=== PATIENT | female | born 1940 | race Caucasian/White ===

== ENCOUNTER 2023-08-02 11:16 | Outpatient (REF) | payer MEDICARE, SELFPAY ==
[2023-08-02 12:04] LABS: Bilirubin Urine NEGATIVE (NEGATIVE); Blood Urine SMALL (NEGATIVE); Clarity Urine CLEAR (CLEAR); Color Urine LT. YELLOW (YELLOW); Glucose Urine UA NEGATIVE (NEGATIVE); Ketones Urine NEGATIVE (NEGATIVE); Leukocyte Esterase Urine LARGE (NEGATIVE); Nitrite Urine NEGATIVE (NEGATIVE); Protein Urine NEGATIVE (NEG/TRACE); Specific Gravity Urine 1.015 (1.005-1.025); Urobilinogen Urine 0.2 EU/dL (0.2-1.0); pH Urine 8.5 (5.0-9.0)
[2023-08-02 12:26] LABS: RBC Urine 0-2 #/HPF (0-2)
[2023-08-02 12:27] LABS: Bacteria Urine MODERATE #/HPF (NONE SEEN); Crystals Seen? Seen #/HPF (None Seen); Mucus Urine NONE SEEN (NONE SEEN); Squamous Epithelial Cell Urine FEW #/LPF (NONE/RARE)
[2023-08-02 12:29] LABS: Amorphous Sediment Urine FEW
== END 2023-08-02 11:17 | disposition home or self-care (01) ==
LOC: LAB 11:16
PROVIDERS: PCP Nurse Practitioner Family; Visit Provider Family Medicine
DX: N39.0 Urinary tract infection, site not specified (principal)
CPT/HCPCS: 81001; 87086

== ENCOUNTER 2024-04-15 10:28 | Inpatient (IN) | payer MEDICARE, SELFPAY ==
[2024-04-15 10:33] VITALS: BP 104/78; PULSE 80; TEMP 36.8; O2SAT 95; BMI 29.3
--- NOTE | 2024-04-15 10:47 | XR_ITS ---
The [address] [address] Patient Name: MEGAN HERRON MRN: [id number] date: 1940 Sex: F Assigned Patient Location: ER Current Patient Location: ER Accession/Order Number: [id number] Exam Date: 04/15/2024 11:00 Report Date: 04/15/2024 11:55 At the request of: ANAHI WATERS Procedure: XR chest 2V EXAMINATION: XR chest 2V HISTORY: weak COMPARISON: 08/27/2021 TECHNIQUE: PA and lateral FINDINGS: LUNGS: Near complete opacification of the left hemithorax obscuring the hemidiaphragm and heart border. The right lung is clear VASCULATURE: No increased pulmonary vasculature. PLEURA: No pneumothorax CARDIAC: No cardiomegaly or cardiac silhouette abnormality. MEDIASTINUM: No visible mass or adenopathy. BONES: No fracture or visible bone lesion. OTHER: Aortic endograft XR/XR chest 2V IMPRESSION: Near-complete opacification of the left lung, mass versus consolidation versus effusion Electronically authenticated by: NIKI CAREY Date: 04/15/2024 11:55
--- NOTE | 2024-04-15 10:49 | ED_ITS ---
HPI HPI - General Adult General Chief complaint: Weakness Stated complaint: GENERAL WEAKNESS Time Seen by Provider: 04/15/24 10:46 Source: patient and family Mode of arrival: Wheelchair History of Present Illness HPI narrative: Patient is a 83-year-old female Who is presenting to the ER today with chief complaint Generalized weakness for the past 10 days. Patient's had no nausea, vomiting, diarrhea. No fever or chills. No headache.No chest pain, Patient has had mild shortness of breath With exertion. With patient's shortness of breath, She does not wear any Oxygen at home. Patient does live at home with her daughter. Patient uses a walker.. Patient's had no recent falls. No other acute complaints.Patient was hypoxic on room air at 88%. All systems are negative except as noted/marked. All systems reviewed and otherwise negative. Nurses note and vital signs reviewed and patient is Hypoxic at 88% room air General: The patient appears well and in no apparent distress. Patient is resting comfortably on cart. Patient is not toxic, lethargic, or listless Skin: Warm, dry, no pallor noted. There is no rash noted. No petechiae, purpura. Head: Normocephalic, atraumatic Eye: Normal conjunctiva, no drainage, EOMI. PERRL Ears, Nose, Mouth, and Throat: oral mucosa is dry. Nares patent. Mouth without vesicles. Cardiovascular: Regular Rate and Rhythm, no murmur, gallop, rub Respiratory: Patient is in no distress, no accessory muscle use, lungs are clear to auscultation, no wheezing, rales or rhonchi Back: non-tender, no CVA tenderness bilaterally to percussion. No CT LS midline pain GI: no tenderness to palpation, no masses appreciated. No rebound, guarding, or rigidity noted. No distention Musculoskeletal: Patient has full range of motion of all of the extremities, no motor, sensory, or focal neurological deficits Neurological: A&O x4, normal speech Psychiatric: Cooperative Related Data Home Medications ?Medication ?Instructions ?Recorded ?Confirmed amiodarone 200 mg tablet 200 mg PO DAILY 04/15/24 04/15/24 docusate sodium 100 mg capsule 100 mg PO DAILY 04/15/24 04/15/24 (Colace) furosemide 40 mg tablet 40 mg PO DAILY 04/15/24 04/15/24 metoprolol tartrate 25 mg tablet 25 mg PO BID 04/15/24 04/15/24 potassium chloride 20 mEq 20 meq PO BID 04/15/24 04/15/24 tablet,extended release(part/cryst) trazodone 50 mg tablet 100 mg PO QPM 04/15/24 04/15/24 Allergies Allergy/AdvReac Type Severity Reaction Status Date / Time No Known Drug Allergies Allergy Verified 04/15/24 10:37 Opioid HPI Opioid Management Most Recent Opioid Data: Last Pain Assessment 04/15/24 19:00 Last ORT Total Score 4 04/15/24 15:09 Last ORT Risk Category Moderate Risk 04/15/24 15:09 [facility] Medical History (Updated 04/15/24 @ 15:18 by Debra Puentes RN) Prolapsed bladder Weakness ?R53.1 - Weakness (ICD-10) Lung mass ?R91.8 - Other nonspecific abnormal finding of lung field (ICD-10) Thoracic aortic aneurysm without rupture ?I71.20 - Thoracic aortic aneurysm, without rupture, unspecified (ICD-10) CHF (congestive heart failure) ?I50.9 - Heart failure, unspecified (ICD-10) Afib ?I48.91 - Unspecified atrial fibrillation (ICD-10) Family History (Updated 04/15/24 @ 15:19 by Debra Puentes RN) Sister Family history of cancer Mother Family history of CHF (congestive heart failure) Aunt Family history of CHF (congestive heart failure) Social History (Updated 04/15/24 @ 15:20 by Debra Puentes RN) Within the past year, how often did you have a drink containing alcohol: monthly or less Smoking status: Former smoker Non-prescribed substance use: denies use Highest level of school completed/degree received: high school graduate Exam Constitutional Vital Signs, click to edit/add: Last Vital Signs Temp 98.1 F 04/15/24 15:09 Pulse 71 04/15/24 15:09 Resp 18 04/15/24 15:09 BP 153/86 H 04/15/24 15:09 Pulse Ox 89 L 04/15/24 15:09 O2 Del Method Nasal Cannula 04/15/24 15:09 O2 Flow Rate 2 04/15/24 15:09 Course Vital Signs Vital signs: Vital Signs Temperature 98.2 F 04/15/24 10:33 Pulse Rate 80 04/15/24 10:33 Respiratory Rate 20 04/15/24 10:33 Blood Pressure 104/78 04/15/24 10:33 Pulse Oximetry 95 04/15/24 10:33 Oxygen Delivery Method Room Air 04/15/24 10:33 Temperature 98.1 F 04/15/24 15:09 Pulse Rate 71 04/15/24 15:09 Respiratory Rate 18 04/15/24 15:09 Blood Pressure 153/86 H 04/15/24 15:09 Pulse Oximetry 89 L 04/15/24 15:09 Oxygen Delivery Method Nasal Cannula 04/15/24 15:09 Oxygen Delivery Flow Rate 2 04/15/24 15:09 Medical Decision Making MDM Narrative Medical decision making narrative: Patient left lung has complete opacification and there is question of mass versus consolidation versus effusion. Patient has no signs of acute infection, cough or infiltrate. Patient does not have fluid in her left lung before.Patient has been told that she has nodules in her left lung before, but nothing specific. I did speak to her son on the phone as well, Dr. Presley Who is an ER physician as well. Patient will be admitted secondary to hypoxia and opacification of left lung. Patient will be admitted to Dr. De León CTA Of the chest, abdomen, pelvis has been ordered For reevaluation of mass versus effusion to the left lung, also secondary to Evaluation of thoracic aneurysm repair to the thoracic aorta.Patient was concerned about her repair, patient is not showing any significant symptoms or problems with her left thoracic Aneurysm but this will be ordered to reevaluate. Patient's son Dr. Presley was thankful as well. Dr. De León will follow-up with the results Lab Data Lab results reviewed: Yes I reviewed the patient's lab results Labs: Lab Results 04/15/24 Range/Units 10:38 WBC 9.5 (4.0-11.0) 10^3/uL RBC 4.09 L (4.20-5.40) 10^6/uL Hgb 12.2 (12.0-16.0) g/dL Hct 38.4 (36.0-48.0) % MCV 93.9 (81.0-99.0) fL MCH 29.8 (26.7-34.0) pg MCHC 31.8 (29.9-35.2) g/dL RDW 13.6 (11.0-15.0) % Plt Count 402 (150-450) 10^3/uL MPV 9.9 (9.5-13.5) fL Neut % (Auto) 73.8 (43.0-75.0) % Lymph % (Auto) 15.9 L (20.5-60.0) % [place] % (Auto) 8.8 (1.7-12.0) % Eos % (Auto) 0.8 L (0.9-7.0) % Baso % (Auto) 0.4 (0.2-2.0) % Neut # (Auto) 7.0 H (1.4-6.5) 10^3/uL Lymph # (Auto) 1.5 (1.2-3.8) 10^3/uL [place] # (Auto) 0.8 (0.3-0.8) 10^3/uL Eos # (Auto) 0.1 (0.0-0.7) 10^3/uL Baso # (Auto) 0.0 (0.0-0.1) 10^3/uL Abs Immat Gran (auto) 0.03 (0.00-0.03) 10^3/uL Imm/Tot Granulo (auto) 0.3 (0.0-0.5) % ESR 87 H (<=30) mm/hr PT 10.9 (9.0-11.6) sec INR 1.03 APTT 31.0 (22.3-36.2) sec Sodium 137 (136-145) mmol/L Potassium 3.6 (3.5-5.1) mmol/L Chloride 98 (98-107) mmol/L Carbon Dioxide 32.7 H (21.0-32.0) mmol/L Anion Gap 9.9 BUN 18.0 (7.0-18.0) mg/dL Creatinine 1.04 H (0.55-1.02) mg/dL Est GFR ( Amer) >60 (>=60) Est GFR (Non-Af Amer) 50 L (>=60) BUN/Creatinine Ratio 17.3 Glucose 111 H (74-106) mg/dL Lactate 1.7 (0.4-2.0) mmol/L Calcium 9.0 (8.5-10.1) mg/dL Magnesium 2.4 (1.8-2.4) mg/dL Total Bilirubin 0.7 (0.2-1.0) mg/dL AST 23 (15-37) U/L ALT 16 (14-59) U/L Alkaline Phosphatase 86 (46-116) U/L Troponin I High Sens 6.9 (4.0-51.3) pg/mL C-Reactive Protein 8.58 H (<=0.50) mg/dL NT-Pro-B Natriuret Pep 1336.0 (<=1800.0) pg/mL Total Protein 7.4 (6.4-8.2) g/dL Albumin 2.8 L (3.4-5.0) g/dL Globulin 4.6 g/dL Albumin/Globulin Ratio 0.6 Lipase 18.0 (16.0-77.0) U/L TSH 1.910 (0.358-3.740) uIU/mL Thyroxine (T4) 12.30 (4.80-13.90) ug/dL Free T3 1.99 L (2.18-3.98) pg/mL Imaging Data CT scan - pelvis: Radiologist's impression: ITS Impressions Chest X-Ray 04/15/24 10:47 IMPRESSION: Near-complete opacification of the left lung, mass versus consolidation versus effusion Electronically authenticated by: NIKI CAREY Date: 04/15/2024 11:55 ECG Data Attestation: I personally reviewed and interpreted this ECG as follows: (EKG interpretation. Normal sinus rhythm 81 beats a minute. Left axis deviation. No acute ST elevation, no acute ectopy. QTc of 441) Discharge Plan Discharge Chief Complaint: Weakness Clinical Impression: Hypoxia, Pleural effusion Patient Disposition: Admitted As Inpatient Time of Disposition Decision: 14:10 Condition: Fair Discharge Date/Time: 04/15/24 14:49
--- NOTE | 2024-04-15 10:49 | ECG_ITS ---
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
[2024-04-15 10:59] LABS: Basophils Percent Auto 0.4 % (0.2-2.0); Eosinophils Absolute Auto 0.1 10^3/uL (0.0-0.7); Eosinophils Percent Auto 0.8 % (0.9-7.0); Hematocrit 38.4 % (36.0-48.0); Hemoglobin 12.2 g/dL (12.0-16.0); Immature Granulocytes Abs Auto 0.03 10^3/uL (0.00-0.03); Immature Granulocytes Pct Auto 0.3 % (0.0-0.5); Lymphocytes Absolute Auto 1.5 10^3/uL (1.2-3.8); Lymphocytes Percent Auto 15.9 % (20.5-60.0); Mean Corpuscular HGB Conc 31.8 g/dL (29.9-35.2); Mean Corpuscular Hemoglobin 29.8 pg (26.7-34.0); Mean Corpuscular Volume 93.9 fL (81.0-99.0); Mean Platelet Volume 9.9 fL (9.5-13.5); Monocytes Absolute Auto 0.8 10^3/uL (0.3-0.8); Monocytes Percent Auto 8.8 % (1.7-12.0); Neutrophils Percent Auto 73.8 % (43.0-75.0); Platelet Count 402 10^3/uL (150-450); Red Blood Count 4.09 10^6/uL (4.20-5.40); Red Cell Distribution Width 13.6 % (11.0-15.0); White Blood Count 9.5 10^3/uL (4.0-11.0)
[2024-04-15 11:13] LABS: Alanine Aminotransferase 16 U/L (14-59); Albumin Globulin Ratio 0.6; Albumin Level 2.8 g/dL (3.4-5.0); Alkaline Phosphatase 86 U/L (46-116); Anion Gap 9.9; Aspartate Amino Transferase 23 U/L (15-37); BUN Creatinine Ratio 17.3; Bilirubin Total 0.7 mg/dL (0.2-1.0); Carbon Dioxide 32.7 mmol/L (21.0-32.0); Chloride 98 mmol/L (98-107); Estimated GFR (African America >60 (>=60); Estimated GFR (Non-African Ame 50 (>=60); Globulin 4.6 g/dL; Glucose 111 mg/dL (74-106); Magnesium 2.4 mg/dL (1.8-2.4); Potassium 3.6 mmol/L (3.5-5.1); Sodium 137 mmol/L (136-145); Total Protein 7.4 g/dL (6.4-8.2); Troponin I High Sensitivity 6.9 pg/mL (4.0-51.3)
[2024-04-15] MEDS: 0.9 % SODIUM CHLORIDE 1,000 ML 999 ML IV (11:26)
--- NOTE | 2024-04-15 14:51 | CT_ITS ---
[address] [address] Patient Name: MEGAN HERRON MRN: [id number] date: 1940 Sex: F Assigned Patient Location: MS Current Patient Location: MS Accession/Order Number: [id number] Exam Date: 04/15/2024 16:45 Report Date: 04/15/2024 18:28 At the request of: ANAHI WATERS Procedure: CT angio chest CTA CHEST, ABDOMEN AND PELVIS. INDICATION: left effusion COMPARISON: CTA chest dated 05/25/2020 TECHNIQUE: CTA of chest, abdomen, and pelvis with early intravenous contrast material and no oral contrast. Multiplanar reformats created by the technologist .Approximately ML ml Omnipaque 350 was administered intravenously. 3-D vascular images were constructed on a separate workstation. FINDINGS: AORTA: There is a 2.9 cm infrarenal abdominal aortic aneurysm. No aortic dissection. Patent descending thoracic aorta endoluminal stent graft. PULMONARY ARTERIES: No intraluminal filling defect. CELIAC/SMA/LAKE: Patent. RENAL ARTERIES: Patent. ILIAC ARTERIES: Patent. LUNGS: There is a left perihilar cystic mass which measures approximately 6.5 x 6.3 cm. There is collapse of the left lung. There is a large low density left pleural effusion. There is nodular pleural thickening in the left posterior lower lung. No pneumothorax. HEART: No cardiomegaly. No pericardial effusion. MEDIASTINUM: No discrete mass. LYMPH NODES: No enlarged mediastinal lymph nodes by CT criteria. LIVER/BILIARY TREE:There is a low-density heterogeneous lesion in the left hepatic lobe measuring 2.4 cm. There is peripheral enhancement. No intrahepatic ductal dilatation. GALLBLADDER:No significant gallbladder wall thickening. Cholelithiasis. CBD:Normal CBD. SPLEEN: Normal in size. PANCREAS: Normal. ADRENALS: Normal. KIDNEYS: There is moderate bilateral hydronephrosis and hydroureter without calcified obstructing ureteral stone. No radiopaque calculus. STOMACH AND BOWEL: Stomach is unremarkable. No dilated bowel loops. No bowel wall thickening. APPENDIX: Not well-visualized. PERITONEAL CAVITY: No fluid. No inflammation. ABDOMINAL WALL: No subcutaneous stranding. No subcutaneous fluid collection. PELVIS: No acute abnormality. MUSCULOSKELETAL: No acute osseous abnormality. CT/CT angio chest IMPRESSION: . 1. Left perihilar cystic mass with collapse of the left lung suspicious for neoplasm. 2. Large left pleural effusion. Nodular pleural thickening in the left lower lung suspicious for neoplasm. 3. Infrarenal abdominal aorta 2.9 cm aneurysm. No aortic dissection. 4. Moderate bilateral hydronephrosis and hydroureter without calcified obstructing ureteral stone. Electronically authenticated by: GREYSON MACIAS Date: 04/15/2024 18:28
--- NOTE | 2024-04-15 14:51 | CT_ITS ---
[address] [address] Patient Name: MEGAN HERRON MRN: [id number] date: 1940 Sex: F Assigned Patient Location: MS Current Patient Location: MS Accession/Order Number: [id number] Exam Date: 04/15/2024 16:45 Report Date: 04/15/2024 18:28 At the request of: ANAHI WATERS Procedure: CT angio abdomen pelvis CTA CHEST, ABDOMEN AND PELVIS. INDICATION: left effusion COMPARISON: CTA chest dated 05/25/2020 TECHNIQUE: CTA of chest, abdomen, and pelvis with early intravenous contrast material and no oral contrast. Multiplanar reformats created by the technologist .Approximately ML ml Omnipaque 350 was administered intravenously. 3-D vascular images were constructed on a separate workstation. FINDINGS: AORTA: There is a 2.9 cm infrarenal abdominal aortic aneurysm. No aortic dissection. Patent descending thoracic aorta endoluminal stent graft. PULMONARY ARTERIES: No intraluminal filling defect. CELIAC/SMA/LAKE: Patent. RENAL ARTERIES: Patent. ILIAC ARTERIES: Patent. LUNGS: There is a left perihilar cystic mass which measures approximately 6.5 x 6.3 cm. There is collapse of the left lung. There is a large low density left pleural effusion. There is nodular pleural thickening in the left posterior lower lung. No pneumothorax. HEART: No cardiomegaly. No pericardial effusion. MEDIASTINUM: No discrete mass. LYMPH NODES: No enlarged mediastinal lymph nodes by CT criteria. LIVER/BILIARY TREE:There is a low-density heterogeneous lesion in the left hepatic lobe measuring 2.4 cm. There is peripheral enhancement. No intrahepatic ductal dilatation. GALLBLADDER:No significant gallbladder wall thickening. Cholelithiasis. CBD:Normal CBD. SPLEEN: Normal in size. PANCREAS: Normal. ADRENALS: Normal. KIDNEYS: There is moderate bilateral hydronephrosis and hydroureter without calcified obstructing ureteral stone. No radiopaque calculus. STOMACH AND BOWEL: Stomach is unremarkable. No dilated bowel loops. No bowel wall thickening. APPENDIX: Not well-visualized. PERITONEAL CAVITY: No fluid. No inflammation. ABDOMINAL WALL: No subcutaneous stranding. No subcutaneous fluid collection. PELVIS: No acute abnormality. MUSCULOSKELETAL: No acute osseous abnormality. CT/CT angio abdomen pelvis IMPRESSION: . 1. Left perihilar cystic mass with collapse of the left lung suspicious for neoplasm. 2. Large left pleural effusion. Nodular pleural thickening in the left lower lung suspicious for neoplasm. 3. Infrarenal abdominal aorta 2.9 cm aneurysm. No aortic dissection. 4. Moderate bilateral hydronephrosis and hydroureter without calcified obstructing ureteral stone. Electronically authenticated by: GREYSON MACIAS Date: 04/15/2024 18:28
--- NOTE | 2024-04-15 14:54 | CA_ITS ---
Patient Name: MEGAN HERRON MR#: [id number] : 1940 Exam Date: 04/16/2024 Ordering Doctor: DR BREE KELLOGG . ECHOCARDIOGRAM REPORT PROCEDURE: CA ECHO DOPPLER COMPLETE INDICATIONS: Dyspnea COMPARISON: None. DESCRIPTION: COMPLETE ECHOCARDIOGRAM Real-time transthoracic echocardiography with 2D, M-mode, spectral and color flow Doppler performed. QUALITY: Technical quality was limited. LEFT VENTRICLE: Normal chamber size. Mild concentric left ventricular hypertrophy. LV EF: Global left ventricular systolic function is difficult to assess but appears hyperdynamic; visually estimated ejection fraction 65 to 70%. Unable to assess regional wall motion abnormalities. DIASTOLIC: Diastolic function is indeterminate. ATRIAL SEPTUM: Inadequately seen. LEFT ATRIUM: Appears enlarged. RIGHT ATRIUM: Not well visualized. RIGHT VENTRICLE: Not well visualized. Appears normal in size and systolic function. TRICUSPID VALVE: Grossly normal. No evidence of pulmonary hypertension. RVSP 15mmHg MITRAL VALVE: Normal mobility and thickness. No evidence of mitral valve stenosis. There is no mitral annular calcification. No mitral regurgitation. AORTIC VALVE: Grossly normal. No evidence of aortic valve stenosis. No aortic regurgitation. AORTIC ROOT: Normal diameter and appearance. PULMONIC VALVE: Grossly normal. No stenosis. No regurgitation. PERICARDIUM: Anterior free space; trivial effusion versus fat pad. IVC: Normal in size with partial collapse. PLEURA: Large left pleural effusion with organized material is seen. CONCLUSION: 1. Global left ventricular systolic function is difficult to assess but appears hyperdynamic; visually estimated ejection fraction is 65 to 70% 2. The right ventricle is poorly seen; it appears normal in size and systolic function 3. Mildly increased left ventricular wall thickness 4. Diastolic function is indeterminate 5. The left atrium appears enlarged 6. Valves are poorly seen; no obvious valve abnormalities 7. Anterior free space; trivial effusion versus fat pad 8. A large left pleural effusion with organized material is seen Adult Echocardiography Procedure Report Left Ventricle LVEDD (3.7 - 5.6 cm): 3.19 cm LVESD (2.2 - 4.0 cm): 2.22 cm LVIVS thickness (0.6 - 1.2 cm): 1.23 cm LVPW thickness (0.5 - 1.0 cm): 1.21 cm e': 0.08 m/s E - e': 7.01 LVOT Max Gradient: 1.17 mm[Hg] LVOT Area (cm2): 0.54 m/s Peak Velocity (LVOT): 0.54 m/s LVOT Diameter 2.29 cm Left Ventricular Ejection Fraction: 63.45 % Left Atrium LA Volume Index (2D A2C): 29.03 ml/m2 Left Atrium Systolic Dimension: 4.56 cm Mitral Valve MV E to A Ratio: 0.73, 0.78 Mitral Valve A-Wave Peak Velocity: 0.72 m/s Mitral Valve E-Wave Peak Velocity: 0.55 m/s Right Ventricle Aorta AO Root Diam: 3.31 cm Ascending Ao Diam: 2.90 cm Aortic Valve AoV Area (Peak Kevin): 2.57 cm2, 2.57 cm2 Peak Velocity(Antegrade Flow): 0.87 m/s Peak Gradient(Antegrade Flow): 3.00 mm[Hg] Tricuspid Valve Peak Velocity (Regurgitant Flow): 1.76 m/s Pulmonic Valve Peak Velocity: 0.80 m/s Peak Gradient: 2.54 mm[Hg] Right Atrium Dictated by: Queta Larson M.D. on 04/16/2024 at 13:14 Approved by: Queta Larson M.D. on 04/16/2024 at 13:19
[2024-04-15 15:09] VITALS: BP 153/86; PULSE 71; TEMP 36.7; O2SAT 89; BMI 28.8
[2024-04-15 15:36] LABS: Erythrocyte Sedimentation Rate 87 mm/hr (<=30); Lactate/Lactic Acid 1.7 mmol/L (0.4-2.0)
[2024-04-15 15:37] LABS: INR 1.03; Prothrombin Time 10.9 sec (9.0-11.6)
[2024-04-15 16:03] LABS: C Reactive Protein 8.58 mg/dL (<=0.50); Free T3 1.99 pg/mL (2.18-3.98)
[2024-04-15 16:35] LABS: Glucometer 90 mg/dL (74-106)
[2024-04-15] MEDS: CEFTRIAXONE 1,000 MG in 0.9 % SODIUM CHLORIDE 50 ML 100 MG IV (17:17)
[2024-04-15] MEDS: FUROSEMIDE 40 MG/4 ML VIAL IVP (17:17)
[2024-04-15 18:21] LABS: Bilirubin Urine NEGATIVE (NEGATIVE); Blood Urine NEGATIVE (NEGATIVE); Clarity Urine CLEAR (CLEAR); Color Urine YELLOW (YELLOW); Glucose Urine UA NEGATIVE (NEGATIVE); Ketones Urine TRACE mg/dL (NEGATIVE); Leukocyte Esterase Urine TRACE (NEGATIVE); Nitrite Urine NEGATIVE (NEGATIVE); Protein Urine NEGATIVE (NEG/TRACE); Specific Gravity Urine 1.015 (1.005-1.025); Urobilinogen Urine 0.2 EU/dL (0.2-1.0)
--- NOTE | 2024-04-15 18:23 | P.HP_ITS ---
HPI H&P: HPI History of Present Illness Chief complaint: GENERAL WEAKNESS, HYPOXIA Narrative: Patient called the office saying she is having increasing shortness of breath. Recommended her to go to the emergency room. In emergency room found to have acute hypoxia with O2 saturation less than 88%. Initial workup on chest x-ray showed almost complete whiteout of the left lung. CT scan of the chest showed large left pleural effusion and left-sided lung mass. With the degree of hypo dar patient was admitted for workup and treatment of same When I saw patient up on the medical surgical floor the day of admission, patient resting comfortably in bed. Did have some mild labored breathing with conversational dyspnea. No complaints of pain. Denies significant cough, no fever, no chills, no chest pain. Opioid HPI Opioid Management Most Recent Opioid Data: Last Pain Assessment 04/16/24 06:02 Last ORT Total Score 4 04/15/24 15:09 Last ORT Risk Category Moderate Risk 04/15/24 15:09 Review of Systems ROS Status of ROS 10 or more systems reviewed and unremark able except as noted in history and below [facility] Medical History Prolapsed bladder Weakness ?R53.1 - Weakness (ICD-10) Lung mass ?R91.8 - Other nonspecific abnormal finding of lung field (ICD-10) Thoracic aortic aneurysm without rupture ?I71.20 - Thoracic aortic aneurysm, without rupture, unspecified (ICD-10) CHF (congestive heart failure) ?I50.9 - Heart failure, unspecified (ICD-10) Afib ?I48.91 - Unspecified atrial fibrillation (ICD-10) Family History Sister Family history of cancer Mother Family history of CHF (congestive heart failure) Aunt Family history of CHF (congestive heart failure) Social History Within the past year, how often did you have a drink containing alcohol: monthly or less Smoking status: Former smoker Non-prescribed substance use: denies use Highest level of school completed/degree received: high school graduate Meds Home Medications and Allergies Home Medications ?Medication ?Instructions ?Recorded ?Confirmed ?Type amiodarone 200 mg tablet 200 mg PO DAILY 04/15/24 04/15/24 History docusate sodium 100 mg capsule 100 mg PO DAILY 04/15/24 04/15/24 History (Colace) furosemide 40 mg tablet 40 mg PO DAILY 04/15/24 04/15/24 History metoprolol tartrate 25 mg tablet 25 mg PO BID 04/15/24 04/15/24 History potassium chloride 20 mEq 20 meq PO BID 04/15/24 04/15/24 History tablet,extended release(part/cryst) trazodone 50 mg tablet 100 mg PO QPM 04/15/24 04/15/24 History Allergies Allergy/AdvReac Type Severity Reaction Status Date / Time No Known Drug Allergies Allergy Verified 04/15/24 10:37 Exam Constitutional Vital Signs, click to edit/add: Last Vital Signs Temp 98.1 F 04/15/24 15:09 Pulse 71 04/15/24 15:09 Resp 18 04/15/24 15:09 BP 153/86 H 04/15/24 15:09 Pulse Ox 89 L 04/15/24 15:09 O2 Del Method Nasal Cannula 04/15/24 15:09 O2 Flow Rate 2 04/15/24 15:09 Documenting provider has reviewed patient's vital signs: yes Common normals: apparent distress (Mild conversational dyspnea) Exam limitations: no altered mental status Chest Common normals: inspection of chest normal Respiratory Common normals: abnormal respiratory effort (Mild conversational dyspnea) Effort & inspection: tachypneic Auscultation: breath sounds absent on th left and egophony left upper and left lower Cardio Common normals: regular rate and regular rhythm GI Common normals: Normal to inspection, nondistended, normoactive bowel sounds present Extremity Common normals: normal to inspection and full ROM Results Labs Labs: Short CBC 04/15/24 Range/Units 10:38 WBC 9.5 (4.0-11.0) 10^3/uL Hgb 12.2 (12.0-16.0) g/dL Hct 38.4 (36.0-48.0) % Plt Count 402 (150-450) 10^3/uL BMP 04/15/24 10:38 Sodium 137 Potassium 3.6 Chloride 98 Carbon Dioxide 32.7 H BUN 18.0 Creatinine 1.04 H Glucose 111 H Calcium 9.0 Liver Function 04/15/24 Range/Units 10:38 Total Bilirubin 0.7 (0.2-1.0) mg/dL AST 23 (15-37) U/L ALT 16 (14-59) U/L Alkaline Phosphatase 86 (46-116) U/L Albumin 2.8 L (3.4-5.0) g/dL Assessment and Plan Assessment and Plan (1) Pleural effusion: (2) Hypoxia: (3) Lung mass: (4) Afib: Plan Acute hypoxia with new onset of left-sided pleural effusion with CT scan showing left-sided lung mass-consult pulmonology, check echocardiogram, change diuretics to IV. History of UTI and she has UTI symptoms-will start antibiotics, UA positive with positive nitrates. Awaiting culture History of acute combined congestive heart failure-BNP normal. Diuretics as outlined above for left pleural effusion Bilateral hydronephrosis-will check ultrasound 04/16/2024 Low T3 - T4 and TSH are normal, T4 in the high side so would not supplement T3 at this point History of atrial fibrillation but normal sinus rhythm currently, maintain amiodarone Insomnia-continue with current medications Constipation-continue with current medications Admission status: Patient with new onset large left pleural effusion with acute hypoxia, medically necessary treatment will span [address] patient inpatient status
[2024-04-15 18:29] LABS: Bacteria Urine TRACE #/HPF (NONE SEEN); Mucus Urine TRACE (NONE SEEN); RBC Urine 0-2 #/HPF (0-2); WBC Urine 0-2 #/HPF (NONE SEEN)
[2024-04-15 18:30] LABS: Cast Seen? NONE SEEN #/LPF (NONE SEEN); Crystals Seen? None Seen #/HPF (None Seen); Squamous Epithelial Cell Urine FEW #/LPF (NONE/RARE); Urine Culture Indicated ALREADY ORDERED
[2024-04-15 20:00] VITALS: BP 120/78; PULSE 77; TEMP 36.6; O2SAT 97
[2024-04-15 20:15] VITALS: O2SAT 95
[2024-04-15] MEDS: POTASSIUM CHLORIDE 10 MEQ ER TABLET 20 MEQ PO (20:22)
[2024-04-15] MEDS: TRAZODONE HCL 50 MG TABLET 100 MG PO (20:22)
[2024-04-15] MEDS: METOPROLOL TARTRATE 25 MG TABLET PO (20:22)
[2024-04-15 22:00] VITALS: PULSE 69
[2024-04-15 23:56] VITALS: PULSE 64
[2024-04-16] VITALS (21 sets, daily range): BP systolic 109–164; BP diastolic 70–86; PULSE 65–87; TEMP 36.4–37; O2SAT 82–98
[2024-04-16] MEDS: FUROSEMIDE 40 MG/4 ML VIAL IVP ×2 (05:57→17:33)
[2024-04-16 06:27] LABS: Basophils Percent Auto 0.5 % (0.2-2.0); Eosinophils Absolute Auto 0.1 10^3/uL (0.0-0.7); Eosinophils Percent Auto 1.7 % (0.9-7.0); Hematocrit 35.4 % (36.0-48.0); Hemoglobin 11.4 g/dL (12.0-16.0); Immature Granulocytes Abs Auto 0.02 10^3/uL (0.00-0.03); Immature Granulocytes Pct Auto 0.3 % (0.0-0.5); Lymphocytes Absolute Auto 1.4 10^3/uL (1.2-3.8); Lymphocytes Percent Auto 17.9 % (20.5-60.0); Mean Corpuscular HGB Conc 32.2 g/dL (29.9-35.2); Mean Corpuscular Hemoglobin 30.4 pg (26.7-34.0); Mean Corpuscular Volume 94.4 fL (81.0-99.0); Mean Platelet Volume 9.5 fL (9.5-13.5); Monocytes Absolute Auto 0.8 10^3/uL (0.3-0.8); Monocytes Percent Auto 10.7 % (1.7-12.0); Neutrophils Absolute Auto 5.2 10^3/uL (1.4-6.5); Neutrophils Percent Auto 68.9 % (43.0-75.0); Platelet Count 322 10^3/uL (150-450); Red Blood Count 3.75 10^6/uL (4.20-5.40); Red Cell Distribution Width 13.7 % (11.0-15.0); White Blood Count 7.6 10^3/uL (4.0-11.0)
[2024-04-16 06:37] LABS: Anion Gap 10.2; Calcium 8.4 mg/dL (8.5-10.1); Carbon Dioxide 31.7 mmol/L (21.0-32.0); Chloride 99 mmol/L (98-107); Estimated GFR (African America >60 (>=60); Estimated GFR (Non-African Ame >60 (>=60); Glucose 95 mg/dL (74-106); Potassium 3.9 mmol/L (3.5-5.1); Sodium 137 mmol/L (136-145)
--- NOTE | 2024-04-16 06:50 | P.PN_ITS ---
Progress Note: Subjective Subjective Interval history: Up in chair. No complaints. Breathing better as long as she is on the supplemental oxygen Exam Constitutional Vital Signs, click to edit/add: Last Vital Signs Temp 97.7 F 04/16/24 04:00 Pulse 81 04/16/24 06:00 Resp 18 04/16/24 04:00 BP 164/76 H 04/16/24 04:00 Pulse Ox 82 L 04/16/24 06:42 O2 Del Method Room Air 04/16/24 06:42 O2 Flow Rate 1 04/16/24 04:19 Documenting provider has reviewed patient's vital signs: yes Common normals: apparent distress (Mild conversational dyspnea) Exam limitations: no altered mental status Chest Common normals: inspection of chest normal Respiratory Common normals: abnormal respiratory effort (Mild conversational dyspnea) Effort & inspection: tachypneic Auscultation: breath sounds absent on th left and egophony left upper and left lower Cardio Common normals: regular rate and regular rhythm GI Common normals: Normal to inspection, nondistended, normoactive bowel sounds present Extremity Common normals: normal to inspection and full ROM Progress Note: Objective Labs Labs: Short CBC 04/15/24 04/16/24 Range/Units 10:38 06:20 WBC 9.5 7.6 (4.0-11.0) 10^3/uL Hgb 12.2 11.4 L (12.0-16.0) g/dL Hct 38.4 35.4 L (36.0-48.0) % Plt Count 402 322 (150-450) 10^3/uL BMP 04/15/24 04/16/24 10:38 06:20 Sodium 137 137 Potassium 3.6 3.9 Chloride 98 99 Carbon Dioxide 32.7 H 31.7 BUN 18.0 16.0 Creatinine 1.04 H 0.84 Glucose 111 H 95 Calcium 9.0 8.4 L Liver Function 04/15/24 Range/Units 10:38 Total Bilirubin 0.7 (0.2-1.0) mg/dL AST 23 (15-37) U/L ALT 16 (14-59) U/L Alkaline Phosphatase 86 (46-116) U/L Albumin 2.8 L (3.4-5.0) g/dL Urine 04/15/24 Range/Units 18:05 Urine Color Yellow (YELLOW) Urine Clarity Clear (CLEAR) Urine pH 7.0 (5.0-9.0) Ur Specific [place] 1.015 (1.005-1.025) Urine Protein Negative (NEG/TRACE) mg/dL Urine Glucose (UA) Negative (NEGATIVE) mg/dL Progress Note: A&P Assessment and Plan (1) Pleural effusion: (2) Hypoxia: (3) Lung mass: (4) Afib: Plan Acute hypoxia with new onset of left-sided pleural effusion with CT scan showing left-sided lung mass-disc with family and pulmonology on plan for possible thoracentesis later today. This to be therapeutic and diagnostic. Since Oncology Is here today for possible consult patient oncology as well History of UTI and she has UTI symptoms-will start antibiotics, UA positive with positive nitrates. Awaiting culture History of acute combined congestive heart failure-BNP normal. Diuretics as outlined above for left pleural effusion Bilateral hydronephrosis-will check ultrasound today Low T3 - T4 and TSH are normal, T4 in the high side so would not supplement T3 at this point History of atrial fibrillation but normal sinus rhythm currently, maintain amio darone Insomnia-continue with current medications Constipation-continue with current medications Admission status: Patient with new onset large left pleural effusion with acute hypoxia, medically necessary treatment will span [address] patient inpatient status
--- NOTE | 2024-04-16 06:51 | US_ITS ---
[address] [address] Patient Name: MEGAN HERRON MRN: [id number] date: 1940 Sex: F Assigned Patient Location: [place] Current Patient Location: [place] Accession/Order Number: [id number] Exam Date: 04/16/2024 13:40 Report Date: 04/16/2024 14:21 At the request of: BREE KELLOGG Procedure: US renal bladder EXAMINATION: US renal bladder HISTORY: bilateral hydro - please do PVR also COMPARISON: No relevant comparison available. TECHNIQUE: Ultrasound examination was performed of the bladder. FINDINGS: Right Kidney: Normal in size and contour. The cortex measures 0.7 cm. No solid cortical mass or obstructing nephrolithiasis. Moderate hydronephrosis. Height: 5.4 cm Length: 9.6 cm Width: 5.2 cm Left Kidney: Normal in size and contour. The cortex measures 0.7 cm. No solid cortical mass or obstructing nephrolithiasis. Moderate hydronephrosis Height: 5.3 cm Length: 9.7 cm Width: 5.1 cm Urinary bladder: Prevoid volume 155 mL. Post void volume 13 mL Ureteral jets: Not visualized No free fluid US/US renal bladder IMPRESSION: Bilateral renal cortical atrophy Moderate bilateral hydronephrosis Electronically authenticated by: NIKI CAREY Date: 04/16/2024 14:21
--- NOTE | 2024-04-16 09:38 | PM.PLCN ---
History of Present Illness History of Present Illness Consult date: 04/16/24 Reason for consult: pleural effusion Chief complaint: GENERAL WEAKNESS, HYPOXIA Narrative: 83yo female presented to [facility] ER yesterday (04/15/2024) with weakness and dyspnea. She was hypoxic on RA with SpO2 88% - she is not on O2 at home and does not have a prior pulmonary history. A CXR was one which noted near complete opacification of the left hemithorax. This was followed up with a chest CT which noted a 6.5cm left perihilar cystic mass, a large left pleural effusion, and nodular pleural thickening in the left posterior lower lung. Reviewed past imaging reports. CXR 10/19/2020 notes a 3 x 2.3cm FALGUNI nodule/mass, which increased in size to 03/28/2024 to 5 x 3cm and further increased in size to 08/27/2021. A prior chest CT 05/25/2020 was pulled out of archive and reviewed (most recent chest CT available for comparison) which noted a consolidation @ 4.3 x 3cm. 1 month prior, chest CT 04/30/2020 noted a 4.2 x 2.5cm mass. The earliest imaging retrieved from archives is a CXR 04/10/2018 which noted a FALGUNI linear opacity. I originally saw the patient ~07:15AM. I asked the patient what she was told about the chest CT & CXR done in ER yesterday, which she stated there was fluid around the lung. When I asked her about the lung mass, she did not recall any knowledge about it. I described the findings to her. I discussed options of what to do, including diagnostic/therapeutic thoracentesis. Also discussed bronchoscopy as an option to biopsy the lung mass, but I recommended against that as an initial approach because if it is fluid-filled, it could flood the airways. The patient them developed a somewhat nasty demeanor and stated that she did not want anything done. I mentioned that Dr. De León was contemplating consulting an oncologist. She stated that she did not want to see an oncologist. I reviewed with the patient that this could be cancer and by refusing any intervention, then she must acknowledge the risk is delay of a diagnosis. She answered that she did not have cancer . I also mentioned that she may remain short of breath without removal of the fluid. She replied I'm fine because they fixed my oxygen! I answered because they had to put you on oxygen! After that, I left the room. I received notification from Dr. De León that the daughter is now present and the patient is more amenable to have a thoracentesis done. I returned to the room ~12:45PM and the daughter was there. The patient stated she was agreeable to the thoracentesis. I reviewed the procedure once again with the patient and now with her daughter present. The patient asked some fairly specific questions (e.g. what is the annual incidence of pleural effusions) but then I had to repeat myself several times on the risks and specifics of the procedure. Review of Systems ROS Status of ROS 10 or more systems reviewed and unremarkable except as noted in history and below (Short of breath, fatigue) [facility] Medical History Prolapsed bladder Weakness ?R53.1 - Weakness (ICD-10) Lung mass ?R91.8 - Other nonspecific abnormal finding of lung field (ICD-10) Thoracic aortic aneurysm without rupture ?I71.20 - Thoracic aortic aneurysm, without rupture, unspecified (ICD-10) CHF (congestive heart failure) ?I50.9 - Heart failure, unspecified (ICD-10) Afib ?I48.91 - Unspecified atrial fibrillation (ICD-10) Family History Sister Family history of cancer Mother Family history of CHF (congestive heart failure) Aunt Family history of CHF (congestive heart failure) Social History Within the past year, how often did you have a drink containing alcohol: monthly or less Smoking status: Former smoker Non-prescribed substance use: denies use Highest level of school completed/degree received: high school graduate Meds Home Medications and Allergies Home Medications ?Medication ?Instructions ?Recorded ?Confirmed ?Type amiodarone 200 mg tablet 200 mg PO DAILY 04/15/24 04/15/24 History docusate sodium 100 mg capsule 100 mg PO DAILY 04/15/24 04/15/24 History (Colace) furosemide 40 mg tablet 40 mg PO DAILY 04/15/24 04/15/24 History metoprolol tartrate 25 mg tablet 25 mg PO BID 04/15/24 04/15/24 History potassium chloride 20 mEq 20 meq PO BID 04/15/24 04/15/24 History tablet,extended release(part/cryst) trazodone 50 mg tablet 100 mg PO QPM 04/15/24 04/15/24 History Allergies Allergy/AdvReac Type Severity Reaction Status Date / Time No Known Drug Allergies Allergy Verified 04/15/24 10:37 Exam Constitutional Vital Signs, click to edit/add: Last Vital Signs Temp 97.7 F 04/16/24 08:05 Pulse 86 04/16/24 08:05 Resp 18 04/16/24 08:05 BP 125/86 04/16/24 08:05 Pulse Ox 93 L 04/16/24 08:05 O2 Del Method Nasal Cannula 04/16/24 08:05 O2 Flow Rate 2 04/16/24 08:05 Documenting provider has reviewed patient's vital signs: yes Common normals: no apparent distress HENMT Other: Wearing nasal cannula Chest Other: Mild thoracic kyphosis Respiratory Other: Diminished breath sounds with dullness to percussion and egophony lower 2/3 left chest. Cardio Other: RRR Extremity Common normals: normal to inspection Neuro Motor exam: no tremor noted and no fasciculations Psych Other: Patient became nasty detention through the conversation. I had to repeat myself several times in front of her daughter. Question degree of cognitive decline. Results Laboratory Findings ABG, PT/INR, D-dimer: PT/INR, D-dimer PT 10.9 sec (9.0-11.6) 04/15/24 10:38 INR 1.03 04/15/24 10:38 Abnormal lab findings: Abnormal Labs 04/15/24 04/15/24 04/16/24 10:38 18:05 06:20 RBC 4.09 L 3.75 L Hgb 11.4 L Hct 35.4 L Lymph % (Auto) 15.9 L 17.9 L Eos % (Auto) 0.8 L Neut # (Auto) 7.0 H ESR 87 H Carbon Dioxide 32.7 H Creatinine 1.04 H Est GFR (Non-Af Amer) 50 L Glucose 111 H Calcium 8.4 L C-Reactive Protein 8.58 H Albumin 2.8 L Free T3 1.99 L Urine Ketones Trace A Ur Leukocyte Esterase Trace A Urine WBC 0-2 A Ur Squamous Epith Cells Few A Urine Bacteria Trace A Urine Mucus Trace A Assessment and Plan Assessment and Plan (1) Pleural effusion: Assessment and Plan: Large left pleural effusion. History of pleural effusions in the past. Daughter stated patient had a thoracentesis in the past, which the patient could not remember...was associated with aortic aneurysm repair? Regardless, there is a significant left-sided effusion - very little lung available for air exchange in my opinion - breathing nearly entirely from right lung. With left-sided lung mass and unilateral nature, cannot R/O malignant effusion. Recommended diagnostic and therapeutic thoracentesis. Risks discussed include pain, bleeding, infection, and pneumothorax which could result in a thoracostomy tube. Patient originally refused thoracentesis, but now voiced agreement. Reviewed risks again with daughter. Plan on thoracentesis tomorrow. Concerned how long fluid has been accumulating. If long-term, adhesions may be present (especially if malignant) which increase risk of pneumothorax. I discussed with and daughter that if she begins to develop any pain, dyspnea, or coughing that I will stop the thoracentesis at that time regardless of how much fluid is removed. (2) Acute hypoxemic respiratory failure: Assessment and Plan: Secondary to pleural effusion. Depending on how much fluid may be removed, this may resolve. (3) Mass of upper lobe of left lung: Assessment and Plan: Abnormal opacity present at least from 04/10/2018 CXR as a linear opacity which developed into a slowly increasing mass on repeat chest CT. Last chest CT 05/25/2020 was 4.3cm and now it is 6.5 and cystic - slow growing adenocarcinoma? Necrotic fluid? Other process non-malignant? Will need PET outpatient regardless of cytology results. (4) Afib: Assessment and Plan: Patient is not on any DOAC/warfarin or ASA, so can proceed with thoracentesis.
[2024-04-16] MEDS: POTASSIUM CHLORIDE 10 MEQ ER TABLET 20 MEQ PO ×2 (10:16→21:25)
[2024-04-16] MEDS: DOCUSATE SODIUM 100 MG CAPSULE PO (10:16)
[2024-04-16] MEDS: METOPROLOL TARTRATE 25 MG TABLET PO ×2 (10:16→21:25)
[2024-04-16] MEDS: AMIODARONE HCL 200 MG TABLET PO (10:16)
--- NOTE | 2024-04-16 11:50 | SWNOTE1 ---
ROXANNA met with pt and daughter in room. Pt lives at home with her other daughter. She does not wear home oxygen and she uses a walker at all times. Pt does not have any stairs to go up and down at home. ROXANNA spoke to pt and daughter about home health being recommended. Pt voiced she has had them in past, one therapy person showed up and the other never showed. ROXANNA provided pt and daughter (daughter she does not live with) with a HH list from medicare.gov. She voiced they will review and let SW know. Important Message from Medicare reviewed and discussed with patient. Pt. verbalized understanding and signed the form. Original given to patient and copy placed in patient?s chart.
--- NOTE | 2024-04-16 11:59 | SWNOTE1 ---
SW stopped back in and pt has now decided she does not want HH, she is refusing at this time. SW to stop back in tomorrow to check again. SW did ask pt about health care POA. Pt voiced she does have it. Daughter is calling the other daughter to have her bring it in.
[2024-04-16] MEDS: 0.9 % SODIUM CHLORIDE 250 ML 10 ML IV (17:33)
[2024-04-16] MEDS: CEFTRIAXONE 1,000 MG in 0.9 % SODIUM CHLORIDE 50 ML 100 MG IV (17:33)
[2024-04-16] MEDS: POLYETHYLENE GLYCOL 3350 17 GM POWDER PACKET PO (17:34)
[2024-04-16] MEDS: ACETAMINOPHEN 500 MG TABLET 1000 MG PO (21:25)
[2024-04-16] MEDS: TRAZODONE HCL 50 MG TABLET 100 MG PO (21:26)
--- NOTE | 2024-04-16 21:31 | PC.NURSE ---
Attempted IV restarat X2 unsuccessful. Pt states that she does not want any more pokes
[2024-04-17] VITALS (22 sets, daily range): BP systolic 105–118; BP diastolic 67–77; PULSE 60–75; TEMP 36.4–36.8; O2SAT 92–95; BMI 28.2
--- NOTE | 2024-04-17 04:43 | PC.NURSE ---
pt refused to let lab draw her blood for morning labs stating, it does not matter what it is because I'm going [place] today anyway. Abby from lab asked if she could just look to see if she could see a vein and RN tried to educate patient on the importance for the doctor to see what her labs are this morning. Pt was not receptive and continued to refuse. Night hospitalist made aware.
--- NOTE | 2024-04-17 07:39 | XR_ITS ---
The [address] [address] Patient Name: MEGAN HERRON MRN: [id number] date: 1940 Sex: F Assigned Patient Location: MS Current Patient Location: MS Accession/Order Number: [id number] Exam Date: 04/17/2024 07:51 Report Date: 04/17/2024 08:14 At the request of: REINA BOTELLO Procedure: XR chest 1V EXAM: XR chest 1V HISTORY: Left pleural effusion s/p Thoracentesis-1275mL out COMPARISON: 04/15/2024 plain x-ray and CT TECHNIQUE: AP portable erect FINDINGS: LUNGS: Low lung volumes. Interval left thoracentesis with improved aeration of the upper lung zone. Focal masslike density measuring 6.6 cm in the left upper lobe. Approximately 40% opacification of the left hemithorax obscuring the diaphragm and heart border VASCULATURE: No increased pulmonary vasculature. PLEURA: No pneumothorax. Left pleural effusion CARDIAC: No cardiomegaly or cardiac silhouette abnormality. MEDIASTINUM: No visible mass or adenopathy. Aortic endograft BONES: No fracture or visible bone lesion. OTHER: Negative. XR/XR chest 1V IMPRESSION: Interval left thoracentesis with improved aeration of the upper lung zone 6.6 cm left upper lobe mass Persistent opacification of the left lung base likely consolidation and residual pleural effusion Electronically authenticated by: NIKI CAREY Date: 04/17/2024 08:14
--- NOTE | 2024-04-17 08:01 | P.ON_ITS ---
Date of procedure: 04/17/24 Procedure: Procedure: Diagnostic & therapeutic ultrasound-guided right-sided thoracentesis Pre/Post-Diagnosis: Left pleural effusion Surgeon: Marquise Miramontes DO Anesthesia: Lidocaine 1% 10mL Estimated Blood Loss: <1mL Specimens: Pleural fluid sent of analysis Complications: Mild nausea after the procedure Consent: Informed consent was obtained after risks, benefits, and alternatives were discussed with the patient. Time out was initiated to confirm the correct celina ent, site, and procedure with all present voicing in the affirmative. Procedure: The patient was placed in the seated position in the hospital bed. Ultrasound was utilized to identify the hemidiaphragm and pleural fluid on the . Tongue sign was present on ultrasound, indicating a large left pleural effusion. An appropriate drainage site was marked via pen, based on anatomical landmarks and the ultrasound findings. Chloraprep was used to cleanse the lower left hemithorax. Sterile drapes were applied. Lidocaine 1% 10mL was injected, first as superficial skin wheal, and then using aspiration technique, advanced over the superior aspect of the lower rib subcutaneously at the periosteum and then parietal pleura. Easy return of robert pleural fluid was aspirated. Next, a small incision was made to the anesthetized area with the blade provided in the prepackaged thoracentesis kit. Hemostasis was achieved. A [id number] apparatus was advanced as a unit over the superior aspect of the lower rib into the pleural space with great care to prevent further progression of the needle into the pleural cavity. The needle was then retracted completely and discarded. A vacuum collection system was attached to the catheter and pleural fluid was collected for analysis. A total of 1275mL of pleural fluid was removed. The procedure was terminated due to coughing. The catheter was then removed during an expiratory breath-hold maneuver. The patient complained of mild nausea after the procedure, but she never had vomiting. Post-procedural chest x-ray was ordered and is pending at the time of this note.
--- NOTE | 2024-04-17 08:16 | P.DS_ITS ---
DS: Providers Provider Date of admission: 04/15/24 14:49 Primary care physician: TRE PETERS Consults: 04/15/24 Consult to Dietitian Routine Reason for consultation: Weight Loss Consult to Electronic Assembly Routine Reason for consult:: Advanced Directives 04/15/24 14:51 Consult to Pulmonology Routine Consulting Provider: Marquise Miramontes Reason for consultation: effusion Has provider been notified: No 04/15/24 14:52 Consult to Pharmacy Routine Consulting Provider: Reason for consultation: Please [place] me when Med Rec is Updated Has provider been notified: No Occupational Therapy Eval and Treat Routine Reason for consultation: Only if needed for Rehab Has provider been notified: No Physical Therapy Eval and Treat Routine Reason for consultation: Eval and Treat Has provider been notified: No DS: Diagnosis Discharge Diagnosis (1) Pleural effusion: (2) Acute hypoxemic respiratory failure: (3) Mass of upper lobe of left lung: (4) Afib: Plan Acute hypoxia with new onset of left-sided pleural effusion with CT scan showing left-sided lung mass-disc with family and pulmonology on plan for possible thoracentesis later today. This to be therapeutic and diagnostic. Since Oncology Is here today for possible consult patient oncology as well History of UTI and she has UTI symptoms-will start antibiotics, UA positive with positive nitrates. Awaiting culture History of acute combined congestive heart failure-BNP normal. Diuretics as outlined above for left pleural effusion Bilateral hydronephrosis-will check ultrasound today Low T3 - T4 and TSH are normal, T4 in the high side so would not supplement T3 at this point History of atrial fibrillation but normal sinus rhythm currently, maintain amiodarone Insomnia-continue with current medications Constipation-continue with current medications Admission status: Patient with new onset large left pleural effusion with acute hypoxia, medically necessary treatment will span [address] patient inpatient status ? DS: Summary Time Spent with Patient Time attestation: Total time spent providing and/or coordinating discharge services: Time spent: greater than 30 minutes Exam Constitutional Vital Signs, click to edit/add: Last Vital Signs Temp 97.6 F 04/17/24 04:00 Pulse 71 04/17/24 07:52 Resp 18 04/17/24 04:00 BP 110/67 04/17/24 04:00 Pulse Ox 93 L 04/17/24 04:00 O2 Del Method Nasal Cannula 04/17/24 04:00 O2 Flow Rate 2 04/17/24 04:00 DS: Data Data Completed and Pending Labs on day of discharge: Preliminary micro results at discharge 04/15/24 18:05 Urine Culture - Preliminary Urine,Clean Catch Discharge Plan Discharge Condition: Fair Discharge Medications: No Action furosemide 40 mg tablet 40 mg PO DAILY trazodone 50 mg tablet 100 mg PO QPM amiodarone 200 mg tablet 200 mg PO DAILY docusate sodium [Colace] 100 mg capsule 100 mg PO DAILY metoprolol tartrate 25 mg tablet 25 mg PO BID potassium chloride 20 mEq tablet,ER particles/crystals 20 meq PO BID Print Language: Armenian
--- NOTE | 2024-04-17 08:29 | P.PN_ITS ---
Progress Note: Subjective Subjective Interval history: Up in chair. No complaints. Breathing better after thoracentesis Exam Constitutional Vital Signs, click to edit/add: Last Vital Signs Temp 97.6 F 04/17/24 04:00 Pulse 71 04/17/24 07:52 Resp 18 04/17/24 04:00 BP 110/67 04/17/24 04:00 Pulse Ox 93 L 04/17/24 04:00 O2 Del Method Nasal Cannula 04/17/24 04:00 O2 Flow Rate 2 04/17/24 04:00 Documenting provider has reviewed patient's vital signs: yes Common normals: apparent distress (Mild conversational dyspnea) Exam limitations: no altered mental status Chest Common normals: inspection of chest normal Respiratory Common normals: abnormal respiratory effort (Mild conversational dyspnea) Effort & inspection: tachypneic Auscultation: breath sounds absent and diminished lung sounds (Improved aeration left side after thoracentesis); no egophony (Resolved after thoracentesis) Cardio Common normals: regular rate and regular rhythm GI Common normals: Normal to inspection, nondistended, normoactive bowel sounds present Extremity Common normals: normal to inspection and full ROM Progress Note: A&P Assessment and Plan (1) Pleural effusion: (2) Acute hypoxemic respiratory failure: (3) Mass of upper lobe of left lung: (4) Afib: Plan Acute hypoxia with new onset of left-sided pleural effusion with CT scan showing left-sided lung mass-disc with family and pulmonology on plan for possible thoracentesis completed today. repeat ct scan - concerned for pneumothorax - watch overnight History of UTI and she has UTI symptoms-will start antibiotics, UA positive with positive nitrates. Awaiting culture History of acute combined congestive heart failure-BNP normal. change tback to orals - pt did not want iv restarted Bilateral hydronephrosis-us confirmed - no obstruction - can be followed with urioology as out-pt Low T3 - T4 and TSH are normal, T4 in the high side so would not supplement T3 at this point History of atrial fibrillation but normal sinus rhythm currently, maintain amiodarone Insomnia-continue with current medications Constipation-continue with current medications Admission status: Patient with new onset large left pleural effusion with acute hypoxia, medically necessary treatment will span [address] patient inpatient status, patrick d/c in am ?
--- NOTE | 2024-04-17 08:29 | CT_ITS ---
[address] [address] Patient Name: MEGAN HERRON MRN: [id number] date: 1940 Sex: F Assigned Patient Location: [place] Current Patient Location: [place] Accession/Order Number: [id number] Exam Date: 04/17/2024 08:52 Report Date: 04/17/2024 09:41 At the request of: BREE KELLOGG Procedure: CT chest wo con EXAMINATION: CT chest wo con HISTORY: follow up ct after thoracentesis COMPARISON: No relevant comparison available. TECHNIQUE: Multi-planar CT images were created with IV contrast. Axial, Coronal, and Sagittal images. Dose reduction techniques were achieved by using automated exposure control and/or adjustment of mA and/or kV according to patient size and/or use of iterative reconstruction technique. FINDINGS: LUNGS: Mild right basilar bronchiectasis. 6.2 x 4.6 cm lobular left upper lobe pulmonary mass extending to the hilum with architectural distortion. Groundglass attenuation identified in the superior segment of the left lower lobe. Near-complete consolidation basilar segments of the left lower lobe. PLEURA: No pneumothorax. 4.3 cm left pleural effusion VASCULATURE: No abnormality. DANA: No mass or adenopathy. MEDIASTINUM: Heterogeneous thyroid gland with multiple nodules CARDIAC: Prominent heart size. No pericardial effusion Coronary arteries: Mild atherosclerosis AORTA: Ascending aorta measuring up to 3.8 cm in diameter. 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 BONES: No bone lesion or fracture. LIMITED ABDOMEN: 1.8 cm hypodensity left hepatic lobe. Moderate bilateral hydronephrosis OTHER: Negative. CT/CT chest wo con IMPRESSION: 6.2 cm left upper lobe pulmonary mass. Malignancy is favored 1.8 cm hypodensity left hepatic lobe possibly metastatic disease Partial left lower lobe consolidation with pleural effusion Moderate bilateral hydronephrosis Electronically authenticated by: NIKI CAREY Date: 04/17/2024 09:41
[2024-04-17] MEDS: METOPROLOL TARTRATE 25 MG TABLET PO (08:34)
[2024-04-17] MEDS: DOCUSATE SODIUM 100 MG CAPSULE PO (08:34)
[2024-04-17] MEDS: POTASSIUM CHLORIDE 10 MEQ ER TABLET 20 MEQ PO ×2 (08:34→21:10)
[2024-04-17] MEDS: AMIODARONE HCL 200 MG TABLET PO (08:35)
[2024-04-17] MEDS: FUROSEMIDE 40 MG TABLET PO ×2 (08:35→21:10)
--- NOTE | 2024-04-17 10:28 | REH.PTDLY ---
Physical Therapy Daily Note PT Daily Note/Assess Start: 04/17/24 10:26 Freq: Status: Active Protocol: Document 04/17/24 09:30 VANESSA (Rec: 04/17/24 10:28 [id number] Visit Not Completed Visit Not Completed Due to: Pt refusing Other Reason Visit Not Completed Pt reports she had a surgery this morning and cannot do therapy today. Pt had thoracentesis this morning. Declines exs or ambulation at this time. Physical Therapy Daily Note/Assessment Time In 09:30 Time Out 09:32
[2024-04-17] MEDS: ACETAMINOPHEN 500 MG TABLET 1000 MG PO (12:09)
--- NOTE | 2024-04-17 12:47 | PM.PLPN ---
Progress Note: A&P Assessment and Plan (1) Pleural effusion: Assessment and Plan: Unclear etiology, but highly concerned it is associated with left lung mass. 1275mL removed, sent for chemistries and cytology. Not all fluid removed d/t patient coughing during the procedure. No post-op pneumothorax. (2) Acute hypoxemic respiratory failure: Assessment and Plan: Remains on supplemental O2. (3) Mass of upper lobe of left lung: Assessment and Plan: Needs outpatient PET. Subjective Subjective Interval history: Patient originally seen at 06:50AM. Patient remains dyspneic at rest. Refused having new IV re-inserted, but voiced agreement to proceed with thoracentesis. Thoracentesis was performed with 1275mL dark robert fluid removed. Stopped further drainage secondary to coughing. No post-op pneumothorax. When asked if the patient were breathing better, she answered I don't know. Exam Constitutional Vital Signs, click to edit/add: Last Vital Signs Temp 97.6 F 04/17/24 04:00 Pulse 68 04/17/24 11:50 Resp 18 04/17/24 08:33 BP 114/75 04/17/24 08:35 Pulse Ox 93 L 04/17/24 12:01 O2 Del Method Nasal Cannula 04/17/24 12:01 O2 Flow Rate 3 04/17/24 12:01 Documenting provider has reviewed patient's vital signs: yes Common normals: no apparent distress HENMT Other: Wearing nasal cannula Chest Other: Mild thoracic kyphosis Respiratory Other: Diminished breath sounds with dullness to percussion and egophony lower 2/3 left chest. Unchanged from yesterday. Cardio Other: RRR Extremity Common normals: normal to inspection Neuro Motor exam: no tremor noted and no fasciculations Psych Other: Patient had flat affect but was not rude to me this AM.
--- NOTE | 2024-04-17 14:10 | SWNOTE1 ---
SW stopped back in to see if pt would like to have home health at discharge. Pt voiced she does not think she wants it still. SW to check back tomorrow. At this time pt still refusing home health.
--- NOTE | 2024-04-17 16:58 | DIETREC ---
Addendum entered by Ginny Purcell RDN 04/17/24 17:59: Pt states she does not drink milk. She is hesitant to try a liquid supplement, but may accept Ensure Clear. Original Note: Recommend 237 mL Ensure Original BID for added nutrient intakes.
[2024-04-17] MEDS: TRAZODONE HCL 50 MG TABLET 100 MG PO (21:10)
[2024-04-18] VITALS (9 sets, daily range): BP systolic 109–115; BP diastolic 71–80; PULSE 71–84; TEMP 36.6–36.7; O2SAT 87–96
--- NOTE | 2024-04-18 05:07 | PC.NURSE ---
Patient refused morning lab draw. Stated she was going home today so it doesnt matter. Educated patient but she declined
--- NOTE | 2024-04-18 07:58 | P.PLPN_ITS ---
Progress Note: A&P Assessment and Plan (1) Pleural effusion: Assessment and Plan: 1275mL fluid removed from left thoracentesis 04/17/2024. Chemistries, cultures, and cytology are all pending. Discussed with patient that I do not know the cause, but I expressed my concern that it is associated with the left upper lung mass which could be cancer. (2) Acute hypoxemic respiratory failure: Assessment and Plan: Remains on supplemental O2. Needs assessed for ambulatory O2 prior to discharge, but she is voicing to me that she would refuse to go home with any O2. I attempted to educate patient that if she does leave without O2 (if it were indicated), she could go home, become dyspneic, and come right back to the ER and be readmitted. She told me that she does not need O2, she just needs to have her severe allergies treated. (3) Mass of upper lobe of left lung: Assessment and Plan: ~6.3cm FALGUNI mass. Slowly increasing in size since ~2018 - possible lung adenocarcinoma? I voiced my concerns that this could be lung cancer and I recommended an outpatient PET as part of a w/up if she would want anything done. She is twisting my words, stating that I am definitively calling the lung mass cancer. She states she does not want anything done to diagnose or treat it, and once again states her main issue is her severe allergies . Plan If the pleural fluid cytology returns positive for malignancy, then I would strongly favor this a malignant effusion secondary to the FALGUNI mass. If the pleural fluid reaccumulates with the patient becoming more symptomatic, I would recommend referral to IR for a Pleurx catheter for palliative measures opposed to repeated thoracenteses. As the patient is either in denial or does not want to take my recommendations seriously, she may F/U with her PCP outpatient to formulate a treatment plan per her liking. Subjective Subjective Interval history: Left-sided thoracentesis yesterday removed 1275mL of dark robert fluid. No post- op pneumothorax. Dr. De León ordered post-thoracentesis chest CT which notes the ~6.3cm FALGUNI mass and reduction of pleural fluid. Labs are pending. Asked patient how she is breathing, she stated I don't know. She is now blaming all her breathing issues on her severe allergies ... Exam Constitutional Vital Signs, click to edit/add: Last Vital Signs Temp 97.9 F 04/18/24 04:00 Pulse 76 04/18/24 06:00 Resp 18 04/18/24 04:00 BP 115/80 04/18/24 04:00 Pulse Ox 93 L 04/18/24 04:00 O2 Del Method Nasal Cannula 04/18/24 04:00 O2 Flow Rate 2 04/17/24 23:34 Documenting provider has reviewed patient's vital signs: yes Common normals: no apparent distress Other: Sitting up in chair HENMT Other: Wearing nasal cannula Chest Other: Mild thoracic kyphosis. No weeping from thoracentesis site. Respiratory Other: Decrease in apparent pleural fluid on left with dullness and egophony now in the lower 1/3 of left chest. Cardio Other: RRR Extremity Common normals: normal to inspection Neuro Motor exam: no tremor noted and no fasciculations Psych Other: ? thought process - in denial?
--- NOTE | 2024-04-18 08:06 | P.DS_ITS ---
DS: Providers Provider Date of admission: 04/15/24 14:49 Primary care physician: TRE PETERS Consults: 04/15/24 Consult to Dietitian Routine Reason for consultation: Weight Loss Consult to Floral Design Teacher Routine Reason for consult:: Advanced Directives 04/15/24 14:51 Consult to Pulmonology Routine Consulting Provider: Marquise Miramontes Reason for consultation: effusion Has provider been notified: No 04/15/24 14:52 Consult to Pharmacy Routine Consulting Provider: Reason for consultation: Please [place] me when Med Rec is Updated Has provider been notified: No Occupational Therapy Eval and Treat Routine Reason for consultation: Only if needed for Rehab Has provider been notified: No Physical Therapy Eval and Treat Routine Reason for consultation: Eval and Treat Has provider been notified: No DS: Diagnosis Discharge Diagnosis (1) Pleural effusion: (2) Acute hypoxemic respiratory failure: (3) Mass of upper lobe of left lung: (4) Afib: Plan Acute hypoxia with new onset of left-sided pleural effusion with CT scan showing left-sided lung mass-improved at the time of discharge History of UTI and she has UTI symptoms-Proteus mirabilis and Enterococcus showing on culture, final culture pending. History of acute combined congestive heart failure-BNP normal. Stable at discharge Bilateral hydronephrosis-us confirmed - no obstruction - can be followed with urioology as out-pt Low T3 - T4 and TSH are normal, T4 in the high side so would not supplement T3 at this point History of atrial fibrillation but normal sinus rhythm currently, maintain amiodarone Insomnia-continue with current medications Constipation-continue with current medications Admission status: Patient with new onset large left pleural effusion with acute hypoxia, medically necessary treatment will span [address] patient inpatient status, possibel d/c in am DS: Summary Hospital Course Hospital Course: Patient admitted from the emergency room with acute hypoxia. Found to have large left pleural effusion. Likely lung mass. Yesterday patient had thoracentesis with removal of fluid. Lung exam is definitely improved from previous. Currently she is still on supplemental oxygen overnight. Will see how she does with her ambulation test. Possible discharge to home later today with or without oxygen. Patient would prefer to be discharged without supplemental oxygen. Follow-up on cytology as an outpatient. Did recommend she follow-up with oncology, patient is considering. Time Spent with Patient Time attestation: Total time spent providing and/or coordinating discharge services: Exam Constitutional Vital Signs, click to edit/add: Last Vital Signs Temp 97.9 F 04/18/24 04:00 Pulse 82 04/18/24 08:00 Resp 18 04/18/24 04:00 BP 115/80 04/18/24 04:00 Pulse Ox 93 L 04/18/24 04:00 O2 Del Method Nasal Cannula 04/18/24 04:00 O2 Flow Rate 2 04/17/24 23:34 Documenting provider has reviewed patient's vital signs: yes Common normals: no apparent distress Exam limitations: no altered mental status Other: Sitting up in chair HENMT Other: Wearing nasal cannula Chest Common normals: inspection of chest normal Other: Mild thoracic kyphosis. No weeping from thoracentesis site. Respiratory Common normals: normal respiratory effort and no retractions Effort & inspection: tachypneic Auscultation: breath sounds absent and diminished lung sounds (Improved aeration left side after thoracentesis); no egophony (Resolved after thoracentesis) Other: Decrease in apparent pleural fluid on left with dullness and egophony now in the lower 1/3 of left chest. Cardio Common normals: regular rate and regular rhythm Other: RRR GI Common normals: Normal to inspection, nondistended, normoactive bowel sounds present Extremity Common normals: normal to inspection Neuro Motor exam: no tremor noted and no fasciculations Psych Other: ? thought process - in denial? DS: Data Data Completed and Pending Labs on day of discharge: Preliminary micro results at discharge 04/15/24 18:05 Urine Culture - Preliminary Urine,Clean Catch Discharge Plan Discharge Disposition: Home, Self-Care Condition: Fair Discharge Medications: New cefdinir 300 mg capsule 600 mg PO DAILY Qty: 20 0RF Continued furosemide 40 mg tablet 40 mg PO DAILY trazodone 50 mg tablet 100 mg PO QPM amiodarone 200 mg tablet 200 mg PO DAILY docusate sodium [Colace] 100 mg capsule 100 mg PO DAILY metoprolol tartrate 25 mg tablet 25 mg PO BID potassium chloride 20 mEq tablet,ER particles/crystals 20 meq PO BID Print Language: Spanish Forms: Portal Instructions
[2024-04-18] MEDS: FUROSEMIDE 40 MG TABLET PO (08:09)
[2024-04-18] MEDS: CETIRIZINE HCL 10 MG TABLET PO (08:09)
[2024-04-18] MEDS: POTASSIUM CHLORIDE 10 MEQ ER TABLET 20 MEQ PO (08:09)
[2024-04-18] MEDS: DOCUSATE SODIUM 100 MG CAPSULE PO (08:09)
[2024-04-18] MEDS: METOPROLOL TARTRATE 25 MG TABLET PO (08:09)
[2024-04-18] MEDS: AMIODARONE HCL 200 MG TABLET PO (08:09)
--- NOTE | 2024-04-18 10:33 | REH.PTDLY ---
Physical Therapy Daily Note PT Daily Note/Assess Start: 04/17/24 10:26 Freq: Status: Active Protocol: Document 04/18/24 10:27 VANESSA (Rec: 04/18/24 10:33 VANESSA [id number]) Physical Therapy Daily Note/Assessment Time In 09:36 Time Out 09:48 Subjective Pt up in room with nursing upon arrival, getting ready to do a walk test. PROSTHODONTIST took over ambulation for nursing. Therapeutic Exercise Minutes (minutes) 4 Therapeutic Exercise Units 0 Therapeutic Exercise Treatment Instructed in seated B LE exs for improved strength 10-15x ea with HR, LAQ, marching, hip add squeeze and hip abd. Therapeutic Activity Minutes (minutes) 8 Therapeutic Activity Units 1 Therapeutic Activity Comments Gait training with RW SBA with pt ambulating 150 feet with mild SOB noted no O2. Cues given for pt to stay closer to her RW as she tends to push this further out in front of her. Cues when returning to sit for pt to reach back behind her in chair. Nursing taking notes of O2 sats during rx. Instructed in sit to stand transfers 4x in a row with cues for pt to push off of chair and not pull up on RW . Total Therapy Minutes 12 Total Physical Therapy Units 1 Daily Note Summary Pt doing better today, progressed gait distance and exs. Pt states she gets to go home later today, discussed HH with pt and pt is now agreeable. Nursing was calling social service technician to have her set that up prior to DC
--- NOTE | 2024-04-18 10:50 | SWNOTE1 ---
SW spoke to pt and daughter in room. They would like her to go home with home health. SW verified with nurse as well and she will need home oxygen. Pt was very reluctant on this and voiced she does not want it. SW voiced to pt that she will need this due to her stats dropping when completing walk test. Pt is agreeable for home oxygen and would like [facility], [place]. Pt and daughter reviewed list from medicare.gov for companies and they would like [address] Referral sent to [address] Referral included face sheet, ED note, H&P, provider notes,and PT/OT notes. Referral sent to [facility], [place]. Referral included face sheet, dc summary, walk test and script.
--- NOTE | 2024-04-18 11:00 | OT.DAILY ---
Occupational Therapy Daily Note OT Inpatient Daily Visit Note Start: 04/16/24 10:03 Freq: Status: Active Protocol: Document 04/18/24 10:55 [id number] (Rec: 04/18/24 10:59 [id number]) Visit Not Completed Visit Not Completed Visit Not Completed Due to: Pt refusing Other Reason Visit Not Completed Pt refused to participate in tasks or simulations. Pt is preparing for discharge to go home. Pt and family member deny any questions before returning home. Report all safety precautions are in place with grab bars and rug removal. Pt lives with her daughter. OT Visit Details Time In/Time Out Time In 10:50 Time Out 10:55 GG. Functional Abilities and Goals-Complete for Swing Bed Patients Only [id number]. Self-Care [id number]. Mobility
[2024-04-18 15:10] LABS: Clarity, Serous Hazy (Clear); Color, Serous Yellow (.); Eosinophils, Serous 0 % (Not Estab.); Lymphocytes, Serous 62 % (Not Estab.); Macrophages, Serous 21 % (Not Estab.); Neut, Serous 17 % (0-24); Nucleated Cells, Serous 323 /mm3 (0-499); RBC, Serous 2000 /uL (Not Estab.)
--- NOTE | 2024-04-18 15:13 | SWNOTE1 ---
Home oxygen is thru [facility] at 2 liters nad Med 1 HH is all set and will see pt tomorrow. SW notified nursing and pt.
[2024-04-19 08:13] LABS: Amylase, Body Fluid 40 U/L (.); Glucose, Body Fluid 91 mg/dL (.); LD, Body Fluid 362 IU/L (.); Protein, Body Fluid 4.6 g/dL (.); Triglycerides, Fluid 31 mg/dL (Not Estab.)
--- NOTE | 2024-04-22 15:39 | CM.DCFOLLOWU ---
Phone number has been disconnected 04/22/24
== END 2024-04-18 15:10 | disposition home health service (06) | DRG 186 ==
LOC: ER 10:45 → MS 14:53
PROVIDERS: Internal Medicine; Admitting Provider Family Medicine; Emergency Provider Emergency Medicine; PCP Nurse Practitioner Family; Visit Provider Family Medicine
DX: J90 Pleural effusion, not elsewhere classified (principal); J96.01 Acute respiratory failure with hypoxia; N13.30 Unspecified hydronephrosis; I50.42 Chronic combined systolic (congestive) and diastolic (congestive) heart failure; N39.0 Urinary tract infection, site not specified; J98.4 Other disorders of lung; I48.91 Unspecified atrial fibrillation; G47.00 Insomnia, unspecified; K59.00 Constipation, unspecified; R94.6 Abnormal results of thyroid function studies; Z87.440 Personal history of urinary (tract) infections; R91.8 Other nonspecific abnormal finding of lung field; Z87.891 Personal history of nicotine dependence; Z99.81 Dependence on supplemental oxygen; B95.2 Enterococcus as the cause of diseases classified elsewhere; B96.4 Proteus (mirabilis) (morganii) as the cause of diseases classified elsewhere
CPT/HCPCS: 32555; 36415; 71045; 71046; 71250; 71275; 74174; 76770; 80048; 80053; 81001; 82150; 82945; 82948; 83605; 83615; 83690; 83735; 83880; 83986; 84157; 84436; 84443; 84478; 84481; 84484; 85025; 85610; 85652; 85730; 86140; 87070; 87086; 87116; 87150; 87186; 87205; 87206; 88112; 89050; 89051; 93005; 93306; 94667; 94668; 94761; 96365; 96366; 96375; 96376; 97161; 97165; 97530; 97535; 99285; J0696; J1940; Q9967

== ENCOUNTER 2024-04-30 09:06 | Outpatient (OUT) | payer MEDICARE, SELFPAY ==
--- OUTSIDE RECORDS SUMMARY | 2024-04-30 09:13 | XMS_ITS | CCD ---
Author Organization [facility] Care Team Providers Care Barrel Cutter Name Role Phone PROVIDER, UNKNOWN Admitting Unavailable PROVIDER, UNKNOWN Attending Unavailable KANCHAN KAPLAN Referring Unavailable UNKNOWN, PHYSICIAN Primary Care Unavailable ALYCE SCHMITT Admitting Unavailable NC Procedure Practitioner Unavailab ALYCE [place] Surgeon Unavailable TRANG MICHAEL Attending Unavailable Kenya Hart Unavailable TRE PETERS Admitting Unavailable TRE PETERS Attending Unavailable TRE PETERS Primary Care Unavailable TRE PETERS Consulting Unavailable MD Gregory Krishna Primary Care Provider DO Marquise Miramontes Attending Provider Marquise Miramontes Attending Unavailable Marquise Miramontes Admitting Unavailable Gregory Krishna Primary Care Unavailable Allergies Allergy Classification Reported Allergen(s) Allergy Type Date of Onset Reaction(s) Facility (2 sources) Gluten Drug allergy (disorder) 05-02-2020 [facility] Repository (1 source) Lactose Drug Allergy 05-02-2020 [facility] Repository (2 sources) Gluten Drug allergy Unknown [facility] Other (1 source) Milk Prods Drug allergy (disorder) [facility] Repository (1 source) Gluten Drug allergy (disorder) 10-13-2021 [facility] Repository Medications Current Medications Medication Drug Class(es) Dates Sig (Normalized) Sig (Original) acetaminophen 325 mg / HYDROcodone bitartrate 5 mg oral tablet (3 sources) Opioid Agonist Start: 09-21-2021 take 1 tablet by mouth every six hours HYDROcodone-Aceta minophen 5-325 MG 1 tablet as needed Orally every 6 hrs Sep, Active Start: 09-21-2021 take 1 tablet by velia th every six hours Start: 08-31-2021 take 1 tablet by velia th every four to six hours Hydrocodone-Acetaminophen Active 1 - 2 TAB PO EVERY 4-6 HOURS 50 7 August 31, 2021 amiodarone hydrochloride 200 mg oral tablet (3 sources) Antiarrhythmic Start: 08-28-2021 take 200 mg by mouth once daily Amiodarone Active 200 MG PO Daily August 28, 2021 12:00am amitriptyline hydrochloride 25 mg oral tablet (3 sources) Tricyclic Antidepressant Start: 08-28-2021 take 25 mg by mouth at bedtime Amitriptyline Active 25 MG PO Bedtime August 28, 2021 12:00am apixaban 5 mg oral tablet (4 sources) Factor Xa Inhibitor Start: 08-29-2021 take 2.5 mg by mouth once daily Apixaban (Eliquis) 5 mg tablet Active 2.5 MG PO Daily August 29, 2021 12:00am Start: 08-28-2021 End: 08-28-2021 Apixaban (Eliquis) 5 mg tabl et Discontinued MG TABLET August 28, 2021 12:00am August 28, 2021 5:02am ascorbic acid 500 mg oral tablet (3 sources) Vitamin C Start: 08-31-2021 take 1 tablet by mouth every twenty-four hours Ascorbic Acid 500 MG 1 tablet Orally Once a day for 30 day(s) Sep, Active atorvastatin 20 mg oral tablet (3 sources) HMG-CoA Reductase Inhibitor Start: 08-28-2021 take 1 tablet by mouth every twenty-four hours Atorvastatin Calcium 20 MG 1 tablet Orally Once a day for 30 day(s) Sep, Active calcium ascorbate 500 mg oral tablet (1 source) Start: 08-28-2021 Ascorbate Calcium (Vitamin C) Active TABLET August 28, 2021 12:00am calcium carbonate 1250 mg oral tablet (2 sources) take 1 tablet by mouth every twenty-four hours Oyster Shell Calcium 500 MG 1 tablet Orally Once a day Active Calcium Carbonate-Vitamin D3 (Oyster Shell Calcium-Vit D3) 500 mg(1,250mg) -200 unit Tablet (1 source) Start: 08-31-2021 take 1 tablet by mouth once at mealtime Calcium Carbonate-Vitamin D3 (Oyster Shell Calcium-Vit D3) 500 mg(1,250mg) -200 unit Tablet Active 1 TAB PO 3x/Day with meals 0 August 31, 2021 12:00am docusate sodium 100 mg oral capsule (3 sources) Start: 09-21-2021 take 1 capsule by mouth every twenty-four hours Docusate Sodium 100 MG 1 capsule as needed Orally Once a day for 30 day(s) Sep, Active Start: 08-28-2021 Docusate Sodiu m Active MG PO August 28, 2021 12:00am estrogens, conjugated (fci) 0.625 mg/ml vaginal cream (3 sources) Estrogen Start: 08-28-2021 Conjugated Est rogens (Premarin) 0.625 mg/gram cream Active August 28, 2021 12:00am Premarin 0.625 M G/GM Vaginal for 90 Active ferrous sulfate 325 mg oral tablet (3 sources) Start: 09-21-2021 take 1 tablet by velia th every twenty-four hours Ferrous Sulfate 325 (65 Fe) MG 1 tablet Orally Once a day for 30 day(s) Sep, Active Start: 09-03-2021 take 324 mg by mouth twice xi ly Ferrous Sulfate Active 324 MG PO Twice daily 20 September 03, 2021 12:00am furosemide 40 mg oral tablet (3 sources) Loop Diuretic Start: 08-28-2021 take 1 tablet by mouth every twenty-four hours Furosemide 40 MG 1 tablet Orally Once a day for 30 day(s) Sep, Active levoFLOXacin 500 mg oral tablet (1 source) Quinolone Antimicrobial Start: 09-03-2021 take 500 mg by mouth once daily Levofloxacin Active 500 MG PO Daily 5 September 03, 2021 12:00am loperamide hydrochloride 2 mg oral tablet (2 sources) Opioid Agonist Start: 09-21-2021 take 1 tablet by mouth every six hours Imodium A-D 2 MG 1 tablet as needed Orally Four times a day Sep, Active melatonin 3 mg oral tablet (3 sources) Start: 09-21-2021 take 1 tablet by mouth once daily at bedtime as needed Melatonin 3 MG 1 tablet at bedtime as needed Orally Once a day for 30 day(s) Sep, Active Start: 09-21-2021 Start: 08-28-2021 take 3 mg by mouth at bedtime Melatonin Active 3 MG PO Bedtime August 28, 2021 12:00am metoprolol tartrate 25 mg oral tablet (3 sources) beta-Adrenergic Palak Start: 08-28-2021 take 25 mg by mouth twice daily Metoprolol Tartrate Active 25 MG PO Twice daily August 28, 2021 12:00am Multivit,Tx W/Iron (Hematinic) (1 source) Start: 08-28-2021 Multivit,Tx W/Iron (Hematinic) Active TAB TABLET August 28, 2021 12:00am Multivitamin preparation (2 sources) take 1 tablet by mouth once daily Multivitamin - 1 tablet Orally Once a day Active niacin 400 mg extended release oral tablet (3 sources) Nicotinic Acid Start: 08-28-2021 take 400 mg by mouth once daily Niacin Active 400 MG PO Daily August 28, 2021 12:00am take 1 tablet by velia th every twenty-four hours Niacin 500 MG 1 tablet with food Orally Once a day Active Polyethylene Glycols (2 sources) Polyethylene Gly col 3350 - as directed Active microencapsulated potassium chloride 20 meq extended release oral tablet (5 sources) Start: 08-28-2021 End: 09-03-2021 take 20 mEq by mouth twice daily Potassium Chloride Active 20 MEQ PO Twice daily August 28, 2021 12:00am Problems Active Problems Problem Classification Problem Date Documented Da te Episodic/Chronic Cardiac dysrhythmias (1 source) Atrial fibrillation; Translations: [Unspecified atrial fibrillation] 08-28-2021 Chronic Essential hypertension (1 source) Hypertensive disorder; Translations: [Essential (primary) hypertension] 08-28-2021 Chronic Fracture of neck of femur (hip) (3 sources) Displaced intertrochanteric fracture of left femur, subsequent encounter for closed fracture with routine healing; Translations: [Intertrochanteric fracture] Onset: 1 Resolved: 1 Episodic Other gastrointestinal disorders (1 source) Constipation; Translations: [Constipation, unspecified] 10-18-2023 Episodic Other nervous system disorders (1 source) Pain in limb; Translations: [Other acute postprocedural pain] 10-18-2023 Episodic Urinary tract infections (5 sources) Urinary tract infection, site not specified; Translations: [Urinary tract infectious disease] Onset: 3 Episodic Past or Other Problems Problem Classification Problem Date Documented Date Episodic/Chronic Residual codes; unclassified (2 sources) Other specified postprocedural states Onset: 09-21-2021 Resolved: 10-13-2021 Episodic Results Test Name Value Interpretation Reference Range Facility [facility] 04-17-2024 L Specimen: [id number] Received: 04/22/24 Status: DELORES Mccoy Num: [id number] Spec Type: Cytology Subm Dr: Marquise Miramontes DO Tissues: A PLEURAL FLUID (PLEUR) Procedures: HE/2, Gross/Micro L4, Cyto Prepstain, PAPSTN Age/ Patient Sex Location Account Attending Physician KerriMegan Bertha 83/F [facility] [id number] Marquise Miramontes DO SPEC NUM: [id number] RECD: 04/22/24 STATUS: DELORES MCCOY NUM: [id number] RACHEL: 04/17/[address]: Marquise Miramontes DO ENTERED: 04/22/[address]: Blanche Powell SPEC TYPE: Cytology DEPT: [facility] ENTERED BY: [id number] RECV BY: [id number] ORDERED: HE/2, Gross/Micro L4, Cyto Prepstain, PAPSTN ORDERED: HE/2, Gross/Micro L4, Cyto Prepstain, PAPSTN Pathological Diagnosis Pleural fluid cytology: Rare highly atypical cells are noted. Clinical correlation is required. Clinical Information Pleural effusion; thoracentesis Gross Description Received is 1300 ml of dark yellow/red, cloudy, mucinous unfixed fluid for cytology said to have been obtained as Pleural fluid. ThinPrep and cell block preparations are prepared for microscopic examination. (/tello) CPT Codes 92829 Specimen: [id number] Received: 04/22/24 Status: DELORES Mccoy Num: [id number] Spec Type: Cytology Subm Dr: Marquise Miramontes DO Tissues: A PLEURAL FLUID (PLEUR) Procedures: HE/2, Gross/Micro L4, Cyto Prepstain, PAPSTN Patient: Megan Herron [id number] (Continued) Signed (signature on file) Luann Mercer MD 04/24/24 1542 Normal [facility] CULTURE URINEon 01-21-2023 CULTURE URINE Culture Observations : LIGHT GROWTH OF MIXED GENITAL IRMA. NO POTENTIAL PATHOGENS SEEN. Normal [facility] Comment on above: Performed By: #### U RCX #### [facility] [address] [place] [address] Dr. Shaila Spann UA RANDOM W/MICROSCOPICon BACTERIA TRACE Abnormal NONE SEEN [facility] Comment on above: Performed By: #### U AMIC #### [facility] [address] [place] [address] Dr. Shaila Spann Bilirubin Ql (U) Negative Normal NEGATIVE [facility] Comment on above: Performed By: #### U AMIC #### [facility] [address] [address] [address] Shaila Spann CAST NONE SEEN Normal NONE SEEN [facility] Comment on above: Performed By: #### U AMIC #### [facility] [address] [address] [address] Shaila Spann Clarity (U) CLEAR Normal CLEAR [facility] Comment on above: Performed By: #### U AMIC #### [facility] [address] [address] [address] Shaila Spann Color (U) LT. YELLOW Normal YELLOW [facility] Comment on above: Performed By: #### U AMIC #### [facility] [address] [address] [address] Shaila Spann Crystals LM Nom (Urine sed) NONE SEEN Normal NONE SEEN [facility] Comment on above: Performed By: #### U AMIC #### [facility] [address] [address] [address] Shaila Spann Epithelial cells LM Ql (Urine sed) FEW Abnormal NONE SEEN /RARE [facility] Comment on above: Performed By: #### U AMIC #### [facility] [address] [address] [address] Shaila Spann Glucose Ql (U) Negative Normal NEGATIVE [facility] Comment on above: Performed By: #### U AMIC #### [facility] [address] [address] [address] Shaila Spann Hemoglobin Ql (U) LARGE Abnormal NEGATIVE [facility] Comment on above: Performed By: #### U AMIC #### [facility] [address] [address] [address] Shaila Spann Ketones Ql (U) Negative Normal NEGATIVE [facility] Comment on above: Performed By: #### U AMIC #### [facility] [address] [address] [address] Shaila Spann LEUKOCYTES MODERATE Abnormal NEGATIVE [facility] Comment on above: Performed By: #### U AMIC #### [facility] [address] [address] [address] Shaila Spann MUCOUS NONE SEEN Normal NONE SEEN [facility] Comment on above: Performed By: #### U AMIC #### [facility] [address] [address] [address] Shaila Spann Nitrite Ql (U) Negative Normal NEGATIVE [facility] Comment on above: Performed By: #### U AMIC #### [facility] [address] [address] [address] Shaila Spann pH (U) 8.0 [pH] Normal 5-9 [facility] Comment on above: Performed By: #### U AMIC #### [facility] [address] [place] [address] Dr. Shaila Spann RBC 5-10 Abnormal 0-2 [facility] Comment on above: Performed By: #### U AMIC #### [facility] [address] [place] [address] Dr. Shaila Spann SPEC GRAVITY 1.015 Normal 1.005-<=1.02 5 [facility] Comment on above: Performed By: #### U AMIC #### [facility] [address] [address] [address] Shaila Spann UA PROTEIN 30 mg/dl Abnormal NEGATIVE/ TRACE [facility] Comment on above: Performed By: #### U AMIC #### [facility] [address] [place] [address] Dr. Shaila Spann Urobilinogen Qn (U) 0.2 {Orion'U}/dL Normal 0.2 - 1. 0 [facility] Comment on above: Performed By: #### U AMIC #### [facility] [address] [address] [address] Shaila Spann WBC 2-5 Abnormal NONE SEEN [facility] Comment on above: Performed By: #### U AMIC #### [facility] [address] [place] [address] Dr. Shaila Spann Ambulatory Clinical Summaryo n 09-14-2021 Ambulatory Clinical Summary {[id number] Normal [facility] Long-Term Recordson 09-14 Long-Term Records [id number]:12 7 Normal [facility] Patient Educationon 09-14-20 Patient Education Urology Hematuria, Adult Hematuria is blood in the urine. Blood may be visible in the urine, or it may be identified with a test. This condition can be caused by infections of the bladder, urethra, kidney, or prostate. Other possible causes include: ? Kidney stones. ? Cancer of the urinary tract. ? Too much calcium in the urine. ? Conditions that are passed from parent to child (inherited conditions). ? Exercise that requires a lot of energy. Infections can usually be treated with medicine, and a kidney stone usually will pass through your urine. If neither of these is the cause of your hematuria, more tests may be needed to identify the cause of your symptoms. It is very important to tell your health care provider about any blood in your urine, even if it is painless or the blood stops without treatment. Blood in the urine, when it happens and then stops and then happens again, can be a symptom of a very serious condition, including cancer. There is no pain in the initial stages of many urinary cancers. Follow these instructions at home: Medicines ? Take uhta-chc-tjcftxz and prescription medicines only as told by your health care provider. ? If you were prescribed an antibiotic medicine, take it as told by your health care provider. Do not stop taking the antibiotic even if you start to feel better. Eating and drinking ? Drink enough fluid to keep your urine clear or pale yellow. It is recommended that you drink 3?4 quarts (2.8?3.8 L) a day. If you have been diagnosed with an infection, it is recommended that you drink cranberry juice in addition to large amounts of water. ? Avoid caffeine, tea, and carbonated beverages. These tend to irritate the bladder. ? Avoid alcohol because it may irritate the prostate (men). General instructions ? If you have been diagnosed with a kidney stone, follow your health care provider's instructions about straining your urine to catch the stone. ? Empty your bladder often. Avoid holding urine for long periods of time. ? If you are female: ? After a bowel movement, wipe from front to back and use each piece of toilet paper only once. ? Empty your bladder before and after sex. ? Pay attention to any changes in your symptoms. Tell your health care provider about any changes or any new symptoms. ? It is your responsibility to get your test results. Ask your health care provider, or the department performing the test, when your results will be ready. ? Keep all follow-up visits as told by your health care provider. This is important. Contact a health care provider if: ? You develop back pain. ? You have a fever. ? You have nausea or vomiting. ? Your symptoms do not improve after 3 days. ? Your symptoms get worse. Get help right away if: ? You develop severe vomiting and are unable take medicine without vomiting. ? You develop severe pain in your back or abdomen even though you are taking medicine. ? You pass a large amount of blood in your urine. ? You pass blood clots in your urine. ? You feel very weak or like you might faint. ? You faint. Summary ? Hematuria is blood in the urine. It has many possible causes. ? It is very important that you tell your health care provider about any blood in your urine, even if it is painless or the blood stops without treatment. ? Take rnzo-yzh-tiksehk and prescription medicines only as told by your health care provider. ? Drink enough fluid to keep your urine clear or pale yellow. This information is not intended to replace advice given to you by your health care provider. Make sure you discuss any questions you have with your health care provider. Document Released: 10/23/2006 Document Revised: 03/18/2020 Document Reviewed: 11/25/2017 [employer] Patient Education ? 2019 [employer] Normal [facility] Urology Office/Clinic Noteon 09-14-2021 Urology Office/Clinic Note Chief Complaint Patient in office for 6 month PVR f/u HPI Staff Patient in office for 6 month PVR. Patient states she fell and broke her L hip a few weeks ago. States she has noticed some blood in her urine since falling but this is slowly subsiding. Patient was put on Keflex 500 TID x7 days on 09/07/21 after having a urine culture done random bladder scan shows 270 in office today (pt unable to stand to void). Patient was unable to provide a weight and/or urine sample while in office today, due to being in a wheelchair and unsteady gait. Dysuria: denies Incomplete bladder emptying: Hematuria: admits, mild blood Frequency: denies Urgency: denies Nocturia: 1-2 x a night Stream: steady Leaking: admits Post void dripping: admits Wearing pads/ Depends: admits Urge incontinence: denies Stress incontinence: denies Incontinence without Sensory Awareness: denies Abdominal pain: denies Flank pain: denies Sexual complaints: _ History of Present Illness staff HPI reviewed and agree. Review of Systems PHQ Score Initial Depression Screen Score: 0 no fever, chills, malaise, myalgia. no rash/lesions. no chest pain, palpitations, or SOB. no abdominal pain, nausea, vomiting. no unilateral calf swelling, redness, pain Physical Exam Vitals & Measurements HR: 67(Peripheral) BP: 122/80 General: nontoxic, NAD Mouth: moist mucosa Lungs: normal respiratory effort Cardio: regular rate, good distal perfusion Abdomen: nondistended, no suprapubic distention or tenderness, no CVA tenderness Neurologic: Grossly normal Skin: No rashes or suspicious lesions Assessment/Plan pt referred by rehab facility due to gross hematuria and bladder prolapse. 1. Gross hematuria (R31.0: Gross hematuria) pt is on Eliquis and has current UTI which is likely source of gross hematuria. pt is being treated with appropriate abx. we discussed that cannot guarantee hematuria isn't from cancer. she did have a negative cysto about 2 years ago. pt prefers to focus on healing from her hip fracture at this time. does not wish to go through any hematuria work-up at this time. I feel this is reasonable, especially in light of the UTI/blood thinner to explain the bleeding. Ordered: Office Visit Level 4 Est 69947 2. 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 no worse than usual. not painful. does not cause difficulty voiding. denies frequent UTIs. pt adamantly opposed to any intervention for this at this time. Ordered: Office Visit Level 4 Est 77306 3. Urge incontinence (N39.41: Urge incontinence) mild-moderate. worse now that it's hard for her to get to the bathroom. not interested in medications due to possible side effects. Ordered: Office Visit Level 4 Est 65153 offered f/u. pt prefers PRN. Total time spent reviewing previous notes/results/external documents, preparing the chart, conducting the encounter with the patient and family, ordering tests/medications, and documenting the encounter was 30 minutes. Follow-up With When Contact Information call office for follow up PRN Additional Instructions: Patient Education Hematuria, Adult Problem List/Past Medical History Ongoing Diverticulitis Enuresis Frequent urination Gross hematuria Microhematuria Microscopic hematuria Mixed incontinence Nocturia Post-void dribbling Unspecified urethral stricture, female Urge incontinence Urinary retention Historical Dysuria Urinary urgency Procedure/Surgical History Cystourethroscopy with dilation of urethral stricture (08/13/2010), Bunionectomy, Colonoscopy. Medications amiodarone Tab amitriptyline 25 mg Tab, Oral, Once a day (at bedtime) ascorbic acid 500 mg oral capsule, Oral, Daily atorvastatin 20 mg Tab, Not taking biotin calcium-vitamin D clindamycin Top 1% Gel cranberry docusate sodium 100 mg Cap, 100 mg= 1 cap(s), Oral, BID, PRN Eliquis 2.5 mg oral tablet, 2.5 mg= 1 tab(s), Oral, BID Eliquis 5 mg oral tablet, Not taking ferrous sulfate 325 mg oral enteric coated tablet, Oral, Daily Florastor 250 mg oral capsule, 250 mg= 1 cap(s), Oral, BID, PRN furosemide 40 mg Tab hydrocodone, Oral Imodium A-D EZ Chews 2 mg oral tablet, chewable, Chewed, BID Levsin 0.125 mg SL Tab, 0.125 mg= 1 tab(s), Oral, q6hr, 1 refills Lopressor 25 mg oral tablet, 25 mg= 1 tab(s), Oral, Daily melatonin 3 mg oral tablet, extended release, 3 mg= 1 tab(s), Oral, Once a day (at bedtime), PRN Multi Vitamins oral tablet, 1 tab(s), Oral, Daily niacin 500 mg oral tablet polyethylene glycol 3350, Oral, Daily potassium chloride 20 mEq ER Tab Premarin 0.625 mg Tab, Oral, Daily Premarin Vaginal Cream, 1 gm, Vaginal, MonThu Allergies Milk Products (Diarrhea) Wheat (Diarrhea) No Known Medication Allergies Social History Alcohol Current, 1-2 times per year, 05/28/2019 Tobacco - Denies Tobacco Use, 09/10/2019 Former smoker, quit (more content not included)... Normal [facility] Comment on above: Result Comment: Elec tronically Signed By: CAILIN GONZALES PA-[email or web address]\Date and Time Signed: 09/14/21 14:27 EST Coding Summary.on 07-06-2021 Coding Summary. [id number] Gh0bW w+PGhlYWQ+CK5BYMWaS68sdDZ xrP3XV2nPWG5QQCZWABQVFU8D XG5moCZ1UFdaK7VezxBi GrowrWXsQV97OEs7KXW3xKxbC DpbcW8oqJHoM5d6TmBsDC39eV 23AClvJAFqNxO1UlQmytgxiLX y I5hcHhGyrDZqVjn+PHRhYmxlI HdpZHRoPScxMDAlJyBzdHlsZT 8eVp4iZTJaNXYinQaszJCqPcP j v0yhHDVdLIddQZ2wxQyeW0Ecb ZS5GJClu9w9Wg94mXE+PHRkIH Z3eNigAEaig487KwLtk4lxAYG 3 wWMyOFyqXWZ4K08zv5J6MXVyD GVtXAK4sBK5bD2tgUmkgwdpL1 JggYEfIdP8SZJ1yFDrcM9xeMs n qvyvxX3rRef+B52IYF3RJMFNE J7UYur7N7TxXbllbIR+PC90YW WpYV89vGCqzLSbb9rsgAn4HwY w UEImZHY4rCtjRRlvw3HdHUPzE 07kvJHqu9S8ZGGbbVldhCUqIm NhqUG6iX6fUMjqaihub1yauut n Cfgmm5wbry00rV27K95tRGbnR HReWQJ5AWNyOZSvgZicyb8yaH 9wIi8+SFhic7log3xzoWb2WgK w ZEAvlxLvtZxoFBG8c2OjQh29G 6MaoNywn7IyXqa8ll98sQMzi9 Y6nNS7JLumIYCfhF1rVZlfUoK 6 WGLbDgActC15sXIuVLalFx4zn JebjQvgLL6fDSFrpdeuQAUqsF 3tXSRtzFYolMzzFO7rCGXthun m z025IoZbNTK3XABwiORaH9Ipj W8yLoAsKVFzROOlA4VnsKMmIX wkB456QGpuGgF0MPIrpvFkR6T s WOKhkOyyBlB5l0Z5Vw9Dh0Rzb fxmZGW3CLapRNP8UmXeYoNdDx X3Q2XiFjo9ITGrkVckQE5xJ4X h NARzabwlvfulfLL6XBOvQLHmx I34wBEbNPmlZd4fd4C2o802EV VvDAOylV75Uz7rhOadBLUfvUV U xZ0kcazwo5ipwxtyEmGhHITpN Ub8DNl7AHJnaQunZhWuSNZ2Fw N7RIM9yDKxrW0soLrkpqwwzK7 w Oyc+Z57bfT1fEAW4JNT1jfxbP FJjuhYvJG43RH20M3XaHcqzjH FibGU+ITEuvsIffCimPB3yGpD j x1inj7CcBLsmN7SpFHFsDZmrJ zs4RVLaRSA5hPY0fO3xRPVuLH jcd0G8gDW4M1InbrOiao7xg6d s ODGeZTrlG85yeFNnb0M2YNRgj TE7CUEojWclEbEkmB54Kxw+PG WbxLqfk2AfRgquc4qen6nesXp 9 EtZuINXmbmAvcWexIUF9j2WhZ p22K28sHLmnSMNpOTBnHSGkAD GbgBlmjn8frT9vOd1+PGNvbCB 3 nKZ4yO9dTQFxGaF4ALaoB967S tEhgEQfMenvq3imx3zdqIa9Kf DgSYWggaKnvNxoATE6y7OpCz4 8 Q22tUCtjJSQyLRZxXDIeCMRgm Zbqmf3fkB6uYp8+HS8lh9soah 30hJ63cOU+UJDsSDC4aJcaVUr w HHCylC1pRVkkMiU9SKTaVoGvi M37iLItOBdzLw4psXisgAfzQE 2dSDMvzmnaj829VeGin3qqMHS w cPOoOZmtJUX4F19zb9M7AWBrV RQtGNA2iFY3rO3qpRvlwhqpaP InuYhvgyJxbEloWVnoVPcoE44 6 IHRvcDsnPlBhdGllbnQgTmFtZ Kw6Y6KcVoa0PDCyiYfeVX0evS EvOPfsSt9wqYamcCsxJY1mKYA p ctfpc751EvJez6hpOISygFIqZ RxiHLW6W79kg6Z8RHKeFIBpYE A4qBC9nC0rgFckczptyEMgmVb g pfXpdTwkPVgnOKtdK455OLQcp AihEpGcclWfWAOpxZJ1TH70WK 43hNObe1H9oQE0L2YeVIKdzby t zeaqhVQ6OECbUQSrjD43Lh7dt KcoLv8zKYSaNKA1TKIhoNTzV4 TtdR6dIeBaFXEcKYShB2VwzLK t XZudV212KSrxSrJ2TNFnnbHoG 2GcDAWmfEfbEqA5c0T5Zm9KA9 K0GX68TH87kSKkw6N9nHT1B6R h FFZllongtlqnrVF2ETKlWBNfm L09Yo8seMssAv2xBHSiIYT2LL TmrHUdH4DqdU2mYhRvVFKsGNV w X3FllJRyKOdrC422ODhvLcT9W FKqnzDwQ4ImUMFugUxrBiO4c9 S6Nd3WEYr5QQ54TF53gITre2F 5 oZH8P6FhNPMeahcaawnggJQ5K YDhBXTakM16Eg5gaQbuZa4bHO KaRUN9PTXtjJToR5AvaD8zCeM j IICdYAUxF4ZvyREyMNvxT422G FqxFmY3CEHhixFfP1BfRUVywJ vyPwD3v3E7Dd3XSNVaTZ28EOU 5 dPD1AX80ZQ45U7MhDxrlwDAvw +PHRhYmxlIHdpZHRoPScxMD ZaLsCmbLbcIT8fZn4tKKVxKRK v mMghcBDwBvOkg1rkQLBoCKhoL U3kxCjjP7OsuXG2YHMxg9j2Mx 81D50uH0OrbAN+RROcoNM4kNY 0 iP5aEjVyCmZ2MLpiC442DmFgo SVzYeqfl2wrz6cqlBv5LjS6OF BrtzAfbCuqOGH0d8YeIp86Y04 s IHdpZHRoPSIxNSUiIHZhbGlnb e8dxW3tCt9+ZQAwiHA8bPA4kV 6tGfUtPmL8NRkxU749VtJwwVZ v Iahqa4gtl6afrBe2HpUdQNIto jBbcRjtULP8a8RdCb06I0NvpO zrj8GwAsa9ga15rXKer2Q5rLB 9 I1RcKCBubttqeFHivNlnPQ2cU HPxuxtjMMPhlM6yUWCbZ0e8Dp ZjWnU6ZRvbL5EjrzW7RPFonJN g MTxmKRD6Y29qn1S2MGBwTWVhZ RB9tYV8fV2qpNzydnlcmEIguC vcstJkjElcLLadYTcxF017ZSL v lJejBEWvlY1oHSOxwTXssPgfQ Y3dZISwlhrlYdJHKOCFIWFBAK TNHvVCEJ54FJ20nQVqa8T4rAV 9 A5LuAGQgzxadiaarpDI1OYItY TOtvP14jAImFNniPi9ke6I1c6 68WIGvIWSikL70Tz8ozHmsVFI w xPHLkL3sagndx8vfhkplJnTaT UAvKYs8IJa3ZPJmeZhvXbErSS Q8MsX2UCW6sAHfnM5wiRxrkem g pR6vUro+TVBvNuFeAUh1ZUupj GQ+QLVoPKW1iLjyQFcdQDXtyL 7hKWZoE0k3QrScJaS6YMgsK0X h NGFugwnyBs01zN3bOpNsKbM7K UizI2WphrG4EFZkiKDoFTncPD F4H94cq0P5AHJxPVAgEKE0cKK 4 jO7imIlhrlvouYUowSfcpzDyo NkqGJfuDNqtX230DQEegJcxDr kxJFdiITYnWE46CG83zKOqv8P 5 rMR2Z8FmBVNborhtqgmchIK8M KSlHEMxsU16tVRlVYmoXq6la8 E1i685QFQyJADwpV83Rf9mgVa g CWJlfACLjQ7uofixc7xlexfeP nHqDLDjXBu9XNf3IJBocRodRx BtVYG8CfA1KQJ5oDRzaT1njYb n mgrqoB0fOzx+XeDdOTwbBX70I A93bSKxc5D0pJV7S9WdBPIsio uftrhhmCL8OKXoZLDlfZ35tFH k XKglRj0ys6R3d027CEXpLOXts X83Dm9rsNtwHDZvsHAUpS8smo oyq1coulonBrQdDZOpMRv4VXr 0 QQBegTbuGgVxHGC2AcY2SEF0e MDobX7jvFqgjcmdiJ6pTtt+T3 A1gWB2cOArhVxwpRA+UA49cj1 8 W8QpWibcUgw6UKLeGYO4kFZ9t D4oWPEkNRayu0F9cZB4O4Bzjo Iqbv3hp8ahVKPcROxaG43lcGM w w9X9GUZotQF1XGNbqRxyUfMaw G93Oyc+IZIlqDoyg6EzDduxw0 mih4mcgRz6HdZiDPAhxmPtaWx u DFR1h7PaIf55W14uPQobWKWtR KVmFJEcUQMktPrgss7fiL0vAj 8+SOMblVC4iVA9oX5pPtAjTzL 2 NKbxK759PsSkcZXjPiydb4yrs 2lzpOd4HaWjJQZndhSfvEopIS O9e5MiZt14U5MrkElfw3KsCvl 0 pq04vDRql9R0tWF8Y2NkBTFui yfysLGlcEgdLV3fUFNkkuorMT StwH0mRBIaL1i8WyQsXkJ8DIp u V3AsleU7IFJseCPaGPRnbFNBi I8fimpdy9bwihwwZzGjFSMoLF h2KRd9RDWyhKrmIxEeOYZ1MkD 2 CPP6iVMqhI9rqWdryasnkE0qE yc+HWp2g3wbcXLlEH2nzNU0SO 08DL02aCAhy8U4yVN7M5TdYXW p jwkwbapzvIR7IDKbVMMggT25J b6lrDpuLf9gWNFgWCV9SYEmiA IsV0YerF3fJxPjPUHfTHZfE7J l lUIfFZvdG783WJauRfO8DDDdb zItF0UiGOIdrFyhVvS2y9D4Gb 6FIA52IZ50RU18eXTmm7T9zSG 9 M7AhDPKelqeyfkptmEQ0DQGuN IAjyR10Zw3wdEzfAz5bHBDuOT W6ZOOfsSRnJ3PltS9eVuVcPKL w RMAwU2YyjHWtCUmzF264DDajR xO9XHWypbNbH6OtVUYzlGqpSi A5m6P2Zc2VYe80LC17RR88uKA g y1P0tAG8W8SsZEXakuyicsdrt RS3KCTxKFSzsM56Yd7thFdbIc 9xZKBpBQN5OSHjwLNvU5IluH1 y NuHdRPNzFEIjV5JddIKwMFplQ 990BXdfZwL4FREfktUtV4KxIL WhkBawVhQ7k2F0Hm0UILoceeg 8 Q6CeWbvtnKV+MZ96OGEhFD08w YOcnWIov6pesUu5JzAtBHXvMH X3qNdpUStql3XhQVJsN07fkLG w c2U6 (more content not included)... Normal [facility] Progress Note-Nurseon 2020 Progress Note-Nurse [id number]#[id number]:1 27 Normal [facility] Heart and Vascular Office/Cl inic Noteon 06-24-2021 Heart and Vascular Office/Clinic Note Chief Complaint Phone VIsit - Follow up CTA History of Present Illness Hello this is a phone visit. 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 She has localized dissection in the abdomen in the pararenal segment. This continues to be less than 4 cm. It is about 3.1 cm. She is asymptomatic. I discussed with her the finding on the CAT scan and a phone visit. She also has lung lesion I spoke to her about it. She said she does not want to deal with it at this point in time because her has brain tumor and she would like to take care of him first. But I recommended that she see a entry level software developer for it. From vascular standpoint we will repeat the CAT scan in 6-month and follow-up for surveillance. Review of Systems ROS - Clinical Support Cardiopulmonary Symptoms: None General Symptoms: None Pain Symptoms: No PHQ Score Initial Depression Screen Score: 0 Constitutional: no fever, no chills, no sweats, no weakness Skin: no Jaundice, no rash, no lesions, nopetechiae ENMT: no ear pain, no sore throat, no congestion, no hoarseness Respiratory: no shortness of breath, no cough, no orthopnea, no wheezing Cardiovascular: no chest pain, no palpitations, no edema Gastrointestinal: no nausea, no vomiting, no diarrhea, no GI bleeding Genitourinary: no dysuria, no hematuria, no discharge, no pain Musculoskeletal: no back pain, no trauma Neurologic: no headache, no dizziness, no numbness, no weakness Psychiatric: no sleeping problems, no irritability, no mood swings/depression. Heme/Lymph: no bleeding tendency, no bruising tendency, no petechiae, no swollen nodes Allergy/Immunologic: no seasonal allergies, no food allergies, no recurrent infections, no impaired immunity Additional ROS info: Except as noted in the above Review of Systems and in the History of Present Illness all other systems have been reviewed and are negative or noncontributory. Physical Exam Vitals & Measurements HT: 149 cm HT: 149.0 cm WT: 57.1 kg WT: 57.1 kg BMI: 25.72 Assessment/Plan This is a telephone visit. aortic dissection is stable. recommend CTA in a year. Follow-up No qualifying data available Problem List/Past Medical History Ongoing Diverticulitis Enuresis Frequent urination Gross hematuria Microhematuria Microscopic hematuria Mixed incontinence Nocturia Post-void dribbling Unspecified urethral stricture, female Urge incontinence Urinary retention Historical Dysuria Urinary urgency Procedure/Surgical History Cystourethroscopy with dilation of urethral stricture (08/13/2010), Bunionectomy, Colonoscopy. Medications amiodarone Tab atorvastatin 20 mg Tab clindamycin Top 1% Gel Eliquis 5 mg oral tablet furosemide 40 mg Tab Levsin 0.125 mg SL Tab, 0.125 mg= 1 tab(s), Oral, q6hr, 1 refills Lopressor 25 mg oral tablet, 25 mg= 1 tab(s), Oral, Daily Multi Vitamins oral tablet, 1 tab(s), Oral, Daily potassium chloride 20 mEq ER Tab Premarin Vaginal Cream, 1 gm, Vaginal, MonThu Allergies Milk Products (Diarrhea) Wheat (Diarrhea) No Known Medication Allergies Social History Alcohol Current, 1-2 times per year, 05/28/2019 Tobacco - Denies Tobacco Use, 09/10/2019 Former smoker, quit more than 30 days ago Tobacco Use:., 06/24/2021 Former smoker, quit more than 30 days ago Tobacco Use:., 05/28/2019 Immunizations Vaccine Date Status influenza virus vaccine, inactivated 07/20/2020 Recorded Normal [facility] Comment on above: Result Comment: Elec [email or web address] Signed By: Gavin COLEY, Luann Maldonado\.br\Date and Time Signed: 06/24/21 10:14 EDT Reminderson 06-24-2021 Reminders - From: Monserrat Greer To: Monserrat Greer; Sent: 06/24/2021 14:02:41 EDT Show up: 05/24/2022 14:02:00 EDT Subject: Ambulatory Reminder Due Date/Time: 06/24/2022 14:02:00 EDT Reminder/Recall Patient is due for a one year follow up and - June 2022 Normal [facility] Coding Summary.on 06-17-2021 Coding Summary. [id number] Gh0bW w+PGhlYWQ+EJ6HTPPaE63oaBE lcS5HL5cQLJ0ARVIGKQYFDS7L TE7vuOG7RNooU0OtlbHq EanutYFqBJ12XSk6UWY2xBavW GqtvY9mkCQtA8w6XdQwGK33lX 79LRzuYUAmQsO1WnDnutgrcRR y D4lfLrQneUTpLmr+PHRhYmxlI HdpZHRoPScxMDAlJyBzdHlsZT 9dUr2iJUNoMWPlyPaopYDmYtU j a5mrBNWqKMyaJC4riGunL2Kuu JS1OLFva6v4Nu45xZR+PHRkIH B2tHviFWrcp391WwKbe7eyPWT 3 mJXwPUweFOF3D48vs3A1BQRaA DYdUWF3vMD5rK4muJdivwiwV0 TrsHAzLqA9POT7jEVlqG7hrUf n xmoteD1xIog+T07WFZ5EGDNEZ U6RQta8A1TnVvdmtKF+PC90YW HtXL54uUFhsICvv0vswVc5PhE w NYKbDYI2aIbvLDpcd5BdQPGfK 79izVBzt3B9XVHqkJcysALbHn FcuAR8fJ1nGCrokhngk4schha n Tzhkg6obky42sU08M21uEAxyN WViLRR9FVDxVGGoeArner8kxB 9wIi8+YXfur4zwy9umfPb5IaE w NYCnvtUunMexVUC6i6DaLv21B 1SksNsno6NeWwh3wq61zPLop0 S3mUH8AUsiVTGodL3pLDhyNaX 6 LASrVxMbcQ05gTKiNCweBs3at EdtjMokDN1xBTLtkokgUGHzuJ 7rXGKblBNnhBcyKZ4yKMBjzzk m h797OnOlWDB1MVBjfHIbN0Olg H5uXlXgLHKnAATlB4HoeEMiHH ixR464ILzrFeU2BDCtybDnW2K s HLMubDngAkQ4d2J7Ce9Tq6Pca wqbEMO6IRruSTS9OyKeMnGlGd J8K8UtQaw9OLQziGsmTP8nG7D h ZOTkthhlsdolbXQ0LMTzKZQgu K36tGHvTYjoKn9ib8G8y584JB LhBYIloI84Fm6jbXfiIBVtdPV U hT6szxjvl8swtobkNuAiWRZhH Fq7DEy6PKTwcExhVjUlLWF9Bn I0YCG8vAWruH3clTdigotayS1 w Oyc+Y06xyQ6zKUO4XHL8eevoH SXppiBxFV42FA47B8RiVegbxK FibGU+EZRfmhTmmIjgPG1uOlH j c2xfp6NpJNjrQ2QyRSVgYGhqU rq9AIAjJDK5wCU2iV8eRTQzRM let5B3yFH7D2MmpyRteo1kr5p s OJTpUBxyO83dwGYvz0U0ZFFsr LI0WXTjeDzhHdHsrA05Jcw+PG ZrnAylo4HdAepqf2erh0ozvQw 9 JxJvRMEbraUqsHehOGL5d2WwR r90A93lGBcqGYZdHRLvZDWtSQ TzcEbxhi0olU8vMb8+PGNvbCB 3 sUY2uG4eLUJnEpR8QJtnU417F iAgbJIkFkyut3ert5hxzPt9Qa CkUUEuigWltCdiNEX4x0SmHs8 8 A92hSYoaWTCoJJHrQDKlNGKmk Tpczx0mlL1wPa6+DK1tm6qlba 25dO27qDG+WEIcFOY1zAbzFAh w LMJnbN6lSTbgPeB4IPYeDoGhc W64jXIiGAieYx0cqZblfTcnPC 4aLVRhtalqu802YxWuy4wxWFX w qXMjJEakTVJ8Z28mz0O3KDKjJ ARuQOE7uNL2lP1pqHoekxmumA WthPhokkGmmXffREufQZicR56 6 IHRvcDsnPlBhdGllbnQgTmFtZ Yl0U9MsAqp1RAOxtBzeNR5fhU FrZJvzLs7fdXynnAzuZK0qNIV p xkqjd598NcWbz2viFKAtqEFzP MptQQB7X50qu0W3ZOSmURSgMB Y3bPB9eZ4oyArzopfjeOWmfCg g rwWlaIxyYVgkAXtvR313YEUdm RvnHeWjieFeKIHvwIF5AS79JG 62dDKsc6S1kEV8F7GpAGNdgph t absjrEL5EXZfZTWuzE45Ok1ff CrlDg8iHJYwBXH2MJXqzSDyJ0 DjfI4hZjEqLOIePABwM1UcyTZ t AGbfK164TUsyObK0WHSezbFiN 4MuIKKleIkcYpH1j6C7Kd9VY0 Z7ET03FE06xRVao1T0bNK1G3N h KDQiyyivcxzpvVZ7LFPcTQKft H91Fy1wcDscXm9sGABhGIV3AS GfsSCwI7BdqN6bSyZzVDEsJON w M7RnpQQmUTvjL968HRykReB6A JFzalIrN2VgSWWwaGolIoC1u5 Y9Nu8HPVd7YS22QY58mEKgh0O 5 uTL1B5VjDVQejteftihblPU8K YKkHLJitE64Sw5cfNxfCg3lDG DtGIB3ZWRynEKdF9DgyY3jWfF j SHHgWKAfN5WmtYTdAWnnF812M PanWcY6EBXgbtYsE8DfUSAzyA gkPpY7e8C4To4LGNWzOW86PYW 5 dDR2IC12DZ42P4UyBuqjbLPyw +PHRhYmxlIHdpZHRoPScxMD OzTuNaeCitPG2oEc7vQEDrUWZ v sIjpjRVsHqCsp4bbEYFsPLqfS P0hpWolP0VfgOC0WXQml7u3Qx 59R97zQ1XagOV+KNWcyGN5wHC 0 gL3aDcKzQjN2RSkyD149LmJua CVjYzpia8bwt8wifGz9WdV0KA WhehKbpWwvSXI3c6NwBi39V05 s IHdpZHRoPSIxNSUiIHZhbGlnb n2xxR5wUe7+YRGssEH8gUS0uK 3zEuMmExP4RZdzX174ThHusNC v Hopbo8duj7bjzHy8LeLfDICzg uGryLrpNLA6o8NfRi63N9SobL ajp4RaLqq6qo52eLTpe0Y5kSF 9 P6VoXIReooirwXUilJicVM9iX OIqymrcTNStoY9iFCEkT4l5Sa RhDhH7BMmrF3GizrR0BBWraHA g IYmaKXU9F11xa2O8JNDxMHIlH NA2eFA6kY6ywIczmkjwlMCtfH zhciYfdNabGFjsLZrxL836XXG v pWnzZVKpiT6jWFDvkGJrwFnfN F5iORAvjutcOkAAPUPSUSJZMD ZDUgYUTU09LB86fIWqa4O4vMM 9 F6ReNABwxsgtkjejvHZ0BCJhD AWdxL71qDQqIWevUd8yu3L0n9 62TOFyOKMldB11Qa7mnEhcNMW w dCVMyH8thdoii5zknnpbCpRmC CVrRLx8SIe1ZEZtiEgvBrJgEN E4PmI2ALH8yOQxoX3bxTmuoat g yB6zSdj+ITHfNpLfKRs9XWlqy GQ+LIVlHVH0rEhrIFbvZETabA 1fPEZsQ1y7GuHtFeB2JGexE5G h UOBbjxsjMj32aN7kCuRqMfU6C DteN2SnsxW7SVEnbXWdZPddXS Z5U25qe4V2ZJFoDWMaLAU0pLS 4 jD0kqHulvbnyuOVkrCwcabBpf GaiHUbcXPnjW953ADItaPikKr rmOMnjQFFiGP97BJ52gASmf2K 5 tJR0S8IwHDVbjmitssmkfKU2O AUnQAMrcQ17yGFrJTfaNi4wn7 J0w645GJFlSCRixQ36Tp5xrAc g KSNgbBMHvD6fiiqkm4qvwnxsA pMyUIOtIGe7UMp3JHWwyVkaLy GuPSI6OiL8ERU9iFEqkI9jrHk n zcyhxC5eHaa+WwPwXNqsJL62U X66xYByi0Q8hEV1K1LdQORvti agxqqwlXN6ZNRvHAPplH64vKE k FWbxAt6uh2A0p078XGHnKMIht C19Ld7gjSxrPGMlvLVNlY4sml mnp0ldlaqfPnUxAOHpXEr1JFy 0 AWHjtAtzOsDiMXI0OzL5IJD7a BHayN0pxBzryoujnG1jQif+T3 G3vAZ9iPEsfZuuwFI+XA10jb3 8 Q7OjWqesIyj6OYTpKLW3gHU3l R9oCAHySYbip6E6nTJ7O8Jltx Gyxz3dm6tjLGOaQBzgT61xtER w t1C0XLGbaUJ1HNYrkXvsOjGoc G93Oyc+IQKtiRsun6XaWqokq0 yjd7buzGo7MuMnVOYnvnQapPu u OJP6a6QeIq90D84kQUtnDEMwH FVgPTJkCGAtjEjvop6qzZ9ePj 8+WJWxvVD5rCH6yN1sRlMkUqD 2 MBigE632EnDtyQTbEyvet6rxk 8ibsEi6DlWaKKTkmuSurLakSD Z0p2QxUc90W8HquWzsm3LwAra 0 lq34tOArm1Y6uTU0S4EaDDVct xrwbFVaeEneAA3xOHSbqicqZR DoxK0nNAHqK8z2MbCcJqK0EJj u U6RjyjW0VBLuuTLaYHYqwNYOq Q0ucvxia6rfiaqtMmNjYOBaGH s8FMd1WSHcxFmfXdGfYVJ5YjY 2 TLE6eMVnyN2unUpqsetoeQ0sO yc+QEe1v9vpkFPdGE6qaAP0FL 80YL92uTFxb3Y0oNJ3J7PdFGF p yidurkfhiZA9FMCkRKStrT23L s1qzDseRg9cUNPhQFR3HYObgH BlA2YupO2nFtVzOHNvWHIxN1Q l wDJkXHarQ778HPzyAyG1QYHhm hZuV0NrVGPaqNnrJqG6l9R3Ir 9YWH99HN61HO49bURbe0B3rFR 9 U7UoPFJyckpybktjaES5LPBeN QYtpV04Kk7pvHfuSg3pYZTwKT T9PLCvdVMoS7YnbP0wOmDeZWK w GZAlM0RakJHtVZswP535REciP qG7IXZtfiWmM8LpPMFbkJaiRp R1w0I1Br8DAl82YE01AI60wAA g e0V8cFU3M9PiLFSqsvnmzfntm RD5NIQcHGNfdQ18Il0ffUvtWb 4xEKUsALZ6PHDgkEXwX4YmaZ7 y RhQbFAQdKIWfB8JmhCPyZGpuU 426NWhjEnT1MOOecfVaA7ZaYT BfpUjbIyT7c6N4Wq3JFGwixhp 8 L8CoCiyynMA+QT02QJVeZE16k CFsgBHgk0apcGv6DeOyPDPrSR D1cBowAZaso9YmCWGdL07ygFB w c2U6 (more content not included)... Normal [facility] CTA Abdomen and Pelvison CTA Abdomen and Pelvis Exam Date/Time: 06/11/2021 12:33 EDT Reason for Exam: DISSECTION OF UNSPEC AORTA;Aortic dissection Report PLEASE SEE CHEST CTA REPORT DATED: 06/11/2021. All CT scans at this facility use dose modulation, iterative reconstruction, and/or weight based dosing when appropriate to reduce radiation dose to as low as reasonably achievable. FINAL REPORT Dictated: 06/16/2021 1:16 pm Rei Gonzalez MD Signed (Electronic Signature): 06/16/2021 1:16 pm Signed by: Rei Gonzalez MD Transcribed by: MARIBETH Technologist: CASTRO Technical Comments GFR (mL/min/1/73m2) >60 Contrast: Isovue 370 Contrast amount in ml's: 100 Normal [facility] CTA Cheston 06-16-2021 CTA Chest Exam Date/Time: 06/11/2021 12:32 EDT Reason for Exam: DISSECTION OF UNSPEC AORTA;Aortic dissection Report IMPRESSION: STABLE THORACIC AND ABDOMINAL AORTIC ANEURYSMS, WITH A THORACIC AORTA STENT. STABLE APPROXIMATELY 1.5 CM PENETRATING ULCER OR CHRONIC FOCAL DISSECTION ALONG THE RIGHT LATERAL SUPERIOR INFRARENAL ABDOMINAL AORTA, NOTED. OTHER CHRONIC FINDINGS, NOT SIGNIFICANTLY CHANGED. EXAM: CTA Chest DATE: 06/11/2021 CLINICAL HISTORY: Aortic dissection, DISSECTION OF UNSPEC AORTA. COMPARISON: 12/03/2020 and 06/10/2020. TECHNIQUE: Spiral enhanced images were obtained of the chest, abdomen and pelvis after the infusion of approximately 100 mL of Isovue 370 contrast with aorta CTA protocol. Routine and volume rendered images were performed on a three-dimensional workstation. All CT scans at this facility use dose modulation, iterative reconstruction, and/or weight based dosing when appropriate to reduce radiation dose to as low as reasonably achievable. CHEST CTA FINDINGS: Moderate dilatation, unfolding and tortuosity of the thoracic aorta containing a stent graft from the arch to the inferior descending thoracic aorta appears unchanged. The ascending thoracic aorta measures approximately 3.4 cm in maximum caliber, with the average approximately 3.2 cm, and the descending 3.3 cm. The heart remains mildly enlarged. There is no pleural or pericardial effusion, lymphadenopathy, or other significant changes identified. An approximately 5 cm in sagittal length mass with irregular spiculated margins and air bronchograms within the central left upper lobe has not significantly changed. ABDOMEN AND PELVIS CTA FINDINGS: Report An approximately 1.5 x 1 cm focal outpouching along the right lateral aspect of the infrarenal abdominal aorta approximately 2 cm inferior to the origin of the right renal artery is probably a penetrating ulcer or focal dissection, and appears unchanged from the prior studies. Mild fusiform dilatation of the infrarenal abdominal aorta to approximately 3.3 x 2.9 cm appears unchanged. 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 FINAL REPORT Dictated: 06/16/2021 1:15 pm Rei Gonzalez MD Signed (Electronic Signature): 06/16/2021 1:15 pm Signed by: Rei Gonzalez MD Transcribed by: MARIBETH Technologist: CASTRO Technical Comments GFR (mL/min/1/73m2) >60 Contrast: Isovue 370 Contrast amount in ml's: 100 Normal [facility] Consent for Treatmenton 080 Consent for Treatment [id number]:12 7 Normal [facility] Creatinineon 06-11-2021 Creatinine [Mass/Vol] 0.8 mg/dL Normal 0.5-1.3 [facility] Comment on above: Performed By: #### 2 [id number], [id number] ####[facility] [address] [place] [address] Physician Orderon 06-11-2021 Physician Order [id number]:12 7 Normal [facility] eGFRon 06-11-2021 GFR/1.73 sq M.predicted among blacks MDRD (S/P/Bld) [Vol rate/Area] mL/min/{1.73_m2} Normal >=59 [facility] Comment on above: Order Comment: Order added by Discern Expert. Result Comment: eGFR is race adjusted. AA=. Performed By: #### 2 [id number], [id number] ####[facility] [address] [place] [address] GFR/1.73 sq M.predicted among non-blacks MDRD (S/P/Bld) [Vol rate/Area] mL/min/{1.73_m2} Normal >=59 [facility] Comment on above: Order Comment: Order added by Discern Expert. Result Comment: Quality Worker jenny kidney disease could be indicated at eGFR's of less than 60 mL/min/1.73m2. Kidney failure is indicated at less than 15 mL/min/1.73m2. Performed By: #### 2 [id number], [id number] ####[facility] [address] [place] [address] Pre-Certification Formon Pre-Certification Form [id number]:1 27 Normal [facility] Heart and Vascular Office/Cl inic Noteon 12-17-2020 Heart and Vascular Office/Clinic Note Chief Complaint 6 month f/u w/ CTA Phone visit History of Present Illness Chelle this is a phone visit. 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 She has localized dissection in the abdomen in the pararenal segment. This continues to be less than 4 cm. It is about 3.1 cm. She is asymptomatic. I discussed with her the finding on the CAT scan and a phone visit. She also has lung lesion I spoke to her about it. She said she does not want to deal with it at this point in time because her has brain tumor and she would like to take care of him first. But I recommended that she see a entry level software developer for it. From vascular standpoint we will repeat the CAT scan in 6-month and follow-up for surveillance. Review of Systems PHQ Score Initial Depression Screen Score: 0 Physical Exam Vitals & Measurements HT: 152.0 cm HT: 152 cm WT: 53.0 kg WT: 53 kg BMI: 22.94 Follow-up No qualifying data available Problem List/Past Medical History Ongoing Diverticulitis Enuresis Frequent urination Gross hematuria Microhematuria Microscopic hematuria Mixed incontinence Nocturia Post-void dribbling Unspecified urethral stricture, female Urge incontinence Urinary retention Historical Dysuria Urinary urgency Procedure/Surgical History Cystourethroscopy with dilation of urethral stricture (08/13/2010), Bunionectomy, Colonoscopy. Medications amiodarone Tab atorvastatin 20 mg Tab clindamycin Top 1% Gel Eliquis 5 mg oral tablet furosemide 40 mg Tab Levsin 0.125 mg SL Tab, 0.125 mg= 1 tab(s), Oral, q6hr, 1 refills Lopressor 25 mg oral tablet, 25 mg= 1 tab(s), Oral, Daily Multi Vitamins oral tablet, 1 tab(s), Oral, Daily, Not taking potassium chloride 20 mEq ER Tab Premarin Vaginal Cream, 1 gm, Vaginal, MonThu Allergies Milk Products (Diarrhea) Wheat (Diarrhea) No Known Medication Allergies Social History Alcohol Current, 1-2 times per year, 05/28/2019 Tobacco - Denies Tobacco Use, 09/10/2019 Former smoker, quit more than 30 days ago Tobacco Use:., 06/11/2020 Former smoker, quit more than 30 days ago Tobacco Use:., 05/28/2019 Immunizations Vaccine Date Status influenza virus vaccine, inactivated 07/20/2020 Recorded Normal [facility] Comment on above: Result Comment: Elec tronically Signed By: Gavin COLEY, Luann Maldonado\.br\Date and Time Signed: 12/17/20 12:03 EST Heart and Vascular Office/Clinic Note Chief Complaint 6 month f/u w/ CTA Phone visit Review of Systems PHQ Score Initial Depression Screen Score: 0 Physical Exam Vitals & Measurements HT: 152.0 cm HT: 152 cm WT: 53.0 kg WT: 53 kg BMI: 22.94 Assessment/Plan 1. Aortic dissection (I71.00: Dissection of unspecified site of aorta) Follow-up No qualifying data available Problem List/Past Medical History Ongoing Diverticulitis Enuresis Frequent urination Gross hematuria Microhematuria Microscopic hematuria Mixed incontinence Nocturia Post-void dribbling Unspecified urethral stricture, female Urge incontinence Urinary retention Historical Dysuria Urinary urgency Procedure/Surgical History Cystourethroscopy with dilation of urethral stricture (08/13/2010), Bunionectomy, Colonoscopy. Medications amiodarone Tab atorvastatin 20 mg Tab clindamycin Top 1% Gel Eliquis 5 mg oral tablet furosemide 40 mg Tab Levsin 0.125 mg SL Tab, 0.125 mg= 1 tab(s), Oral, q6hr, 1 refills Lopressor 25 mg oral tablet, 25 mg= 1 tab(s), Oral, Daily Multi Vitamins oral tablet, 1 tab(s), Oral, Daily, Not taking potassium chloride 20 mEq ER Tab Premarin Vaginal Cream, 1 gm, Vaginal, MonThu Allergies Milk Products (Diarrhea) Wheat (Diarrhea) No Known Medication Allergies Social History Alcohol Current, 1-2 times per year, 05/28/2019 Tobacco - Denies Tobacco Use, 09/10/2019 Former smoker, quit more than 30 days ago Tobacco Use:., 06/11/2020 Former smoker, quit more than 30 days ago Tobacco Use:., 05/28/2019 Immunizations Vaccine Date Status influenza virus vaccine, inactivated 07/20/2020 Recorded Normal [facility] Comment on above: Result Comment: Elec tronically Signed By: Gavin COLEY, Luann Maldonado\.br\Date and Time Signed: 12/17/20 12:03 EST Coding Summary.on 12-04-2020 Coding Summary. CODING DATE: 021 FINAL [facility] STATUS: Home (Routine DC) PAYOR: Medicare APC DESCRIPTION 5571 Level 1 Imaging with Contrast 5572 Level 2 Imaging with Contrast ADMIT DX: REASON FOR VISIT DX: I71.00 Dissection of unspecified site of aorta FINAL DX: PRINCIPAL: I71.00 Dissection of unspecified site of aorta SECONDARY: R91.8 Other nonspecific abnormal finding of lung field N81.89 Other female genital prolapse N13.39 Other hydronephrosis K80.20 Calculus of gallbladder without cholecystitis without obstruction PYMT PROC APC STAT DESCRIPTION DOCTOR NAME DATE NOTE: The code number assigned matches the documented diagnosis and / or procedure in the patient's chart. However, the narrative phrase printed from the coding software may appear abbreviated, or result in slightly different terminology. Coded By: Aida Kahn CphT Date Saved: 12/04/2020 01:21 pm Normal [facility] CTA Abdomen and Pelvison CTA Abdomen and Pelvis Exam Date/Time: 12/03/2020 13:21 EST Reason for Exam: Dissection of unspecified site of aorta;Other (please specify) Report IMPRESSION: PLEASE REFER TO CHEST CT CLINICAL HISTORY: Dissection of unspecified site of aorta COMPARISON: NONE. FINDINGS: All CT scans at this facility use dose modulation, iterative reconstruction, and/or weight based dosing when appropriate to reduce radiation dose to as low as reasonably achievable. FINAL REPORT Dictated: 12/03/2020 3:54 pm Adrian Trujillo MD, V. Signed (Electronic Signature): 12/03/2020 3:54 pm Signed by: Adrian Trujillo MD, V. Transcribed by: MARIBETH Technologist: LUIS Technical Comments GFR (mL/min/1/73m2) 60 Contrast: Isovue 370 Contrast amount in ml's: 100 Normal [facility] CTA Cheston 12-03-2020 CTA Chest Exam Date/Time: 12/03/2020 13:21 EST Reason for Exam: Dissection of unspecified site of aorta;Other (please specify) Report IMPRESSION: STATUS POST ENDOVASCULAR REPAIR OF THE DESCENDING THORACIC AORTA SIMILAR TO THE PREVIOUS STUDY. THERE IS NO EXTRAVASATION OR ENDOLEAK. THERE IS A PERSISTENT 3.4 CM SPICULATED MASS IN LEFT UPPER LOBE WORRISOME FOR PRIMARY OR METASTATIC MALIGNANCY. RECOMMEND PET/CT CORRELATION AND/OR TISSUE DIAGNOSIS. THE THYROID GLAND IS INHOMOGENEOUS, MAY CONSIDER PELVIC ULTRASOUND CORRELATION. THERE IS A WELL-DEFINED LIPID RICH LESION MEASURING 4.5 CM IN GREATEST DIAMETER INDISTINGUISHABLE FROM THE RIGHT PERICARDIUM AND RIGHT HEART BORDER WHICH MAY REPRESENT A LIPOMA VERSUS OTHER ETIOLOGIES. MAY CONSIDER CORRELATION WITH ECHOCARDIOGRAPHY. THERE IS A FOCAL DISSECTION OF THE INFRARENAL ABDOMINAL AORTA UNCHANGED SINCE THE PREVIOUS STUDY. THERE IS NO ANEURYSM OF THE ABDOMINAL AORTA. THERE IS MODERATE BILATERAL HYDRONEPHROSIS AND HYDROURETER WHICH MAY BE SECONDARY TO IMPINGEMENT OF THE DISTAL URETERS DUE TO PELVIC PROLAPSE WHICH INCLUDES THE RECTUM, THE URINARY BLADDER AND THE DISTAL URETERS. THERE IS CAUDAL PROTRUSION OF THE PELVIC STRUCTURES PAST THE PERINEUM CONSISTENT WITH PELVIC FLOOR PROLAPSE. THERE ARE LAMINATED GALLSTONES WITHOUT EVIDENCE OF CHOLECYSTITIS. EXAM: CTA Chest Abdomen and Pelvis History: Technique: Multiple contiguous axial images were obtained of the thorax from the thoracic inlet through the upper abdomen after IV contrast. Sagittal and coronal reformats were obtained. Comparison: Chest CT from 06/10/2020. Findings: The thyroid gland is inhomogeneous with multiple hypoattenuating areas measuring up to 8 mm in greatest diameter. Recommend thyroid ultrasound evaluation. No axillary, mediastinal, or hilar lymphadenopathy. The ascending aorta has a diameter of 3.6 cm. The descending aorta has a diameter 3.6 cm. 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 There is no evidence of extravasation or endoleak. Esophagus is within normal limits. Heart size is within normal limits. No significant pericardial effusion. Report There is a well-defined 4.5 x 3.8 cm lipid rich lesion along the right heart border at the level of the diaphragm indistinguishable from the pericardium or the myocardium of uncertain etiology. This may represent a lipoma. May consider correlation with cardiac echocardiogram. There is redemonstration of a spiculated mass in the left apex with a diameter 2.6 x 3.4 x 3.3 cm which is highly worrisome for primary or metastatic malignancy. PET/CT evaluation versus tissue diagnosis is recommended. There are no infiltrates or effusions. The airways are unremarkable. The liver is normal in size, attenuation and enhancement without solid or cystic lesions. There is no intra or extrahepatic bile duct dilatation. There are 2 laminated stones within the gallbladder measuring up to 1.8 cm in greatest diameter. There is no gallbladder wall thickening or pericholecystic fluid to suggest active inflammation. The spleen is normal in size and attenuation without focal lesions. The pancreas is intact. The adrenal glands are within normal limits. The kidneys are normal in size and position without solid or focal lesions. There are prompt bilateral nephrograms after IV contrast administration with delayed excretion of contrast into dilated bilateral collecting systems. There is mild to moderate bilateral hydronephrosis or hydroureter which may be secondary to impingement of the distal ureters secondary to Pelvic floor prolapse. The aorta is tortuous. 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 There is no aneurysmal dilatation. Maximum diameter of the aorta, prior to the bifurcation is 2.3 cm. There are vascular calcifications of the aorta and iliac arteries without persistent narrowing. There is no retroperitoneal lymphadenopathy. There are no distended loops of bowel. The appendix is unremarkable. There is retained fecal material throughout the colon consistent constipation. There is severe diverticulosis of the descending sigmoid colon without surrounding inflammatory changes to suggest diverticulitis. The uterus is not identified and may be surgically absent. There is caudal protrusion of the soft tissue of the pelvis past the perineum including the urinary bladder and the rectum and the distal ureters consistent with pelvic floor prolapse. There are severe degenerative changes of the thoracolumbar spine with scoliosis and severe joint space narrowing at every level. There are no acute osseous changes. All CT scans at this facility use dose modulation, iterative reconstruction, and/or weight based dosing when appropriate to reduce radiation dose to as low as reasonably achievable. FINAL REPORT Dictated: (more content not included)... Normal [facility] Consent for Treatmenton 11-07 Consent for Treatment [id number]:12 7 Normal [facility] Creatinineon 12-03-2020 Creatinine [Mass/Vol] 0.9 mg/dL Normal 0.5-1.3 [facility] Comment on above: Performed By: #### 2 [id number], [id number] ####[facility] [address] [place] [address] Physician Orderon 12-03-2020 Physician Order [id number]:1 27 Normal [facility] eGFRon 12-03-2020 GFR/1.73 sq M.predicted among blacks MDRD (S/P/Bld) [Vol rate/Area] mL/min/{1.73_m2} Normal >=59 [facility] Comment on above: Order Comment: Order added by Discern Expert. Result Comment: eGFR is race adjusted. AA=. Performed By: #### 2 [id number], [id number] ####[facility] [address] [place] [address] GFR/1.73 sq M.predicted among non-blacks MDRD (S/P/Bld) [Vol rate/Area] 60 mL/min/1.73 m2 Normal >=59 [facility] Comment on above: Order Comment: Order added by Discern Expert. Result Comment: Quality Worker jenny kidney disease could be indicated at eGFR's of less than 60 mL/min/1.73m2. Kidney failure is indicated at less than 15 mL/min/1.73m2. Performed By: #### 2 [id number], [id number] ####[facility] [address] [place] [address] Pre-Certification Formon Pre-Certification Form [id number]:1 27 Normal [facility] Ambulatory Clinical Summaryo n 11-03-2020 Ambulatory Clinical Summary {[id number] Normal [facility] Patient Educationon 11-03-20 Patient Education Family Medicine Overactive Bladder, Adult The bladder has two functions that are totally opposite of the other. One is to relax and stretch out so it can store urine (fills like a balloon), and the other is to contract and squeeze down so that it can empty the urine that it has stored. Proper functioning of the bladder is a complex mixing of these two functions. The filling and emptying of the bladder can be influenced by: ? The bladder. ? The spinal cord. ? The brain. ? The nerves going to the bladder. ? Other organs that are closely related to the bladder such as prostate in males and the vagina in females. As your bladder fills with urine, nerve signals are sent from the bladder to the brain to tell you that you may need to urinate. Normal urination requires that the bladder squeeze down with sufficient strength to empty the bladder, but this also requires that the bladder squeeze down sufficiently long to finish the job. In addition the sphincter muscles, which normally keep you from leaking urine, must also relax so that the urine can pass. Coordination between the bladder muscle squeezing down and the sphincter muscles relaxing is required to make everything happen normally. With an overactive bladder sometimes the muscles of the bladder contract unexpectedly and involuntarily and this causes an urgent need to urinate. The normal response is to try to hold urine in by milagros the sphincter muscles. Sometimes the bladder contracts so strongly that the sphincter muscles cannot stop the urine from passing out and incontinence occurs. This kind of incontinence is called urge incontinence. Having an overactive bladder can be embarrassing and awkward. It can keep you from living life the way you want to. Many people think it is just something you have to put up with as you grow older or have certain health conditions. In fact, there are treatments that can help make your life easier and more pleasant. CAUSES Many things can cause an overactive bladder. Possibilities include: ? Urinary tract infection or infection of nearby tissues such as the prostate. ? Prostate enlargement. ? In women, multiple pregnancies or surgery on the uterus or urethra. ? Bladder stones, inflammation or tumors. ? Caffeine. ? Alcohol. ? Medications. For example, diuretics (drugs that help the body get rid of extra fluid) increase urine production. Some other medicines must be taken with lots of fluids. ? Muscle or nerve weakness. This might be the result of a spinal cord injury, a stroke, multiple sclerosis or Parkinson's disease. ? Diabetes can cause a high urine volume which fills the bladder so quickly that the normal urge to urinate is triggered very strongly. SYMPTOMS ? Loss of bladder control. You feel the need to urinate and cannot make your body wait. ? Sudden, strong urges to urinate. ? Urinating 8 or more times a day. ? Waking up to urinate two or more times a night. DIAGNOSIS To decide if you have overactive bladder, your healthcare provider will probably: ? Ask about symptoms you have noticed. ? Ask about your overall health. This will include questions about any medications you are taking. ? Do a physical examination. This will help determine if there are obvious blockages or other problems. ? Order some tests. These might include: ? A blood test to check for diabetes or other health issues that could be contributing to the problem. ? Urine testing. This could measure the flow of urine and the pressure on the bladder. ? A test of your neurological system (the brain, spinal cord and nerves). This is the system that senses the need to urinate. Some of these tests are called flow tests, bladder pressure tests and electrical measurements of the sphincter muscle. ? A bladder test to check whether it is emptying completely when you urinate. ? Cytoscopy. This test uses a thin tube with a tiny camera on it. It offers a look inside your urethra and bladder to see if there are problems. ? Imaging tests. You might be given a contrast dye and then asked to urinate. X-rays are taken to see how your bladder is working. TREATMENT An overactive bladder can be treated in many ways. The treatment will depend on the cause. Whether you have a mild or severe case also makes a difference. Often, treatment can be given in your healthcare provider's office or clinic. Be sure to discuss the different options with your caregiver. They include: ? Behavioral treatments. These do not involve medication or surgery: ? Bladder training. For this, you would follow a schedule to urinate at regular intervals. This helps you learn to control the urge to urinate. At first, you might be asked to wait a few minutes after feeling the urge. In time, you should be able to schedule bathroom visits an hour or more apart. ? Kegel exercises. These exercises strengthen the pelvic floor muscles, which support the bladder. By toning these musc (more content not included)... Normal [facility] Urology Office/Clinic Noteon 11-03-2020 Urology Office/Clinic Note Chief Complaint 4 month f/u This patient is an 79-year-old female with a history of frequency nocturia and urgency incontinence. She is been dealing with bladder problems for many years. Her last visit was on 06/09/2020. HPI Staff Pt is here for a 4 month f/u. Previous dx of frequent urination, mixed incontinence, microhematuria and nocturia. Pt is unable to give a urine sample today. She states that she was unsure if she has a UTI and she dropped off a UA specimen at [facility] this past Monday. She is not stating any urinary issues. Pt states that she has a prolapsed bladder for about 8 months now. Dysuria: no Incomplete bladder emptying: no Hematuria: no Frequency: yes but pt states that she voids a lot due to the water pill that she takes. Urgency: no Nocturia: 2-3 Stream: strong Leaking: yes Post void dripping: yes Wearing pads/ Depends: yes changes 5x daily Urge incontinence: no Stress incontinence: no Incontinence without Sensory Awareness: no Abdominal pain: no Flank pain: no Sexual complaints: no History of Present Illness reviewed last encounter. There have been no associated fever, chills, flank pain or blood in the urine. Pt is not having any burning. Review of Systems PHQ Score Initial Depression Screen Score: 0 ROS - Provider Constitutional: denies weight loss, denies hot flashes. Eyes: denies eye problems. Gastrointestinal: denies nausea, denies vomiting. Cardiovascular: denies chest pain or angina. Integumentary: no dryness Musculoskeletal: denies musculoskeletal symptoms. ENMT: denies otolaryngeal symptoms. Respiratory: no shortness of breath. Heme/Lymph: denies easy bleeding tendency, denies easy bruising tendency. Psychiatric: no confusion, no anxiety. Genitourinary: denies dysuria, denies hematuria, denies discharge, denies urinary frequency, denies urinary hesitancy, denies nocturia, denies incontinence, denies genital sores, denies decreased libido, and denies erectile dysfunction. Physical Exam Vitals & Measurements HR: 60(Peripheral) RR: 16 BP: 106/72 HT: 155 cm HT: 155.0 cm WT: 69 kg WT: 69.0 kg BMI: 28.72 General Appearance: alert , no acute distress, well nourished, well developed female. Genitourinary: bladder nonpalpable, no flank pain. Assessment/Plan Because of the complaints of urinary frequency and urgency with some urgency incontinence I decided to try her on Levsin SL 0.125 mg to be used on an as-needed basis. We discussed in detail anticholinergic medication that would likely make her mouth dry and cause her constipation. We like to avoid these medications if possible. Levsin SL as a as needed medication may help her on those days when her bladder is most active. We did discuss potential complications of using this medication. We also discussed the results of her previous cystoscopic examination. Patient is prescribed to contact our office if she has any problems using this medication or she needs a refill. We will see her back in the office with a PVR in 6 months. 1. Unspecified urethral stricture, female (N35.92: Unspecified urethral stricture, female) S/P cysto/UD 08/13/2010. Premarin vaginal cream 1 gram 2x a week from PCP. 2. Urge incontinence (N39.41: Urge incontinence) Pt states it depends on how half the bathroom is. Pt is wearing pads and is changing 5x a day. 3. Nocturia (R35.1: Nocturia) 3x a night 4. Post-void dribbling (N39.43: Post-void dribbling) daily 5. Frequent urination (R35.0: Frequency of micturition) pt is taking lasiks and is taking 1 pill qd instead of BID. Will start pt on Levsin SL 0.125mg [facility] and pt is to take this pill as needed. Pt is to call the office if she needs more refills or if there is changes in urinary issues. Pt will return in 6 months with PVR. Orders: hyoscyamine, 0.125 mg = 1 tab(s), Oral, q6hr, As needed, # 30 tab(s), Refills(s) 1, Pharmacy: [id number], 155, cm, 11/03/20 13:58:00 EST, Height/Length Dosing, 69, kg, 11/03/20 13:58:00 EST, Weight Dosing I have reviewed the previous health record information and history for this patient from Dr. Farr Follow-up With When Contact Information Yordan Cordon MD, Aime Bolden In 6 months [facility] [address], [place] [address]- Additional Instructions: PVR Patient Education Overactive Bladder, Adult I, Ciara Barreto, personally scribed for Dr. Farr on 11/03/2020 14:27:42. . Documentation recorded by the scribe, Ciara Barreto, accurately reflects the services(s) I performed and decisions made by me. Authenticated by Dr. Farr on 11/03/2020 14:33:37. Problem List/Past Medical History Ongoing Diverticulitis Enuresis Frequent urination Gross hematuria Microhematuria Microscopic hematuria Mixed incontinence Nocturia Post-void dribbling Unspecified urethral stricture, female Urge incontinence Urinary retention H (more content not included)... Normal [facility] Comment on above: Result Comment: Elec tronically Signed By: Yordan Cordon MD, Aime Bolden\.br\Date and Time Signed: 11/03/20 14:33 EST\.br\Electronically Co-Signed By: Ciara Barreto MA\.br\Date and Time Co-Signed: 11/03/20 14:27 EST BMP FASTINGon 09-30-2020 Anion gap [Moles/Vol] 7 mmol/L Low 8-16 [facility] Comment on above: Performed By: #### B MPF #### Testing performed at [address] [address] Calcium [Mass/Vol] 9.0 mg/dL Normal 8.4-10.2 [facility] Comment on above: Performed By: #### B MPF #### Testing performed at [address] [address] Chloride [Moles/Vol] 99 mmol/L Normal 98-107 [facility] Comment on above: Result Comment: Plea se note: Triglyceride levels of 600mg/dL or higher may positively bias chloride results by approximately 2.1 mmol Performed By: #### B MPF #### Testing performed at [place] [id number] CO2 [Moles/Vol] 33 mmol/L High 22-30 [facility] Comment on above: Performed By: #### B MPF #### [place] [address] Creatinine [Mass/Vol] 0.80 mg/dL Normal 0.7-1.2 [facility] Comment on above: Performed By: #### B MPF #### [place] [address] EST. GFR, >60 Normal [facility] Comment on above: Performed By: #### B MPF #### [place] [address] EST. GFR,Non >60 Normal [facility] Comment on above: Performed By: #### B MPF #### [place] [address] GFR/1.73 sq M predicted among non-blacks MDRD (S/P/Bld) [Vol rate/Area] Average GFR for 70+ years old = 75. Normal [facility] Comment on above: Result Comment: Quality Worker jenny Kidney disease, GFR = <60. Kidney failure, GFR = <15. The GFR estimate is not adjusted for extreme body surface area or acute process, nor has it been validated for women or ethnic groups other than and . Testing performed at [place] [address] Performed By: #### B MPF #### [place] [address] Glucose [Mass/Vol] 94 mg/dL Normal 70-100 [facility] Comment on above: Result Comment: NORMAL <100 mg/dL PREDIABETES 101-126 mg/dL DIABETES 126 mg/dL or higher Performed By: #### B MPF #### [place] [address] Potassium [Moles/Vol] 4.0 mmol/L Normal 3.5-5.1 [facility] Comment on above: Performed By: #### B MPF #### Testing performed at [facility] [address] [place] [address] Sodium [Moles/Vol] 139 mmol/L Normal 137-145 [facility] Comment on above: Performed By: #### B MPF #### Testing performed at [facility] [address] [place] [address] Urea nitrogen [Mass/Vol] 19 mg/dL Normal 7-20 [facility] Comment on above: Performed By: #### B MPF #### Testing performed at [facility] [address] [place] [address] APTTon 05-20-2020 aPTT Coag (Bld) [Time] 42.3 s High 25.0-35.0 [facility] Comment on above: Order Comment: No: D o not add to previous draw Result Comment: ALL RESULTS MUST BE INTERPRETED WITH RESPECT TO BLOOD DRAWING ARTIFACT OR DILUTION ERROR OF ANTICOAGULANT AT THE TIME OF SAMPLING. THE APTT SHOULD NOT BE USED TO MONITOR UNFRACTIONATED HEPARIN THERAPY, THIS LABORATORY NO LONGER HAS AN ESTABLISHED THERAPEUTIC RANGE BASED ON THE APTT. IT IS RECOMMENDED THAT THE [facility] - HEPARIN ASSAY (ANTI-XA ACTIVITY) BE USED FOR THIS PURPOSE. Performed By: #### 3 0738 #### [facility] [address] aPTT Coag (Bld) [Time] 39.8 s High 25.0-35.0 [facility] Comment on above: Order Comment: No: D o not add to previous draw Result Comment: ALL RESULTS MUST BE INTERPRETED WITH RESPECT TO BLOOD DRAWING ARTIFACT OR DILUTION ERROR OF ANTICOAGULANT AT THE TIME OF SAMPLING. THE APTT SHOULD NOT BE USED TO MONITOR UNFRACTIONATED HEPARIN THERAPY, THIS LABORATORY NO LONGER HAS AN ESTABLISHED THERAPEUTIC RANGE BASED ON THE APTT. IT IS RECOMMENDED THAT THE [facility] - HEPARIN ASSAY (ANTI-XA ACTIVITY) BE USED FOR THIS PURPOSE. Performed By: #### 3 0738 #### [facility] [address] BASIC METABOLIC PANELon - Calcium [Mass/Vol] 8.3 mg/dL Low 8.6-10.3 [facility] Comment on above: Order Comment: No: D o not add to previous draw Performed By: #### 3 0738 #### [facility] [address] [place] [address], [place] Chloride [Moles/Vol] 92 mmol/L Low 98-107 [facility] Comment on above: Order Comment: No: D o not add to previous draw Performed By: #### 3 0738 #### [facility] [address] [place] [address], [place] CO2 [Moles/Vol] 34 mmol/L High 21-31 [facility] Comment on above: Order Comment: No: D o not add to previous draw Performed By: #### 3 0738 #### [facility] [address] [place] [address], [place] Creatinine [Mass/Vol] 0.60 mg/dL Normal 0.60-1.20 [facility] Comment on above: Order Comment: No: D o not add to previous draw Performed By: #### 3 0738 #### [facility] [address] [place] [address], [place] GFR/1.73 sq M predicted among blacks MDRD (S/P/Bld) [Vol rate/Area] mL/min/{1.73_m2} Normal >60 [facility] Comment on above: Order Comment: No: D o not add to previous draw Result Comment: Calc ulation may not be valid for patients over 70 years Performed By: #### 3 0738 #### [facility] [address] [place] [address], [place] GFR/1.73 sq M predicted among non-blacks MDRD (S/P/Bld) [Vol rate/Area] mL/min/{1.73_m2} Normal >60 [facility] Comment on above: Order Comment: No: D o not add to previous draw Result Comment: Calc ulation may not be valid for patients over 70 years Performed By: #### 3 0738 #### [facility] [address] [place] [address], [place] Glucose [Mass/Vol] 88 mg/dL Normal 70-100 [facility] Comment on above: Order Comment: No: D o not add to previous draw Performed By: #### 3 0738 #### [facility] [address] [place] [address], [place] Potassium [Moles/Vol] 3.4 mmol/L Low 3.5-5.1 [facility] Comment on above: Order Comment: No: D o not add to previous draw Performed By: #### 3 0738 #### [facility] [address] [place] [address], [place] Sodium [Moles/Vol] 133 mmol/L Low 136-145 [facility] Comment on above: Order Comment: No: D o not add to previous draw Performed By: #### 3 0738 #### [facility] [address] [place] [address], [place] Urea nitrogen [Mass/Vol] 18 mg/dL Normal 7-25 [facility] Comment on above: Order Comment: No: D o not add to previous draw Performed By: #### 3 0738 #### [facility] [address] [place] [address], [facility] CBC COMPLETE BLOOD COUNTon 0 7- Erythrocyte distribution width (RBC) [Ratio] 14.8 % Normal 11.5-15.0 [facility] Comment on above: Order Comment: No: D o not add to previous draw Performed By: #### 3 0738 #### [facility] [address] [place] [address], [place] Hematocrit (Bld) [Volume fraction] 28.1 % Low 36.0-45.0 [facility] Comment on above: Order Comment: No: D o not add to previous draw Performed By: #### 3 0738 #### [facility] [address] Hemoglobin (Bld) [Mass/Vol] 9.0 g/dL Low 12.0-15.0 [facility] Comment on above: Order Comment: No: D o not add to previous draw Performed By: #### 3 0738 #### [facility] [address] [place] [id number], [facility] MCH (RBC) [Entitic mass] 28.6 pg Normal 27.0-33.0 [facility] Comment on above: Order Comment: No: D o not add to previous draw Performed By: #### 3 0738 #### [facility] [address] [place] [address], [facility] MCHC (RBC) [Mass/Vol] 32.0 g/dL Normal 32.0-35.0 [facility] Comment on above: Order Comment: No: D o not add to previous draw Performed By: #### 3 0738 #### [facility] [address] [place] [address], [facility] MCV (RBC) [Entitic vol] 89.2 fL Normal 82.0-98.0 [facility] Comment on above: Order Comment: No: D o not add to previous draw Performed By: #### 3 0738 #### [facility] [address] [place] [address], [facility] Nucleated RBC/100 WBC (Bld) [Ratio] 0 % Normal 0-0 [facility] Comment on above: Order Comment: No: D o not add to previous draw Performed By: #### 3 0738 #### [facility] [address] [facility] [address], [facility] PLAT CNT 535 10*3/uL High 150-400 [facility] Comment on above: Order Comment: No: D o not add to previous draw Performed By: #### 3 0738 #### [facility] [address] [place] [address], [facility] RBC (Bld) [#/Vol] 3.15 10*6/uL Low 3.80-5.00 [facility] Comment on above: Order Comment: No: D o not add to previous draw Performed By: #### 3 0738 #### [facility] [address] [place] [address], [facility] WBC (Bld) [#/Vol] 8.60 10*3/uL Normal 4.00-10.60 [facility] Comment on above: Order Comment: No: D o not add to previous draw Performed By: #### 3 0738 #### [facility] [address] [place] [address], [facility] LDH BLOODon 05-20-2020 LDH 272 Units/L High 140-271 [facility] Comment on above: Performed By: #### 5 0103 #### [facility] [address] [place] [address], [facility] LIVER BATTERYon 05-20-2020 Albumin [Mass/Vol] 2.8 g/dL Low 3.5-5.7 [facility] Comment on above: Performed By: #### 5 0103 #### [facility] [address] [place] [address], [facility] ALKALINE PHOSPH 64 IU/L Normal 34-104 [facility] Comment on above: Performed By: #### 5 0103 #### [facility] [address] [place] [address], [facility] ALT [Catalytic activity/Vol] 10 U/L Normal 7-52 [facility] Comment on above: Performed By: #### 5 0103 #### [facility] [address] [place] [address], [facility] AST [Catalytic activity/Vol] 15 U/L Normal 13-39 [facility] Comment on above: Performed By: #### 5 0103 #### [facility] [address] [place] [address] [place] [address] Bilirubin [Mass/Vol] 0.6 mg/dL Normal 0.3-1.0 [facility] Comment on above: Performed By: #### 5 0103 #### [facility] [address] Bilirubin.direct [Mass/Vol] 0.2 mg/dL Normal 0.0-0.2 [facility] Comment on above: Performed By: #### 5 0103 #### [facility] [address] Protein [Mass/Vol] 5.9 g/dL Low 6.0-8.3 [facility] Comment on above: Performed By: #### 5 0103 #### [facility] [address] MAGNESIUM BLOODon 05-20-2020 Magnesium [Mass/Vol] 2.0 mg/dL Normal 1.9-2.7 [facility] Comment on above: Order Comment: No: D o not add to previous draw Performed By: #### 3 0738 #### [facility] [address] *ANAEROBIC CULTUREon 020 *ANAEROBIC CULTURE Clinical Report: (D) Specimen/Source: FLUID/OTHER Collected: 05/19/2020 15:59 Status: Final Last Updated: 05/24/2020 13:26 (1) Thoracentesis Fluid No: Do not add to previous draw CULT RES (Final) No Anaerobes Isolated 5 Days Normal [facility] Comment on above: Order Comment: Thora centesis FluidNo: Do not add to previous draw Performed By: #### 5 0103 #### [facility] [address] *BODY FLUID CULTUREon 2019 *BODY FLUID CULTURE Clinical Report: (D) Specimen/Source: FLUID/THORACENTESIS FLUID Collected: 05/19/2020 15:59 Status: Final Last Updated: 05/24/2020 06:31 (1) No: Do not add to previous draw GRAM (Final) Polys Present No Bacteria Seen CYTOSPUN (Final) This Gram Stain was done on a cytocentrifuged specimen CULT RES (Final) No Growth Day 5 Normal [facility] Comment on above: Order Comment: No: D o not add to previous draw Performed By: #### 3 0738 #### [facility] [address] [facility] [address], [facility] APTTon 05-19-2020 aPTT Coag (Bld) [Time] 39.1 s High 25.0-35.0 [facility] Comment on above: Order Comment: No: D o not add to previous draw Result Comment: ALL RESULTS MUST BE INTERPRETED WITH RESPECT TO BLOOD DRAWING ARTIFACT OR DILUTION ERROR OF ANTICOAGULANT AT THE TIME OF SAMPLING. THE APTT SHOULD NOT BE USED TO MONITOR UNFRACTIONATED HEPARIN THERAPY, THIS LABORATORY NO LONGER HAS AN ESTABLISHED THERAPEUTIC RANGE BASED ON THE APTT. IT IS RECOMMENDED THAT THE UFH - HEPARIN ASSAY (ANTI-XA ACTIVITY) BE USED FOR THIS PURPOSE. Performed By: #### 8 [id number] #### [facility] [address] [facility] [address], [facility] aPTT Coag (Bld) [Time] 55.0 s High 25.0-35.0 [facility] Comment on above: Order Comment: No: D o not add to previous draw Result Comment: ALL RESULTS MUST BE INTERPRETED WITH RESPECT TO BLOOD DRAWING ARTIFACT OR DILUTION ERROR OF ANTICOAGULANT AT THE TIME OF SAMPLING. THE APTT SHOULD NOT BE USED TO MONITOR UNFRACTIONATED HEPARIN THERAPY, THIS LABORATORY NO LONGER HAS AN ESTABLISHED THERAPEUTIC RANGE BASED ON THE APTT. IT IS RECOMMENDED THAT THE UFH - HEPARIN ASSAY (ANTI-XA ACTIVITY) BE USED FOR THIS PURPOSE. CLINICAL SIGNIFICANCE OF THE PTT RESULT IS QUESTIONABLE IN THE PRESENCE OF HEPARIN. Performed By: #### 8 [id number] #### [facility] [address] BASIC METABOLIC PANELon 05-06 Calcium [Mass/Vol] 8.5 mg/dL Low 8.6-10.3 [facility] Comment on above: Order Comment: No: D o not add to previous drawPER RAMILA RANDOLPH... DRAW ALL OF PTS A.M. LABS NOW. HERMINIO RANDOLPH... DRAW ALL OF PTS A.M. LABS NOW. SS Performed By: #### 8 [id number] #### [facility] [address] [place] [address], [facility] Chloride [Moles/Vol] 93 mmol/L Low 98-107 [facility] Comment on above: Order Comment: No: D o not add to previous drawPER RAMILA RANDOLPH... DRAW ALL OF PTS A.M. LABS NOW. HERMINIO RANDOLPH... DRAW ALL OF PTS A.M. LABS NOW. SS Performed By: #### 8 [id number] #### [facility] [address] [place] [address], [facility] CO2 [Moles/Vol] 34 mmol/L High 21-31 [facility] Comment on above: Order Comment: No: D o not add to previous drawPER RAMILA RANDOLPH... DRAW ALL OF PTS A.M. LABS NOW. HERMINIO RANDOLPH... DRAW ALL OF PTS A.M. LABS NOW. SS Performed By: #### 8 [id number] #### [facility] [address] [place] [address], [facility] Creatinine [Mass/Vol] 0.62 mg/dL Normal 0.60-1.20 [facility] Comment on above: Order Comment: No: D o not add to previous drawPER RAMILA RANDOLPH... DRAW ALL OF PTS A.M. LABS NOW. HERMINIO RANDOLPH... DRAW ALL OF PTS A.M. LABS NOW. SS Performed By: #### 8 [id number] #### [facility] [address] [place] [address], [facility] GFR/1.73 sq M predicted among blacks MDRD (S/P/Bld) [Vol rate/Area] mL/min/{1.73_m2} Normal >60 [facility] Comment on above: Order Comment: No: D o not add to previous drawPER RAMILA RANDOLPH... DRAW ALL OF PTS A.M. LABS NOW. HERMINIO RANDOLPH... DRAW ALL OF PTS A.M. LABS NOW. SS Result Comment: Calc ulation may not be valid for patients over 70 years Performed By: #### 8 [id number] #### [facility] [address] [place] [address], [facility] GFR/1.73 sq M predicted among non-blacks MDRD (S/P/Bld) [Vol rate/Area] mL/min/{1.73_m2} Normal >60 [facility] Comment on above: Order Comment: No: D o not add to previous drawPER RAMILA RANDOLPH... DRAW ALL OF PTS A.M. LABS NOW. HERMINIO RANDOLPH... DRAW ALL OF PTS A.M. LABS NOW. SS Result Comment: Calc ulation may not be valid for patients over 70 years Performed By: #### 8 [id number] #### [facility] [address] [place] [address], [facility] Glucose [Mass/Vol] 95 mg/dL Normal 70-100 [facility] Comment on above: Order Comment: No: D o not add to previous drawPER RAMILA RANDOLPH... DRAW ALL OF PTS A.M. LABS NOW. HERMINIO RANDOLPH... DRAW ALL OF PTS A.M. LABS NOW. SS Performed By: #### 8 [id number] #### [facility] [address] [place] [address], [facility] Potassium [Moles/Vol] 3.2 mmol/L Low 3.5-5.1 [facility] Comment on above: Order Comment: No: D o not add to previous drawPER RAMILA RANDOLPH... DRAW ALL OF PTS A.M. LABS NOW. HERMINIO RANDOLPH... DRAW ALL OF PTS A.M. LABS NOW. SS Performed By: #### 8 [id number] #### [facility] [address] [place] [address], [facility] Sodium [Moles/Vol] 133 mmol/L Low 136-145 [facility] Comment on above: Order Comment: No: D o not add to previous drawPER RAMILA RANDOLPH... DRAW ALL OF PTS A.M. LABS NOW. SSPER RAMILA RANDOLPH... DRAW ALL OF PTS A.M. LABS NOW. SS Performed By: #### 8 [id number] #### [facility] [address] Urea nitrogen [Mass/Vol] 20 mg/dL Normal 7-25 [facility] Comment on above: Order Comment: No: D o not add to previous drawPER RN TOMASA... DRAW ALL OF PTS A.M. LABS NOW. SSPER RAMILA RANDOLPH... DRAW ALL OF PTS A.M. LABS NOW. SS Performed By: #### 8 [id number] #### [facility] [address] CBC COMPLETE BLOOD COUNTon 0 7- Erythrocyte distribution width (RBC) [Ratio] 14.7 % Normal 11.5-15.0 [facility] Comment on above: Order Comment: No: D o not add to previous drawPER RAMILA RANDOLPH... DRAW ALL OF PTS A.M. LABS NOW. HERMINIO RANDOLPH... DRAW ALL OF PTS A.M. LABS NOW. SS Performed By: #### 8 [id number] #### [facility] [address] Hematocrit (Bld) [Volume fraction] 27.4 % Low 36.0-45.0 [facility] Comment on above: Order Comment: No: D o not add to previous drawPER RAMILA RANDOLPH... DRAW ALL OF PTS A.M. LABS NOW. ELISAER RAMILA RANDOLPH... DRAW ALL OF PTS A.M. LABS NOW. SS Performed By: #### 8 [id number] #### [facility] [address] Hemoglobin (Bld) [Mass/Vol] 8.8 g/dL Low 12.0-15.0 [facility] Comment on above: Order Comment: No: D o not add to previous drawPER RAMILA RANDOLPH... DRAW ALL OF PTS A.M. LABS NOW. HERMINIO RANDOLPH... DRAW ALL OF PTS A.M. LABS NOW. SS Performed By: #### 8 [id number] #### [facility] [address] MCH (RBC) [Entitic mass] 28.7 pg Normal 27.0-33.0 [facility] Comment on above: Order Comment: No: D o not add to previous drawPER RAMILA RANDOLPH... DRAW ALL OF PTS A.M. LABS NOW. HERMINIO RANDOLPH... DRAW ALL OF PTS A.M. LABS NOW. SS Performed By: #### 8 [id number] #### [facility] [address] MCHC (RBC) [Mass/Vol] 32.1 g/dL Normal 32.0-35.0 [facility] Comment on above: Order Comment: No: D o not add to previous drawPER RAMILA RANDOLPH... DRAW ALL OF PTS A.M. LABS NOW. HERMINIO RANDOLPH... DRAW ALL OF PTS A.M. LABS NOW. SS Performed By: #### 8 [id number] #### [facility] [address] MCV (RBC) [Entitic vol] 89.3 fL Normal 82.0-98.0 [facility] Comment on above: Order Comment: No: D o not add to previous drawPER RAMILA RANDOLPH... DRAW ALL OF PTS A.M. LABS NOW. HERMINIO RANDOLPH... DRAW ALL OF PTS A.M. LABS NOW. SS Performed By: #### 8 [id number] #### [facility] [address] Nucleated RBC/100 WBC (Bld) [Ratio] 0 % Normal 0-0 [facility] Comment on above: Order Comment: No: D o not add to previous drawPER RAMILA RANDOLPH... DRAW ALL OF PTS A.M. LABS NOW. HERMINIO RANDOLPH... DRAW ALL OF PTS A.M. LABS NOW. SS Performed By: #### 8 [id number] #### [facility] [address] [facility] [address], [facility] PLAT CNT 576 10*3/uL High 150-400 [facility] Comment on above: Order Comment: No: D o not add to previous drawPER RAMILA RANDOLPH... DRAW ALL OF PTS A.M. LABS NOW. HERMINIO RANDOLPH... DRAW ALL OF PTS A.M. LABS NOW. SS Performed By: #### 8 [id number] #### [facility] [address] [place] [address], [facility] RBC (Bld) [#/Vol] 3.07 10*6/uL Low 3.80-5.00 [facility] Comment on above: Order Comment: No: D o not add to previous drawPER RAMILA RANDOLPH... DRAW ALL OF PTS A.M. LABS NOW. HERMINIO RANDOLPH... DRAW ALL OF PTS A.M. LABS NOW. SS Performed By: #### 8 [id number] #### [facility] [address] [place] [address], [facility] WBC (Bld) [#/Vol] 10.19 10*3/uL Normal 4.00-10.60 [facility] Comment on above: Order Comment: No: D o not add to previous drawPER RAMILA RANDOLPH... DRAW ALL OF PTS A.M. LABS NOW. HERMINIO RANDOLPH... DRAW ALL OF PTS A.M. LABS NOW. SS Performed By: #### 8 [id number] #### [id number] [place] [address] CHEST AND LATERALon 05-19-20 20 CHEST AND LATERAL [facility] Department of Radiology [address] [place] [id number] Patient Name: MEGAN HERRON : 1940 Sex: F Age: Race: White Pt. Location: [id number] Patient Status: I Ordered Date: 05/19/2020 10:15:00 AM Completed Date: 05/19/2020 04:06 PM Requesting Provider: KHANG GEORGE Attending Provider: KHANG GEORGE Report Copy To: Signs & Symptoms: Post Thoracentesis History: Comments: Evaluate for Pneumothorax Exam: CHEST AND LATERAL CHEST AND LATERAL 05/19/2020 4:06 PM CLINICAL INDICATIONS: Post Thoracentesis TECHNOLOGIST COMMENTS: Evaluate for Pneumothorax - Post Thoracentesis QUESTION FOR THE RADIOLOGIST: Evaluate for Pneumothorax PROTOCOL: AP(PA) and Lateral views were obtained. COMPARISON: Chest 05/18/2020 FINDINGS: Left pleural effusion is improved. No pneumothorax seen. Improvement in right lower lobe infiltrate and patchy opacity in the right upper lobe. Stable aortic stent graft. IMPRESSION: Improvement in left pleural effusion postthoracentesis with no pneumothorax. Improvement in right pulmonary infiltrates. Electronically signed: James Clayton. Transcribed by: [email or web address], User Resident: Electronically Signed by: JAMES CLAYTON @ 05/19/2020 04:11 PM Normal [facility] Comment on above: Order Comment: Evalu ate for Pneumothorax FLUID CELL COUNTon 0 Lymphocytes/100 WBC (Bld) 33 % Normal [facility] Comment on above: Order Comment: Thora centesis FluidNo: Do not add to previous draw Performed By: #### 3 0738 #### [facility] [address] [place] [address], [facility] MESOTHELIAL 13 Normal [facility] Comment on above: Order Comment: Noama yoonesis FluidNo: Do not add to previous draw Performed By: #### 3 0738 #### [facility] [address] [place] [address], [place] OTHER F2 Diff done by cytospin Normal [facility] Comment on above: Order Comment: Thora centesis FluidNo: Do not add to previous draw Performed By: #### 3 0738 #### [facility] [address] [place] [address], [place] OTHER F3 Checked by Anderson kenney M.D. Normal [facility] Comment on above: Order Comment: Thora centesis FluidNo: Do not add to previous draw Result Comment: Resu lt changed by KMCMMARCO ANTONIO on 05/20/2020 10:07. The previous value was Preliminary report; verified report to follow. Performed By: #### 3 0738 #### [facility] [address] [place] [address], [place] RBC (Bld) [#/Vol] 965[address] RBC/uL Normal [facility] Comment on above: Order Comment: Thora centesis FluidNo: Do not add to previous draw Performed By: #### 3 0738 #### [facility] [address] [place] [address], [place] SEGS 54 Normal [facility] Comment on above: Order Comment: Thora centesis FluidNo: Do not add to previous draw Performed By: #### 3 0738 #### [facility] [address] [place] [address], [place] SOURCE THORACENTESIS Normal [facility] Comment on above: Order Comment: Thora centesis FluidNo: Do not add to previous draw Performed By: #### 3 0738 #### [facility] [address] [place] [address], [place] TOTAL VOLUME 250 mL Normal [facility] Comment on above: Order Comment: Thora centesis FluidNo: Do not add to previous draw Performed By: #### 3 0738 #### [facility] [address] [place] [address], [facility] WBC (Bld) [#/Vol] 614 WBC/uL Normal [facility] Comment on above: Order Comment: Ruthy adame FluidNo: Do not add to previous draw Result Comment: Some reference interval(s) and other method performance specifications have not been established for analytes on this body fluid. The test result must be integrated into the clinical context for interpretation. Performed By: #### 3 0738 #### [facility] [address] [place] [address], [facility] LDH FLUIDon 05-19-2020 LDH 306 Units/L Normal The [facility] Comment on above: Order Comment: No: D o not add to previous draw Result Comment: The reference range and other method performance specifications have not been established for this test in fluids. the test result should be integrated into the clinical context for interpretation. Performed By: #### 3 [id number] #### [facility] [address] [place] [address], [facility] MAGNESIUM BLOODon 05-19-2020 Magnesium [Mass/Vol] 1.7 mg/dL Low 1.9-2.7 [facility] Comment on above: Order Comment: No: D o not add to previous drawPER RAMILA RANDOLPH... DRAW ALL OF PTS A.M. LABS NOW. SSPER RAMILA RANDOLPH... DRAW ALL OF PTS A.M. LABS NOW. SS Performed By: #### 8 [id number] #### [facility] [address] PROTHROMBIN TIMEon 0 INR Coag (PPP) [Relative time] 1.24 {INR} High 0.91-1.16 [facility] Comment on above: Result Comment: ACCC P RECOMMENDED INR FOR WARFARIN THERAPY ------ ------- CONDITION INR PROPHYLAXIS OF VENOUS THROMBOSIS 2-3 (HIGH-RISK SURGERY) TREATMENT OF VENOUS THROMBOSIS 2-3 TREATMENT OF PULMONARY EMBOLISM 2-3 PREVENTION OF SYSTEMIC EMBOLISM: 2-3 ACUTE MYOCARDIAL INFARCTION TISSUE HEART VALVES VALVULAR HEART DISEASE ATRIAL FIBRILLATION RECURRENT SYSTEMIC EMBOLISM MECHANICAL HEART VALVE 2.5-3.5 FROM: ORAL ANTICOAGULANTS. MECHANISM OF ACTION, CLINICAL EFFECTIVENESS, AND OPTIMAL THERAPEUTIC RANGE. CHEST 1995;[id number]. Performed By: #### 8 [id number] #### [facility] [address] PT Coag (PPP) [Time] 15.7 s High 12.3-14.8 [facility] Comment on above: Result Comment: ALL RESULTS MUST BE INTERPRETED WITH RESPECT TO BLOOD DRAWING ARTIFACT OR DILUTION ERROR OF ANTICOAGULANT AT THE TIME OF SAMPLING. Performed By: #### 8 [id number] #### [facility] [address] [facility]. [address] T PROT FLUIDon 05-19-2020 Protein [Mass/Vol] 3.2 g/dL Normal [facility] Comment on above: Result Comment: The reference range and other method performance specifications have not been established for this test in fluids. the test result should be integrated into the clinical context for interpretation. Performed By: #### 3 [id number] #### [facility] [address] [facility] UFH HEPARIN ASSAYon 05-19-20 20 UNFRACTIONATED HEPARIN 0.40 IU/mL Normal 0.30-0.70 [facility] Comment on above: Result Comment: Clay roxaban and Apixaban will interfere with the anti Xa assay used to monitor UFH and LMWH. UFH ADDED PER PROTOCOL Performed By: #### [id number] #### [facility] [facility] [address] [place] [address], [place] US THORACENTESISon 0 US THORACENTESIS [facility] Department of Radiology [address] [place] [address] Patient Name: MEGAN HERRON : 1940 Sex: F Age: Race: White Pt. Location: [id number] Patient Status: I Ordered Date: 05/19/2020 10:15:00 AM Completed Date: 05/19/2020 04:17 PM Requesting Provider: KHANG GEORGE Attending Provider: KHANG GEORGE Report Copy To: Signs & Symptoms: Abnormal Chest Xray History: See Comments Comments: Please drain: diagnostic reasons, left side Exam: US THORACENTESIS SIGN AND SYMPTOMS: Abdominal radiographs, diagnostic thoracentesis TECHNOLOGIST COMMENTS: Abnormal radiograph, diagnostic thoracentesis. INFORMED CONSENT: Reason for procedure was discussed with the patient. The procedure expectations risks benefits options and alternatives were discussed. All the questions were answered. The patient understood that results cannot be guaranteed. The procedure is indicated and risks are acceptable. Consent was obtained. Timeout: [place] protocol timeout verification performed. PROCEDURE: Estimated blood loss: 0 mL. Informed consent was obtained. The patient was upright. Ultrasound guidance to find deepest pocket of pleural fluid. Doppler ultrasound was utilized to demonstrate there are no overlying superficial vessels. 1% lidocaine was infiltrated to anesthetize skin and adjacent soft tissue. A 5 Greenlandic one-step catheter was introduced into the pleural space and serosanguineous fluid was aspirated. Postprocedural radiographs of the chest demonstrates no pneumothorax. Patient tolerated procedure well. No immediate competitions were identified. Dr. Dutta present for the entire procedure. IMPRESSION: Successful ultrasound-guided thoracentesis. Approved by:Vincent Enrique05/19/2020 4:24 PM. I, Hang Dutta,have reviewed the images and reports Electronically signed: Hang Dutta. Transcribed by: [email or web address], User Resident: VINCENT ANN Electronically Signed by: HANG DUTTA @ 05/21/2020 09:35 AM I personally read this/these film(s) with this resident Normal The [facility] Comment on above: Order Comment: Pleas e drain: diagnostic reasons, left side APTTon 05-18-2020 aPTT Coag (Bld) [Time] 37.1 s High 25.0-35.0 The [facility] Comment on above: Order Comment: No: D o not add to previous draw Result Comment: ALL RESULTS MUST BE INTERPRETED WITH RESPECT TO BLOOD DRAWING ARTIFACT OR DILUTION ERROR OF ANTICOAGULANT AT THE TIME OF SAMPLING. THE APTT SHOULD NOT BE USED TO MONITOR UNFRACTIONATED HEPARIN THERAPY, THIS LABORATORY NO LONGER HAS AN ESTABLISHED THERAPEUTIC RANGE BASED ON THE APTT. IT IS RECOMMENDED THAT THE UFH - HEPARIN ASSAY (ANTI-XA ACTIVITY) BE USED FOR THIS PURPOSE. Performed By: #### 8 [id number] #### [facility] [address] [facility] [address], [facility] aPTT Coag (Bld) [Time] 42.5 s High 25.0-35.0 The [facility] Comment on above: Order Comment: No: D o not add to previous draw Result Comment: ALL RESULTS MUST BE INTERPRETED WITH RESPECT TO BLOOD DRAWING ARTIFACT OR DILUTION ERROR OF ANTICOAGULANT AT THE TIME OF SAMPLING. THE APTT SHOULD NOT BE USED TO MONITOR UNFRACTIONATED HEPARIN THERAPY, THIS LABORATORY NO LONGER HAS AN ESTABLISHED THERAPEUTIC RANGE BASED ON THE APTT. IT IS RECOMMENDED THAT THE UFH - HEPARIN ASSAY (ANTI-XA ACTIVITY) BE USED FOR THIS PURPOSE. Performed By: #### 8 [id number] #### [facility] [address] [place] [address], [facility] aPTT Coag (Bld) [Time] 37.3 s High 25.0-35.0 The [facility] Comment on above: Order Comment: No: D o not add to previous drawPlease verify all morning labs per ramila Randolph Result Comment: ALL RESULTS MUST BE INTERPRETED WITH RESPECT TO BLOOD DRAWING ARTIFACT OR DILUTION ERROR OF ANTICOAGULANT AT THE TIME OF SAMPLING. THE APTT SHOULD NOT BE USED TO MONITOR UNFRACTIONATED HEPARIN THERAPY, THIS LABORATORY NO LONGER HAS AN ESTABLISHED THERAPEUTIC RANGE BASED ON THE APTT. IT IS RECOMMENDED THAT THE UFH - HEPARIN ASSAY (ANTI-XA ACTIVITY) BE USED FOR THIS PURPOSE. Performed By: #### 6 [id number] #### [facility] [address] [place] [address], [facility] BASIC METABOLIC PANELon 05-06 Calcium [Mass/Vol] 8.3 mg/dL Low 8.6-10.3 The [facility] Comment on above: Order Comment: No: D o not add to previous draw Performed By: #### 6 2586 #### [facility] [address] [place] [address], [place] Chloride [Moles/Vol] 94 mmol/L Low 98-107 The [facility] Comment on above: Order Comment: No: D o not add to previous draw Performed By: #### 6 2586 #### [facility] [address] [place] [address], [place] CO2 [Moles/Vol] 33 mmol/L High 21-31 The [facility] Comment on above: Order Comment: No: D o not add to previous draw Performed By: #### 6 2586 #### [facility] [address] [place] [address], [place] Creatinine [Mass/Vol] 0.90 mg/dL Normal 0.60-1.20 The [facility] Comment on above: Order Comment: No: D o not add to previous draw Performed By: #### 6 2586 #### [facility] [address] [place] [address], [place] GFR/1.73 sq M predicted among blacks MDRD (S/P/Bld) [Vol rate/Area] mL/min/{1.73_m2} Normal >60 The [facility] Comment on above: Order Comment: No: D o not add to previous draw Result Comment: Calc ulation may not be valid for patients over 70 years Performed By: #### 6 2586 #### [facility] [address] [place] [address], [place] GFR/1.73 sq M predicted among non-blacks MDRD (S/P/Bld) [Vol rate/Area] mL/min/{1.73_m2} Normal >60 The [facility] Comment on above: Order Comment: No: D o not add to previous draw Result Comment: Calc ulation may not be valid for patients over 70 years Performed By: #### 6 2586 #### [facility] [address] [place] [address], [place] Glucose [Mass/Vol] 113 mg/dL High 70-100 The [facility] Comment on above: Order Comment: No: D o not add to previous draw Performed By: #### 6 2586 #### [facility] [address] [place] [address], [place] Potassium [Moles/Vol] 3.4 mmol/L Low 3.5-5.1 The [facility] Comment on above: Order Comment: No: D o not add to previous draw Performed By: #### 6 2586 #### [facility] [address] [place] [address], [place] Sodium [Moles/Vol] 133 mmol/L Low 136-145 The [facility] Comment on above: Order Comment: No: D o not add to previous draw Performed By: #### 6 2586 #### [facility] [address] [place] [address], [place] Urea nitrogen [Mass/Vol] 32 mg/dL High 7-25 The [facility] Comment on above: Order Comment: No: D o not add to previous draw Performed By: #### 6 2586 #### [facility] [address] [place] [address], [facility] CBC COMPLETE BLOOD COUNTon 05-18-2020 Erythrocyte distribution width (RBC) [Ratio] 14.9 % Normal 11.5-15.0 The [facility] Comment on above: Order Comment: No: D o not add to previous draw Performed By: #### 6 2586 #### [facility] [address] [place] [address], [facility] Hematocrit (Bld) [Volume fraction] 26.7 % Low 36.0-45.0 The [facility] Comment on above: Order Comment: No: D o not add to previous draw Performed By: #### 6 2586 #### [facility] [address] [place] [address], [facility] Hemoglobin (Bld) [Mass/Vol] 8.6 g/dL Low 12.0-15.0 The [facility] Comment on above: Order Comment: No: D o not add to previous draw Performed By: #### 6 2586 #### [facility] [address] [place] [address], [facility] MCH (RBC) [Entitic mass] 29.0 pg Normal 27.0-33.0 The [facility] Comment on above: Order Comment: No: D o not add to previous draw Performed By: #### 6 2586 #### [facility] [address] [place] [address], [facility] MCHC (RBC) [Mass/Vol] 32.2 g/dL Normal 32.0-35.0 The [facility] Comment on above: Order Comment: No: D o not add to previous draw Performed By: #### 6 2586 #### [facility] [address] [place] [address], [facility] MCV (RBC) [Entitic vol] 89.9 fL Normal 82.0-98.0 The [facility] Comment on above: Order Comment: No: D o not add to previous draw Performed By: #### 6 2586 #### [facility] [address] [place] [address], [facility] Nucleated RBC/100 WBC (Bld) [Ratio] 0 % Normal 0-0 The [facility] Comment on above: Order Comment: No: D o not add to previous draw Performed By: #### 6 2586 #### [facility] [address] [place] [address], [facility] PLAT CNT 625 10*3/uL High 150-400 The [facility] Comment on above: Order Comment: No: D o not add to previous draw Performed By: #### 6 2586 #### [facility] [address] [facility] [address], [facility] RBC (Bld) [#/Vol] 2.97 10*6/uL Low 3.80-5.00 The [facility] Comment on above: Order Comment: No: D o not add to previous draw Performed By: #### 6 2586 #### [facility] [address] [facility] [address], [facility] WBC (Bld) [#/Vol] 12.29 10*3/uL High 4.00-10.60 The [facility] Comment on above: Order Comment: No: D o not add to previous draw Performed By: #### 6 2586 #### [facility] [address] [facility] [address], [facility] CHEST AND LATERALon 05-18-20 20 CHEST AND LATERAL [facility] Department of Radiology [address] [place] [id number] Patient Name: MEGAN HERRON : 1940 Sex: F Age: Race: White Pt. Location: [address] [place] [address] Patient Status: I Ordered Date: 05/18/2020 10:50:00 AM Completed Date: 05/18/2020 12:02 PM Requesting Provider: ASHLEY AMATO Attending Provider: ROSA ELENA VALENZUELA Report Copy To: Signs & Symptoms: Shortness of Breath History: See Comments Comments: Other Exam: CHEST AND LATERAL CHEST AND LATERAL 05/18/2020 12:02 PM CLINICAL INDICATIONS: Shortness of Breath TECHNOLOGIST COMMENTS: Shortness of breath QUESTION FOR THE RADIOLOGIST: Other PROTOCOL: AP(PA) and Lateral views were obtained. 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 Unclear if this relates to focal inflammatory or infectious etiology or other process. 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 Transcribed by: [email or web address], User Resident: Electronically Signed by: EVA VERGARA @ 05/18/2020 12:59 PM [place] [facility] Comment on above: Order Comment: Other APTTon 05-17-2020 aPTT Coag (Bld) [Time] 32.9 s Normal 25.0-35.0 The [facility] Comment on above: Order Comment: No: D o not add to previous draw Result Comment: ALL RESULTS MUST BE INTERPRETED WITH RESPECT TO BLOOD DRAWING ARTIFACT OR DILUTION ERROR OF ANTICOAGULANT AT THE TIME OF SAMPLING. THE APTT SHOULD NOT BE USED TO MONITOR UNFRACTIONATED HEPARIN THERAPY, THIS LABORATORY NO LONGER HAS AN ESTABLISHED THERAPEUTIC RANGE BASED ON THE APTT. IT IS RECOMMENDED THAT THE UFH - HEPARIN ASSAY (ANTI-XA ACTIVITY) BE USED FOR THIS PURPOSE. Performed By: #### 6 2586 #### [facility] [address] [place] [address], [facility] BASIC METABOLIC PANELon 07-11 07-2019 Calcium [Mass/Vol] 8.4 mg/dL Low 8.6-10.3 The [facility] Comment on above: Order Comment: No: D o not add to previous draw Performed By: #### 6 2586 #### [facility] [address] [place] [address], [facility] Chloride [Moles/Vol] 92 mmol/L Low 98-107 The [facility] Comment on above: Order Comment: No: D o not add to previous draw Performed By: #### 6 2586 #### [facility] [address] [place] [address], [place] CO2 [Moles/Vol] 34 mmol/L High 21-31 The [facility] Comment on above: Order Comment: No: D o not add to previous draw Performed By: #### 6 2586 #### [facility] [address] [place] [address], [facility] Creatinine [Mass/Vol] 0.78 mg/dL Normal 0.60-1.20 The [facility] Comment on above: Order Comment: No: D o not add to previous draw Performed By: #### 6 2586 #### [facility] [address] [place] [address], [place] GFR/1.73 sq M predicted among blacks MDRD (S/P/Bld) [Vol rate/Area] mL/min/{1.73_m2} Normal >60 The [facility] Comment on above: Order Comment: No: D o not add to previous draw Result Comment: Calc ulation may not be valid for patients over 70 years Performed By: #### 6 2586 #### [facility] [address] [place] [address], [place] GFR/1.73 sq M predicted among non-blacks MDRD (S/P/Bld) [Vol rate/Area] mL/min/{1.73_m2} Normal >60 The [facility] Comment on above: Order Comment: No: D o not add to previous draw Result Comment: Calc ulation may not be valid for patients over 70 years Performed By: #### 6 2586 #### [facility] [address] [place] [address], [place] Glucose [Mass/Vol] 100 mg/dL Normal 70-100 The [facility] Comment on above: Order Comment: No: D o not add to previous draw Performed By: #### 6 2586 #### [facility] [address] [place] [address], [place] Potassium [Moles/Vol] 3.4 mmol/L Low 3.5-5.1 The [facility] Comment on above: Order Comment: No: D o not add to previous draw Performed By: #### 6 2586 #### [facility] [address] [place] [address], [place] Sodium [Moles/Vol] 133 mmol/L Low 136-145 The [facility] Comment on above: Order Comment: No: D o not add to previous draw Performed By: #### 6 2586 #### [facility] [address] [place] [address], [place] Urea nitrogen [Mass/Vol] 22 mg/dL Normal 7-25 The [facility] Comment on above: Order Comment: No: D o not add to previous draw Performed By: #### 6 2586 #### [facility] [address] [facility] [address], [facility] CBC W/DIFFon 05-17-2020 ABS BASOPHILS 0.0 10*3/uL Normal 0.0-0.2 The [facility] Comment on above: Order Comment: No: D o not add to previous draw Performed By: #### 6 2586 #### [facility] [address] [facility] [address], [facility] ABS IMM GRANS 0.1 10*3/uL Normal 0.0-0.2 The [facility] Comment on above: Order Comment: No: D o not add to previous draw Performed By: #### 6 2586 #### [facility] [address] [place] [address], [facility] ABS NEUTROPHILS 9.3 10*3/uL High 1.6-7.6 The [facility] Comment on above: Order Comment: No: D o not add to previous draw Performed By: #### 6 2586 #### [facility] [address] [facility] [address], [facility] Basophils/100 WBC (Bld) 0.1 % Normal 0.0-1.0 The [facility] Comment on above: Order Comment: No: D o not add to previous draw Performed By: #### 6 2586 #### [facility] [address] [facility] [address], [facility] Eosinophils (Bld) [#/Vol] 0.0 10*3/uL Normal 0.0-0.5 The [facility] Comment on above: Order Comment: No: D o not add to previous draw Performed By: #### 6 2586 #### [facility] [address] [facility] [address], [facility] Eosinophils/100 WBC (Bld) 0.1 % Normal 0.0-6.0 The [facility] Comment on above: Order Comment: No: D o not add to previous draw Performed By: #### 6 2586 #### [facility] [address] [place] [address], [facility] Erythrocyte distribution width (RBC) [Ratio] 14.6 % Normal 11.5-15.0 The [facility] Comment on above: Order Comment: No: D o not add to previous draw Performed By: #### 6 2586 #### [facility] [address] [place] [address], [facility] Hematocrit (Bld) [Volume fraction] 28.7 % Low 36.0-45.0 The [facility] Comment on above: Order Comment: No: D o not add to previous draw Performed By: #### 6 2586 #### [facility] [address] [place] [place] [address], [facility] Hemoglobin (Bld) [Mass/Vol] 9.2 g/dL Low 12.0-15.0 The [facility] Comment on above: Order Comment: No: D o not add to previous draw Performed By: #### 6 2586 #### [facility] [address] [place] [address], [facility] IMMATURE GRANS 0.9 % Normal 0.0-1.0 The [facility] Comment on above: Order Comment: No: D o not add to previous draw Performed By: #### 6 2586 #### [facility] [address] [place] [address], [facility] Lymphocytes (Bld) [#/Vol] 2.0 10*3/uL Normal 1.2-4.0 The [facility] Comment on above: Order Comment: No: D o not add to previous draw Performed By: #### 6 2586 #### [facility] [address] [place] [id number], [facility] Lymphocytes/100 WBC (Bld) 15.8 % Low 20.0-45.0 The [facility] Comment on above: Order Comment: No: D o not add to previous draw Performed By: #### 6 3556 #### [facility] [address] [facility] [place] [address], [facility] MCH (RBC) [Entitic mass] 28.9 pg Normal 27.0-33.0 The [facility] Comment on above: Order Comment: No: D o not add to previous draw Performed By: #### 6 2586 #### [facility] [address] [place] [address], [facility] MCHC (RBC) [Mass/Vol] 32.1 g/dL Normal 32.0-35.0 The [facility] Comment on above: Order Comment: No: D o not add to previous draw Performed By: #### 6 2586 #### [facility] [address] [place] [id number], [facility] MCV (RBC) [Entitic vol] 90.3 fL Normal 82.0-98.0 The [facility] Comment on above: Order Comment: No: D o not add to previous draw Performed By: #### 6 2586 #### [facility] [address] [place] [address], [facility] Monocytes (Bld) [#/Vol] 1.0 10*3/uL Normal 0.1-1.0 The [facility] Comment on above: Order Comment: No: D o not add to previous draw Performed By: #### 6 2586 #### [facility] [address] [place] [address], [facility] MONOS 8.3 % Normal 5.0-12.0 The [facility] Comment on above: Order Comment: No: D o not add to previous draw Performed By: #### 6 2586 #### [facility] [address] [place] [id number], [facility] Neutrophils/100 WBC (Bld) 74.8 % High 40.0-72.0 The [facility] Comment on above: Order Comment: No: D o not add to previous draw Performed By: #### 6 2586 #### [facility] [address] [place] [id number], [facility] Nucleated RBC/100 WBC (Bld) [Ratio] 0 % Normal 0-0 The [facility] Comment on above: Order Comment: No: D o not add to previous draw Performed By: #### 6 2586 #### [facility] [address] [place] [address], [place] PLAT CNT 641 10*3/uL High 150-400 The [facility] Comment on above: Order Comment: No: D o not add to previous draw Performed By: #### 6 2586 #### [facility] [address] [place] [address], [place] RBC (Bld) [#/Vol] 3.18 10*6/uL Low 3.80-5.00 The [facility] Comment on above: Order Comment: No: D o not add to previous draw Performed By: #### 6 2586 #### [facility] [address] [place] [address], [place] WBC (Bld) [#/Vol] 12.38 10*3/uL High 4.00-10.60 The [facility] Comment on above: Order Comment: No: D o not add to previous draw Performed By: #### 6 2586 #### [facility] [address] [place] [address], [facility] MAGNESIUM BLOODon 05-17-2020 Magnesium [Mass/Vol] 1.8 mg/dL Low 1.9-2.7 The [facility] Comment on above: Order Comment: No: D o not add to previous draw Performed By: #### 6 2586 #### [facility] [address] [place] [address], [place] PHOSPHORUS BLOODon 0 Phosphate [Mass/Vol] 3.2 mg/dL Normal 2.5-5.0 The [facility] Comment on above: Order Comment: No: D o not add to previous draw Performed By: #### 6 2586 #### [facility] [address] UFH HEPARIN ASSAYon 05-17-20 20 UNFRACTIONATED HEPARIN >1.00 Critically high 0.30-0.70 The [facility] Comment on above: Result Comment: Sharon roxaban and Apixaban will interfere with the anti Xa assay used to monitor UFH and LMWH. Patient is on PTT protocol per Tomasa Orlando RN, CVU 3A patient's nurse, at 1950, . Actual UFH level = 1.59 IU/ml . Performed By: #### 6 2586 #### [facility] [address] *SARS-CoV-2 COVID-19on 05-09 [id number] Not Detected Normal Not Detected The [facility] Comment on above: Order Comment: No: D o not add to previous draw Performed By: #### 3 [id number], 52013 #### [facility] [address] BASIC METABOLIC PANELon Calcium [Mass/Vol] 8.1 mg/dL Low 8.6-10.3 The [facility] Comment on above: Order Comment: No: D o not add to previous draw Performed By: #### 3 [id number], 05411 #### [facility] [address] [place] [address], [facility] Chloride [Moles/Vol] 94 mmol/L Low 98-107 The [facility] Comment on above: Order Comment: No: D o not add to previous draw Performed By: #### 3 5199, 30068 #### [facility] [address] [place] [address], [facility] CO2 [Moles/Vol] 30 mmol/L Normal 21-31 The [facility] Comment on above: Order Comment: No: D o not add to previous draw Performed By: #### 3 5199, 05979 #### [facility] [address] [place] [address], [facility] Creatinine [Mass/Vol] 0.50 mg/dL Low 0.60-1.20 The [facility] Comment on above: Order Comment: No: D o not add to previous draw Performed By: #### 3 5199, 60460 #### [facility] [address] [place] [address], [place] GFR/1.73 sq M predicted among blacks MDRD (S/P/Bld) [Vol rate/Area] mL/min/{1.73_m2} Normal >60 The [facility] Comment on above: Order Comment: No: D o not add to previous draw Result Comment: Calc ulation may not be valid for patients over 70 years Performed By: #### 3 5199, 74032 #### [facility] [address] [place] [address], [place] GFR/1.73 sq M predicted among non-blacks MDRD (S/P/Bld) [Vol rate/Area] mL/min/{1.73_m2} Normal >60 The [facility] Comment on above: Order Comment: No: D o not add to previous draw Result Comment: Calc ulation may not be valid for patients over 70 years Performed By: #### 3 5199, 35078 #### [facility] [address] [place] [address], [place] Glucose [Mass/Vol] 97 mg/dL Normal 70-100 The [facility] Comment on above: Order Comment: No: D o not add to previous draw Performed By: #### 3 5199, 69092 #### [facility] [address] [place] [address], [place] Potassium [Moles/Vol] 3.2 mmol/L Low 3.5-5.1 The [facility] Comment on above: Order Comment: No: D o not add to previous draw Performed By: #### 3 5199, 97304 #### [facility] [address] [place] [address], [place] Sodium [Moles/Vol] 130 mmol/L Low 136-145 The [facility] Comment on above: Order Comment: No: D o not add to previous draw Performed By: #### 3 5199, 30513 #### [facility] [address] [place] [address], [facility] Urea nitrogen [Mass/Vol] 17 mg/dL Normal 7-25 The [facility] Comment on above: Order Comment: No: D o not add to previous draw Performed By: #### 3 5199, 10562 #### [facility] [address] [place] [address], [place] CBC COMPLETE BLOOD COUNTon - Erythrocyte distribution width (RBC) [Ratio] 14.5 % Normal 11.5-15.0 The [facility] Comment on above: Order Comment: No: D o not add to previous draw Performed By: #### 3 5199, 88976 #### [facility] [address] [place] [address], [facility] Hematocrit (Bld) [Volume fraction] 30.7 % Low 36.0-45.0 The [facility] Comment on above: Order Comment: No: D o not add to previous draw Performed By: #### 3 [id number], 88139 #### [facility] [address] [place] [address], [place] Hemoglobin (Bld) [Mass/Vol] 9.7 g/dL Low 12.0-15.0 The [facility] Comment on above: Order Comment: No: D o not add to previous draw Performed By: #### 3 5199, 93460 #### [facility] [address] [place] [address], [place] MCH (RBC) [Entitic mass] 29.8 pg Normal 27.0-33.0 The [facility] Comment on above: Order Comment: No: D o not add to previous draw Performed By: #### 3 5199, 07184 #### [facility] [address] [place] [address], [place] MCHC (RBC) [Mass/Vol] 31.6 g/dL Low 32.0-35.0 The [facility] Comment on above: Order Comment: No: D o not add to previous draw Performed By: #### 3 5199, 20603 #### [facility] [address] [place] [address], [facility] MCV (RBC) [Entitic vol] 94.5 fL Normal 82.0-98.0 The [facility] Comment on above: Order Comment: No: D o not add to previous draw Performed By: #### 3 5199, 64331 #### [facility] [address] [place] [address], [facility] Nucleated RBC/100 WBC (Bld) [Ratio] 0 % Normal 0-0 The [facility] Comment on above: Order Comment: No: D o not add to previous draw Performed By: #### 3 5199, 79700 #### [facility] [address] [place] [address], [facility] PLAT CNT 274 10*3/uL Normal 150-400 The [facility] Comment on above: Order Comment: No: D o not add to previous draw Performed By: #### 3 5199, 40007 #### [facility] [address] [place] [address], [facility] RBC (Bld) [#/Vol] 3.25 10*6/uL Low 3.80-5.00 The [facility] Comment on above: Order Comment: No: D o not add to previous draw Performed By: #### 3 5199, 18905 #### [facility] [address] [place] [id number], [place] WBC (Bld) [#/Vol] 11.01 10*3/uL High 4.00-10.60 The [facility] Comment on above: Order Comment: No: D o not add to previous draw Performed By: #### 3 5199, 46197 #### [facility] [address] [place] [address], [facility] BASIC METABOLIC PANELon 07-0 Calcium [Mass/Vol] 8.1 mg/dL Low 8.6-10.3 The [facility] Comment on above: Order Comment: No: D o not add to previous draw Performed By: #### 3 5199, 81148 #### [facility] [address] [place] [address], [place] Chloride [Moles/Vol] 97 mmol/L Low 98-107 The [facility] Comment on above: Order Comment: No: D o not add to previous draw Performed By: #### 3 0, 77533 #### [facility] [address] [place] [address], [place] CO2 [Moles/Vol] 30 mmol/L Normal 21-31 The [facility] Comment on above: Order Comment: No: D o not add to previous draw Performed By: #### 3 5199, 31022 #### [facility] [address] [place] [address], [place] Creatinine [Mass/Vol] 0.45 mg/dL Low 0.60-1.20 The [facility] Comment on above: Order Comment: No: D o not add to previous draw Performed By: #### 3 5199, 55842 #### [facility] [address] [place] [address], [place] GFR/1.73 sq M predicted among blacks MDRD (S/P/Bld) [Vol rate/Area] mL/min/{1.73_m2} Normal >60 The [facility] Comment on above: Order Comment: No: D o not add to previous draw Result Comment: Calc ulation may not be valid for patients over 70 years Performed By: #### 3 5199, 92237 #### [facility] [address] [place] [address], [place] GFR/1.73 sq M predicted among non-blacks MDRD (S/P/Bld) [Vol rate/Area] mL/min/{1.73_m2} Normal >60 The [facility] Comment on above: Order Comment: No: D o not add to previous draw Result Comment: Calc ulation may not be valid for patients over 70 years Performed By: #### 3 5199, 19957 #### [facility] [address] [place] [address], [place] Glucose [Mass/Vol] 101 mg/dL High 70-100 The [facility] Comment on above: Order Comment: No: D o not add to previous draw Performed By: #### 3 5199, 08629 #### [facility] [address] [place] [address], [place] Potassium [Moles/Vol] 3.1 mmol/L Low 3.5-5.1 The [facility] Comment on above: Order Comment: No: D o not add to previous draw Performed By: #### 3 5199, 35462 #### [facility] [address] [place] [address], [place] Sodium [Moles/Vol] 135 mmol/L Low 136-145 The [facility] Comment on above: Order Comment: No: D o not add to previous draw Performed By: #### 3 5199, 05045 #### [facility] [address] [place] [address], [place] Urea nitrogen [Mass/Vol] 16 mg/dL Normal 7-25 The [facility] Comment on above: Order Comment: No: D o not add to previous draw Performed By: #### 3 5199, 26333 #### [facility] [address] [place] [address], [place] CBC COMPLETE BLOOD COUNTon 0 - Erythrocyte distribution width (RBC) [Ratio] 14.4 % Normal 11.5-15.0 The [facility] Comment on above: Order Comment: No: D o not add to previous draw Performed By: #### 3 5199, 39936 #### [facility] [address] [place] [address], [place] Hematocrit (Bld) [Volume fraction] 29.0 % Low 36.0-45.0 The [facility] Comment on above: Order Comment: No: D o not add to previous draw Performed By: #### 3 5199, 35084 #### [facility] [address] [place] [address], [facility] Hemoglobin (Bld) [Mass/Vol] 9.3 g/dL Low 12.0-15.0 The [facility] Comment on above: Order Comment: No: D o not add to previous draw Performed By: #### 3 5199, 50301 #### [facility] [address] [place] [address], [facility] MCH (RBC) [Entitic mass] 30.0 pg Normal 27.0-33.0 The [facility] Comment on above: Order Comment: No: D o not add to previous draw Performed By: #### 3 5199, 52518 #### [facility] [address] [place] [address], [facility] MCHC (RBC) [Mass/Vol] 32.1 g/dL Normal 32.0-35.0 The [facility] Comment on above: Order Comment: No: D o not add to previous draw Performed By: #### 3 5199, 43019 #### [facility] [address] [place] [address], [facility] MCV (RBC) [Entitic vol] 93.5 fL Normal 82.0-98.0 The [facility] Comment on above: Order Comment: No: D o not add to previous draw Performed By: #### 3 5199, 68184 #### [facility] [address] [place] [address], [facility] Nucleated RBC/100 WBC (Bld) [Ratio] 0 % Normal 0-0 The [facility] Comment on above: Order Comment: No: D o not add to previous draw Performed By: #### 3 5199, 49710 #### [facility] [address] [place] [address], [facility] PLAT CNT 246 10*3/uL Normal 150-400 The [facility] Comment on above: Order Comment: No: D o not add to previous draw Performed By: #### 3 5199, 66777 #### [facility] [address] [place] [address], [facility] RBC (Bld) [#/Vol] 3.10 10*6/uL Low 3.80-5.00 The [facility] Comment on above: Order Comment: No: D o not add to previous draw Performed By: #### 3 5199, 27643 #### [facility] [address] [address], [facility] WBC (Bld) [#/Vol] 11.73 10*3/uL High 4.00-10.60 The [facility] Comment on above: Order Comment: No: D o not add to previous draw Performed By: #### 3 5199, 39748 #### [facility] [address] APTTon 05-05-2020 aPTT Coag (Bld) [Time] 43.8 s High 25.0-35.0 The [facility] Comment on above: Result Comment: ALL RESULTS MUST BE INTERPRETED WITH RESPECT TO BLOOD DRAWING ARTIFACT OR DILUTION ERROR OF ANTICOAGULANT AT THE TIME OF SAMPLING. THE APTT SHOULD NOT BE USED TO MONITOR UNFRACTIONATED HEPARIN THERAPY, THIS LABORATORY NO LONGER HAS AN ESTABLISHED THERAPEUTIC RANGE BASED ON THE APTT. IT IS RECOMMENDED THAT THE UFH - HEPARIN ASSAY (ANTI-XA ACTIVITY) BE USED FOR THIS PURPOSE. Performed By: #### 3 5199, 16690 #### [facility] [address] BASIC METABOLIC PANELon 04-08 Calcium [Mass/Vol] 7.9 mg/dL Low 8.6-10.3 The [facility] Comment on above: Order Comment: No: D o not add to previous draw Performed By: #### 3 5199, 84188 #### [facility] [address] [place] [address], [place] Chloride [Moles/Vol] 100 mmol/L Normal 98-107 The [facility] Comment on above: Order Comment: No: D o not add to previous draw Performed By: #### 3 5199, 14295 #### [facility] [address] [place] [address], [place] CO2 [Moles/Vol] 27 mmol/L Normal 21-31 The [facility] Comment on above: Order Comment: No: D o not add to previous draw Performed By: #### 3 5199, 60420 #### [facility] [address] [place] [address], [place] Creatinine [Mass/Vol] 0.56 mg/dL Low 0.60-1.20 The [facility] Comment on above: Order Comment: No: D o not add to previous draw Performed By: #### 3 5199, 36804 #### [facility] [address] [place] [address], [place] GFR/1.73 sq M predicted among blacks MDRD (S/P/Bld) [Vol rate/Area] mL/min/{1.73_m2} Normal >60 The [facility] Comment on above: Order Comment: No: D o not add to previous draw Result Comment: Calc ulation may not be valid for patients over 70 years Performed By: #### 3 5199, 68601 #### [facility] [address] [place] [address], [place] GFR/1.73 sq M predicted among non-blacks MDRD (S/P/Bld) [Vol rate/Area] mL/min/{1.73_m2} Normal >60 The [facility] Comment on above: Order Comment: No: D o not add to previous draw Result Comment: Calc ulation may not be valid for patients over 70 years Performed By: #### 3 5199, 83082 #### [facility] [address] [place] [address], [place] Glucose [Mass/Vol] 102 mg/dL High 70-100 The [facility] Comment on above: Order Comment: No: D o not add to previous draw Performed By: #### 3 5199, 56629 #### [facility] [address] [place] [id number], [facility] Potassium [Moles/Vol] 3.4 mmol/L Low 3.5-5.1 The [facility] Comment on above: Order Comment: No: D o not add to previous draw Performed By: #### 3 5199, 36001 #### [facility] [address] [place] [id number], [facility] Sodium [Moles/Vol] 135 mmol/L Low 136-145 The [facility] Comment on above: Order Comment: No: D o not add to previous draw Performed By: #### 3 5199, 63845 #### [facility] [address] [place] [id number], [facility] Urea nitrogen [Mass/Vol] 17 mg/dL Normal 7-25 The [facility] Comment on above: Order Comment: No: D o not add to previous draw Performed By: #### 3 5199, 82263 #### [facility] [address] [place] [id number], [facility] CBC W/DIFFon 05-05-2020 ABS BASOPHILS 0.0 10*3/uL Normal 0.0-0.2 The [facility] Comment on above: Order Comment: No: D o not add to previous draw Performed By: #### 3 5199, 78864 #### [facility] [address] [place] [address], [facility] ABS IMM GRANS 0.0 10*3/uL Normal 0.0-0.2 The [facility] Comment on above: Order Comment: No: D o not add to previous draw Performed By: #### 3 5199, 43534 #### [facility] [address] [place] [id number], [place] ABS NEUTROPHILS 8.8 10*3/uL High 1.6-7.6 The [facility] Comment on above: Order Comment: No: D o not add to previous draw Performed By: #### 3 5199, 82063 #### [facility] [address] [place] [address], [facility] Basophils/100 WBC (Bld) 0.3 % Normal 0.0-1.0 The [facility] Comment on above: Order Comment: No: D o not add to previous draw Performed By: #### 3 5199, 64083 #### [facility] [address] [place] [id number], [facility] Eosinophils (Bld) [#/Vol] 0.1 10*3/uL Normal 0.0-0.5 The [facility] Comment on above: Order Comment: No: D o not add to previous draw Performed By: #### 3 5199, 69866 #### [facility] [address] [place] [id number], [facility] Eosinophils/100 WBC (Bld) 0.4 % Normal 0.0-6.0 The [facility] Comment on above: Order Comment: No: D o not add to previous draw Performed By: #### 3 5199, 77285 #### [facility] [address] [place] [address], [facility] Erythrocyte distribution width (RBC) [Ratio] 14.6 % Normal 11.5-15.0 The [facility] Comment on above: Order Comment: No: D o not add to previous draw Performed By: #### 3 5199, 40405 #### [facility] [address] [place] [id number], [facility] Hematocrit (Bld) [Volume fraction] 28.4 % Low 36.0-45.0 The [facility] Comment on above: Order Comment: No: D o not add to previous draw Performed By: #### 3 5199, 83299 #### [facility] [address] [place] [address], [facility] Hemoglobin (Bld) [Mass/Vol] 8.7 g/dL Low 12.0-15.0 The [facility] Comment on above: Order Comment: No: D o not add to previous draw Performed By: #### 3 5199, 14897 #### [facility] [address] [place] [address], [facility] IMMATURE GRANS 0.3 % Normal 0.0-1.0 The [facility] Comment on above: Order Comment: No: D o not add to previous draw Performed By: #### 3 5199, 23369 #### [facility] [address] [place] [address], [facility] Lymphocytes (Bld) [#/Vol] 1.4 10*3/uL Normal 1.2-4.0 The [facility] Comment on above: Order Comment: No: D o not add to previous draw Performed By: #### 3 5199, 47141 #### [facility] [address] [place] [address], [facility] Lymphocytes/100 WBC (Bld) 11.8 % Low 20.0-45.0 The [facility] Comment on above: Order Comment: No: D o not add to previous draw Performed By: #### 3 5199, 06670 #### [facility] [address] [place] [id number], [facility] MCH (RBC) [Entitic mass] 30.2 pg Normal 27.0-33.0 The [facility] Comment on above: Order Comment: No: D o not add to previous draw Performed By: #### 3 5199, 05234 #### [facility] [address] [place] [id number], [facility] MCHC (RBC) [Mass/Vol] 30.6 g/dL Low 32.0-35.0 The [facility] Comment on above: Order Comment: No: D o not add to previous draw Performed By: #### 3 5199, 96726 #### [facility] [address] [place] [address], [facility] MCV (RBC) [Entitic vol] 98.6 fL High 82.0-98.0 The [facility] Comment on above: Order Comment: No: D o not add to previous draw Performed By: #### 3 5199, 94137 #### [facility] [address] [facility] [address], [facility] Monocytes (Bld) [#/Vol] 1.4 10*3/uL High 0.1-1.0 The [facility] Comment on above: Order Comment: No: D o not add to previous draw Performed By: #### 3 5199, 08673 #### [facility] [address] [facility] [address], [facility] MONOS 12.1 % High 5.0-12.0 The [facility] Comment on above: Order Comment: No: D o not add to previous draw Performed By: #### 3 5199, 71618 #### [facility] [address] [facility] [address], [facility] Neutrophils/100 WBC (Bld) 75.1 % High 40.0-72.0 The [facility] Comment on above: Order Comment: No: D o not add to previous draw Performed By: #### 3 5199, 57670 #### [facility] [address] [facility] [address], [facility] Nucleated RBC/100 WBC (Bld) [Ratio] 0 % Normal 0-0 [facility] Comment on above: Order Comment: No: D o not add to previous draw Performed By: #### 3 5199, 22450 #### [facility] [address] [facility] [address], [facility] PLAT CNT 193 10*3/uL Normal 150-400 [facility] Comment on above: Order Comment: No: D o not add to previous draw Performed By: #### 3 5199, 19830 #### [facility] [address] [place] [address], [facility] RBC (Bld) [#/Vol] 2.88 10*6/uL Low 3.80-5.00 [facility] Comment on above: Order Comment: No: D o not add to previous draw Performed By: #### 3 5199, 84396 #### [facility] [address] [place] [address], [place] WBC (Bld) [#/Vol] 11.69 10*3/uL High 4.00-10.60 [facility] Comment on above: Order Comment: No: D o not add to previous draw Performed By: #### 3 5199, 04504 #### [facility] [address] [place] [address], [facility] LIVER BATTERYon 05-05-2020 Albumin [Mass/Vol] 2.9 g/dL Low 3.5-5.7 [facility] Comment on above: Performed By: #### 3 5199, 79421 #### [facility] [address] [place] [address], [facility] ALKALINE PHOSPH 52 IU/L Normal 34-104 [facility] Comment on above: Performed By: #### 3 5199, 43465 #### [facility] [address] [place] [address], [place] ALT [Catalytic activity/Vol] 7 U/L Normal 7-52 [facility] Comment on above: Performed By: #### 3 5199, 20779 #### [facility] [address] [place] [address], [place] AST [Catalytic activity/Vol] 19 U/L Normal 13-39 [facility] Comment on above: Performed By: #### 3 5199, 09392 #### [facility] [address] [place] [address], [place] Bilirubin [Mass/Vol] 0.8 mg/dL Normal 0.3-1.0 [facility] Comment on above: Performed By: #### 3 5199, 76543 #### [facility] [address] Bilirubin.direct [Mass/Vol] 0.3 mg/dL High 0.0-0.2 [facility] Comment on above: Performed By: #### 3 0, 84781 #### [facility] [address] [facility] [address] Protein [Mass/Vol] 5.5 g/dL Low 6.0-8.3 [facility] Comment on above: Performed By: #### 3 5199, 26949 #### [facility] [address] TROPONIN-Ion 05-05-2020 Troponin I.cardiac [Mass/Vol] 0.92 ng/mL Critically high 0.00-0.04 [facility] Comment on above: Order Comment: No: D o not add to previous draw Result Comment: M-NC EVIOUS CRITICAL RESULT REFERENCE RANGES: 0.00 - 0.04 ng/ml NORMAL 0.05 - 0.50 ng/ml INDETERMINATE > 0.50 ng/ml CONSISTENT WITH AN M.I. Performed By: #### 3 5199, 97457 #### [facility] [address] UFH HEPARIN ASSAYon 05-05-20 20 UNFRACTIONATED HEPARIN >1.00 Critically high 0.30-0.70 [facility] Comment on above: Result Comment: Clay roxaban and Apixaban will interfere with the anti Xa assay used to monitor UFH and LMWH. RESULTS CHECKED AND CALLED. ACCURATELY READ BACK BY RAMILA ROBERT AT 13:23 PATIENT IS NOT ON HEPARIN, HAS BEEN SWITCHED TO ELIQUIS. UFH WILL BE ELEVATED IN THE PRESENCE OF OTHER ANTI-Xa INHIBITING DRUGS SUCH ELIQUIS. ACTUAL UFH VALUE= 2.29 Performed By: #### 3 5199, 09641 #### [facility] [address] [facility] [address] UNFRACTIONATED HEPARIN <0.10 Critically low 0.30-0.70 [facility] Comment on above: Result Comment: Sharon roxaban and Apixaban will interfere with the anti Xa assay used to monitor UFH and LMWH. RESULTS CHECKED AND CALLED. ACCURATELY READ BACK BY TOMASA ORLANDO RN @0554 Performed By: #### 3 0, 37697 #### [facility] [address] [place] [address], [facility] BASIC METABOLIC PANELon - Calcium [Mass/Vol] 8.1 mg/dL Low 8.6-10.3 [facility] Comment on above: Order Comment: No: D o not add to previous draw Performed By: #### 3 5199, 64702 #### [facility] [address] [place] [id number], [facility] Chloride [Moles/Vol] 104 mmol/L Normal 98-107 [facility] Comment on above: Order Comment: No: D o not add to previous draw Performed By: #### 3 5199, 01818 #### [facility] [address] [place] [address], [facility] CO2 [Moles/Vol] 28 mmol/L Normal 21-31 [facility] Comment on above: Order Comment: No: D o not add to previous draw Performed By: #### 3 5199, 93414 #### [facility] [address] [place] [id number], [facility] Creatinine [Mass/Vol] 0.65 mg/dL Normal 0.60-1.20 [facility] Comment on above: Order Comment: No: D o not add to previous draw Performed By: #### 3 5199, 49230 #### [facility] [address] [place] [id number], [facility] GFR/1.73 sq M predicted among blacks MDRD (S/P/Bld) [Vol rate/Area] mL/min/{1.73_m2} Normal >60 [facility] Comment on above: Order Comment: No: D o not add to previous draw Result Comment: Calc ulation may not be valid for patients over 70 years Performed By: #### 3 5199, 27564 #### [facility] [address] [place] [address], [place] GFR/1.73 sq M predicted among non-blacks MDRD (S/P/Bld) [Vol rate/Area] mL/min/{1.73_m2} Normal >60 [facility] Comment on above: Order Comment: No: D o not add to previous draw Result Comment: Calc ulation may not be valid for patients over 70 years Performed By: #### 3 5199, 08280 #### [facility] [address] [place] [address], [place] Glucose [Mass/Vol] 95 mg/dL Normal 70-100 [facility] Comment on above: Order Comment: No: D o not add to previous draw Performed By: #### 3 5199, 62455 #### [facility] [address] [place] [address], [place] Potassium [Moles/Vol] 3.9 mmol/L Normal 3.5-5.1 [facility] Comment on above: Order Comment: No: D o not add to previous draw Performed By: #### 3 5199, 03286 #### [facility] [address] [place] [address], [place] Sodium [Moles/Vol] 136 mmol/L Normal 136-145 [facility] Comment on above: Order Comment: No: D o not add to previous draw Performed By: #### 3 5199, 97049 #### [facility] [address] [place] [address], [place] Urea nitrogen [Mass/Vol] 17 mg/dL Normal 7-25 [facility] Comment on above: Order Comment: No: D o not add to previous draw Performed By: #### 3 5199, 48083 #### [facility] [address] [place] [address], [facility] CBC W/DIFFon 05-04-2020 ABS BASOPHILS 0.0 10*3/uL Normal 0.0-0.2 [facility] Comment on above: Order Comment: No: D o not add to previous draw Performed By: #### 3 5199, 32276 #### [facility] [address] [facility] [address], [facility] ABS IMM GRANS 0.1 10*3/uL Normal 0.0-0.2 [facility] Comment on above: Order Comment: No: D o not add to previous draw Performed By: #### 3 5199, 42455 #### [facility] [address] [place] [address], [facility] ABS NEUTROPHILS 8.2 10*3/uL High 1.6-7.6 [facility] Comment on above: Order Comment: No: D o not add to previous draw Performed By: #### 3 5199, 46194 #### [facility] [address] [place] [address], [facility] Basophils/100 WBC (Bld) 0.3 % Normal 0.0-1.0 [facility] Comment on above: Order Comment: No: D o not add to previous draw Performed By: #### 3 5199, 03743 #### [facility] [address] [facility] [address], [facility] Eosinophils (Bld) [#/Vol] 0.2 10*3/uL Normal 0.0-0.5 [facility] Comment on above: Order Comment: No: D o not add to previous draw Performed By: #### 3 5199, 09930 #### [facility] [address] [facility] [address], [facility] Eosinophils/100 WBC (Bld) 1.6 % Normal 0.0-6.0 [facility] Comment on above: Order Comment: No: D o not add to previous draw Performed By: #### 3 5199, 82990 #### [facility] [address] [facility] [address] Erythrocyte distribution width (RBC) [Ratio] 14.5 % Normal 11.5-15.0 [facility] Comment on above: Order Comment: No: D o not add to previous draw Performed By: #### 3 5199, 40961 #### [facility] [address] [facility] [address] Hematocrit (Bld) [Volume fraction] 28.0 % Low 36.0-45.0 [facility] Comment on above: Order Comment: No: D o not add to previous draw Performed By: #### 3 5199, 00867 #### [facility] [address] Hemoglobin (Bld) [Mass/Vol] 8.8 g/dL Low 12.0-15.0 [facility] Comment on above: Order Comment: No: D o not add to previous draw Performed By: #### 3 5199, 31521 #### [facility] [address] IMMATURE GRANS 0.4 % Normal 0.0-1.0 [facility] Comment on above: Order Comment: No: D o not add to previous draw Performed By: #### 3 5199, 77769 #### [facility] [address] [facility] [address], [facility] Lymphocytes (Bld) [#/Vol] 1.6 10*3/uL Normal 1.2-4.0 [facility] Comment on above: Order Comment: No: D o not add to previous draw Performed By: #### 3 5199, 46488 #### [facility] [address] [place] [address], [facility] Lymphocytes/100 WBC (Bld) 14.1 % Low 20.0-45.0 [facility] Comment on above: Order Comment: No: D o not add to previous draw Performed By: #### 3 5199, 74509 #### [facility] [address] [place] [address], [facility] MCH (RBC) [Entitic mass] 30.4 pg Normal 27.0-33.0 [facility] Comment on above: Order Comment: No: D o not add to previous draw Performed By: #### 3 5199, 82677 #### [facility] [address] [place] [id number], [facility] MCHC (RBC) [Mass/Vol] 31.4 g/dL Low 32.0-35.0 [facility] Comment on above: Order Comment: No: D o not add to previous draw Performed By: #### 3 5199, 82505 #### [facility] [address] [place] [id number], [facility] MCV (RBC) [Entitic vol] 96.9 fL Normal 82.0-98.0 [facility] Comment on above: Order Comment: No: D o not add to previous draw Performed By: #### 3 5199, 24530 #### [facility] [address] [place] [address], [facility] Monocytes (Bld) [#/Vol] 1.1 10*3/uL High 0.1-1.0 [facility] Comment on above: Order Comment: No: D o not add to previous draw Performed By: #### 3 5199, 85741 #### [facility] [address] [place] [address], [facility] MONOS 10.2 % Normal 5.0-12.0 [facility] Comment on above: Order Comment: No: D o not add to previous draw Performed By: #### 3 5199, 51469 #### [facility] [address] [place] [address], [facility] Neutrophils/100 WBC (Bld) 73.4 % High 40.0-72.0 [facility] Comment on above: Order Comment: No: D o not add to previous draw Performed By: #### 3 5199, 14924 #### [facility] [address] [facility] [place] [address], [facility] Nucleated RBC/100 WBC (Bld) [Ratio] 0 % Normal 0-0 [facility] Comment on above: Order Comment: No: D o not add to previous draw Performed By: #### 3 5199, 53388 #### [facility] [address] [place] [address], [facility] PLAT CNT 160 10*3/uL Normal 150-400 [facility] Comment on above: Order Comment: No: D o not add to previous draw Performed By: #### 3 5199, 44850 #### [facility] [address] [place] [address], [facility] RBC (Bld) [#/Vol] 2.89 10*6/uL Low 3.80-5.00 [facility] Comment on above: Order Comment: No: D o not add to previous draw Performed By: #### 3 5199, 68977 #### [facility] [address] [facility] [address], [facility] WBC (Bld) [#/Vol] 11.17 10*3/uL High 4.00-10.60 [facility] Comment on above: Order Comment: No: D o not add to previous draw Performed By: #### 3 5199, 90907 #### [facility] [address] [place] [address], [facility] MAGNESIUM BLOODon 05-04-2020 Magnesium [Mass/Vol] 1.9 mg/dL Normal 1.9-2.7 [facility] Comment on above: Order Comment: This order is a replacement of the rejected order with accession number [id number]. Performed By: #### 5 7307, 43044 #### [facility] [address] [place] [address], [facility] PHOSPHORUS BLOODon 06-29-202 0 Phosphate [Mass/Vol] 1.8 mg/dL Low 2.5-5.0 [facility] Comment on above: Order Comment: This order is a replacement of the rejected order with accession number [id number]. Performed By: #### 5 7307, 76147 #### [facility] [address] TROPONIN-Ion 05-04-2020 Troponin I.cardiac [Mass/Vol] 1.39 ng/mL Critically high 0.00-0.04 [facility] Comment on above: Order Comment: No: D o not add to previous draw Result Comment: M-NC EVIOUS CRITICAL RESULT REFERENCE RANGES: 0.00 - 0.04 ng/ml NORMAL 0.05 - 0.50 ng/ml INDETERMINATE > 0.50 ng/ml CONSISTENT WITH AN M.I. Performed By: #### 3 5200, 54196 #### [facility] [address] Troponin I.cardiac [Mass/Vol] 1.96 ng/mL Critically high 0.00-0.04 [facility] Comment on above: Order Comment: No: D o not add to previous draw Result Comment: M-CR ITICAL RESULT(S) REVIEWED, CALLED TO AND READ BACK BY RAMILA RICO @[facility] 05.04.20 REFERENCE RANGES: 0.00 - 0.04 ng/ml NORMAL 0.05 - 0.50 ng/ml INDETERMINATE > 0.50 ng/ml CONSISTENT WITH AN M.I. Performed By: #### 3 0, 70533 #### [facility] [address] *BLOOD CULTUREon 05-03-2020 Bacteria identified Cx Nom (Bld) Clinical Report: (D) Specimen: BLOOD CULTURE Collected: 05/03/2020 09:50 Status: Final Last Updated: 05/09/2020 06:20 CULT RES (Final) No Growth Day 5 Normal [facility] Comment on above: Performed By: #### 3 7720, 01619 #### [facility] [address] [place] [id number], [place] BASIC METABOLIC PANELon 06-2 Calcium [Mass/Vol] 8.2 mg/dL Low 8.6-10.3 [facility] Comment on above: Order Comment: This order is a replacement of the rejected order with accession number [id number]. Performed By: #### 5 7307, 04632 #### [facility] [address] [place] [address], [facility] Chloride [Moles/Vol] 103 mmol/L Normal 98-107 [facility] Comment on above: Order Comment: This order is a replacement of the rejected order with accession number [id number]. Performed By: #### 5 73, 98940 #### [facility] [address] [place] [address], [facility] CO2 [Moles/Vol] 30 mmol/L Normal 21-31 [facility] Comment on above: Order Comment: This order is a replacement of the rejected order with accession number [id number]. Performed By: #### 5 73, 08753 #### [facility] [address] [place] [address], [facility] Creatinine [Mass/Vol] 0.60 mg/dL Normal 0.60-1.20 [facility] Comment on above: Order Comment: This order is a replacement of the rejected order with accession number [id number]. Performed By: #### 5 7307, 42872 #### [facility] [address] [place] [address], [facility] GFR/1.73 sq M predicted among blacks MDRD (S/P/Bld) [Vol rate/Area] mL/min/{1.73_m2} Normal >60 [facility] Comment on above: Order Comment: This order is a replacement of the rejected order with accession number [id number]. Result Comment: Calc ulation may not be valid for patients over 70 years Performed By: #### 5 7307, 11608 #### [facility] [address] [place] [address], [facility] GFR/1.73 sq M predicted among non-blacks MDRD (S/P/Bld) [Vol rate/Area] mL/min/{1.73_m2} Normal >60 [facility] Comment on above: Order Comment: This order is a replacement of the rejected order with accession number [id number]. Result Comment: Calc ulation may not be valid for patients over 70 years Performed By: #### 5 73, 59180 #### [facility] [address] [place] [id number], [facility] Glucose [Mass/Vol] 104 mg/dL High 70-100 [facility] Comment on above: Order Comment: This order is a replacement of the rejected order with accession number [id number]. Performed By: #### 5 73, 11827 #### [facility] [address] [place] [id number], [facility] Potassium [Moles/Vol] 3.4 mmol/L Low 3.5-5.1 [facility] Comment on above: Order Comment: This order is a replacement of the rejected order with accession number [id number]. Performed By: #### 5 73, 30571 #### [facility] [address] [place] [address], [facility] Sodium [Moles/Vol] 136 mmol/L Normal 136-145 [facility] Comment on above: Order Comment: This order is a replacement of the rejected order with accession number [id number]. Performed By: #### 5 73, 49383 #### [facility] [address] [place] [id number], [facility] Urea nitrogen [Mass/Vol] 15 mg/dL Normal 7-25 [facility] Comment on above: Order Comment: This order is a replacement of the rejected order with accession number [id number]. Performed By: #### 5 7307, 14265 #### [facility] [address] [place] [id number], [facility] CBC COMPLETE BLOOD COUNTon 0 6-28-2020 Erythrocyte distribution width (RBC) [Ratio] 14.5 % Normal 11.5-15.0 [facility] Comment on above: Order Comment: This order is a replacement of the rejected order with accession number [id number]. Performed By: #### 5 73, 48218 #### [facility] [address] [place] [address], [facility] Hematocrit (Bld) [Volume fraction] 28.0 % Low 36.0-45.0 [facility] Comment on above: Order Comment: This order is a replacement of the rejected order with accession number [id number]. Performed By: #### 5 73, 48096 #### [facility] [address] [facility] [place] [address], [facility] Hemoglobin (Bld) [Mass/Vol] 8.8 g/dL Low 12.0-15.0 [facility] Comment on above: Order Comment: This order is a replacement of the rejected order with accession number [id number]. Performed By: #### 5 73, 36219 #### [facility] [address] [place] [address], [facility] MCH (RBC) [Entitic mass] 29.9 pg Normal 27.0-33.0 [facility] Comment on above: Order Comment: This order is a replacement of the rejected order with accession number [id number]. Performed By: #### 5 73, 59685 #### [facility] [address] [place] [address], [facility] MCHC (RBC) [Mass/Vol] 31.4 g/dL Low 32.0-35.0 [facility] Comment on above: Order Comment: This order is a replacement of the rejected order with accession number [id number]. Performed By: #### 5 7307, 15348 #### [facility] [address] [place] [id number], [facility] MCV (RBC) [Entitic vol] 95.2 fL Normal 82.0-98.0 [facility] Comment on above: Order Comment: This order is a replacement of the rejected order with accession number [id number]. Performed By: #### 5 73, 49341 #### [facility] [address] Nucleated RBC/100 WBC (Bld) [Ratio] 0 % Normal 0-0 [facility] Comment on above: Order Comment: This order is a replacement of the rejected order with accession number [id number]. Performed By: #### 5 73, 74109 #### [facility] [address] PLAT CNT 141 10*3/uL Low 150-400 [facility] Comment on above: Order Comment: This order is a replacement of the rejected order with accession number [id number]. Performed By: #### 5 73, 74326 #### [address] [address] RBC (Bld) [#/Vol] 2.94 10*6/uL Low 3.80-5.00 The [facility] Comment on above: Order Comment: This order is a replacement of the rejected order with accession number [id number]. Performed By: #### 5 73, 68902 #### [address] WBC (Bld) [#/Vol] 12.52 10*3/uL High 4.00-10.60 The [facility] Comment on above: Order Comment: This order is a replacement of the rejected order with accession number [id number]. Performed By: #### 5 73, 02569 #### [facility] [address] CBC W/DIFFon 05-03-2020 ABS BASOPHILS 0.0 10*3/uL Normal 0.0-0.2 The [facility] Comment on above: Performed By: #### 5 73, 47846 #### [address] [place] [address], [place] ABS IMM GRANS 0.1 10*3/uL Normal 0.0-0.2 The [facility] Comment on above: Performed By: #### 5 7306, 75628 #### [facility] [address] ABS NEUTROPHILS 12.0 10*3/uL High 1.6-7.6 The [facility] Comment on above: Performed By: #### 5 7306, 96006 #### [facility] 3000 [place] [address], [facility] Basophils/100 WBC (Bld) 0.2 % Normal 0.0-1.0 The [facility] Comment on above: Performed By: #### 5 7306, 95174 #### [facility] [address] Eosinophils (Bld) [#/Vol] 0.1 10*3/uL Normal 0.0-0.5 The [facility] Comment on above: Performed By: #### 5 7306, 30682 #### [facility] 3000 [place] [address], [facility] Eosinophils/100 WBC (Bld) 0.4 % Normal 0.0-6.0 The [facility] Comment on above: Performed By: #### 5 7306, 82931 #### [facility] 3000 [facility]. [address] Erythrocyte distribution width (RBC) [Ratio] 14.6 % Normal 11.5-15.0 The [facility] Comment on above: Performed By: #### 5 7306, 12480 #### [facility] [address] Hematocrit (Bld) [Volume fraction] 27.5 % Low 36.0-45.0 The [facility] Comment on above: Performed By: #### 5 7306, 69927 #### [facility] 3000 [facility] [place] [address], [facility] Hemoglobin (Bld) [Mass/Vol] 8.7 g/dL Low 12.0-15.0 The [facility] Comment on above: Performed By: #### 5 7306, 30485 #### [facility] [address] [facility] [address], [facility] IMMATURE GRANS 0.6 % Normal 0.0-1.0 The [facility] Comment on above: Performed By: #### 5 7306, 85053 #### [facility] 3000 [facility] [address], [facility] Lymphocytes (Bld) [#/Vol] 1.0 10*3/uL Low 1.2-4.0 The [facility] Comment on above: Performed By: #### 5 7306, 39973 #### [facility] [address] [place] [address], [facility] Lymphocytes/100 WBC (Bld) 6.9 % Low 20.0-45.0 The [facility] Comment on above: Performed By: #### 5 7306, 39890 #### [facility] 3000 [facility]. [address] MCH (RBC) [Entitic mass] 30.4 pg Normal 27.0-33.0 The [facility] Comment on above: Performed By: #### 5 7306, 41960 #### [facility] [address] [facility] [address], [facility] MCHC (RBC) [Mass/Vol] 31.6 g/dL Low 32.0-35.0 The [facility] Comment on above: Performed By: #### 5 7306, 72303 #### [facility] [address] [place] [address], [facility] MCV (RBC) [Entitic vol] 96.2 fL Normal 82.0-98.0 The [facility] Comment on above: Performed By: #### 5 7306, 12829 #### [facility] 3000 [facility] [place] [address], [facility] Monocytes (Bld) [#/Vol] 1.6 10*3/uL High 0.1-1.0 The [facility] Comment on above: Performed By: #### 5 7306, 23050 #### [facility] [address] [facility] [address], [facility] MONOS 10.8 % Normal 5.0-12.0 The [facility] Comment on above: Performed By: #### 5 7306, 08586 #### [facility] [address] [facility] [address], [facility] Neutrophils/100 WBC (Bld) 81.1 % High 40.0-72.0 The [facility] Comment on above: Performed By: #### 5 7306, 73530 #### [facility] [address] [facility] [address], [facility] Nucleated RBC/100 WBC (Bld) [Ratio] 0 % Normal 0-0 The [facility] Comment on above: Performed By: #### 5 7306, 82084 #### [facility] [address] [facility] [address], [facility] PLAT CNT 151 10*3/uL Normal 150-400 The [facility] Comment on above: Performed By: #### 5 7306, 22056 #### [facility] [address] [facility] [address], [facility] RBC (Bld) [#/Vol] 2.86 10*6/uL Low 3.80-5.00 The [facility] Comment on above: Performed By: #### 5 73, 17715 #### [facility] 3000 [facility]. [place] [id number], [facility] WBC (Bld) [#/Vol] 14.84 10*3/uL High 4.00-10.60 The [facility] Comment on above: Performed By: #### 5 7307, 92482 #### [facility] [address] [place] [address], [facility] LACTATE BLOODon 05-03-2020 Lactate [Moles/Vol] 1.5 mmol/L Normal 0.5-2.2 The [facility] Comment on above: Order Comment: This order is a replacement of the rejected order with accession number [id number]. Performed By: #### 5 7307, 49552 #### [facility] [address] [place] [address], [facility] MAGNESIUM BLOODon 05-03-2020 Magnesium [Mass/Vol] 1.9 mg/dL Normal 1.9-2.7 The [facility] Comment on above: Order Comment: This order is a replacement of the rejected order with accession number [id number]. Performed By: #### 5 7307, 48118 #### [facility] 3000 [facility] [address], [facility] PHOSPHORUS BLOODon 0 Phosphate [Mass/Vol] 2.2 mg/dL Low 2.5-5.0 The [facility] Comment on above: Order Comment: This order is a replacement of the rejected order with accession number [id number]. Performed By: #### 5 7307, 01088 #### [facility] 3000 [place], [place] [id number] [place] [address] PORTABLE CHEST 1 VIEWon 04-07 PORTABLE CHEST 1 VIEW [facility] Department of Radiology [address] [place] [id number] Patient Name: MEGAN HERRON : 1940 Sex: F Age: Race: White Pt. Location: [id number] Patient Status: I Ordered Date: 05/03/2020 9:30:00 AM Completed Date: 05/03/2020 10:11 AM Requesting Provider: NIKI ALMENDAREZ Attending Provider: ALYCE SCHMITT Report Copy To: Signs & Symptoms: O2 Desaturation History: See Comments Comments: Evaluate for Infiltrates Exam: PORTABLE CHEST 1 VIEW PORTABLE CHEST 1 VIEW 05/03/2020 10:11 AM CLINICAL INDICATIONS: O2 Desaturation TECHNOLOGIST COMMENTS: shortness of breath QUESTION FOR THE RADIOLOGIST: Evaluate for Infiltrates PROTOCOL: AP(PA) view was obtained. COMPARISON: Prior chest CTA from April 30, 2020 FINDINGS: AP upright view of the chest revealed mild cardiomegaly. The aorta is tortuous with interval placement of endovascular stent graft from the distal arch to the distal descending thoracic aorta near the diaphragmatic hiatus. There is suggestion of small wall hematoma seen in the descending thoracic aorta similar to prior CT scan. There is ill-definition of the left diaphragm suggesting left retrocardiac atelectasis with small left pleural effusion. Right lung and costophrenic recess are clear. Bony skeleton appears intact with mild S-shaped thoracolumbar scoliosis seen. IMPRESSION: Left small pleural effusion and left retrocardiac consolidation with air bronchogram which may represent atelectasis. Superimposed pneumonia or aspiration is not excluded. Interval placement of endovascular stent graft in the descending thoracic aorta. Electronically signed: Cleve Lucio. Transcribed by: [email or web address], User Resident: Electronically Signed by: CLEVE LUCIO @ 05/03/2020 10:16 AM Normal The [facility] Comment on above: Order Comment: This order is a replacement of the rejected order with accession number [id number]. PROCALCITONINon 05-03-2020 PROCALCITONIN 0.25 ng/mL High 0.00-0.10 The [facility] Comment on above: Order Comment: No: D o not add to previous draw Result Comment: Susp ected Lower Respiratory Tract Infection: 0.1-0.25ng/mL- Low likelihood for bacterial infection;Antibiotics discouraged.* >0.25ng/mL- Increased likelihood bacterial infection;Antibiotics encouraged. Suspected Sepsis: Strongly consider initiating antibiotics in all unstable patients. 0.1-0.5ng/mL- Low likelihood for sepsis; Antibiotics discouraged.* >0.5ng/mL- Increased likelihood sepsis; Antibiotics encouraged. >2.0ng/mL- High risk of sepsis/septic shock; Antibiotics strongly encouraged. *Recommend retesting PCT within 6-12hours if clinically indicated and initial PCT<0.5ng/mL Performed By: #### 3 6010, 86102 #### [address] PROTHROMBIN TIMEon 0 INR Coag (PPP) [Relative time] 1.29 {INR} High 0.91-1.16 The [facility] Comment on above: Order Comment: This order is a replacement of the rejected order with accession number [id number]. Result Comment: [facility] P RECOMMENDED INR FOR WARFARIN THERAPY ------ ------- CONDITION INR PROPHYLAXIS OF VENOUS THROMBOSIS 2-3 (HIGH-RISK SURGERY) TREATMENT OF VENOUS THROMBOSIS 2-3 TREATMENT OF PULMONARY EMBOLISM 2-3 PREVENTION OF SYSTEMIC EMBOLISM: 2-3 ACUTE MYOCARDIAL INFARCTION TISSUE HEART VALVES VALVULAR HEART DISEASE ATRIAL FIBRILLATION RECURRENT SYSTEMIC EMBOLISM MECHANICAL HEART VALVE 2.5-3.5 FROM: ORAL ANTICOAGULANTS. MECHANISM OF ACTION, CLINICAL EFFECTIVENESS, AND OPTIMAL THERAPEUTIC RANGE. CHEST 1995;108:231S-246S. Performed By: #### 5 7307, 39623 #### [facility] [address] PT Coag (PPP) [Time] 16.2 s High 12.3-14.8 The [facility] Comment on above: Order Comment: This order is a replacement of the rejected order with accession number [id number]. Result Comment: ALL RESULTS MUST BE INTERPRETED WITH RESPECT TO BLOOD DRAWING ARTIFACT OR DILUTION ERROR OF ANTICOAGULANT AT THE TIME OF SAMPLING. Performed By: #### 5 7307, 19382 #### [facility] [address] TROPONIN-Ion 05-03-2020 Troponin I.cardiac [Mass/Vol] 0.05 ng/mL High 0.00-0.04 The [facility] Comment on above: Order Comment: This order is a replacement of the rejected order with accession number [id number]. Result Comment: REFE RENCE RANGES: 0.00 - 0.04 ng/ml NORMAL 0.05 - 0.50 ng/ml INDETERMINATE > 0.50 ng/ml CONSISTENT WITH AN M.I. Performed By: #### 5 7307, 76194 #### [facility] [address] TSH3 WITH REFLEX FT4on 05-03 TSH 3RD GENERATION 3.39 uIU/mL Normal 0.34-5.60 The [facility] Comment on above: Performed By: #### 5 7307, 57769 #### [facility] 3000 [facility] [address], [place] VENOUS BLOOD GAS W/COOXon BASE EXCESS 4 mmol/L Normal The [facility] Comment on above: Performed By: #### 5 7306, 70285 #### [facility] [address] [place] [address], [place] COHB 2 % Normal [facility] Comment on above: Performed By: #### 5 7306, 31844 #### [facility] [address] [place] [address], [place] HCO3 (Bld) [Moles/Vol] 29 mmol/L Normal The [facility] Comment on above: Performed By: #### 5 Carisa, 83956 #### [facility] [address] [place] [address], [place] METHB 0.5 % Normal [facility] Comment on above: Performed By: #### 5 Carisa, 99324 #### [facility] [address] [place] [address], [place] Oxygen (Bld) [Partial pressure] 32 mm[Hg] Low 35-45 The [facility] Comment on above: Performed By: #### 5 Carisa, 70805 #### [facility] [address] [place] [address], [place] Oxygen saturation in Blood 67.3 % Normal 65.0-75.0 The [facility] Comment on above: Performed By: #### 5 Carisa, 89774 #### [facility] [address] [place] [address], [place] PCO2 48 mmHg Normal 40-50 The [facility] Comment on above: Performed By: #### 5 Carisa, 34329 #### [facility] [address] [place] [address], [place] pH (Bld) 7.39 [pH] Normal 7.31-7.41 The [facility] Comment on above: Performed By: #### 5 7306, 58630 #### [facility] [address] [place] [address], [facility] THB 9.3 g/dL Normal The [facility] Comment on above: Performed By: #### 5 7306, 42429 #### [facility] [address] [place] [address], [facility] BASIC METABOLIC PANELon 06- Calcium [Mass/Vol] 8.1 mg/dL Low 8.6-10.3 The [facility] Comment on above: Order Comment: This order is a replacement of the rejected order with accession number [id number]. Performed By: #### 5 7306, 50976 #### [facility] [address] [place] [address], [facility] Chloride [Moles/Vol] 106 mmol/L Normal 98-107 The [facility] Comment on above: Order Comment: This order is a replacement of the rejected order with accession number [id number]. Performed By: #### 5 7306, 65719 #### [facility] [address] [place] [address], [facility] CO2 [Moles/Vol] 25 mmol/L Normal 21-31 The [facility] Comment on above: Order Comment: This order is a replacement of the rejected order with accession number [id number]. Performed By: #### 5 73, 48336 #### [facility] [address] [place] [address], [facility] Creatinine [Mass/Vol] 0.69 mg/dL Normal 0.60-1.20 The [facility] Comment on above: Order Comment: This order is a replacement of the rejected order with accession number [id number]. Performed By: #### 5 73, 92438 #### [facility] [address] [place] [address], [facility] GFR/1.73 sq M predicted among blacks MDRD (S/P/Bld) [Vol rate/Area] mL/min/{1.73_m2} Normal >60 The [facility] Comment on above: Order Comment: This order is a replacement of the rejected order with accession number [id number]. Result Comment: Calc ulation may not be valid for patients over 70 years Performed By: #### 5 7307, 38928 #### [facility] [address] [place] [address], [place] GFR/1.73 sq M predicted among non-blacks MDRD (S/P/Bld) [Vol rate/Area] mL/min/{1.73_m2} Normal >60 The [facility] Comment on above: Order Comment: This order is a replacement of the rejected order with accession number [id number]. Result Comment: Calc ulation may not be valid for patients over 70 years Performed By: #### 5 73, 86452 #### [facility] [address] [place] [address], [place] Glucose [Mass/Vol] 108 mg/dL High 70-100 The [facility] Comment on above: Order Comment: This order is a replacement of the rejected order with accession number [id number]. Performed By: #### 5 73, 35408 #### [facility] [address] [place] [address], [place] Potassium [Moles/Vol] 3.6 mmol/L Normal 3.5-5.1 The [facility] Comment on above: Order Comment: This order is a replacement of the rejected order with accession number [id number]. Performed By: #### 5 73, 26013 #### [facility] [address] [place] [address], [place] Sodium [Moles/Vol] 137 mmol/L Normal 136-145 The [facility] Comment on above: Order Comment: This order is a replacement of the rejected order with accession number [id number]. Performed By: #### 5 7307, 24618 #### [facility] [address] [place] [address], [place] Urea nitrogen [Mass/Vol] 17 mg/dL Normal 7-25 The [facility] Comment on above: Order Comment: This order is a replacement of the rejected order with accession number [id number]. Performed By: #### 5 7307, 61955 #### [facility] [address] CBC COMPLETE BLOOD COUNTon 0 - Erythrocyte distribution width (RBC) [Ratio] 14.5 % Normal 11.5-15.0 The [facility] Comment on above: Order Comment: This order is a replacement of the rejected order with accession number [id number]. Performed By: #### 5 73, 29448 #### [facility] [address] Hematocrit (Bld) [Volume fraction] 26.9 % Low 36.0-45.0 The [facility] Comment on above: Order Comment: This order is a replacement of the rejected order with accession number [id number]. Performed By: #### 5 73, 25840 #### [facility] [address] [facility] Hemoglobin (Bld) [Mass/Vol] 8.6 g/dL Low 12.0-15.0 [facility] Comment on above: Order Comment: This order is a replacement of the rejected order with accession number [id number]. Performed By: #### 5 73, 00746 #### [facility] [address] [facility] MCH (RBC) [Entitic mass] 30.5 pg Normal 27.0-33.0 The [facility] Comment on above: Order Comment: This order is a replacement of the rejected order with accession number [id number]. Performed By: #### 5 7307, 72720 #### [facility] [address] MCHC (RBC) [Mass/Vol] 32.0 g/dL Normal 32.0-35.0 The [facility] Comment on above: Order Comment: This order is a replacement of the rejected order with accession number [id number]. Performed By: #### 5 73, 34079 #### [facility] [address] MCV (RBC) [Entitic vol] 95.4 fL Normal 82.0-98.0 The [facility] Comment on above: Order Comment: This order is a replacement of the rejected order with accession number [id number]. Performed By: #### 5 73, 91829 #### [facility] [address] Nucleated RBC/100 WBC (Bld) [Ratio] 0 % Normal 0-0 The [facility] Comment on above: Order Comment: This order is a replacement of the rejected order with accession number [id number]. Performed By: #### 5 7306, 19360 #### [facility] [address] PLAT CNT 141 10*3/uL Low 150-400 The [facility] Comment on above: Order Comment: This order is a replacement of the rejected order with accession number [id number]. Performed By: #### 5 73, 02442 #### [facility] [address] RBC (Bld) [#/Vol] 2.82 10*6/uL Low 3.80-5.00 The [facility] Comment on above: Order Comment: This order is a replacement of the rejected order with accession number [id number]. Performed By: #### 5 73, 35770 #### [facility] 3000 [facility] [address], [facility] WBC (Bld) [#/Vol] 10.04 10*3/uL Normal 4.00-10.60 The [facility] Comment on above: Order Comment: This order is a replacement of the rejected order with accession number [id number]. Performed By: #### 5 73, 45859 #### [facility] [address] [place] [address], [facility] MAGNESIUM BLOODon 05-02-2020 Magnesium [Mass/Vol] 1.7 mg/dL Low 1.9-2.7 The [facility] Comment on above: Order Comment: This order is a replacement of the rejected order with accession number [id number]. Performed By: #### 5 7307, 75180 #### [facility] [address] [place] [address], [facility] Operative Reporton 0 Operative Report MR#: [id number] I [facility] Pt. Name: Megan Herron Room #: DORIAN [id number] Discharge Date: Birthdate: 1940 OPERATIVE REPORT DATE OF SURGERY: 05/01/2020 SURGEON: Alyce Schmitt M.D. 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 POSTOPERATIVE DIAGNOSIS: Chest pain with penetrating ulcer and dual intramural hematoma. PROCEDURE DONE: 1. Endovascular repair of a penetrating ulcer and hematoma, descending thoracic aorta. Angiogram of the thoracic aorta. Intravascular ultrasound of the thoracic aorta and post deployment of the stent. Intravascular ultrasound. 2. Percutaneous access and closure of both common femoral arteries. 3. The placement of a catheter and sheath in the thoracic aorta, none selective. 4. Supervision and interpretation. INDICATION: The patient is an 79-year-old female patient, who came from another facility because of chest pain. Evaluation revealed an increased D-dimer suspected to a pulmonary embolism. A CTA was done, which showed intramural hematoma and aneurysmal dilatation. CTA was repeated for the abdomen, which showed some hematoma also reaching the abdominal aorta. The iliac artery aneurysmal dilatation, but not large around 1.8 cm. The abdominal aortic aneurysm is about 2.8 cm. There are 2 areas in the thoracic aorta and in the lower part of the thoracic aorta seems to be bleeding into the intramural hematoma. The patient was taken urgently to surgery. PROCEDURE IN DETAIL: The patient, based on the CT scan, was found to have a hydronephrosis bilaterally and she was found to have a large prolapse all contributing to the hydronephrosis. Urology were consulted. After that, the abdomen low both the groins were prepped and draped in the usual fashion. Access was made to the right common femoral artery. A 6-Greenlandic sheath inserted on the right side and percutaneous access was made to the left common femoral artery and a 5-Greenlandic sheath inserted. The pigtail catheter was placed from the left side in the ascending aorta and then Perclose devices were inserted in the right common femoral artery followed by placing a 9-Greenlandic sheath. Then, a stiff wire was placed in place of the soft wire followed by intravascular ultrasound of the thoracic aorta, abdominal aorta after the subclavian artery. The location for the subclavian artery, celiac artery, superior mesenteric artery were identified. The areas of bleeding and injury to the intima were identified. After that, an angiogram was done for the thoracic aorta and the arch of the aorta. This was followed by placing a Valiant Navion stent measuring 31 x 31 x 182 starting from the left subclavian artery to just above the celiac artery is about 2 cm distal to the areas where the bleeding was identified. After that, an intravascular ultrasound was done again showed satisfactory result. Then, the sheath was pulled out from the right side followed by closure with a pre-closed areas successfully. The 5-Greenlandic sheath was removed from the left side, followed by closure of the left groin. The findings of the angiogram showed no leak identified by angiogram, but there is a long area in the descending aorta seem to have an external compression, which is actually consistent with the area of the intramural hematoma. 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 The celiac arteries and superior mesenteric arteries were identified. The intravascular ultrasound showed the renal arteries, superior mesenteric arteries, celiac arteries, and the left subclavian artery. Successful placement of endovascular stent was done controlling the flow into the intramural hematoma. CONCLUSION: Intravascular ultrasound with evidence of bleeding through the intima into intramural hematoma. Successful endovascular repair of penetrating ulcer causing intramural hematoma. Electronically Signed by: Alyce Schmitt M.D. 05/07/2020 12:04 P Alyce Schmitt M.D. Date Dict: 05/01/2020/04:29 P/Alyce Schmitt M.D. Date Trans: 05/02/2020 01:24 Kaylee/hipolito [id number] Normal [facility] PHOSPHORUS BLOODon 0 Phosphate [Mass/Vol] 2.6 mg/dL Normal 2.5-5.0 [facility] Comment on above: Order Comment: This order is a replacement of the rejected order with accession number [id number]. Performed By: #### 5 7307, 81970 #### [facility] [address] *SARS-CoV-2 COVID-19on 05-01 [id number] Not Detected Normal Not Detected [facility] Comment on above: Order Comment: This order is a replacement of the rejected order with accession number [id number]. Performed By: #### 5 0103 #### [facility] [address] *URINE CULTUREon 05-01-2020 Bacteria identified Cx Nom (U) Clinical Report: (D) Specimen/Source: URINE/CATHETER HANSON Collected: 05/01/2020 15:25 Status: Final Last Updated: 05/03/2020 08:36 (1) ADD ON PER UROLOGY CULT RES (Final) NO GROWTH 48 HOURS Normal [facility] Comment on above: Order Comment: This order is a replacement of the rejected order with accession number [id number]. Performed By: #### 5 7307, [id number] #### [facility] [address] APTTon 05-01-2020 aPTT Coag (Bld) [Time] 34.4 s Normal 25.0-35.0 [facility] Comment on above: Result Comment: ALL RESULTS MUST BE INTERPRETED WITH RESPECT TO BLOOD DRAWING ARTIFACT OR DILUTION ERROR OF ANTICOAGULANT AT THE TIME OF SAMPLING. THE APTT SHOULD NOT BE USED TO MONITOR UNFRACTIONATED HEPARIN THERAPY, THIS LABORATORY NO LONGER HAS AN ESTABLISHED THERAPEUTIC RANGE BASED ON THE APTT. IT IS RECOMMENDED THAT THE UFH - HEPARIN ASSAY (ANTI-XA ACTIVITY) BE USED FOR THIS PURPOSE. Performed By: #### 5 0103 #### [facility] [address] aPTT Coag (Bld) [Time] 30.8 s Normal 25.0-35.0 [facility] Comment on above: Order Comment: This order is a replacement of the rejected order with accession number [id number]. Result Comment: ALL RESULTS MUST BE INTERPRETED WITH RESPECT TO BLOOD DRAWING ARTIFACT OR DILUTION ERROR OF ANTICOAGULANT AT THE TIME OF SAMPLING. THE APTT SHOULD NOT BE USED TO MONITOR UNFRACTIONATED HEPARIN THERAPY, THIS LABORATORY NO LONGER HAS AN ESTABLISHED THERAPEUTIC RANGE BASED ON THE APTT. IT IS RECOMMENDED THAT THE UFH - HEPARIN ASSAY (ANTI-XA ACTIVITY) BE USED FOR THIS PURPOSE. Performed By: #### 5 7307, 82970 #### [facility] [employer] [address] BASIC METABOLIC PANELon 06- Calcium [Mass/Vol] 8.2 mg/dL Low 8.6-10.3 [facility] Comment on above: Order Comment: This order is a replacement of the rejected order with accession number [id number]. Performed By: #### 5 7307, 53321 #### [facility] [address] Chloride [Moles/Vol] 108 mmol/L High 98-107 [facility] Comment on above: Order Comment: This order is a replacement of the rejected order with accession number [id number]. Performed By: #### 5 7307, 00904 #### [facility] [address] CO2 [Moles/Vol] 22 mmol/L Normal 21-31 [facility] Comment on above: Order Comment: This order is a replacement of the rejected order with accession number [id number]. Performed By: #### 5 7307, 04296 #### [facility] [address] Creatinine [Mass/Vol] 0.77 mg/dL Normal 0.60-1.20 [facility] Comment on above: Order Comment: This order is a replacement of the rejected order with accession number [id number]. Performed By: #### 5 7307, 37631 #### [facility] [address] [place] [id number], [facility] GFR/1.73 sq M predicted among blacks MDRD (S/P/Bld) [Vol rate/Area] mL/min/{1.73_m2} Normal >60 [facility] Comment on above: Order Comment: This order is a replacement of the rejected order with accession number [id number]. Result Comment: Calc ulation may not be valid for patients over 70 years Performed By: #### 5 7307, 09518 #### [facility] [address] [place] [address], [facility] GFR/1.73 sq M predicted among non-blacks MDRD (S/P/Bld) [Vol rate/Area] mL/min/{1.73_m2} Normal >60 [facility] Comment on above: Order Comment: This order is a replacement of the rejected order with accession number [id number]. Result Comment: Calc ulation may not be valid for patients over 70 years Performed By: #### 5 7307, 22495 #### [facility] [address] [place] [address], [facility] Glucose [Mass/Vol] 113 mg/dL High 70-100 [facility] Comment on above: Order Comment: This order is a replacement of the rejected order with accession number [id number]. Performed By: #### 5 7307, 70904 #### [facility] [address] [place] [address], [place] Potassium [Moles/Vol] 4.1 mmol/L Normal 3.5-5.1 [facility] Comment on above: Order Comment: This order is a replacement of the rejected order with accession number [id number]. Performed By: #### 5 7307, 76965 #### [facility] [address] [place] [address], [place] Sodium [Moles/Vol] 138 mmol/L Normal 136-145 [facility] Comment on above: Order Comment: This order is a replacement of the rejected order with accession number [id number]. Performed By: #### 5 73, 26923 #### [facility] [address] [place] [address], [facility] Urea nitrogen [Mass/Vol] 19 mg/dL Normal 7-25 [facility] Comment on above: Order Comment: This order is a replacement of the rejected order with accession number [id number]. Performed By: #### 5 73, 88085 #### [facility] [address] [place] [address], [facility] Calcium [Mass/Vol] 8.0 mg/dL Low 8.6-10.3 [facility] Comment on above: Order Comment: This order is a replacement of the rejected order with accession number [id number]. Performed By: #### 5 0103 #### [facility] [address] [place] [address], [facility] Chloride [Moles/Vol] 109 mmol/L High 98-107 [facility] Comment on above: Order Comment: This order is a replacement of the rejected order with accession number [id number]. Performed By: #### 5 0103 #### [facility] [address] [place] [address], [facility] CO2 [Moles/Vol] 25 mmol/L Normal 21-31 [facility] Comment on above: Order Comment: This order is a replacement of the rejected order with accession number [id number]. Performed By: #### 5 0103 #### [facility] [address] [place] [id number], [facility] Creatinine [Mass/Vol] 0.77 mg/dL Normal 0.60-1.20 [facility] Comment on above: Order Comment: This order is a replacement of the rejected order with accession number [id number]. Performed By: #### 5 0103 #### [facility] [address] [place] [address], [facility] GFR/1.73 sq M predicted among blacks MDRD (S/P/Bld) [Vol rate/Area] mL/min/{1.73_m2} Normal >60 [facility] Comment on above: Order Comment: This order is a replacement of the rejected order with accession number [id number]. Result Comment: Calc ulation may not be valid for patients over 70 years Performed By: #### 5 0103 #### [facility] [address] [place] [address], [facility] GFR/1.73 sq M predicted among non-blacks MDRD (S/P/Bld) [Vol rate/Area] mL/min/{1.73_m2} Normal >60 [facility] Comment on above: Order Comment: This order is a replacement of the rejected order with accession number [id number]. Result Comment: Calc ulation may not be valid for patients over 70 years Performed By: #### 5 0103 #### [facility] [address] [place] [address], [facility] Glucose [Mass/Vol] 118 mg/dL High 70-100 [facility] Comment on above: Order Comment: This order is a replacement of the rejected order with accession number [id number]. Performed By: #### 5 0103 #### [facility] [address] [place] [address], [facility] Potassium [Moles/Vol] 3.8 mmol/L Normal 3.5-5.1 [facility] Comment on above: Order Comment: This order is a replacement of the rejected order with accession number [id number]. Performed By: #### 5 0103 #### [facility] [address] [place] [address], [place] Sodium [Moles/Vol] 140 mmol/L Normal 136-145 [facility] Comment on above: Order Comment: This order is a replacement of the rejected order with accession number [id number]. Performed By: #### 5 0103 #### [facility] [address] [place] [address], [place] Urea nitrogen [Mass/Vol] 21 mg/dL Normal 7-25 [facility] Comment on above: Order Comment: This order is a replacement of the rejected order with accession number [id number]. Performed By: #### 5 0103 #### [facility] [address] [place] [address], [place] Calcium [Mass/Vol] 7.6 mg/dL Low 8.6-10.3 [facility] Comment on above: Performed By: #### 5 0103 #### [facility] [address] [place] [address], [place] Chloride [Moles/Vol] 108 mmol/L High 98-107 [facility] Comment on above: Performed By: #### 5 0103 #### [facility] [address] [place] [address], [place] CO2 [Moles/Vol] 24 mmol/L Normal 21-31 [facility] Comment on above: Performed By: #### 5 0103 #### [facility] [address] [place] [address], [place] Creatinine [Mass/Vol] 0.78 mg/dL Normal 0.60-1.20 [facility] Comment on above: Performed By: #### 5 0103 #### [facility] [address] [place] [address], [place] GFR/1.73 sq M predicted among blacks MDRD (S/P/Bld) [Vol rate/Area] mL/min/{1.73_m2} Normal >60 [facility] Comment on above: Result Comment: Calc ulation may not be valid for patients over 70 years Performed By: #### 5 0103 #### [facility] [address] [place] [address], [place] GFR/1.73 sq M predicted among non-blacks MDRD (S/P/Bld) [Vol rate/Area] mL/min/{1.73_m2} Normal >60 [facility] Comment on above: Result Comment: Calc ulation may not be valid for patients over 70 years Performed By: #### 5 0103 #### [facility] [address] [place] [address], [place] Glucose [Mass/Vol] 102 mg/dL High 70-100 [facility] Comment on above: Performed By: #### 5 0103 #### [facility] [address] [place] [address], [place] Potassium [Moles/Vol] 3.4 mmol/L Low 3.5-5.1 [facility] Comment on above: Performed By: #### 5 0103 #### [facility] [address] [place] [address], [place] Sodium [Moles/Vol] 141 mmol/L Normal 136-145 [facility] Comment on above: Performed By: #### 5 0103 #### [facility] [address] [place] [address], [place] Urea nitrogen [Mass/Vol] 24 mg/dL Normal 7-25 [facility] Comment on above: Performed By: #### 5 0103 #### [facility] [address] [place] [address], [place] Calcium [Mass/Vol] 8.2 mg/dL Low 8.6-10.3 [facility] Comment on above: Order Comment: No: D o not add to previous draw Performed By: #### 3 5199, 29734 #### [facility] [address] [place] [address], [place] Chloride [Moles/Vol] 107 mmol/L Normal 98-107 [facility] Comment on above: Order Comment: No: D o not add to previous draw Performed By: #### 3 5199, 20040 #### [facility] [address] [place] [address], [place] CO2 [Moles/Vol] 24 mmol/L Normal 21-31 [facility] Comment on above: Order Comment: No: D o not add to previous draw Performed By: #### 3 5199, 89378 #### [facility] [address] [place] [address], [place] Creatinine [Mass/Vol] 0.82 mg/dL Normal 0.60-1.20 [facility] Comment on above: Order Comment: No: D o not add to previous draw Performed By: #### 3 5199, 62463 #### [facility] [address] [place] [address], [place] GFR/1.73 sq M predicted among blacks MDRD (S/P/Bld) [Vol rate/Area] mL/min/{1.73_m2} Normal >60 [facility] Comment on above: Order Comment: No: D o not add to previous draw Result Comment: Calc ulation may not be valid for patients over 70 years Performed By: #### 3 5199, 84150 #### [facility] [address] [place] [address], [place] GFR/1.73 sq M predicted among non-blacks MDRD (S/P/Bld) [Vol rate/Area] mL/min/{1.73_m2} Normal >60 [facility] Comment on above: Order Comment: No: D o not add to previous draw Result Comment: Calc ulation may not be valid for patients over 70 years Performed By: #### 3 5199, 67288 #### [facility] [address] [place] [address], [place] Glucose [Mass/Vol] 92 mg/dL Normal 70-100 [facility] Comment on above: Order Comment: No: D o not add to previous draw Performed By: #### 3 5199, 17034 #### [facility] [address] [place] [address], [place] Potassium [Moles/Vol] 3.9 mmol/L Normal 3.5-5.1 [facility] Comment on above: Order Comment: No: D o not add to previous draw Performed By: #### 3 0, 12123 #### [facility] [address] [place] [address], [facility] Sodium [Moles/Vol] 138 mmol/L Normal 136-145 [facility] Comment on above: Order Comment: No: D o not add to previous draw Performed By: #### 3 0, 56418 #### [facility] [address] Urea nitrogen [Mass/Vol] 25 mg/dL Normal 7-25 [facility] Comment on above: Order Comment: No: D o not add to previous draw Performed By: #### 3 0, 99806 #### [facility] [address] CBC COMPLETE BLOOD COUNTon 05-01-2020 Erythrocyte distribution width (RBC) [Ratio] 14.4 % Normal 11.5-15.0 [facility] Comment on above: Order Comment: This order is a replacement of the rejected order with accession number [id number]. Performed By: #### 5 7305, 14326 #### [facility] [address] Hematocrit (Bld) [Volume fraction] 30.2 % Low 36.0-45.0 [facility] Comment on above: Order Comment: This order is a replacement of the rejected order with accession number [id number]. Performed By: #### 5 73, 85511 #### [facility] [address] [place] [address], [facility] Hemoglobin (Bld) [Mass/Vol] 9.4 g/dL Low 12.0-15.0 [facility] Comment on above: Order Comment: This order is a replacement of the rejected order with accession number [id number]. Performed By: #### 5 7374, 90946 #### [facility] [address] [facility] [address] MCH (RBC) [Entitic mass] 29.9 pg Normal 27.0-33.0 [facility] Comment on above: Order Comment: This order is a replacement of the rejected order with accession number [id number]. Performed By: #### 5 73, 51937 #### [facility] [address] [facility]. [address] MCHC (RBC) [Mass/Vol] 31.1 g/dL Low 32.0-35.0 [facility] Comment on above: Order Comment: This order is a replacement of the rejected order with accession number [id number]. Performed By: #### 5 73, 57623 #### [facility] [address] MCV (RBC) [Entitic vol] 96.2 fL Normal 82.0-98.0 [facility] Comment on above: Order Comment: This order is a replacement of the rejected order with accession number [id number]. Performed By: #### 5 73, 95995 #### [facility] [address] Nucleated RBC/100 WBC (Bld) [Ratio] 0 % Normal 0-0 [facility] Comment on above: Order Comment: This order is a replacement of the rejected order with accession number [id number]. Performed By: #### 5 73, 87382 #### [facility] [address] [place] [address], [facility] PLAT CNT 165 10*3/uL Normal 150-400 [facility] Comment on above: Order Comment: This order is a replacement of the rejected order with accession number [id number]. Performed By: #### 5 7307, 16158 #### [facility] [address] [place] [address], [facility] RBC (Bld) [#/Vol] 3.14 10*6/uL Low 3.80-5.00 [facility] Comment on above: Order Comment: This order is a replacement of the rejected order with accession number [id number]. Performed By: #### 5 7307, 30504 #### [facility] [address] WBC (Bld) [#/Vol] 10.57 10*3/uL Normal 4.00-10.60 [facility] Comment on above: Order Comment: This order is a replacement of the rejected order with accession number [id number]. Performed By: #### 5 73, 45517 #### [facility] [address] Erythrocyte distribution width (RBC) [Ratio] 14.4 % Normal 11.5-15.0 [facility] Comment on above: Order Comment: This order is a replacement of the rejected order with accession number [id number]. Performed By: #### 5 0103 #### [facility] [address] Hematocrit (Bld) [Volume fraction] 29.6 % Low 36.0-45.0 [facility] Comment on above: Order Comment: This order is a replacement of the rejected order with accession number [id number]. Performed By: #### 5 0103 #### [facility] [address] Hemoglobin (Bld) [Mass/Vol] 9.4 g/dL Low 12.0-15.0 [facility] Comment on above: Order Comment: This order is a replacement of the rejected order with accession number [id number]. Performed By: #### 5 0103 #### [facility] [address] MCH (RBC) [Entitic mass] 30.4 pg Normal 27.0-33.0 [facility] Comment on above: Order Comment: This order is a replacement of the rejected order with accession number [id number]. Performed By: #### 5 0103 #### [facility] [address] MCHC (RBC) [Mass/Vol] 31.8 g/dL Low 32.0-35.0 [facility] Comment on above: Order Comment: This order is a replacement of the rejected order with accession number [id number]. Performed By: #### 5 0103 #### [facility] [address] MCV (RBC) [Entitic vol] 95.8 fL Normal 82.0-98.0 [facility] Comment on above: Order Comment: This order is a replacement of the rejected order with accession number [id number]. Performed By: #### 5 0103 #### [facility] [address] Nucleated RBC/100 WBC (Bld) [Ratio] 0 % Normal 0-0 The [facility] Comment on above: Order Comment: This order is a replacement of the rejected order with accession number [id number]. Performed By: #### 5 0103 #### [facility] 3000 [place] [address], [facility] PLAT CNT 158 10*3/uL Normal 150-400 The [facility] Comment on above: Order Comment: This order is a replacement of the rejected order with accession number [id number]. Performed By: #### 5 0103 #### [facility] [address] RBC (Bld) [#/Vol] 3.09 10*6/uL Low 3.80-5.00 The [facility] Comment on above: Order Comment: This order is a replacement of the rejected order with accession number [id number]. Performed By: #### 5 3 #### [facility] 3000 [place] [address], [facility] WBC (Bld) [#/Vol] 9.93 10*3/uL Normal 4.00-10.60 The [facility] Comment on above: Order Comment: This order is a replacement of the rejected order with accession number [id number]. Performed By: #### 5 0103 #### [facility] [address] CBC W/DIFFon 05-01-2020 ABS BASOPHILS 0.0 10*3/uL Normal 0.0-0.2 The [facility] Comment on above: Performed By: #### 5 0103 #### [facility] [address] [place] [address], [facility] ABS IMM GRANS 0.0 10*3/uL Normal 0.0-0.2 The [facility] Comment on above: Performed By: #### 5 0103 #### [facility] [address] ABS NEUTROPHILS 5.3 10*3/uL Normal 1.6-7.6 The [facility] Comment on above: Performed By: #### 5 0103 #### [facility] [address] Basophils/100 WBC (Bld) 0.5 % Normal 0.0-1.0 The [facility] Comment on above: Performed By: #### 5 0103 #### [facility] [address] [place] [address], [facility] Eosinophils (Bld) [#/Vol] 0.1 10*3/uL Normal 0.0-0.5 The [facility] Comment on above: Performed By: #### 5 0103 #### [facility] [address] [place] [address], [facility] Eosinophils/100 WBC (Bld) 0.6 % Normal 0.0-6.0 The [facility] Comment on above: Performed By: #### 5 0103 #### [facility] [address] [place] [address], [facility] Erythrocyte distribution width (RBC) [Ratio] 14.4 % Normal 11.5-15.0 The [facility] Comment on above: Performed By: #### 5 0103 #### [facility] 3000 [facility] [address], [facility] Hematocrit (Bld) [Volume fraction] 26.2 % Low 36.0-45.0 The [facility] Comment on above: Performed By: #### 5 0103 #### [facility] [address] [facility]. [address] Hemoglobin (Bld) [Mass/Vol] 8.5 g/dL Low 12.0-15.0 The [facility] Comment on above: Performed By: #### 5 0103 #### [facility] [address] [facility]. [address] IMMATURE GRANS 0.2 % Normal 0.0-1.0 The [facility] Comment on above: Performed By: #### 5 0103 #### [facility] [address] [facility]. [address] Lymphocytes (Bld) [#/Vol] 1.9 10*3/uL Normal 1.2-4.0 The [facility] Comment on above: Performed By: #### 5 3 #### [facility] [address] [facility]. [address] Lymphocytes/100 WBC (Bld) 23.5 % Normal 20.0-45.0 The [facility] Comment on above: Performed By: #### 5 3 #### [facility] [address] [facility] [address], [facility] MCH (RBC) [Entitic mass] 30.7 pg Normal 27.0-33.0 The [facility] Comment on above: Performed By: #### 5 3 #### [facility] [address] [place] [address], [facility] MCHC (RBC) [Mass/Vol] 32.4 g/dL Normal 32.0-35.0 The [facility] Comment on above: Performed By: #### 5 0103 #### [facility] [address] [facility] [address], [facility] MCV (RBC) [Entitic vol] 94.6 fL Normal 82.0-98.0 The [facility] Comment on above: Performed By: #### 5 0103 #### [facility] [address] [facility] [address], [facility] Monocytes (Bld) [#/Vol] 0.9 10*3/uL Normal 0.1-1.0 The [facility] Comment on above: Performed By: #### 5 0103 #### [facility] [address] [place] [address], [facility] MONOS 10.6 % Normal 5.0-12.0 The [facility] Comment on above: Performed By: #### 5 0103 #### [facility] [address] [facility] [address], [facility] Neutrophils/100 WBC (Bld) 64.6 % Normal 40.0-72.0 The [facility] Comment on above: Performed By: #### 5 3 #### [facility] [address] [place] [address], [facility] Nucleated RBC/100 WBC (Bld) [Ratio] 0 % Normal 0-0 The [facility] Comment on above: Performed By: #### 5 0103 #### [facility] [address] [facility] [place] [address], [facility] PLAT CNT 164 10*3/uL Normal 150-400 The [facility] Comment on above: Performed By: #### 5 3 #### [facility] [address] [place] [id number], [facility] RBC (Bld) [#/Vol] 2.77 10*6/uL Low 3.80-5.00 The [facility] Comment on above: Performed By: #### 5 0103 #### [facility] [address] WBC (Bld) [#/Vol] 8.24 10*3/uL Normal 4.00-10.60 The [facility] Comment on above: Performed By: #### 5 0103 #### [facility] [address] ABS BASOPHILS 0.0 10*3/uL Normal 0.0-0.2 The [facility] Comment on above: Order Comment: This order is a replacement of the rejected order with accession number [id number]. Performed By: #### 5 0103 #### [facility] [address] ABS IMM GRANS 0.0 10*3/uL Normal 0.0-0.2 The [facility] Comment on above: Order Comment: This order is a replacement of the rejected order with accession number [id number]. Performed By: #### 5 0103 #### [facility] [address] ABS NEUTROPHILS 6.6 10*3/uL Normal 1.6-7.6 The [facility] Comment on above: Order Comment: This order is a replacement of the rejected order with accession number [id number]. Performed By: #### 5 0103 #### [facility] [address] Basophils/100 WBC (Bld) 0.3 % Normal 0.0-1.0 The [facility] Comment on above: Order Comment: This order is a replacement of the rejected order with accession number [id number]. Performed By: #### 5 0103 #### [facility] [address] Eosinophils (Bld) [#/Vol] 0.0 10*3/uL Normal 0.0-0.5 The [facility] Comment on above: Order Comment: This order is a replacement of the rejected order with accession number [id number]. Performed By: #### 5 0103 #### [facility] [address] Eosinophils/100 WBC (Bld) 0.2 % Normal 0.0-6.0 The [facility] Comment on above: Order Comment: This order is a replacement of the rejected order with accession number [id number]. Performed By: #### 5 0103 #### [facility] [address] Erythrocyte distribution width (RBC) [Ratio] 14.3 % Normal 11.5-15.0 The [facility] Comment on above: Order Comment: This order is a replacement of the rejected order with accession number [id number]. Performed By: #### 5 0103 #### [facility] [address] Hematocrit (Bld) [Volume fraction] 29.8 % Low 36.0-45.0 The [facility] Comment on above: Order Comment: This order is a replacement of the rejected order with accession number [id number]. Performed By: #### 5 0103 #### [facility] [address] Hemoglobin (Bld) [Mass/Vol] 9.4 g/dL Low 12.0-15.0 The [facility] Comment on above: Order Comment: This order is a replacement of the rejected order with accession number [id number]. Performed By: #### 5 0103 #### [facility] [address] IMMATURE GRANS 0.3 % Normal 0.0-1.0 The [facility] Comment on above: Order Comment: This order is a replacement of the rejected order with accession number [id number]. Performed By: #### 5 0103 #### [facility] [address] Lymphocytes (Bld) [#/Vol] 1.4 10*3/uL Normal 1.2-4.0 The [facility] Comment on above: Order Comment: This order is a replacement of the rejected order with accession number [id number]. Performed By: #### 5 0103 #### [facility] [address] Lymphocytes/100 WBC (Bld) 16.1 % Low 20.0-45.0 The [facility] Comment on above: Order Comment: This order is a replacement of the rejected order with accession number [id number]. Performed By: #### 5 0103 #### [facility] [address] MCH (RBC) [Entitic mass] 30.3 pg Normal 27.0-33.0 The [facility] Comment on above: Order Comment: This order is a replacement of the rejected order with accession number [id number]. Performed By: #### 5 0103 #### [facility] [address] MCHC (RBC) [Mass/Vol] 31.5 g/dL Low 32.0-35.0 The [facility] Comment on above: Order Comment: This order is a replacement of the rejected order with accession number [id number]. Performed By: #### 5 0103 #### [facility] [address] MCV (RBC) [Entitic vol] 96.1 fL Normal 82.0-98.0 The [facility] Comment on above: Order Comment: This order is a replacement of the rejected order with accession number [id number]. Performed By: #### 5 0103 #### [facility] [address] [place] [address], [facility] Monocytes (Bld) [#/Vol] 0.8 10*3/uL Normal 0.1-1.0 The [facility] Comment on above: Order Comment: This order is a replacement of the rejected order with accession number [id number]. Performed By: #### 5 0103 #### [facility] [address] [place] [id number], [facility] MONOS 9.1 % Normal 5.0-12.0 The [facility] Comment on above: Order Comment: This order is a replacement of the rejected order with accession number [id number]. Performed By: #### 5 0103 #### [facility] [address] [place] [id number], [facility] Neutrophils/100 WBC (Bld) 74.0 % High 40.0-72.0 The [facility] Comment on above: Order Comment: This order is a replacement of the rejected order with accession number [id number]. Performed By: #### 5 0103 #### [facility] [address] [place] [address], [facility] Nucleated RBC/100 WBC (Bld) [Ratio] 0 % Normal 0-0 The [facility] Comment on above: Order Comment: This order is a replacement of the rejected order with accession number [id number]. Performed By: #### 5 0103 #### [facility] [address] [facility] [place] [address], [facility] PLAT CNT 168 10*3/uL Normal 150-400 The [facility] Comment on above: Order Comment: This order is a replacement of the rejected order with accession number [id number]. Performed By: #### 5 0103 #### [facility] [address] [facility] [place] [id number], [facility] RBC (Bld) [#/Vol] 3.10 10*6/uL Low 3.80-5.00 The [facility] Comment on above: Order Comment: This order is a replacement of the rejected order with accession number [id number]. Performed By: #### 5 3 #### [facility] [address] [place] [id number] [place] [address] WBC (Bld) [#/Vol] 8.94 10*3/uL Normal 4.00-10.60 The [facility] Comment on above: Order Comment: This order is a replacement of the rejected order with accession number [id number]. Performed By: #### 5 0103 #### [place] [address], [facility] CTA ABDOMEN AND PELVISon CTA ABDOMEN AND PELVIS [facility] Department of Radiology [address] [place] [id number] Patient Name: MEGAN HERRON : 1940 Sex: F Age: Race: White Pt. Location: [id number] Patient Status: I Ordered Date: 05/01/2020 3:20:00 AM Completed Date: 05/01/2020 03:46 AM Requesting Provider: CHERIE WESLEY Attending Provider: ROSA ELENA VALENZUELA Report Copy To: Signs & Symptoms: pain History: pain Comments: r/o AAA Exam: CTA ABDOMEN AND PELVIS CTA ABDOMEN AND PELVIS 05/01/2020 3:46 AM CLINICAL INDICATIONS: pain TECHNOLOGIST COMMENTS: Transfer from [facility] with mid and upper back pain. No other history available at this time. GFR 50. QUESTION FOR THE RADIOLOGIST: r/o AAA PROTOCOL: Axial CT angiography images were obtained with IV contrast. CONTRAST: Contrast: OMNIPAQUE 350 (LOCM), 100 milliliter, Intravenous TECHNIQUE: Multidetector CT angiography axial slices of the abdomen and pelvis were obtained with IV contrast. Multiplanar reformats, MIP, and volume rendered 3-D images were generated on a separate workstation and reviewed to further define anatomy and possible pathology. All CT scans at this facility use dose modulation, iterative reconstruction, and/or weight based dosing when appropriate to reduce radiation dose to as low as reasonably achievable. COMPARISON: CTA chest from an outside institution FINDINGS: Bibasilar dependent atelectasis. There is a hypoattenuating concentric rim around the aorta, measuring approximately 71 Hounsfield units. No definitive intramural irregularity. Hiatal hernia. The liver demonstrates a noncirrhotic morphology. No focal masses identified. The gallbladder is identified with cholelithiasis without CT evidence of acute cholecystitis. Spleen is unremarkable. Pancreas is unremarkable. The adrenal glands are unremarkable. Bilateral hydroureteronephrosis The proximal ureters are tortuous with no definitive evidence of crossing vessel or obstructing stones/mass. 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 The bladder is opacified with contrast, possibly in a retrograde fashion. The bladder wall contour is irregular, possibly secondary to a neurogenic bladder. The GI tract demonstrates diverticulosis without CT evidence of acute diverticulitis. 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 CTA findings: Hypoattenuating compared to the aorta eccentrically thickened aortic wall average Hounsfield units are approximately 60-70. The celiac axis demonstrates a classic branch configuration. Common hepatic and splenic arteries are tortuous, they are patent. There is a single right and left renal artery which are patent. The LAKE is patent. The iliac arteries are patent bilaterally. There are extremely tortuous line with the distal abdominal aorta. The left common iliac artery is ectatic measuring approximately 1.8 cm, as does the right. IMPRESSION: Eccentric hyperattenuating rim around the abdominal and thoracic aorta highly concerning for a intramural hematoma. No noncontrast phase was performed during this exam and this limits sensitivity and specificity. High risk of aortic rupture. Ectopic ureters with hydroureteronephrosis. VCUG in the proper clinical setting is recommended for further evaluation as there is likely some degree of ureteral reflux. Chronic findings as described above. Approved by:Vincent Enrique05/01/2020 5:01 AM. I, Cuco Ebrahim,have reviewed the images and reports Electronically signed: Cuco Major. Transcribed by: [email or web address], User Resident: VINCENT ANN Electronically Signed by: CUCO MAJOR @ 05/01/2020 05:08 AM I personally read this/these film(s) with this resident Normal The [facility] Comment on above: Order Comment: r/o A AA FIBRINOGENon 05-01-2020 FIBRINOGEN 213 mg/dL Normal 150-425 The [facility] Comment on above: Performed By: #### 5 0103 #### [facility] [address] [place] [address], [facility] PERFUSION BLOOD PANELon 04-07 BASE EXCESS -1.0 mmol/L Normal -2.0-3.0 The [facility] Comment on above: Performed By: #### 3 0738 #### [facility] [address] [place] [address], [facility] Glucose [Mass/Vol] 93 mg/dL Normal 70-105 The [facility] Comment on above: Performed By: #### 3 0738 #### [facility] [address] [place] [address], [facility] Hematocrit (Bld) [Volume fraction] 25 % Low 38-51 The [facility] Comment on above: Performed By: #### 3 0738 #### [facility] [address] [place] [address], [place] Hemoglobin (Bld) [Mass/Vol] 8.5 g/dL Low 12.0-17.0 The [facility] Comment on above: Performed By: #### 3 0738 #### [facility] [address] [place] [address], [facility] IONIZED CALCIUM 1.19 mmol/L Normal 1.12-1.32 The [facility] Comment on above: Performed By: #### 3 0738 #### [facility] [address] [place] [address], [facility] Oxygen (Bld) [Partial pressure] 185.0 mm[Hg] High 80.0-105.0 The [facility] Comment on above: Performed By: #### 3 0738 #### [facility] [address] [place] [address], [facility] PCO2 34.0 mmHg Low 35.0-45.0 The [facility] Comment on above: Performed By: #### 3 0738 #### [facility] [address] [place] [address], [facility] pH (Bld) 7.44 [pH] Normal 7.35-7.45 The [facility] Comment on above: Performed By: #### 3 0738 #### [facility] [address] [place] [address], [facility] Potassium [Moles/Vol] 3.5 mmol/L Normal 3.5-4.9 The [facility] Comment on above: Performed By: #### 3 0738 #### [facility] [address] [place] [id number], [facility] Sodium [Moles/Vol] 140 mmol/L Normal 138-146 The [facility] Comment on above: Performed By: #### 3 0738 #### [facility] [address] [place] [address], [facility] PROTHROMBIN TIMEon 05-01-202 0 INR Coag (PPP) [Relative time] 1.29 {INR} High 0.91-1.16 The [facility] Comment on above: Result Comment: [facility] P RECOMMENDED INR FOR WARFARIN THERAPY ------ ------- CONDITION INR PROPHYLAXIS OF VENOUS THROMBOSIS 2-3 (HIGH-RISK SURGERY) TREATMENT OF VENOUS THROMBOSIS 2-3 TREATMENT OF PULMONARY EMBOLISM 2-3 PREVENTION OF SYSTEMIC EMBOLISM: 2-3 ACUTE MYOCARDIAL INFARCTION TISSUE HEART VALVES VALVULAR HEART DISEASE ATRIAL FIBRILLATION RECURRENT SYSTEMIC EMBOLISM MECHANICAL HEART VALVE 2.5-3.5 FROM: ORAL ANTICOAGULANTS. MECHANISM OF ACTION, CLINICAL EFFECTIVENESS, AND OPTIMAL THERAPEUTIC RANGE. CHEST 1995;108:231S-246S. Performed By: #### 5 0103 #### [facility] [address] PT Coag (PPP) [Time] 16.2 s High 12.3-14.8 The [facility] Comment on above: Result Comment: ALL RESULTS MUST BE INTERPRETED WITH RESPECT TO BLOOD DRAWING ARTIFACT OR DILUTION ERROR OF ANTICOAGULANT AT THE TIME OF SAMPLING. Performed By: #### 5 0103 #### [facility] 3000 [facility]. [address] INR Coag (PPP) [Relative time] 1.21 {INR} High 0.91-1.16 The [facility] Comment on above: Order Comment: This order is a replacement of the rejected order with accession number [id number]. Result Comment: [facility] P RECOMMENDED INR FOR WARFARIN THERAPY ------ ------- CONDITION INR PROPHYLAXIS OF VENOUS THROMBOSIS 2-3 (HIGH-RISK SURGERY) TREATMENT OF VENOUS THROMBOSIS 2-3 TREATMENT OF PULMONARY EMBOLISM 2-3 PREVENTION OF SYSTEMIC EMBOLISM: 2-3 ACUTE MYOCARDIAL INFARCTION TISSUE HEART VALVES VALVULAR HEART DISEASE ATRIAL FIBRILLATION RECURRENT SYSTEMIC EMBOLISM MECHANICAL HEART VALVE 2.5-3.5 FROM: ORAL ANTICOAGULANTS. MECHANISM OF ACTION, CLINICAL EFFECTIVENESS, AND OPTIMAL THERAPEUTIC RANGE. CHEST 1995;108:231S-246S. Performed By: #### 5 7307, [id number] #### [facility] [address] PT Coag (PPP) [Time] 15.4 s High 12.3-14.8 The [facility] Comment on above: Order Comment: This order is a replacement of the rejected order with accession number [id number]. Result Comment: ALL RESULTS MUST BE INTERPRETED WITH RESPECT TO BLOOD DRAWING ARTIFACT OR DILUTION ERROR OF ANTICOAGULANT AT THE TIME OF SAMPLING. Performed By: #### 5 7307, [id number] #### [facility] [address] RBC'S 2 UNITSon 05-01-2020 CROSSMATCH INTERP 1 COMP Normal [facility] Comment on above: Performed By: #### 5 0103 #### [facility] [address] [facility]. [address] CROSSMATCH INTERP 2 COMP Normal The [facility] Comment on above: Performed By: #### 5 0103 #### [facility] [address] PRODUCT CODE 1 E0179 Normal [facility] Comment on above: Performed By: #### 5 0103 #### [facility] [address] [facility]. [address] PRODUCT CODE 2 E0336 Normal The [facility] Comment on above: Performed By: #### 5 0103 #### [facility] [address] PRODUCT STATUS 1 RE Normal The [facility] Comment on above: Result Comment: Resu lt changed by IF on 05/05/2020 08:34. The previous value was XM. Performed By: #### 5 0103 #### [facility] [address] [facility]. [address] PRODUCT STATUS 2 RE Normal The [facility] Comment on above: Result Comment: Resu lt changed by IF on 05/02/2020 10:38. The previous value was XM. Result changed by IF on 05/02/2020 11:02. The previous value was XX. Performed By: #### 5 0103 #### [facility] [address] [place] [address], [place] UNIT ABO 1 O Normal [facility] Comment on above: Performed By: #### 5 0103 #### [facility] [address] [place] [address], [place] UNIT ABO 2 O Normal [facility] Comment on above: Performed By: #### 5 0103 #### [facility] [address] [place] [address], [facility] UNIT ID 1 [id number] Normal The [facility] Comment on above: Performed By: #### 5 0103 #### [facility] [address] [place] [address], [facility] UNIT ID 2 [id number] Normal The [facility] Comment on above: Performed By: #### 5 0103 #### [facility] [address] [place] [address], [place] UNIT RH 1 Negative Normal [facility] Comment on above: Performed By: #### 5 0103 #### [facility] [address] [place] [address], [place] UNIT RH 2 Negative Normal [facility] Comment on above: Performed By: #### 5 0103 #### [facility] [address] [place] [address], [place] CROSSMATCH INTERP 1 COMP Normal [facility] Comment on above: Performed By: #### 8 6002 #### [facility] [address] [place] [address], [place] CROSSMATCH INTERP 2 COMP Normal The [facility] Comment on above: Performed By: #### 8 6002 #### [facility] [address] [place] [address], [facility] PRODUCT CODE 1 E0336 Normal The [facility] Comment on above: Performed By: #### 8 6002 #### [facility] [address] [place] [address], [facility] PRODUCT CODE 2 E0179 Normal The [facility] Comment on above: Performed By: #### 8 6002 #### [facility] [address] [place] [address], [facility] PRODUCT STATUS 1 RE Normal The [facility] Comment on above: Result Comment: Resu lt changed by IF on 05/01/2020 09:03. The previous value was XM. Performed By: #### 8 6002 #### [facility] [address] [place] [address], [facility] PRODUCT STATUS 2 RE Normal The [facility] Comment on above: Result Comment: Resu lt changed by IF on 05/01/2020 09:03. The previous value was XM. Performed By: #### 8 6002 #### [facility] [address] [place] [address], [facility] UNIT ABO 1 O Normal [facility] Comment on above: Performed By: #### 8 6002 #### [facility] [address] [place] [address], [facility] UNIT ABO 2 O Normal The [facility] Comment on above: Performed By: #### 8 6002 #### [facility] [address] [place] [address], [facility] UNIT ID 1 [id number] Normal [facility] Comment on above: Performed By: #### 8 6002 #### [facility] [address] [place] [address], [facility] UNIT ID 2 [id number] Normal [facility] Comment on above: Performed By: #### 8 6002 #### [facility] [address] [place] [address], [place] UNIT RH 1 Negative Normal [facility] Comment on above: Performed By: #### 8 6002 #### [facility] [address] [place] [address], [place] UNIT RH 2 Negative Normal [facility] Comment on above: Performed By: #### 8 6002 #### [facility] [address] [place] [address], [place] TROPONIN-Ion 05-01-2020 Troponin I.cardiac [Mass/Vol] 0.04 ng/mL Normal 0.00-0.04 The [facility] Comment on above: Order Comment: No: D o not add to previous draw Result Comment: REFE RENCE RANGES: 0.00 - 0.04 ng/ml NORMAL 0.05 - 0.50 ng/ml INDETERMINATE > 0.50 ng/ml CONSISTENT WITH AN M.I. Performed By: #### 3 5200, [id number] #### [facility] [address] [place] [address], [place] TYPE AND CROSSMATCHon 2019 ABO INTERPRETATION O Normal The [facility] Comment on above: Performed By: #### 5 0103 #### [facility] [address] [place] [address], [place] RH INTERPRETATION Negative Normal [facility] Comment on above: Performed By: #### 5 0103 #### [facility] [address] [place] [address], [place] TYPE AND SCREENon 05-01-2020 ABO INTERPRETATION O Normal The [facility] Comment on above: Performed By: #### 6 2586 #### [facility] [address] [place] [address], [place] RH INTERPRETATION Negative Normal [facility] Comment on above: Performed By: #### 6 2586 #### [facility] [address] [place] [address], [facility] URINALYSIS REFLEXon 05-01-20 20 Appearance (U) CLEAR Normal CLEAR The [facility] Comment on above: Order Comment: This order is a replacement of the rejected order with accession number [id number]. Performed By: #### 5 0103 #### [facility] [address] [place] [address], [place] Bilirubin [Mass/Vol] Negative Normal NEGATIVE The [facility] Comment on above: Order Comment: This order is a replacement of the rejected order with accession number [id number]. Performed By: #### 5 0103 #### [facility] [address] [place] [address], [place] BLOOD SMALL Abnormal NEGATIVE The [facility] Comment on above: Order Comment: This order is a replacement of the rejected order with accession number [id number]. Performed By: #### 5 0103 #### [facility] [address] [place] [address], [facility] Color (U) YELLOW Normal YELLOW The [facility] Comment on above: Order Comment: This order is a replacement of the rejected order with accession number [id number]. Performed By: #### 5 3 #### [facility] [address] [place] [address], [facility] EPIS FEW Normal FEW,OCC,NONE SEEN The [facility] Comment on above: Order Comment: This order is a replacement of the rejected order with accession number [id number]. Performed By: #### 5 3 #### [facility] [address] [place] [address], [place] Glucose [Mass/Vol] Negative Normal NEGATIVE The [facility] Comment on above: Order Comment: This order is a replacement of the rejected order with accession number [id number]. Performed By: #### 5 3 #### [facility] [address] [place] [address], [place] KETONE Negative Normal NEGATIVE The [facility] Comment on above: Order Comment: This order is a replacement of the rejected order with accession number [id number]. Performed By: #### 5 0103 #### [facility] [address] [place] [id number], [facility] LEUK MADISON SMALL Abnormal NEGATIVE The [facility] Comment on above: Order Comment: This order is a replacement of the rejected order with accession number [id number]. Performed By: #### 5 0103 #### [facility] [address] [place] [address], [facility] MUCUS THREADS FEW Abnormal NONE SEEN The [facility] Comment on above: Order Comment: This order is a replacement of the rejected order with accession number [id number]. Performed By: #### 5 0103 #### [facility] [address] [place] [address], [facility] Nitrite Ql (U) Negative Normal NEGATIVE The [facility] Comment on above: Order Comment: This order is a replacement of the rejected order with accession number [id number]. Performed By: #### 5 0103 #### [facility] [address] [facility] [address], [facility] pH (Bld) 5.0 Normal 5.0-8.0 The [facility] Comment on above: Order Comment: This order is a replacement of the rejected order with accession number [id number]. Performed By: #### 5 0103 #### [facility] [address] [place] [address], [facility] Protein (U) [Mass/Vol] Negative Normal NEGATIVE The [facility] Comment on above: Order Comment: This order is a replacement of the rejected order with accession number [id number]. Performed By: #### 5 0103 #### [facility] [address] [place] [address], [facility] RBC (U) [#/Vol] 3-5 Abnormal NONE SEEN The [facility] Comment on above: Order Comment: This order is a replacement of the rejected order with accession number [id number]. Performed By: #### 5 0103 #### [facility] [address] [facility] [address], [facility] SPEC GRAV 1.049 High 1.015-1.020 The [facility] Comment on above: Order Comment: This order is a replacement of the rejected order with accession number [id number]. Performed By: #### 5 0103 #### [facility] [address] [facility] [address], [facility] WBC UA 3-5 Abnormal NONE SEEN The [facility] Comment on above: Order Comment: This order is a replacement of the rejected order with accession number [id number]. Performed By: #### 5 0103 #### [facility] [address] Encounters Encounter Date Encounter Type Care Provider Facility Start: 04-17-2024 End: 04-17-2024 ambulatory MD Gregory Krishna Work Phone: [facility] Work Phone: Start: 04-17-2024 End: 04-17-2024 Departed Referred MD Gregory Krishna Work Phone: [facility] Start: 01-21-2023 End: 01-21-2023 ambulatory [facility] Facility: Start: 10-13-2021 End: 10-13-2021 ambulatory Kenya Calvey Other [facility] Other Start: 10-13-2021 Postop follow up vis it related to original px Kenya Calvey [facility] Start: 09-21-2021 End: 09-21-2021 ambulatory Kenya Calvey Other [facility] Other Start: 09-21-2021 Postop follow up vis it related to original px Kenya Calvey [facility] Start: 05-01-2020 End: 05-01-2020 Patient encounter procedure UNKNOWN PROVIDER Facility:[facility] Start: 05-01-2020 End: 05-09-2020 Evaluation and management of inpatient KANCHAN KAPLAN Facility:[facility] Procedures Date Procedure Procedure Detail Performing Clinician Start: 05-01-2020 Antibody screen KANCHAN KAPLAN Comment on above: Performed By: #### 5 0103 #### [facility] [address] Start: 05-01-2020 Antibody screen KANCHAN KAPLAN Comment on above: Performed By: #### 6 2586 #### [facility] [address] [place], [place] [address] [place] [address] Start: 05-01-2020 RESTRICT OF THOR AOR TA DESC WITH INTRALUM DEV, PERC APPROACH MUNIER NAZZAL Immunizations Immunization Date Immunization Notes Care Provider Fa cility 01-29-2021 COVID-19 mRNAErika (Pfizer) MD Gregory Krishna Work Phone: [facility] 01-06-2021 COVID-19 Erika Umaña (Pfizer) MD Gregory Krishna Work Phone: [facility] Payers Date Payer Category Payer Self-pay [id number] 2019 Medicare [id number] 1960 Medicare [id number] 1940 Unknown [id number] 1940 Unknown [id number] 1940 Unknown [id number] Medicare [id number] Medicare Medicare [id number] Private Health Insurance [facility] [id number] Unknown [facility] [id number] Unknown [id number] Social History Date Type Detail Facility Sex Assigned At [facility] Other Sex Assigned At Sex Assigned At Bir th [facility] Other Start: 09-04-2021 Tobacco smoking status NHIS Ex-smoker (finding) [facility] Start: 1940 Sex Assigned At Female F [facility] Medical Equipment Procedure Code Equipment Code Equipment Origin al Text Equipment Identifier Dates Orthopaedic bone screw, non-bioabsorbable, non-sterile [id number] FDA Start: 08-28-2021 Femur nail, sterile ([id number] FDA Start: 08-28-2021 Orthopaedic bone screw, non-bioabsorbable, sterile [id number] [facility] Start: 08-28-2021 Evaluation note 10-13-2021 Note Date & Type Note Facility 10-13-2021 Evaluation note Encounter Date Diagnosis Assessment Notes Oct, Closed displaced intertrochanteric fracture of left femur with routine healing, subsequent encounter (ICD-10 - S72.142D) Xrays reviewed with patient. Patient is progressing well. Today we instructed patient to take calcium 3 times daily for another month. To progress full weight bearing with assisted decive. patient states she will call to schedule appt for 4-6 weeks. Oct, Other specified postprocedural states (ICD-10 - Z98.890) [facility] [employer] Other Clinical Note 12-25-2020 Note Date & Type Note Facility 12-25-2020 Note - From: Arthur Bella To: HV - Administrative; Sent: 12/25/2020 10:59:28 EST Show up: 05/24/2021 11:59:00 EDT Subject: follow up Due Date/Time: 06/24/2021 11:59:00 EDT Reminder/Recall 6 month f/u June 2021 w/ Gavin CTA Prior to visit [facility] Evaluation note Note Date & Type Note Facility Evaluation note [facility] Other Evaluation note Note Date & Type Note Facility Evaluation note No assessment information availa [facility] Work Phone: History general Narrative - Reported Note Date & Type Note Facility History general Narrative - Reported [facility] Other History general Narrative - Reported Note Date & Type Note Facility History general Narrative - Reported Type Medical History A-Fib Medical History HTN Medical History Heart Failure Surgical History Left Hip Fracture Hospitalization History See Above [facility] Other Summary Purpose Family History No Family History Records FoundNo Family History Records FoundNo Family History Records FoundNo Family History Records FoundNo Family History Records FoundNo Family History Records Found Advance Directives No Advanced Directives Records Found Advance Directive Response Recorded Date/ Time Advance Directives No September 1:27pm Hospital Course Note MR#: [id number] [facility] Pt. Name: Megan Herron Admitted: 05/01/2020 Discharged: 05/07/2020 Date of : 1940 Physician: Trang Michael M.D. DISCHARGE SUMMARY PRIMARY DIAGNOSES: 1. 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 2. Atrial fibrillation with rapid ventricular rate and hypotension. 3. Lung mass. 4. Leukocytosis likely reactive. 5. Postop constipation. 6. Vaginal prolapse with ulceration and bilateral hydronephrosis. 7. Recurrent urinary tract infections. HISTORY OF PRESENT ILLNESS AND HOSPITAL COURSE: The patient is an 79-year-old female, who was directly admitted to our facility from an outlying emergency room for concerning of abdominal aortic aneurysm dissection versus hematoma. The patient originally sought care at outlying facility for sudden onset of acute upper back pain. The patient states that she was sitting in a chair watching television when she went to (more content not included)... Note MR#: [id number] [facility] Pt. Name: Megan Herron Admitted: 05/16/2020 Discharged: 05/21/2020 Date of : 1940 Physician: Khang George MD DISCHARGE SUMMARY PRIMARY DIAGNOSES: Pericardial effusion, acute on chronic diastolic congestive heart failure, exudative left pleural effusion, acute urinary retention, urinary tract infection, hypokalemia, hypomagnesemia, and hyponatremia. SECONDARY DIAGNOSIS: Paroxysmal atrial fibrillation. HISTORY OF PRESENT ILLNESS: This patient is an 79-year-old female with past medical history of paroxysmal atrial fibrillation, who presented to outside hospital for shortness of breath for 3 days. She had a CAT scan of the chest, which showed moderate pericardial effusion along with pleural effusion. She was also noted to have a lung mass. She was transferred to [facility] for cardiology evaluation. HOSPITAL COURSE: 1. Moderate pericardial effusion, but no signs of tamponade. Effusion has improved with Lasix. Repeated echo showed (more content not included)... Additional Source Comments INFORMATION SOURCE (unrecogn ized section and content) DATE CREATED AUTHOR 05/27/2020 [facility] DATE CREATED AUTHOR AUTHOR'S ORGANIZ ATION 08/21/2020 [facility] DATE CREATED AUTHOR AUTHOR'S ORGANIZ ATION 10/03/2020 [facility] DATE CREATED AUTHOR AUTHOR'S ORGANIZ ATION 09/15/2021 [facility] DATE CREATED AUTHOR AUTHOR'S ORGANIZ ATION 01/29/2023 [facility] DATE CREATED AUTHOR AUTHOR'S ORGANIZ ATION 04/26/2024 The [facility] REASON FOR VISIT (unrecogniz ed section and content) Recheck Left Hip Care Teams (unrecognized sec tion and content) Team Status: Active Member Role Status Dates Gregory Krishna MD Primary Care Provider Active Team Status: Inactive Member Role Status Dates Gregory Krishna MD Primary Care Provider Active Start: April 17, 2024 End: April 17, 2024 Marquise Miramontes DO Attending Provider Active St art: April 17, 2024 End: April 17, 2024 Goals (unrecognized section and content) Goals may be documented in a n alternate section FOR RECORDS PERTAINING TO PATIENTS WHO ARE OR HAVE BEEN ENROLLED IN A CHEMICAL DEPENDENCY/SUBSTANCEABUSE PROGRAM, SOME INFORMATION MAY BE OMITTED. This clinical summary was aggregated from multiple sources. Caution should be exercised in using it in the provision of clinical care. This summary normalizes information from multiple sources, and as a consequence, information in this document may materially change the coding, format and clinical context of patient data. In addition, data may be omitted in some cases. CLINICAL DECISIONS SHOULD BE BASED ON THE PRIMARY CLINICAL RECORDS. [facility]. provides no warranty or guarantee of the accuracy or completeness of information in this document.
[2024-04-30 09:51] LABS: Bilirubin Urine NEGATIVE (NEGATIVE); Blood Urine LARGE (NEGATIVE); Color Urine LT. YELLOW (YELLOW); Glucose Urine UA NEGATIVE (NEGATIVE); Ketones Urine NEGATIVE (NEGATIVE); Leukocyte Esterase Urine MODERATE (NEGATIVE); Nitrite Urine NEGATIVE (NEGATIVE); Protein Urine NEGATIVE (NEG/TRACE); Urobilinogen Urine 0.2 EU/dL (0.2-1.0); pH Urine 6.5 (5.0-9.0)
[2024-04-30 09:59] LABS: Clarity Urine SLIGHTLY CLOUDY (CLEAR)
[2024-04-30 10:00] LABS: Bacteria Urine LARGE #/HPF (NONE SEEN); Mucus Urine SMALL (NONE SEEN); Squamous Epithelial Cell Urine MANY #/LPF (NONE/RARE)
[2024-04-30 10:01] LABS: Urine Culture Indicated ALREADY ORDERED
== END 2024-04-30 09:07 | disposition home or self-care (01) ==
LOC: LAB 09:06
PROVIDERS: PCP Nurse Practitioner Family; Visit Provider Nurse Practitioner Family
DX: N39.0 Urinary tract infection, site not specified (principal)
CPT/HCPCS: 81001; 87086; 87150; 87186

== ENCOUNTER 2024-05-05 18:31 | Observation (INO) | payer MEDICARE, SELFPAY ==
[2024-05-05] VITALS (34 sets, daily range): BP systolic 132–148; BP diastolic 69–80; PULSE 64–76; TEMP 37; O2SAT 91–94; BMI 28.3
--- NOTE | 2024-05-05 18:40 | ECG_ITS ---
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
--- NOTE | 2024-05-05 18:40 | XR_ITS ---
The [address] [address] Patient Name: MEGAN HERRON MRN: [id number] date: 1940 Sex: F Assigned Patient Location: ED.MAIN Current Patient Location: ED.MAIN Accession/Order Number: [id number] Exam Date: 05/05/2024 19:00 Report Date: 05/05/2024 19:57 At the request of: MARTITA BLANCA Procedure: XR chest 1V EXAM: XR chest 1V , 05/05/2024 HISTORY: weak COMPARISON: Previous x-ray from 04/17/[address] scan from 04/17/2024 TECHNIQUE: Portable upright AP projection of the chest. FINDINGS: Low lung volumes. Mild rotation of patient to the right. There is near total opacification of the left lung which could be due to large pleural effusion, underlying mass, atelectasis or infiltrate. Endograft seen in the thoracic aorta. Right lung is relatively clear. CT scan could be considered if clinically indicated. XR/XR chest 1V IMPRESSION: Near total opacification of the left lung, differential diagnosis includes large pleural effusion, lung mass, atelectasis or infiltrate. Electronically authenticated by: BETTE SIMPSON Date: 05/05/2024 19:57
--- NOTE | 2024-05-05 18:41 | ED_ITS ---
HPI HPI - General Adult General Stated complaint: Fall, Weakness Time Seen by Provider: 05/05/24 18:36 History of Present Illness HPI narrative: 83-year-old female presents to the emergency department because of generalized weakness. She states her legs gave out and she fell but she did not injure herself in any way. She did not hit her head and she has no pain. She states she is on several antibiotics for urinary tract infection. No vomiting or diarrhea. She does not complain of chest pain, shortness of breath, or cough. Related Data Home Medications ?Medication ?Instructions ?Recorded ?Confirmed amiodarone 200 mg tablet 200 mg PO DAILY 04/15/24 04/15/24 docusate sodium 100 mg capsule 100 mg PO DAILY 04/15/24 04/15/24 (Colace) furosemide 40 mg tablet 40 mg PO DAILY 04/15/24 04/15/24 metoprolol tartrate 25 mg tablet 25 mg PO BID 04/15/24 04/15/24 potassium chloride 20 mEq 20 meq PO BID 04/15/24 04/15/24 tablet,extended release(part/cryst) trazodone 50 mg tablet 100 mg PO QPM 04/15/24 04/15/24 Previous Rx's ?Medication ?Instructions ?Recorded cefdinir 300 mg capsule 600 mg (2 x 300 mg) PO DAILY #20 04/18/24 caps fluconazole 100 mg tablet 100 mg PO DAILY #7 tabs 04/18/24 (Diflucan) Allergies Allergy/AdvReac Type Severity Reaction Status Date / Time No Known Drug Allergies Allergy Verified 05/05/24 18:34 Opioid HPI Opioid Management Most Recent Opioid Data: Last Pain Scale 0 04/17/24 13:11 Last ORT Total Score 4 04/15/24 15:09 Last ORT Risk Category Moderate Risk 04/15/24 15:09 Review of Systems ROS Narrative A ten point review of systems is negative except as noted above. [facility] Medical History Prolapsed bladder Weakness ?R53.1 - Weakness (ICD-10) Lung mass ?R91.8 - Other nonspecific abnormal finding of lung field (ICD-10) Thoracic aortic aneurysm without rupture ?I71.20 - Thoracic aortic aneurysm, without rupture, unspecified (ICD-10) CHF (congestive heart failure) ?I50.9 - Heart failure, unspecified (ICD-10) Afib ?I48.91 - Unspecified atrial fibrillation (ICD-10) Family History Sister Family history of cancer Mother Family history of CHF (congestive heart failure) Aunt Family history of CHF (congestive heart failure) Social History Within the past year, how often did you have a drink containing alcohol: monthly or less Smoking status: Former smoker Non-prescribed substance use: denies use Highest level of school completed/degree received: high school graduate Exam Narrative Exam Narrative: Nurses note and vital signs reviewed and patient is not hypoxic. General: The patient appears well and in no apparent distress. Patient is resting comfortably on cart. Skin: Warm, dry, no pallor noted. There is no rash noted. Head: Normocephalic, atraumatic Eye: Normal conjunctiva, no drainage Ears, Nose, Mouth, and Throat: oral mucosa is moist. Nares patent. Cardiovascular: Regular Rate and Rhythm Respiratory: Patient is in no distress, no accessory muscle use, lungs are clear to auscultation, no wheezing, rales or rhonchi Back: non-tender GI: Soft and nontender Musculoskeletal: Arms have full range of motion. She is able to lift each leg off the bed without any discomfort. No palpable tenderness to her hips knees or ankles Neurological: A&O x4, normal speech Psychiatric: Cooperative Medical Decision Making [facility] Narrative Medical decision making narrative: Tests are ordered and the patient is signed out to Dr. Clifford at change of shift. Differential Diagnosis Differential Diagnosis: UTI, pneumonia, dehydration, anemia Discharge Plan Discharge Clinical Impression: Generalized weakness Patient Disposition: Still a Patient Prescriptions / Home Meds: No Action furosemide 40 mg tablet 40 mg PO DAILY trazodone 50 mg tablet 100 mg PO QPM amiodarone 200 mg tablet 200 mg PO DAILY docusate sodium [Colace] 100 mg capsule 100 mg PO DAILY metoprolol tartrate 25 mg tablet 25 mg PO BID potassium chloride 20 mEq tablet,ER particles/crystals 20 meq PO BID cefdinir 300 mg capsule 600 mg PO DAILY Qty: 20 0RF fluconazole [Diflucan] 100 mg tablet 100 mg PO DAILY Qty: 7 0RF Print Language: Cambodian Referrals: TRE PETERS [Primary Care Provider] - 1 week
--- OUTSIDE RECORDS SUMMARY | 2024-05-05 18:42 | XMS_ITS | CCD ---
Author Organization [facility] Care Team Providers Care Severity Of Illness Coordinator Name Role Phone PROVIDER, UNKNOWN Admitting Unavailable PROVIDER, UNKNOWN Attending Unavailable KANCHAN KAPLAN Referring Unavailable UNKNOWN, PHYSICIAN Primary Care Unavailable ALYCE SCHMITT Admitting Unavailable [place] Procedure Practitioner Unavailab ALYCE [place] Surgeon Unavailable [...] sources) Gluten Drug allergy (disorder) 05-02-2020 [facility] Repository (1 source) Lactose Drug Allergy 05-02-2020 [facility] Repository (2 sources) Gluten Drug allergy Unknown NovoED Other (1 source) Milk Prods Drug allergy (disorder) [facility] Repository (1 source) Gluten Drug allergy (disorder) 10-13-2021 [facility] Repository Medications Current Medications Medication Drug [...] PO August 28, 2021 12:00am estrogens, conjugated (residential) 0.625 mg/ml vaginal cream (3 sources) Estrogen Start: 08-28-2021 Conjugated Est rogens (Premarin) 0.625 mg/gram cream Active August 28, 2021 12:00am Premarin 0.625 M G/GM Vaginal for 90 Active ferrous sulfate 325 mg oral tablet (3 sources) Start: 09-21-2021 take 1 tablet by velai th every twenty-four hours Ferrous Sulfate 325 [...] Test Name Value Interpretation Reference Range Facility [facility] 04-17-2024 L Specimen: [id number] Received: 04/22/24 Status: DELORES Mccoy Num: [id number] Spec Type: Cytology Subm Dr: Marquise Miramontes DO Tissues: A PLEURAL FLUID (PLEUR) Procedures: HE/2, Gross/Micro L4, Cyto Prepstain, PAPSTN Age/ Patient Sex Location Account Attending Physician KerriMegan Bertha 83/F LABELL [id number] Marquise Miramontes DO SPEC NUM: [id number] RECD: 04/22/24 STATUS: DELORES MCCOY NUM: [id number] RACHEL: 04/17/[address]: Marquise Miramontes DO ENTERED: 04/22/[address]: Blanche Powell SPEC TYPE: Cytology DEPT: [facility] ENTERED BY: [id number] RECV BY: [id number] ORDERED: HE/2, Gross/Micro L4, Cyto Prepstain, PAPSTN [...] prepared for microscopic examination. (/tello) CPT Codes 65757 Specimen: [id number] Received: 04/22/24 Status: DELORES Mccoy Num: [id number] Spec Type: Cytology Subm Dr: Marquise Miramontes DO Tissues: A PLEURAL FLUID (PLEUR) Procedures: HE/2, Gross/Micro L4, Cyto Prepstain, PAPSTN Patient: Megan Herron [id number] (Continued) Signed (signature on file) Luann Mercer MD 04/24/24 1542 Normal [facility] CULTURE URINEon 01-21-2023 CULTURE URINE Culture Observations : LIGHT GROWTH OF MIXED GENITAL IRMA. NO POTENTIAL PATHOGENS SEEN. Normal [facility] Comment on above: Performed By: #### U RCX #### [facility] [address] [place] [address] Dr. Shaila Spann UA RANDOM W/MICROSCOPICon BACTERIA TRACE Abnormal NONE SEEN [facility] Comment on above: Performed By: #### U AMIC #### [facility] [address] [place] [address] Dr. Shaila Spann Bilirubin Ql (U) Negative Normal NEGATIVE [facility] Comment on above: Performed By: #### U AMIC #### [facility] [address] [address] [address] Shaila Spann CAST NONE SEEN Normal NONE SEEN [facility] Comment on above: Performed By: #### U AMIC #### [facility] [address] [address] [address] Shaila Spann Clarity (U) CLEAR Normal CLEAR [facility] Comment on above: Performed By: #### U AMIC #### [facility] [address] [address] [address] Shalia Spann Color (U) LT. YELLOW Normal YELLOW [facility] Comment on above: Performed By: #### U AMIC #### [facility] [address] [address] [address] Shaila Spann Crystals LM Nom (Urine sed) NONE SEEN Normal NONE SEEN [facility] Comment on above: Performed By: #### U AMIC #### [facility] [address] [address] [address] Shaila Spann Epithelial cells LM Ql (Urine sed) FEW Abnormal NONE SEEN /RARE [facility] Comment on above: Performed By: #### U AMIC #### [facility] [address] [address] [address] Shaila Spann Glucose Ql (U) Negative Normal NEGATIVE [facility] Comment on above: Performed By: #### U AMIC #### [facility] [address] [address] [address] Shaila Spann Hemoglobin Ql (U) LARGE Abnormal NEGATIVE [facility] Comment on above: Performed By: #### U AMIC #### [facility] [address] [address] [address] Shaila Spann Ketones Ql (U) Negative Normal NEGATIVE [facility] Comment on above: Performed By: #### U AMIC #### [facility] [address] [address] [address] Shaila Spann LEUKOCYTES MODERATE Abnormal NEGATIVE [facility] Comment on above: Performed By: #### U AMIC #### [facility] [address] [address] [address] Shaila Spann MUCOUS NONE SEEN Normal NONE SEEN [facility] Comment on above: Performed By: #### U AMIC #### [facility] [address] [address] [address] Shaila Spann Nitrite Ql (U) Negative Normal NEGATIVE [facility] Comment on above: Performed By: #### U AMIC #### [facility] [address] [address] [address] Shaila Spann pH (U) 8.0 [pH] Normal 5-9 [facility] Comment on above: Performed By: #### U AMIC #### [facility] [address] [place] [address] Dr. Shaila Spann RBC 5-10 Abnormal 0-2 [facility] Comment on above: Performed By: #### U AMIC #### [facility] [address] [place] [address] Dr. Shaila Spann SPEC GRAVITY 1.015 Normal 1.005-<=1.02 5 [facility] Comment on above: Performed By: #### U AMIC #### [facility] [address] [address] [address] Shaila Spann UA PROTEIN 30 mg/dl Abnormal NEGATIVE/ TRACE [facility] Comment on above: Performed By: #### U AMIC #### [facility] [address] [place] [address] Dr. Shaila Spann Urobilinogen Qn (U) 0.2 {Orion'U}/dL Normal 0.2 - 1. 0 [facility] Comment on above: Performed By: #### U AMIC #### [facility] [address] [address] [address] Shaila Spann WBC 2-5 Abnormal NONE SEEN [facility] Comment on above: Performed By: #### U AMIC #### [facility] [address] [place] [address] Dr. Shaila Spann Ambulatory Clinical Summaryo n 09-14-2021 Ambulatory Clinical Summary {[id number]}C D:[id number] Normal [facility] Usp Recordson 09-14 Usp Records [id number]#[id number]:[address] [facility] Patient Educationon 09-14-20 Patient Education Urology Hematuria, [...] these instructions at home: Medicines ? Take tggy-was-lenwpvt and prescription medicines only as told by [...] the blood stops without treatment. ? Take sauw-hje-ewyiqpw and prescription medicines only as told by your health care provider. ? Drink enough fluid to keep your urine clear or pale yellow. This information is not intended to replace advice given to you by your health care provider. Make sure you discuss any questions you have with your health care provider. Document Released: 10/23/2006 Document Revised: 03/18/2020 Document Reviewed: 11/25/2017 [employer] Patient Education ? 2019 [employer] Normal [facility] Urology Office/Clinic Noteon 09-14-2021 Urology Office/Clinic Note [...] bleeding. Ordered: Office Visit Level 4 Est 06809 2. 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 no worse than usual. not painful. does not cause difficulty voiding. denies frequent UTIs. pt adamantly opposed to any intervention for this at this time. Ordered: Office Visit Level 4 Est 74928 3. Urge incontinence (N39.41: Urge incontinence) mild-moderate. worse now that it's hard for her to get to the bathroom. not interested in medications due to possible side effects. Ordered: Office Visit Level 4 Est 04722 offered f/u. pt prefers PRN. Total time [...] smoker, quit (more content not included)... Normal [facility] Comment on above: Result Comment: Elec tronically Signed By: CAILIN GONZALES PA-C.br\Date and Time Signed: 09/14/21 14:27 EST Coding Summary.on 07-06-2021 Coding Summary. CD:[id number] Gh0bW w+PGhlYWQ+KI4NMMWoM47ynLR erY2HP0qZAS4ODANRZAPQLH2H UC7yxJN6MLsjP2FijtAk FxcmdBXtGP12IDl9MTA3zLmcO NmnvD4wdXTiZ7i0SeVuHF58sX 71ZZxtPVQeVzV8KdXobacfxND y B5ekLvZrsQBoMtw+PHRhYmxlI HdpZHRoPScxMDAlJyBzdHlsZT 5eUs3sTBHzAUWmkCelkONqVgO j u3gwOYMeXHwsAS1kiBisZ1Vkb GE3WJEze7h7Ml26rZY+PHRkIH E4nYrjOYfqg728YzVef2gzLDN 3 tQWoOXfpTML6G24oq7B8VYMhL HJpFPC3iGW3xY6ngXbhueznL0 ZqcOEyGlQ1PVA9rRIxrI5kmId n obemeU9mVfd+P48SPR4JVJEXM J8YZoa0S8SfKorolXJ+PC90YW UcTZ31yEJloKIqm0urqZs8EgO w ZMGwPAI3mDxwGStnj0EdUMOkD 50exGKio6K5QXJmzYccgFUhVf OkyXU9yS7zYXtfncavs4attus n Dtlaf1auiu83dP94I34fAUxcK QBeDOR3TGPgFCJdqDrajp4pmF 9wIi8+XObow9ojr6ddiEr4RqY w OESqagXxcYloKBC6b1SyGw00B 0VhhTlef7CdCih9ti77iVCpo4 E5fBU0KAhsLSAxrV0uAXpdChY 6 PMTbExBouF94hMXpGOefWm8oj IdxbGlpWN7kHBXhkukbETDksM 7mUBHlqCEraBpnVM2iFJCuypb m c885WnWcMGH7LOEimLAkL3Ndf P3tCbOaVBYlVLAkQ7FsaVMfKJ hbE222IKtlPdH4XNKhrkMfZ7Z s SWThuXazAfA9w1O5Kp9Db0Dbx qygVTV8FInoRFC5FwNnWzZsNq V7G4AhBsl7PGHbxVwoGL3oR5L h IMHmhmprrshvcXO1EXEzOMYlo O50jLHoUTajEt6vo8D5e761IV ExIBZdyY17Hz1fpInaXLFcpHC U uY1lcvyto4rpngwqWiDsUCXxR Yg2ZBp2FEKymMckOaNeNKP2Jd R6KNL2rQLaiJ7psEqxxrrxtW8 w Oyc+R07alB9eDPF5NXV5yhejM FSslgXiAU89AB44D0MeGpqmlN FibGU+LIIzeuSfdUrfIX6dPnZ j n9xuu9GaTGswI7ZxHOSkLVltL sy7GSEfOEI7yBV1mA2tHZMjIT peo4J9zFV2N7PdiqXlxs1lv5o s XIFaMAteJ49osFGfc1G3FLAwi LJ6XVNwjDpjYjRadW22Rnj+PG GnnRfgt8JzYynjx7jft5xqfSo 9 HeElABGqsyOevIklSRT2a8LfC b54E13qVVwzVFXaMIFqNDWjUG HumZudkf6rzE2gMy6+PGNvbCB 3 eBA1gH4cRFNcVeA1YGpoB103Q tRavWMxNpscv6igl4ylfRm0Ox QbKISubfYyqUuaZNX1c5AzPv4 8 T97iKNlbPSCiKOMxQHUcUOPps Nbuzn6jjB7hTa8+FV5hb9lrqh 51pX19kVY+WVHmIEZ5bCcxUOk w LJBnbY7jSUdtIuG7ZAGvKnWsb R41sZGpBVfnQd8zrNhjpKgqCZ 0zDCUazwgnf107JrRcc3rwXCS w fXBxKLmsPEC2A55ed5Y8OHAwB NKhBDA1eED9wT0yiGnkgqxxwF VdlVresaZpxJwoSRwoPMfmA17 6 IHRvcDsnPlBhdGllbnQgTmFtZ Sb6I3WnPsl4UHLuyZksNO9pfU LzCQjvOe0xwRnndWqgKT1oGJZ p iillr613OpZgl3npIALquZKyH MubEWW6T52kx3Y1MSSlZJShCJ Q5rXP5fX0sgXlauqkdpCUurBt g zoVmcEvuSSkzAFkjP724DFMmx IedTjUbjtZfHOKcnFP3HS50ET 14oXLme1W7rHR9E4HuSFCyxsr t etbghOD4PFAqUXEbbW62Ab5kj NyuPk4qVSYiCOM2IYGyhGRiI5 UvaQ9wRoYsICPwMOOoY0NylJN t KKgwG722JNgtTrX1PWRsbhBoV 5PsPKFqxVaqLnQ3e6Y2La9RO2 X9RZ84SR23cCDec7J2aMI3V0D h EWZqjmgnkzsjfVH7KMLwXDQrq B21Ih0rsXsuWs3oVNSxXDI9KY SlrXYfT2VryJ1jZyLeHIJyBAQ w W1KxfVGpQGmsV364BLuvHjY8K TGspsKoY6PqPVTquBqtQrW8i7 P0Ef2ROFl8MB64GU39yNPbu7N 5 tBN3E6IjUACrmrivebiloHH6U XKzDDIrmU37Nb3sxTleVk6oMC KoDOZ2ZYEodDPdO7JxuA3nFkT j VTLjIANaX2GfwXDbVPwtP374K ZaeNbC2GQFnhvYcI4AqLLSfgB zyZpH8t6D9Mn5UXMNdNC49ZQR 5 zZP4DP89VB58C3NoMigwxSKbm +PHRhYmxlIHdpZHRoPScxMD DbCmYtsLwrEP0bSs6uPYKpPRW v fBmaxYDwUzTrl9esEZArUPxjZ G1uvRznQ7SbvBZ9OCSto9f5Ir 31U88dJ4XiaXU+MHOebEH5kIP 0 uU0vFeUhMfS6QCasL060KhLkm HQbVkjjs2shz0jlfDf3VkS6OZ XavfNcgEbcTKI9u2XwEh44S85 s IHdpZHRoPSIxNSUiIHZhbGlnb t0mxH4zJn2+VYJscRK5wPF9jI 5zRmDwZhA9SRxcE289UzBntKQ v Xyedu3vma5tyeRr4GwRwNCFqy iRgjCdjYDQ7r5SxGm24U3RwnX pjk9LjYki3gb27wPDzd3E1fBY 9 I7MoSTQcgpbicSFaoJgwKM7dP FKvmqquRRDktS6oGGAoG3f2Pk HzSeU6HCbmO2FoocZ5RCLizLB g JNnmNGZ6T03af2U7KBMuEXGmR ZY7jQG3wR6abQufwtwbvQDxwR yitfNsmJccGDppPGpsA386FDG v dAzzHNMluL9aTIRxcOEvbLlhK K4fZZAzdggmDpDGTOODSKTLAN DXSoDYKV91TO61nLDbz9V2gPT 9 K3OaFMAueflcgdodtWH0DXMdJ HVlzE99yJBlZCdrRu3jq9W4z6 80NZVyAXPmcR63Gc1klUruBKI w tHSRzS2bsanpq0ulncmnYtLyM JCjCTj5ELv5PAYsmNtuBrStQX M8FhG3FUP2jXZajE8iiMxmvmz g gB3rYrq+HFMcHbAaWEx2CJbwh GQ+RADpHBM9lHhyAVtfXLYbbV 5xNFLiK5h6RyRaSnC4RIipG7L h JEWhdxvfHx79gI5oZsAhFhK6E QoeE9LmdrM5ZPObqEArXKlhHZ W6O97ni2J0KBLcGGBlFBO2zAA 4 dT3szNneyfepvXQthDafjhFnk ChmHAbuADdaY107NYSvfArvKv ljQXcvFAEiWV99OZ12cSBbs6X 5 zUZ6D9CuYYBkossgpclhaSI9D XGqLCWpgS12kGToMDjqFr3kl1 N0m805URGxAIXetO25Ld2opEo g WCRfdRDGmE1tvprmn6nktrlfT mGfZTHfPRc8YMy6JWYprAueGk AmKOL0GqU1HEG0wJPjgL3onRb n jjzzfN1yVww+IvTaLIqjXC23V C19jBJwi2I1lVU0R7RvTOVoeb qsxqcbnTQ3POIzIQMtbK00tAS k NHbwTz5gm6E3x403EBVhWZXmj C92Hv7vmGmvZRRbdXBJaV5hgt pox5myfemnNtFjSRUdVZd1PQd 0 GDDgqJoxQlMxFIU3IeK9KVF8m FIzqK0rsYdvarfmqQ3vZzx+T3 A0sSD8gSXgqOcpnSK+GA32fh8 8 S3GyTbhdTku3TKWbEFK7lRI9y K2kGNEoSVjqs1R8aGY3J2Ievu Apbg6zi3yzGBYfMLubG25omWG w m0P2MWTawTD2DGLkqMhrLmIni G93Oyc+PNMohDbsf0LbRapzk1 pqh8qfaRg8RpYzFODvqyRhxXj u OLO7j3ShSt74G74iKPssNDWrJ SQwLHBbBQAgtJmybx7yhA3gMw 8+GYGyeFT7bMH8gN8gZmMsJvB 2 TCynY861XyQgyMUhJxqqs2akl 5jbeHa3OzIpZGBxjfXnmSmnEN F2v6FxDh02H0PdvNtul3FhSbs 0 nt11lBHuo3U3qLC5A0YgBHMmt dvxsYOogDgqFL9aFLHcoragPK MxpH7sCJUlP6z7MhEcYnY0ISn u P7AtglS8TKGxuGLiJUPjrMFGi S5pmpakr9buzixzDfUiAGCzRP i9UZp8MAJmdQgbVqIeTWU3NbE 2 HKS7yDAksM0ohKmettsejI1yM yc+YWz2x4uimZZbFE4osLL5TG 91GZ42gRNrd3O3aUO2K5DmYWC p qbsppyaltSU4FENmDLTclW20G e5wcGryNh2nAAOiLPA8DHSyaL RdJ8FevA1qSwPaBLTnVRXaW6K l pAMqCKvqA336XZxuSiH6AECdj cMrH9QfLCGfbQyoNzJ8k0E2En 6GQA50FO38QM71dNHbc8W9zJT 9 E7VcNPKskeygsbnllTV5BYTnS OWljK17Gi9ksRulVw8kQPCdEY V6CXXzcJHkU6RmdL9eRuFmXTG w ZGVsN9UwuUOjTYlwN050NRaaH sD7JVBuwfCdF1BtMDExbArhKm M5u1S6Jg9JEn15CD75MP79yOH g z2R4zYZ2X2IqMJNcqdxibvkpy SW0QJUsITSxbO13Kz8jjJcbMq 5bJWWhMMZ3XUBoyYIxL5GtqP8 y QyXzHQNxNWEyN9PdyZWwPAozP 213EPxcRqK8AKWhhcHxI2XvZJ SydInpZeF7m4Y7Uq1CAAdhsxk 8 S3YbWxtkkHZ+MM61IQMsYM20u GOklZXur9qmpJm3CiCmMYRrVF I2mFunMTdhz2TzIBNxH62bfHY w c2U6 (more content not included)... Normal [facility] Progress Note-Nurseon 2020 Progress Note-Nurse [id number]:[address] [facility] Heart and Vascular Office/Cl inic Noteon 06-24-2021 [...] But I recommended that she see a crimping machine operator for metal for it. From vascular standpoint we will [...] influenza virus vaccine, inactivated 07/20/[address] [facility] Comment on above: Result Comment: Elec trojennyally Signed By: Gavin COLEY, Luann Maldonado\.br\Date and Time Signed: 06/24/21 10:14 EDT Reminderson 06-24-2021 Reminders - From: Monserrat Greer To: Monserrat Greer; Sent: 06/24/2021 14:02:41 EDT Show up: 05/24/2022 14:02:00 EDT Subject: Ambulatory Reminder Due Date/Time: 06/24/2022 14:02:00 EDT Reminder/Recall Patient is due for a one year follow up and - June [address] [facility] Coding Summary.on 06-17-2021 Coding Summary. CD:[id number] Gh0bW w+PGhlYWQ+MO3HEGVeX22naKM trC6VW0cJHV9IOGWLUDJJVE4Z LP9pgUE3CMzdA5XzcwNz FlcmtHKbMC70RQr0EWP8tVqvV QynaM4trJCrB7r5BfBeKH67eC 57SJjzQZRtPmS3HpFdtxjhvPJ y R5nkRcOzjVSeFld+PHRhYmxlI HdpZHRoPScxMDAlJyBzdHlsZT 4rPg5lXDGnRBPjeHdleOPiNtA j b0nfMPAoYAfmCY8juKgaH8Zox HD1AGWmk3k9Cq44wNK+PHRkIH S7vVijILjuf895KiYji3hxYIC 3 dJBeVNldODL8U28ku8P1CESrJ EThKQC4oRK8jS6ouMrxnvhrU2 KaoQAmHkP1HKP7qKZrdK1ndCt n wyhfeD8bXzt+W69ZJT2VGSWSB P0BOmt0V1QnGwcnmQH+PC90YW ZhLR65cWGplOPkj3cwgYy1BqX w LXVuKXI1jZykMOkuz2RlBLHfH 20aqEPbu3K7SFXlhPjuwHEeCk TwrFH7wT8mYJywnbeaq2uwasg n Ikyjs4oyau91pF32A91vXVzoY PHpDMF5KSPjBXKciSrumh8qkO 9wIi8+DAfbx3lqo7wprIx5BgU w AXFkozFmqYvzZDJ8w3QgOk59U 3ItdFkwl9VyMzh0hr69mCSzo1 E4iAQ6WDnwOWBimN6bMYrwHgY 6 QENyGlMxhS94zZZxFTrdTr8bp VehyJipJS0fDGQoclddZIGusU 7dXUAbfBPgyCbqGO4tOFRlmba m m616KlRmCJJ6RRDysOTcA0Lcj L5bAiAnWYGsCPHjO2WujWAlED xmU494PDlqSqG5HYErgvIzK0U s TFEzcCviZvN8p3O9Os1Rt9Izg xqmZUB8QUsvFJS7TgRcRsYrNr O4J7HkSrt1WUMdbMdjGO4nN6J h AQXatwurnjvojZD1JBFaNFUlx K40cLVcWZqyLw7zy0N9u383JL DgZWShcD64Gv1fbUmwHQEfjYC U iS3ilrcnz2slkncxZsMnBBAcP Hr4MYv4DEOktGalYnXgUDD5Nm L5LIJ1hIJkyJ3mzTtqhlmrqA8 w Oyc+G08chM4aKZZ5YSV1iqkbG FSnwlTcAE04KY38H7GuIfstuQ FibGU+FOQokbCulSahHB2lExI j x2sjd7KeOSdfY6EkYDAsVRyqY gv2WRBgWDS4jFP6qQ3iNPKgNF ikc0F2cHW8W2OdxhHgeq3ny0h s DDNlFOuyF62rlVKrb1R1OAGvq RD6UXSwbPfyUjQxwK17Bal+PG YghCmjx9KcTufog9ygf5vfgZu 9 YqFxXHQoieKzwHfhNQI4r3IlI y02P77nUFniJEWeXLEkXGJgOY RzwRbnjp7vfV0tGq7+PGNvbCB 3 rKG6zJ4qDUNkMyC8YCdlC146J qChfEXrRgjsp3zns7wkmSg1Vu JiPFTikqZrdNqhLEU7s2RpQi5 8 C55mXFdfWIScYVQlAFRkHLPtf Mhjdt6yhW4tIo9+LA7bd1borr 63mC72uEP+JSZzAGV3qWywOYp w VVVxiZ3fCSieYeW7VMUwDhEwi Q06eEMgNJnqNv7vcTnrcHwcWG 8vGBLdndojh420FrJqz0oxYLZ w uJDaZUtsTPV9U88ox0H0HMErD FCjGIU8jDJ4cB9caExpospjeD OmdRbebkToeHxjMTezAHkuA47 6 IHRvcDsnPlBhdGllbnQgTmFtZ Jg4L7LyBen1EKOscGkvYE7nbG YgIXbfIv0bxPedqVqaXB3kMGK p xuzht861IhTfy9lnSOEuoRPaZ IpnRIY2R65mq2S0NFNcHKMfBI Q9qFE7iD6yuXazkyfhkTIxeFi g ztHabWxiPFnlCThkT909RTChz ScaEeJzgrCtXUVknGD4RV60XJ 74cCUmz5L4lSP9S4UwEBWnpfj t nmlkaJT4MRSfKCZaeZ46Qy8gz WhhZv5mMKEgENI9VREebKBiD3 ZfpT6cVtNdBNRnZYElS2WytDQ t KFihM489XUfkCwT1TJKfuxBdR 3KyOFCseLyoNqA0l0C3Cr0NO5 B2DI94BU39sLNdh1G6zZD6S8A h HATspxwghvmijUB4YFPpZAGxi X02Vz8mgHcyBw9oWDJvOUY5EX AwkQShO0MnaB0sOmPkWUTqLTO w Z8SdsUHxREtuT250PUrhXnW7R BLswzInF6PdMXVwxQyrKxM9u2 T8Gy9LFLz3GE82NS72tFPwm1Z 5 wII5R2SfIYDcspesajzjaAV2E RPsWVLzaK78Ch8jcUybSc2vDI DrNDG9OYFwiCKlR5HwtW1bFeL j CVBnYDQcH4NttHDoUBtzB500A KovFnN4ZATcraPgJ0YyYDFdnN kjVcZ4u5J6Nn4CEMQeBP12DKG 5 wPB0UW23IA36F8JiPmppqAQux +PHRhYmxlIHdpZHRoPScxMD ZjRkFumKhwEA2aWz9gHBVbWZW v fZsojXVbXgYrn6ncUUOvGYnrY K0bhSnkR0CnzIZ5NSMjf5k6Vs 61G33vJ5OhiXW+RAIcgGF7wCI 0 eS7wObTeOoJ3EDthB019UhQlo HLfXghnb1lyj4actDp8NqA9IS EtevVorVixGEZ1v5VyFp47E17 s IHdpZHRoPSIxNSUiIHZhbGlnb l1qwJ8qQa4+QVYcdPM1tPC5mT 3jTvDrEqU7JNdtB907MkKyeIN v Rdjdl5epf2qpbLo0DeJlHTJbd oBaeSdfSGB0c4ArGm96K0VmeT ist6QjXar8qa23aKJmp3L5jVB 9 U7OoTANdapjvuHRrhTwdGL2tP WLnavmwFTMudO6aHYIwU8g0Zr YcQqD2RCkvH3CiuiB1EQInlBO g HPnmNBD9F27ke9T8NXSwQNRmN SV3uEA1wT4opPwyxdxyrHIzeQ jabcQguPsnHEceWHexS652VSX v kPawTCHcdQ1hKPJncTWxfQlpO O6oLBGhneudIhTLANBPBBOQDT DCLmBXLN35OC79aHHfo4E5hCR 9 F2StCSMnmumatealxDC7XBAhX BJcrC61bHBaLEtsMc7qc0U4a9 87JCNwUKQmdR91Nd4btIqtGDJ w mASTdO2ewvqet0ugrybcNsAvH AInDEu0XQj7MTKzyPwaOnOpRF T7MvF5WBY2zLYaaN7vbQovzwm g aX8pKas+CGGuLvPvFPy3ESjxs GQ+YHGjHZC0cGilBLplSUXrxJ 6tWEImM7e7PsLrJiQ9XRohH4Z h OFQlxqjmZz01rM9lLfKlObX1E FoxI8XjhsZ6EJHyrTHlDSinPQ C2M80or0K9QQJoMFQfMQX8zVC 4 kQ0spRjrynotpFRxpHuxmqUcx ZglGPmrFMdlL453FKLbuNubNp hiUWxkLAIgDS30AX79dMFcn6D 5 zZG7U1HuIMLufunxvlhfxEK4Q NNrMITzvK14bEUdBGezWd7hh1 N6c269EIGvFDEspD01Cs6atYm g EQVibUTXrG7pzpbhv9bokbksG iQeOFDmHTn1DLx4LPOyhSggOw VyUUN1DuN2QQZ2jLYthD0jgSx n bpyywG4fXmg+GuPxCVyvXX54N N69uUOfr6V5jJJ4T5WyFHGvvy ibvpbxaYO7ELVxPCVhdQ63hYZ k QCqtBe7vk1O6o215TWHbTAAed E02Sk5lwOhvTKCwqCRZpO3iel ian9xnnrgxElImZXTjLIt0WPr 0 OPXwnRlrXmGvQML6IkL1BQW2a JUkeZ6hjEqvyaspkT8iAxs+T3 P9mSF1qWTkhLqdwUS+NW56bb9 8 Z5XcWxflUbl7UTGmEHY8tAV8a H8xECHmSQbcd4L5hDO0C7Zsqr Cntv1gy5amCYGzNNncH50wbMH w j1K1BUAgkUG1AIAoeHtvEsXui G93Oyc+JANzrRydg9SyQnhra8 jew3ixgZx4SsOfJQNuzwAfkEg u PAY9r0VyKd88Q78fLPlnPGEoC POyXESeTVTndDokxq2amI5mMs 8+YZHbsVH3tVR5oZ8nDwXkQhA 2 DKtzE663FpUlxRWxHkvcs7mbg 1eqgZq3GxGkLOVjqgSnfGoqEO W9p7WcPt19G2PcjEozi5DxQmb 0 gg92cGUae6P3lBN6I3MrHWVdu opljHEllItoBC0jNUBtlydjTA KbsN0mRQNzV2e2AoEaKsY3UEr u F7IpcaS6QLXshMNyKGBanFAPp H5ovpyvy0qikluvDkLnXFSaQV p5CBs3TZRneHkwNaXzZTH5CoQ 2 YIV0eJFhzR0hrUzfjwlqcV3cZ yc+YJl6u0xdsSAkZV8xsYW3UM 38YJ37fVBhx9G4fSH2W8IuOLY p aqvzwmnuwGD2LWLuFYJyrP22Y g4moUerVa0qXAWcCJW9GXBqaG PfY9PhvW6jAeGnFNAnUDZfE2Y l rSXuSRkzY243KDtwHbF3OBQmc qUbU7EnZUOifZnfBmR4k7I0Le 1IFM43FX76YN88gOEeh8F1eEO 9 G3CjHSJirslgzkdoeRG7KITpF BQcbJ45Ta0fwUjkAu1wLOEjEZ T6NUJfxREaK3ZllI9nGeTaOCU w EORnX9PoiJVuIKxqT129IHqqM fU6MIJolfTaC9HxYHWiaUdbCl V0b3L3Mk3HAd25GI50AN37dBC g h6Z8uES6Y2TgFSSvhvhyzwsrt ME9DHSuFWFdwH93Wm9zyOeiZw 6bQYJdZUO1ZLMegZDpB2WocP9 y GkIdOCXdVPHnU4UazBTjKZfbE 906GCgdYwQ4HYJbfyZjY1MvQS EhnQwmXnV6n5L8Ux3SVNvkqxy 8 B2LnMhwivQB+JZ49JYRyCH59k PVqxUHii8gliWt6ZcVxTNLyIA Z4oIwcBUxpy8DkIANkS21csSW w c2U6 (more content not included)... Normal [facility] CTA Abdomen and Pelvison CTA Abdomen and [...] 370 Contrast amount in ml's: [address] [facility] CTA Cheston 06-16-2021 CTA Chest Exam Date/Time: [...] 370 Contrast amount in ml's: [address] [facility] Consent for Treatmenton 080 Consent for Treatment [id number]#1.00CD:[address] [facility] Creatinineon 06-11-2021 Creatinine [Mass/Vol] 0.8 mg/dL Normal 0.5-1.[address] [facility] Comment on above: Performed By: #### 2 [id number], [id number] ####[facility] [address] [place] [address] Physician Orderon 06-11-2021 Physician Order [id number]#1.00CD:[address] [facility] eGFRon 06-11-2021 GFR/1.73 sq M.predicted among blacks MDRD (S/P/Bld) [Vol rate/Area] mL/min/{1.73_m2} Normal >=[address] [facility] Comment on above: Order Comment: Order added by Discern Expert. Result Comment: eGFR is race adjusted. AA=. Performed By: #### 2 [id number], [id number] ####[facility] [address] [place] [address] GFR/1.73 sq M.predicted among non-blacks MDRD (S/P/Bld) [Vol rate/Area] mL/min/{1.73_m2} Normal >=[address] [facility] Comment on above: Order Comment: Order added by Discern Expert. Result Comment: Director Compensation jenny kidney disease could be indicated at eGFR's of less than 60 mL/min/1.73m2. Kidney failure is indicated at less than 15 mL/min/1.73m2. Performed By: #### 2 [id number], [id number] ####[facility] [address] [place] [address] Pre-Certification Formon Pre-Certification Form [id number]#1.00CD:[address] [facility] Heart and Vascular Office/Cl inic Noteon 12-17-2020 [...] But I recommended that she see a crimping machine operator for metal for it. From vascular standpoint we will [...] virus vaccine, inactivated 07/20/2020 Recorded Normal [facility] Comment on above: Result Comment: Elec tronically [...] influenza virus vaccine, inactivated 07/20/[address] [facility] Comment on above: Result Comment: Elec tronically Signed By: Gavin COLEY, Luann Maldonado\.br\Date and Time Signed: 12/17/20 12:03 EST Coding Summary.on 12-04-2020 Coding Summary. CODING DATE: 021 FINAL [facility] STATUS: Home (Routine DC) PAYOR: Medicare APC [...] CphT Date Saved: 12/04/2020 01:[address] [facility] CTA Abdomen and Pelvison CTA Abdomen and [...] 370 Contrast amount in ml's: [address] [facility] CTA Cheston 12-03-2020 CTA Chest Exam Date/Time: [...] REPORT Dictated: (more content not included)... Normal [facility] Consent for Treatmenton 11-07 Consent for Treatment [id number]#1.00CD:[address] [facility] Creatinineon 12-03-2020 Creatinine [Mass/Vol] 0.9 mg/dL Normal 0.5-1.[address] [facility] Comment on above: Performed By: #### 2 [id number], [id number] ####[facility] [address] [place] [address] Physician Orderon 12-03-2020 Physician Order [id number]#1.00CD:[address] [facility] eGFRon 12-03-2020 GFR/1.73 sq M.predicted among blacks MDRD (S/P/Bld) [Vol rate/Area] mL/min/{1.73_m2} Normal >=[address] [facility] Comment on above: Order Comment: Order added by Discern Expert. Result Comment: eGFR is race adjusted. AA=. Performed By: #### 2 [id number], [id number] ####[facility] [address] [place] [address] GFR/1.73 sq M.predicted among non-blacks MDRD (S/P/Bld) [Vol rate/Area] 60 mL/min/1.73 m2 Normal >=[address] [facility] Comment on above: Order Comment: Order added by Discern Expert. Result Comment: Director Compensation jenny kidney disease could be indicated at eGFR's of less than 60 mL/min/1.73m2. Kidney failure is indicated at less than 15 mL/min/1.73m2. Performed By: #### 2 [id number], [id number] ####[facility] [address] [place] [address] Pre-Certification Formon Pre-Certification Form [id number]:[address] [facility] Ambulatory Clinical Summaryo n 11-03-2020 Ambulatory Clinical Summary {[id number] Normal [facility] Patient Educationon 11-03-20 Patient Education Family Medicine [...] these musc (more content not included)... Normal [facility] Urology Office/Clinic Noteon 11-03-2020 Urology Office/Clinic Note [...] she dropped off a UA specimen at [facility] this past Monday. She is not [...] [facility] [address], [place] [address]- Additional Instructions: PVR Patient Education Overactive Bladder, [...] retention H (more content not included)... Normal [facility] Comment on above: Result Comment: Elec tronically Signed By: Yordan Cordon MD, Aime Bolden\.br\Date and Time Signed: 11/03/20 14:33 EST\.br\Electronically Co-Signed By: Ciara Barreto MA\.br\Date and Time Co-Signed: 11/03/20 14:27 EST BMP FASTINGon 09-30-2020 Anion gap [Moles/Vol] 7 mmol/L Low 8-16 [facility] Comment on above: Performed By: #### B MPF #### Testing performed at [address] [address] Calcium [Mass/Vol] 9.0 mg/dL Normal 8.4-10.2 [facility] Comment on above: Performed By: #### B MPF #### Testing performed at [address] [address] Chloride [Moles/Vol] 99 mmol/L Normal 98-107 [facility] Comment on above: Result Comment: Plea se note: Triglyceride levels of 600mg/dL or higher may positively bias chloride results by approximately 2.1 mmol Performed By: #### B MPF #### Testing performed at [place] [id number] CO2 [Moles/Vol] 33 mmol/L High 22-30 [facility] Comment on above: Performed By: #### B MPF #### [place] [address] Creatinine [Mass/Vol] 0.80 mg/dL Normal 0.7-1.2 [facility] Comment on above: Performed By: #### B MPF #### [place] [address] EST. GFR, >60 Normal [facility] Comment on above: Performed By: #### B MPF #### [place] [address] EST. GFR,Non >60 Normal [facility] Comment on above: Performed By: #### B MPF #### [place] [address] GFR/1.73 sq M predicted among non-blacks MDRD (S/P/Bld) [Vol rate/Area] Average GFR for 70+ years old = 75. Normal [facility] Comment on above: Result Comment: Director Compensation jenny Kidney disease, GFR = <60. Kidney failure, GFR = <15. The GFR estimate is not adjusted for extreme body surface area or acute process, nor has it been validated for women or ethnic groups other than and . Testing performed at [place] [address] Performed By: #### B MPF #### [place] [address] Glucose [Mass/Vol] 94 mg/dL Normal 70-100 [facility] Comment on above: Result Comment: NORMAL <100 mg/dL PREDIABETES 101-126 mg/dL DIABETES 126 mg/dL or higher Performed By: #### B MPF #### [place] [address] Potassium [Moles/Vol] 4.0 mmol/L Normal 3.5-5.1 [facility] Comment on above: Performed By: #### B MPF #### Testing performed at [facility] [address] [place] [address] Sodium [Moles/Vol] 139 mmol/L Normal 137-145 [facility] Comment on above: Performed By: #### B MPF #### Testing performed at [facility] [address] [place] [address] Urea nitrogen [Mass/Vol] 19 mg/dL Normal 7-20 [facility] Comment on above: Performed By: #### B MPF #### Testing performed at [facility] [address] [place] [address] APTTon 05-20-2020 aPTT Coag (Bld) [Time] 42.3 s High 25.0-35.0 [facility] Comment on above: Order Comment: [...] PURPOSE. Performed By: #### 3 0738 #### [facility] [address] aPTT Coag (Bld) [Time] 39.8 s High 25.0-35.0 [facility] Comment on above: Order Comment: [...] PURPOSE. Performed By: #### 3 0738 #### [facility] [address] [facility] BASIC METABOLIC PANELon - Calcium [Mass/Vol] 8.3 mg/dL Low 8.6-10.3 [facility] Comment on above: Order Comment: No: D o not add to previous draw Performed By: #### 3 0738 #### [facility] [address] [place] [address], [place] Chloride [Moles/Vol] 92 mmol/L Low 98-107 [facility] Comment on above: Order Comment: No: D o not add to previous draw Performed By: #### 3 0738 #### [facility] [address] [place] [address], [place] CO2 [Moles/Vol] 34 mmol/L High 21-31 [facility] Comment on above: Order Comment: No: D o not add to previous draw Performed By: #### 3 0738 #### [facility] [address] [place] [address], [place] Creatinine [Mass/Vol] 0.60 mg/dL Normal 0.60-1.20 [facility] Comment on above: Order Comment: No: D o not add to previous draw Performed By: #### 3 0738 #### [facility] [address] [place] [address], [place] GFR/1.73 sq M predicted among blacks MDRD (S/P/Bld) [Vol rate/Area] mL/min/{1.73_m2} Normal >60 [facility] Comment on above: Order Comment: No: D o not add to previous draw Result Comment: Calc ulation may not be valid for patients over 70 years Performed By: #### 3 0738 #### [facility] [address] [place] [address], [place] GFR/1.73 sq M predicted among non-blacks MDRD (S/P/Bld) [Vol rate/Area] mL/min/{1.73_m2} Normal >60 [facility] Comment on above: Order Comment: No: D o not add to previous draw Result Comment: Calc ulation may not be valid for patients over 70 years Performed By: #### 3 0738 #### [facility] [address] [place] [address], [place] Glucose [Mass/Vol] 88 mg/dL Normal 70-100 [facility] Comment on above: Order Comment: No: D o not add to previous draw Performed By: #### 3 0738 #### [facility] [address] [place] [address], [place] Potassium [Moles/Vol] 3.4 mmol/L Low 3.5-5.1 [facility] Comment on above: Order Comment: No: D o not add to previous draw Performed By: #### 3 0738 #### [facility] [address] [place] [address], [place] Sodium [Moles/Vol] 133 mmol/L Low 136-145 [facility] Comment on above: Order Comment: No: D o not add to previous draw Performed By: #### 3 0738 #### [facility] [address] [place] [address], [place] Urea nitrogen [Mass/Vol] 18 mg/dL Normal 7-25 [facility] Comment on above: Order Comment: No: D o not add to previous draw Performed By: #### 3 0738 #### [facility] [address] [place] [address], [facility] CBC COMPLETE BLOOD COUNTon 0 7- Erythrocyte distribution width (RBC) [Ratio] 14.8 % Normal 11.5-15.0 [facility] Comment on above: Order Comment: No: D o not add to previous draw Performed By: #### 3 0738 #### [facility] [address] [place] [address], [place] Hematocrit (Bld) [Volume fraction] 28.1 % Low 36.0-45.0 [facility] Comment on above: Order Comment: No: D o not add to previous draw Performed By: #### 3 0738 #### [facility] [address] Hemoglobin (Bld) [Mass/Vol] 9.0 g/dL Low 12.0-15.0 [facility] Comment on above: Order Comment: No: D o not add to previous draw Performed By: #### 3 0738 #### [facility] [address] [place] [id number], [facility] MCH (RBC) [Entitic mass] 28.6 pg Normal 27.0-33.0 [facility] Comment on above: Order Comment: No: D o not add to previous draw Performed By: #### 3 0738 #### [facility] [address] [facility] [address], [facility] MCHC (RBC) [Mass/Vol] 32.0 g/dL Normal 32.0-35.0 [facility] Comment on above: Order Comment: No: D o not add to previous draw Performed By: #### 3 0738 #### [facility] [address] [facility] [place] [address], [facility] MCV (RBC) [Entitic vol] 89.2 fL Normal 82.0-98.0 [facility] Comment on above: Order Comment: No: D o not add to previous draw Performed By: #### 3 0738 #### [facility] [address] [facility] [place] [address], [facility] Nucleated RBC/100 WBC (Bld) [Ratio] 0 % Normal 0-0 [facility] Comment on above: Order Comment: No: D o not add to previous draw Performed By: #### 3 0738 #### [facility] 3000 [facility] [place] [address], [facility] PLAT CNT 535 10*3/uL High 150-400 [facility] Comment on above: Order Comment: No: D o not add to previous draw Performed By: #### 3 0738 #### [facility] [address] [place] [address], [facility] RBC (Bld) [#/Vol] 3.15 10*6/uL Low 3.80-5.00 [facility] Comment on above: Order Comment: No: D o not add to previous draw Performed By: #### 3 0738 #### [facility] [address] [place] [address], [facility] WBC (Bld) [#/Vol] 8.60 10*3/uL Normal 4.00-10.60 [facility] Comment on above: Order Comment: No: D o not add to previous draw Performed By: #### 3 0738 #### [facility] [address] [place] [address], [facility] LDH BLOODon 05-20-2020 LDH 272 Units/L High 140-271 [facility] Comment on above: Performed By: #### 5 0103 #### [facility] [address] [place] [address], [facility] LIVER BATTERYon 05-20-2020 Albumin [Mass/Vol] 2.8 g/dL Low 3.5-5.7 [facility] Comment on above: Performed By: #### 5 0103 #### [facility] [address] [place] [address], [facility] ALKALINE PHOSPH 64 IU/L Normal 34-104 [facility] Comment on above: Performed By: #### 5 0103 #### [facility] [address] [place] [address], [facility] ALT [Catalytic activity/Vol] 10 U/L Normal 7-52 [facility] Comment on above: Performed By: #### 5 0103 #### [facility] [address] [place] [address], [facility] AST [Catalytic activity/Vol] 15 U/L Normal 13-39 [facility] Comment on above: Performed By: #### 5 0103 #### [facility] [address] [place], [place] [address] [place] [address] Bilirubin [Mass/Vol] 0.6 mg/dL Normal 0.3-1.0 [facility] Comment on above: Performed By: #### 5 0103 #### [facility] [address] Bilirubin.direct [Mass/Vol] 0.2 mg/dL Normal 0.0-0.2 [facility] Comment on above: Performed By: #### 5 0103 #### [facility] [address] Protein [Mass/Vol] 5.9 g/dL Low 6.0-8.3 [facility] Comment on above: Performed By: #### 5 0103 #### [facility] [address] [facility] MAGNESIUM BLOODon 05-20-2020 Magnesium [Mass/Vol] 2.0 mg/dL Normal 1.9-2.7 [facility] Comment on above: Order Comment: No: D o not add to previous draw Performed By: #### 3 0738 #### [facility] [address] *ANAEROBIC CULTUREon 020 *ANAEROBIC CULTURE Clinical Report: (D) Specimen/Source: FLUID/OTHER Collected: 05/19/2020 15:59 Status: Final Last Updated: 05/24/2020 13:26 (1) Thoracentesis Fluid No: Do not add to previous draw CULT RES (Final) No Anaerobes Isolated 5 Days Normal [facility] Comment on above: Order Comment: Thora centesis FluidNo: Do not add to previous draw Performed By: #### 5 0103 #### [facility] [address] *BODY FLUID CULTUREon 2019 *BODY FLUID CULTURE Clinical Report: (D) Specimen/Source: FLUID/THORACENTESIS FLUID Collected: 05/19/2020 15:59 Status: Final Last Updated: 05/24/2020 06:31 (1) No: Do not add to previous draw GRAM (Final) Polys Present No Bacteria Seen CYTOSPUN (Final) This Gram Stain was done on a cytocentrifuged specimen CULT RES (Final) No Growth Day 5 Normal [facility] Comment on above: Order Comment: No: D o not add to previous draw Performed By: #### 3 0738 #### [facility] 3000 [facility] [place] [address], [facility] APTTon 05-19-2020 aPTT Coag (Bld) [Time] 39.1 s High 25.0-35.0 [facility] Comment on above: Order Comment: [...] PURPOSE. Performed By: #### 8 6002 #### [facility] [address] [facility] [place] [address], [facility] aPTT Coag (Bld) [Time] 55.0 s High 25.0-35.0 [facility] Comment on above: Order Comment: [...] HEPARIN. Performed By: #### 8 6002 #### [facility] [address] BASIC METABOLIC PANELon 05-06 Calcium [Mass/Vol] 8.5 mg/dL Low 8.6-10.3 [facility] Comment on above: Order Comment: No: D o not add to previous drawPER RAMILA RANDOLPH... DRAW ALL OF PTS A.M. LABS NOW. HERMINIO RANDOLPH... DRAW ALL OF PTS A.M. LABS NOW. SS Performed By: #### 8 6002 #### [facility] [address] [place] [address], [facility] Chloride [Moles/Vol] 93 mmol/L Low 98-107 [facility] Comment on above: Order Comment: No: D o not add to previous drawPER RAMILA RANDOLPH... DRAW ALL OF PTS A.M. LABS NOW. HERMINIO RANDOLPH... DRAW ALL OF PTS A.M. LABS NOW. SS Performed By: #### 8 6002 #### [facility] [address] [facility] [place] [address], [facility] CO2 [Moles/Vol] 34 mmol/L High 21-31 [facility] Comment on above: Order Comment: No: D o not add to previous drawPER RAMILA RANDOLPH... DRAW ALL OF PTS A.M. LABS NOW. HERMINIO RANDOLPH... DRAW ALL OF PTS A.M. LABS NOW. SS Performed By: #### 8 6002 #### [facility] [address] [facility] [place] [address], [facility] Creatinine [Mass/Vol] 0.62 mg/dL Normal 0.60-1.20 [facility] Comment on above: Order Comment: No: D o not add to previous drawPER RAMILA RANDOLPH... DRAW ALL OF PTS A.M. LABS NOW. HERMINIO RANDOLPH... DRAW ALL OF PTS A.M. LABS NOW. SS Performed By: #### 8 6002 #### [facility] [address] [place] [address], [facility] GFR/1.73 sq M predicted among blacks MDRD (S/P/Bld) [Vol rate/Area] mL/min/{1.73_m2} Normal >60 [facility] Comment on above: Order Comment: No: D o not add to previous drawPER RAMILA RANDOLPH... DRAW ALL OF PTS A.M. LABS NOW. HERMINIO RANDOLPH... DRAW ALL OF PTS A.M. LABS NOW. SS Result Comment: Calc ulation may not be valid for patients over 70 years Performed By: #### 8 6002 #### [facility] [address] [place] [address], [facility] GFR/1.73 sq M predicted among non-blacks MDRD (S/P/Bld) [Vol rate/Area] mL/min/{1.73_m2} Normal >60 [facility] Comment on above: Order Comment: No: D o not add to previous drawPER RAMILA RANDOLPH... DRAW ALL OF PTS A.M. LABS NOW. HERMINIO RANDOLPH... DRAW ALL OF PTS A.M. LABS NOW. SS Result Comment: Calc ulation may not be valid for patients over 70 years Performed By: #### 8 6002 #### [facility] [address] [place] [address], [facility] Glucose [Mass/Vol] 95 mg/dL Normal 70-100 [facility] Comment on above: Order Comment: No: D o not add to previous drawPER RAMILA RANDOLPH... DRAW ALL OF PTS A.M. LABS NOW. HERMINIO RANDOLPH... DRAW ALL OF PTS A.M. LABS NOW. SS Performed By: #### 8 6002 #### [facility] [address] [place] [address], [facility] Potassium [Moles/Vol] 3.2 mmol/L Low 3.5-5.1 [facility] Comment on above: Order Comment: No: D o not add to previous drawPER RAMILA RANDOLPH... DRAW ALL OF PTS A.M. LABS NOW. HERMINIO RANDOLPH... DRAW ALL OF PTS A.M. LABS NOW. SS Performed By: #### 8 6002 #### [facility] [address] [place] [address], [facility] Sodium [Moles/Vol] 133 mmol/L Low 136-145 [facility] Comment on above: Order Comment: No: D o not add to previous drawPER RAMILA RANDOLPH... DRAW ALL OF PTS A.M. LABS NOW. SSPER RAMIAL RANDOLPH... DRAW ALL OF PTS A.M. LABS NOW. SS Performed By: #### 8 6002 #### [facility] [address] [facility] Urea nitrogen [Mass/Vol] 20 mg/dL Normal 7-25 [facility] Comment on above: Order Comment: No: D o not add to previous drawPER RN TOMASA... DRAW ALL OF PTS A.M. LABS NOW. SSPER RAMILA RANDOLPH... DRAW ALL OF PTS A.M. LABS NOW. SS Performed By: #### 8 6002 #### [facility] [address] CBC COMPLETE BLOOD COUNTon 0 7- Erythrocyte distribution width (RBC) [Ratio] 14.7 % Normal 11.5-15.0 [facility] Comment on above: Order Comment: No: D o not add to previous drawPER RAMILA RANDOLPH... DRAW ALL OF PTS A.M. LABS NOW. HERMIINO RANDOLPH... DRAW ALL OF PTS A.M. LABS NOW. SS Performed By: #### 8 6002 #### [facility] [address] Hematocrit (Bld) [Volume fraction] 27.4 % Low 36.0-45.0 [facility] Comment on above: Order Comment: No: D o not add to previous drawPER RAMILA RANDOLPH... DRAW ALL OF PTS A.M. LABS NOW. ELISAER RAMILA RANDOLPH... DRAW ALL OF PTS A.M. LABS NOW. SS Performed By: #### 8 6002 #### [facility] [address] Hemoglobin (Bld) [Mass/Vol] 8.8 g/dL Low 12.0-15.0 [facility] Comment on above: Order Comment: No: D o not add to previous drawPER RAMILA RANDOLPH... DRAW ALL OF PTS A.M. LABS NOW. HERMINIO RANDOLPH... DRAW ALL OF PTS A.M. LABS NOW. SS Performed By: #### 8 6002 #### [facility] [address] MCH (RBC) [Entitic mass] 28.7 pg Normal 27.0-33.0 [facility] Comment on above: Order Comment: No: D o not add to previous drawPER RAMILA RANDOLPH... DRAW ALL OF PTS A.M. LABS NOW. HERMINIO RANDOLPH... DRAW ALL OF PTS A.M. LABS NOW. SS Performed By: #### 8 6002 #### [facility] [address] MCHC (RBC) [Mass/Vol] 32.1 g/dL Normal 32.0-35.0 [facility] Comment on above: Order Comment: No: D o not add to previous drawPER RAMILA RANDOLPH... DRAW ALL OF PTS A.M. LABS NOW. HERMINIO RANDOLPH... DRAW ALL OF PTS A.M. LABS NOW. SS Performed By: #### 8 6002 #### [facility] [address] MCV (RBC) [Entitic vol] 89.3 fL Normal 82.0-98.0 [facility] Comment on above: Order Comment: No: D o not add to previous drawPER RAMILA RANDOLPH... DRAW ALL OF PTS A.M. LABS NOW. HERMINIO RANDOLPH... DRAW ALL OF PTS A.M. LABS NOW. SS Performed By: #### 8 6002 #### [facility] [address] Nucleated RBC/100 WBC (Bld) [Ratio] 0 % Normal 0-0 [facility] Comment on above: Order Comment: No: D o not add to previous drawPER RAMILA RANDOLPH... DRAW ALL OF PTS A.M. LABS NOW. HERMINIO RANDOLPH... DRAW ALL OF PTS A.M. LABS NOW. SS Performed By: #### 8 6002 #### [facility] [address] [facility] [place] [address], [facility] PLAT CNT 576 10*3/uL High 150-400 [facility] Comment on above: Order Comment: No: D o not add to previous drawPER RAMILA RANDOLPH... DRAW ALL OF PTS A.M. LABS NOW. HERMINIO RANDOLPH... DRAW ALL OF PTS A.M. LABS NOW. SS Performed By: #### 8 6002 #### [facility] [address] [place] [address], [facility] RBC (Bld) [#/Vol] 3.07 10*6/uL Low 3.80-5.00 [facility] Comment on above: Order Comment: No: D o not add to previous drawPER RAMILA RANDOLPH... DRAW ALL OF PTS A.M. LABS NOW. HERMINIO RANDOLPH... DRAW ALL OF PTS A.M. LABS NOW. SS Performed By: #### 8 6002 #### [facility] [address] [place] [address], [facility] WBC (Bld) [#/Vol] 10.19 10*3/uL Normal 4.00-10.60 [facility] Comment on above: Order Comment: No: D o not add to previous drawPER RAMILA RANDOLPH... DRAW ALL OF PTS A.M. LABS NOW. HERMINIO RANDOLPH... DRAW ALL OF PTS A.M. LABS NOW. SS Performed By: #### 8 6002 #### [id number] [place] [address] CHEST AND LATERALon 05-19-20 20 CHEST AND LATERAL [facility] Department of Radiology [address] [place] [id number] Patient Name: MEGAN HERRON : 1940 Sex: F Age: Race: White Pt. Location: [id number] Patient Status: I Ordered Date: 05/19/2020 10:15:00 [...] infiltrates. Electronically signed: James Clayton. Transcribed by: [email or web address], User Resident: Electronically Signed by: JAMES CLAYTON @ 05/19/2020 04:11 PM Normal [facility] Comment on above: Order Comment: Evalu ate for Pneumothorax FLUID CELL COUNTon 0 Lymphocytes/100 WBC (Bld) 33 % Normal [facility] Comment on above: Order Comment: Thora centesis FluidNo: Do not add to previous draw Performed By: #### 3 0738 #### [facility] [address] [place] [address], [facility] MESOTHELIAL 13 Normal [facility] Comment on above: Order Comment: Noama yoonesis FluidNo: Do not add to previous draw Performed By: #### 3 0738 #### [facility] [address] [place] [address], [place] OTHER F2 Diff done by cytospin Normal [facility] Comment on above: Order Comment: Thora centesis FluidNo: Do not add to previous draw Performed By: #### 3 0738 #### [facility] [address] [place] [address], [place] OTHER F3 Checked by Anderson kenney M.D. Normal [facility] Comment on above: Order Comment: Thora centesis FluidNo: Do not add to previous draw Result Comment: Resu lt changed by KMCMMARCO ANTONIO on 05/20/2020 10:07. The previous value was Preliminary report; verified report to follow. Performed By: #### 3 0738 #### [facility] [address] [place] [address], [place] RBC (Bld) [#/Vol] [address] RBC/uL Normal [facility] Comment on above: Order Comment: Thora centesis FluidNo: Do not add to previous draw Performed By: #### 3 0738 #### [facility] [address] [place] [address], [place] SEGS 54 Normal [facility] Comment on above: Order Comment: Thora centesis FluidNo: Do not add to previous draw Performed By: #### 3 0738 #### [facility] [address] [place] [address], [place] SOURCE THORACENTESIS Normal [facility] Comment on above: Order Comment: Thora centesis FluidNo: Do not add to previous draw Performed By: #### 3 0738 #### [facility] [address] [place] [address], [place] TOTAL VOLUME 250 mL Normal [facility] Comment on above: Order Comment: Thora centesis FluidNo: Do not add to previous draw Performed By: #### 3 0738 #### [facility] [address] [place] [address], [facility] WBC (Bld) [#/Vol] 614 WBC/uL Normal [facility] Comment on above: Order Comment: Ruthy adame FluidNo: Do not add to previous draw Result Comment: Some reference interval(s) and other method performance specifications have not been established for analytes on this body fluid. The test result must be integrated into the clinical context for interpretation. Performed By: #### 3 0738 #### [facility] [address] [facility] [place] [address], [facility] LDH FLUIDon 05-19-2020 LDH 306 Units/L Normal [facility] Comment on above: Order Comment: No: D o not add to previous draw Result Comment: The reference range and other method performance specifications have not been established for this test in fluids. the test result should be integrated into the clinical context for interpretation. Performed By: #### 3 0738 #### [facility] [address] [facility] [place] [address], [facility] MAGNESIUM BLOODon 05-19-2020 Magnesium [Mass/Vol] 1.7 mg/dL Low 1.9-2.7 [facility] Comment on above: Order Comment: No: D o not add to previous drawPER RAMILA RANDOLPH... DRAW ALL OF PTS A.M. LABS NOW. SSPER RAMILA RANDOLPH... DRAW ALL OF PTS A.M. LABS NOW. SS Performed By: #### 8 6002 #### [facility] [address] PROTHROMBIN TIMEon 0 INR Coag (PPP) [Relative time] 1.24 {INR} High 0.91-1.16 [facility] Comment on above: Result Comment: ACCC P [...] 1995;[id number]. Performed By: #### 8 6002 #### [facility] [address] PT Coag (PPP) [Time] 15.7 s High 12.3-14.8 [facility] Comment on above: Result Comment: ALL RESULTS MUST BE INTERPRETED WITH RESPECT TO BLOOD DRAWING ARTIFACT OR DILUTION ERROR OF ANTICOAGULANT AT THE TIME OF SAMPLING. Performed By: #### 8 6002 #### [facility] [address] [facility]. [address] T PROT FLUIDon 05-19-2020 Protein [Mass/Vol] 3.2 g/dL Normal [facility] Comment on above: Result Comment: The reference range and other method performance specifications have not been established for this test in fluids. the test result should be integrated into the clinical context for interpretation. Performed By: #### 3 0738 #### [facility] [address] [facility]. [address] UFH HEPARIN ASSAYon 05-19-20 20 UNFRACTIONATED HEPARIN 0.40 IU/mL Normal 0.30-0.70 [facility] Comment on above: Result Comment: [place] roxaban and Apixaban will interfere with the anti Xa assay used to monitor UFH and LMWH. UFH ADDED PER PROTOCOL Performed By: #### 8 6002 #### [facility] [address] [facility] [place] [place] [address], [place] US THORACENTESISon 0 US THORACENTESIS [facility] Department of Radiology [address] [place] [address] Patient Name: MEGAN HERRON : 1940 Sex: F Age: Race: White Pt. Location: [id number] Patient Status: I Ordered Date: 05/19/2020 10:15:00 [...] risks are acceptable. Consent was obtained. Timeout: [place] protocol timeout verification performed. PROCEDURE: Estimated blood loss: 0 mL. Informed consent was obtained. The patient was upright. Ultrasound guidance to find deepest pocket of pleural fluid. Doppler ultrasound was utilized to demonstrate there are no overlying superficial vessels. 1% lidocaine was infiltrated to anesthetize skin and adjacent soft tissue. A 5 Spanish one-step catheter was introduced into the pleural space and serosanguineous fluid was aspirated. Postprocedural radiographs of the chest demonstrates no pneumothorax. Patient tolerated procedure well. No immediate competitions were identified. Dr. Dutta present for the entire procedure. IMPRESSION: Successful ultrasound-guided thoracentesis. Approved by:Vincent Enrique05/19/2020 4:24 PM. I, Hang Dutta,have reviewed the images and reports Electronically signed: Hang Dutta. Transcribed by: [email or web address], User Resident: VINCENT ANN Electronically Signed by: HANG DUTTA @ 05/21/2020 09:35 AM I personally read this/these film(s) with this resident Normal [facility] Comment on above: Order Comment: Pleas e drain: diagnostic reasons, left side APTTon 05-18-2020 aPTT Coag (Bld) [Time] 37.1 s High 25.0-35.0 [facility] Comment on above: Order Comment: [...] PURPOSE. Performed By: #### 8 6002 #### [facility] [address] [facility] [place] [address], [facility] aPTT Coag (Bld) [Time] 42.5 s High 25.0-35.0 [facility] Comment on above: Order Comment: [...] PURPOSE. Performed By: #### 8 6002 #### [facility] [address] [place] [address], [facility] aPTT Coag (Bld) [Time] 37.3 s High 25.0-35.0 [facility] Comment on above: Order Comment: [...] PURPOSE. Performed By: #### 6 2586 #### [facility] [address] [place] [address], [facility] BASIC METABOLIC PANELon 05-06 Calcium [Mass/Vol] 8.3 mg/dL Low 8.6-10.3 [facility] Comment on above: Order Comment: No: D o not add to previous draw Performed By: #### 6 2586 #### [facility] [address] [place] [address], [place] Chloride [Moles/Vol] 94 mmol/L Low 98-107 [facility] Comment on above: Order Comment: No: D o not add to previous draw Performed By: #### 6 2586 #### [facility] [address] [place] [address], [place] CO2 [Moles/Vol] 33 mmol/L High 21-31 [facility] Comment on above: Order Comment: No: D o not add to previous draw Performed By: #### 6 2586 #### [facility] [address] [place] [address], [place] Creatinine [Mass/Vol] 0.90 mg/dL Normal 0.60-1.20 [facility] Comment on above: Order Comment: No: D o not add to previous draw Performed By: #### 6 2586 #### [facility] [address] [place] [address], [place] GFR/1.73 sq M predicted among blacks MDRD (S/P/Bld) [Vol rate/Area] mL/min/{1.73_m2} Normal >60 [facility] Comment on above: Order Comment: No: D o not add to previous draw Result Comment: Calc ulation may not be valid for patients over 70 years Performed By: #### 6 2586 #### [facility] [address] [place] [address], [place] GFR/1.73 sq M predicted among non-blacks MDRD (S/P/Bld) [Vol rate/Area] mL/min/{1.73_m2} Normal >60 [facility] Comment on above: Order Comment: No: D o not add to previous draw Result Comment: Calc ulation may not be valid for patients over 70 years Performed By: #### 6 2586 #### [facility] [address] [place] [address], [place] Glucose [Mass/Vol] 113 mg/dL High 70-100 [facility] Comment on above: Order Comment: No: D o not add to previous draw Performed By: #### 6 2586 #### [facility] [address] [place] [address], [place] Potassium [Moles/Vol] 3.4 mmol/L Low 3.5-5.1 [facility] Comment on above: Order Comment: No: D o not add to previous draw Performed By: #### 6 2586 #### [facility] [address] [place] [address], [place] Sodium [Moles/Vol] 133 mmol/L Low 136-145 [facility] Comment on above: Order Comment: No: D o not add to previous draw Performed By: #### 6 2586 #### [facility] [address] [place] [address], [place] Urea nitrogen [Mass/Vol] 32 mg/dL High 7-25 [facility] Comment on above: Order Comment: No: D o not add to previous draw Performed By: #### 6 2586 #### [facility] [address] [place] [address], [facility] CBC COMPLETE BLOOD COUNTon 05-18-2020 Erythrocyte distribution width (RBC) [Ratio] 14.9 % Normal 11.5-15.0 [facility] Comment on above: Order Comment: No: D o not add to previous draw Performed By: #### 6 2586 #### [facility] [address] [place] [address], [facility] Hematocrit (Bld) [Volume fraction] 26.7 % Low 36.0-45.0 [facility] Comment on above: Order Comment: No: D o not add to previous draw Performed By: #### 6 2586 #### [facility] [address] [place] [address], [facility] Hemoglobin (Bld) [Mass/Vol] 8.6 g/dL Low 12.0-15.0 [facility] Comment on above: Order Comment: No: D o not add to previous draw Performed By: #### 6 2586 #### [facility] [address] [place] [address], [facility] MCH (RBC) [Entitic mass] 29.0 pg Normal 27.0-33.0 [facility] Comment on above: Order Comment: No: D o not add to previous draw Performed By: #### 6 2586 #### [facility] [address] [place] [address], [facility] MCHC (RBC) [Mass/Vol] 32.2 g/dL Normal 32.0-35.0 [facility] Comment on above: Order Comment: No: D o not add to previous draw Performed By: #### 6 2586 #### [facility] [address] [place] [address], [facility] MCV (RBC) [Entitic vol] 89.9 fL Normal 82.0-98.0 [facility] Comment on above: Order Comment: No: D o not add to previous draw Performed By: #### 6 2586 #### [facility] [address] [facility] [place] [place] [address], [facility] Nucleated RBC/100 WBC (Bld) [Ratio] 0 % Normal 0-0 [facility] Comment on above: Order Comment: No: D o not add to previous draw Performed By: #### 6 2586 #### [facility] [address] [facility] [place] [place] [address], [facility] PLAT CNT 625 10*3/uL High 150-400 [facility] Comment on above: Order Comment: No: D o not add to previous draw Performed By: #### 6 2586 #### [facility] [address] [facility] [place] [address], [facility] RBC (Bld) [#/Vol] 2.97 10*6/uL Low 3.80-5.00 [facility] Comment on above: Order Comment: No: D o not add to previous draw Performed By: #### 6 2586 #### [facility] [address] [facility] [place] [address], [facility] WBC (Bld) [#/Vol] 12.29 10*3/uL High 4.00-10.60 [facility] Comment on above: Order Comment: No: D o not add to previous draw Performed By: #### 6 2586 #### [facility] [address] [facility] [place] [address], [facility] CHEST AND LATERALon 05-18-20 20 CHEST AND LATERAL [facility] Department of Radiology [address] [place] [id number] Patient Name: MEGAN HERRON : 1940 Sex: F Age: Race: White Pt. Location: [address] [place] [address] Patient Status: I Ordered Date: 05/18/2020 10:50:00 [...] chest Electronically signed: Eva Vergara. Transcribed by: [email or web address], User Resident: Electronically Signed by: EVA VERGARA @ 05/18/2020 12:59 PM [place] [facility] Comment on above: Order Comment: Other APTTon 05-17-2020 aPTT Coag (Bld) [Time] 32.9 s Normal 25.0-35.0 [facility] Comment on above: Order Comment: [...] PURPOSE. Performed By: #### 6 2586 #### [facility] [address] [place] [address], [facility] BASIC METABOLIC PANELon 07-11 07-2019 Calcium [Mass/Vol] 8.4 mg/dL Low 8.6-10.3 [facility] Comment on above: Order Comment: No: D o not add to previous draw Performed By: #### 6 2586 #### [facility] [address] [place] [address], [facility] Chloride [Moles/Vol] 92 mmol/L Low 98-107 [facility] Comment on above: Order Comment: No: D o not add to previous draw Performed By: #### 6 2586 #### [facility] [address] [place] [address], [place] CO2 [Moles/Vol] 34 mmol/L High 21-31 [facility] Comment on above: Order Comment: No: D o not add to previous draw Performed By: #### 6 2586 #### [facility] [address] [place] [address], [facility] Creatinine [Mass/Vol] 0.78 mg/dL Normal 0.60-1.20 [facility] Comment on above: Order Comment: No: D o not add to previous draw Performed By: #### 6 2586 #### [facility] [address] [place] [address], [place] GFR/1.73 sq M predicted among blacks MDRD (S/P/Bld) [Vol rate/Area] mL/min/{1.73_m2} Normal >60 [facility] Comment on above: Order Comment: No: D o not add to previous draw Result Comment: Calc ulation may not be valid for patients over 70 years Performed By: #### 6 2586 #### [facility] [address] [place] [address], [place] GFR/1.73 sq M predicted among non-blacks MDRD (S/P/Bld) [Vol rate/Area] mL/min/{1.73_m2} Normal >60 [facility] Comment on above: Order Comment: No: D o not add to previous draw Result Comment: Calc ulation may not be valid for patients over 70 years Performed By: #### 6 2586 #### [facility] [address] [place] [address], [place] Glucose [Mass/Vol] 100 mg/dL Normal 70-100 [facility] Comment on above: Order Comment: No: D o not add to previous draw Performed By: #### 6 2586 #### [facility] [address] [place] [address], [place] Potassium [Moles/Vol] 3.4 mmol/L Low 3.5-5.1 [facility] Comment on above: Order Comment: No: D o not add to previous draw Performed By: #### 6 2586 #### [facility] [address] [place] [address], [place] Sodium [Moles/Vol] 133 mmol/L Low 136-145 [facility] Comment on above: Order Comment: No: D o not add to previous draw Performed By: #### 6 2586 #### [facility] [address] [place] [address], [place] Urea nitrogen [Mass/Vol] 22 mg/dL Normal 7-25 [facility] Comment on above: Order Comment: No: D o not add to previous draw Performed By: #### 6 2586 #### [facility] [address] [facility] [place] [address], [facility] CBC W/DIFFon 05-17-2020 ABS BASOPHILS 0.0 10*3/uL Normal 0.0-0.2 [facility] Comment on above: Order Comment: No: D o not add to previous draw Performed By: #### 6 2586 #### [facility] [address] [facility] [place] [address], [facility] ABS IMM GRANS 0.1 10*3/uL Normal 0.0-0.2 [facility] Comment on above: Order Comment: No: D o not add to previous draw Performed By: #### 6 2586 #### [facility] [address] [place] [address], [facility] ABS NEUTROPHILS 9.3 10*3/uL High 1.6-7.6 [facility] Comment on above: Order Comment: No: D o not add to previous draw Performed By: #### 6 2586 #### [facility] [address] [facility] [place] [address], [facility] Basophils/100 WBC (Bld) 0.1 % Normal 0.0-1.0 [facility] Comment on above: Order Comment: No: D o not add to previous draw Performed By: #### 6 2586 #### [facility] [address] [facility] [place] [address], [facility] Eosinophils (Bld) [#/Vol] 0.0 10*3/uL Normal 0.0-0.5 [facility] Comment on above: Order Comment: No: D o not add to previous draw Performed By: #### 6 2586 #### [facility] [address] [facility] [place] [address], [facility] Eosinophils/100 WBC (Bld) 0.1 % Normal 0.0-6.0 [facility] Comment on above: Order Comment: No: D o not add to previous draw Performed By: #### 6 2586 #### [facility] [address] [place] [address], [facility] Erythrocyte distribution width (RBC) [Ratio] 14.6 % Normal 11.5-15.0 [facility] Comment on above: Order Comment: No: D o not add to previous draw Performed By: #### 6 2586 #### [facility] [address] [place] [address], [facility] Hematocrit (Bld) [Volume fraction] 28.7 % Low 36.0-45.0 [facility] Comment on above: Order Comment: No: D o not add to previous draw Performed By: #### 6 2586 #### [facility] [address] [facility] [place] [address], [facility] Hemoglobin (Bld) [Mass/Vol] 9.2 g/dL Low 12.0-15.0 [facility] Comment on above: Order Comment: No: D o not add to previous draw Performed By: #### 6 2586 #### [facility] [address] [place] [address], [facility] IMMATURE GRANS 0.9 % Normal 0.0-1.0 [facility] Comment on above: Order Comment: No: D o not add to previous draw Performed By: #### 6 2586 #### [facility] [address] [facility] [place] [address], [facility] Lymphocytes (Bld) [#/Vol] 2.0 10*3/uL Normal 1.2-4.0 [facility] Comment on above: Order Comment: No: D o not add to previous draw Performed By: #### 6 2586 #### [facility] [address] [place] [id number], [facility] Lymphocytes/100 WBC (Bld) 15.8 % Low 20.0-45.0 [facility] Comment on above: Order Comment: No: D o not add to previous draw Performed By: #### 6 3006 #### [facility] [address] [facility] [address], [facility] MCH (RBC) [Entitic mass] 28.9 pg Normal 27.0-33.0 [facility] Comment on above: Order Comment: No: D o not add to previous draw Performed By: #### 6 2586 #### [facility] [address] [place] [address], [facility] MCHC (RBC) [Mass/Vol] 32.1 g/dL Normal 32.0-35.0 [facility] Comment on above: Order Comment: No: D o not add to previous draw Performed By: #### 6 2586 #### [facility] [address] [place] [id number], [facility] MCV (RBC) [Entitic vol] 90.3 fL Normal 82.0-98.0 [facility] Comment on above: Order Comment: No: D o not add to previous draw Performed By: #### 6 2586 #### [facility] [address] [place] [address], [facility] Monocytes (Bld) [#/Vol] 1.0 10*3/uL Normal 0.1-1.0 [facility] Comment on above: Order Comment: No: D o not add to previous draw Performed By: #### 6 2586 #### [facility] [address] [place] [address], [facility] MONOS 8.3 % Normal 5.0-12.0 [facility] Comment on above: Order Comment: No: D o not add to previous draw Performed By: #### 6 2586 #### [facility] [address] [place] [id number], [facility] Neutrophils/100 WBC (Bld) 74.8 % High 40.0-72.0 [facility] Comment on above: Order Comment: No: D o not add to previous draw Performed By: #### 6 2586 #### [facility] [address] [place] [id number], [facility] Nucleated RBC/100 WBC (Bld) [Ratio] 0 % Normal 0-0 [facility] Comment on above: Order Comment: No: D o not add to previous draw Performed By: #### 6 2586 #### [facility] [address] [place] [address], [place] PLAT CNT 641 10*3/uL High 150-400 [facility] Comment on above: Order Comment: No: D o not add to previous draw Performed By: #### 6 2586 #### [facility] [address] [place] [address], [place] RBC (Bld) [#/Vol] 3.18 10*6/uL Low 3.80-5.00 [facility] Comment on above: Order Comment: No: D o not add to previous draw Performed By: #### 6 2586 #### [facility] [address] [place] [address], [place] WBC (Bld) [#/Vol] 12.38 10*3/uL High 4.00-10.60 [facility] Comment on above: Order Comment: No: D o not add to previous draw Performed By: #### 6 2586 #### [facility] [address] [place] [address], [facility] MAGNESIUM BLOODon 05-17-2020 Magnesium [Mass/Vol] 1.8 mg/dL Low 1.9-2.7 [facility] Comment on above: Order Comment: No: D o not add to previous draw Performed By: #### 6 2586 #### [facility] [address] [place] [address], [place] PHOSPHORUS BLOODon 0 Phosphate [Mass/Vol] 3.2 mg/dL Normal 2.5-5.0 [facility] Comment on above: Order Comment: No: D o not add to previous draw Performed By: #### 6 2586 #### [facility] [address] UFH HEPARIN ASSAYon 05-17-20 20 UNFRACTIONATED HEPARIN >1.00 Critically high 0.30-0.70 [facility] Comment on above: Result Comment: Sharon roxaban and Apixaban will interfere with the anti Xa assay used to monitor UFH and LMWH. Patient is on PTT protocol per Tomasa Orlando RN, CVU 3A patient's nurse, at 1950, . Actual UFH level = 1.59 IU/ml . Performed By: #### 6 2586 #### [facility] [address] [facility] [address] *SARS-CoV-2 COVID-19on 05-09 [id number] Not Detected Normal Not Detected [facility] Comment on above: Order Comment: No: D o not add to previous draw Performed By: #### 3 5199, [id number] #### [facility] [address] [facility] [address] BASIC METABOLIC PANELon Calcium [Mass/Vol] 8.1 mg/dL Low 8.6-10.3 [facility] Comment on above: Order Comment: No: D o not add to previous draw Performed By: #### 3 5199, [id number] #### [facility] [address] [facility] [place] [address], [facility] Chloride [Moles/Vol] 94 mmol/L Low 98-107 [facility] Comment on above: Order Comment: No: D o not add to previous draw Performed By: #### 3 5199, 49285 #### [facility] [address] [place] [address], [facility] CO2 [Moles/Vol] 30 mmol/L Normal 21-31 [facility] Comment on above: Order Comment: No: D o not add to previous draw Performed By: #### 3 5199, 59327 #### [facility] [address] [place] [address], [facility] Creatinine [Mass/Vol] 0.50 mg/dL Low 0.60-1.20 [facility] Comment on above: Order Comment: No: D o not add to previous draw Performed By: #### 3 5199, 25334 #### [facility] [address] [place] [address], [place] GFR/1.73 sq M predicted among blacks MDRD (S/P/Bld) [Vol rate/Area] mL/min/{1.73_m2} Normal >60 [facility] Comment on above: Order Comment: No: D o not add to previous draw Result Comment: Calc ulation may not be valid for patients over 70 years Performed By: #### 3 5199, 15629 #### [facility] [address] [place] [address], [place] GFR/1.73 sq M predicted among non-blacks MDRD (S/P/Bld) [Vol rate/Area] mL/min/{1.73_m2} Normal >60 [facility] Comment on above: Order Comment: No: D o not add to previous draw Result Comment: Calc ulation may not be valid for patients over 70 years Performed By: #### 3 5199, 77516 #### [facility] [address] [place] [address], [place] Glucose [Mass/Vol] 97 mg/dL Normal 70-100 [facility] Comment on above: Order Comment: No: D o not add to previous draw Performed By: #### 3 5199, 30921 #### [facility] [address] [place] [address], [place] Potassium [Moles/Vol] 3.2 mmol/L Low 3.5-5.1 [facility] Comment on above: Order Comment: No: D o not add to previous draw Performed By: #### 3 5199, 31086 #### [facility] [address] [place] [address], [place] Sodium [Moles/Vol] 130 mmol/L Low 136-145 [facility] Comment on above: Order Comment: No: D o not add to previous draw Performed By: #### 3 5199, 22950 #### [facility] [address] [place] [address], [facility] Urea nitrogen [Mass/Vol] 17 mg/dL Normal 7-25 [facility] Comment on above: Order Comment: No: D o not add to previous draw Performed By: #### 3 5199, 21804 #### [facility] [address] [place] [address], [place] CBC COMPLETE BLOOD COUNTon - Erythrocyte distribution width (RBC) [Ratio] 14.5 % Normal 11.5-15.0 [facility] Comment on above: Order Comment: No: D o not add to previous draw Performed By: #### 3 5199, 92593 #### [facility] [address] [place] [address], [facility] Hematocrit (Bld) [Volume fraction] 30.7 % Low 36.0-45.0 [facility] Comment on above: Order Comment: No: D o not add to previous draw Performed By: #### 3 5199, 44136 #### [facility] [address] [place] [address], [place] Hemoglobin (Bld) [Mass/Vol] 9.7 g/dL Low 12.0-15.0 [facility] Comment on above: Order Comment: No: D o not add to previous draw Performed By: #### 3 5199, 26030 #### [facility] [address] [place] [address], [place] MCH (RBC) [Entitic mass] 29.8 pg Normal 27.0-33.0 [facility] Comment on above: Order Comment: No: D o not add to previous draw Performed By: #### 3 5199, 99617 #### [facility] [address] [place] [address], [place] MCHC (RBC) [Mass/Vol] 31.6 g/dL Low 32.0-35.0 [facility] Comment on above: Order Comment: No: D o not add to previous draw Performed By: #### 3 5199, 23115 #### [facility] [address] [place] [address], [facility] MCV (RBC) [Entitic vol] 94.5 fL Normal 82.0-98.0 [facility] Comment on above: Order Comment: No: D o not add to previous draw Performed By: #### 3 5199, 17123 #### [facility] [address] [place] [address], [facility] Nucleated RBC/100 WBC (Bld) [Ratio] 0 % Normal 0-0 [facility] Comment on above: Order Comment: No: D o not add to previous draw Performed By: #### 3 5199, 99577 #### [facility] [address] [place] [address], [facility] PLAT CNT 274 10*3/uL Normal 150-400 [facility] Comment on above: Order Comment: No: D o not add to previous draw Performed By: #### 3 5199, 77898 #### [facility] [address] [place] [address], [facility] RBC (Bld) [#/Vol] 3.25 10*6/uL Low 3.80-5.00 [facility] Comment on above: Order Comment: No: D o not add to previous draw Performed By: #### 3 5199, 21982 #### [facility] [address] [place] [id number], [place] WBC (Bld) [#/Vol] 11.01 10*3/uL High 4.00-10.60 [facility] Comment on above: Order Comment: No: D o not add to previous draw Performed By: #### 3 5199, 91256 #### [facility] [address] [place] [address], [facility] BASIC METABOLIC PANELon 07-0 Calcium [Mass/Vol] 8.1 mg/dL Low 8.6-10.3 [facility] Comment on above: Order Comment: No: D o not add to previous draw Performed By: #### 3 5199, 44927 #### [facility] [address] [place] [address], [place] Chloride [Moles/Vol] 97 mmol/L Low 98-107 [facility] Comment on above: Order Comment: No: D o not add to previous draw Performed By: #### 3 0, 81752 #### [facility] [address] [place] [address], [place] CO2 [Moles/Vol] 30 mmol/L Normal 21-31 [facility] Comment on above: Order Comment: No: D o not add to previous draw Performed By: #### 3 5199, 88407 #### [facility] [address] [place] [address], [place] Creatinine [Mass/Vol] 0.45 mg/dL Low 0.60-1.20 [facility] Comment on above: Order Comment: No: D o not add to previous draw Performed By: #### 3 5199, 11145 #### [facility] [address] [place] [address], [place] GFR/1.73 sq M predicted among blacks MDRD (S/P/Bld) [Vol rate/Area] mL/min/{1.73_m2} Normal >60 [facility] Comment on above: Order Comment: No: D o not add to previous draw Result Comment: Calc ulation may not be valid for patients over 70 years Performed By: #### 3 5199, 10135 #### [facility] [address] [place] [address], [place] GFR/1.73 sq M predicted among non-blacks MDRD (S/P/Bld) [Vol rate/Area] mL/min/{1.73_m2} Normal >60 [facility] Comment on above: Order Comment: No: D o not add to previous draw Result Comment: Calc ulation may not be valid for patients over 70 years Performed By: #### 3 5199, 10746 #### [facility] [address] [place] [address], [place] Glucose [Mass/Vol] 101 mg/dL High 70-100 [facility] Comment on above: Order Comment: No: D o not add to previous draw Performed By: #### 3 5199, 98906 #### [facility] [address] [place] [address], [place] Potassium [Moles/Vol] 3.1 mmol/L Low 3.5-5.1 [facility] Comment on above: Order Comment: No: D o not add to previous draw Performed By: #### 3 5199, 47987 #### [facility] [address] [place] [address], [place] Sodium [Moles/Vol] 135 mmol/L Low 136-145 [facility] Comment on above: Order Comment: No: D o not add to previous draw Performed By: #### 3 5199, 31352 #### [facility] [address] [place] [address], [place] Urea nitrogen [Mass/Vol] 16 mg/dL Normal 7-25 [facility] Comment on above: Order Comment: No: D o not add to previous draw Performed By: #### 3 5199, 72818 #### [facility] [address] [place] [address], [place] CBC COMPLETE BLOOD COUNTon 0 - Erythrocyte distribution width (RBC) [Ratio] 14.4 % Normal 11.5-15.0 [facility] Comment on above: Order Comment: No: D o not add to previous draw Performed By: #### 3 5199, 77600 #### [facility] [address] [place] [address], [place] Hematocrit (Bld) [Volume fraction] 29.0 % Low 36.0-45.0 [facility] Comment on above: Order Comment: No: D o not add to previous draw Performed By: #### 3 5199, 00867 #### [facility] [address] [place] [address], [facility] Hemoglobin (Bld) [Mass/Vol] 9.3 g/dL Low 12.0-15.0 [facility] Comment on above: Order Comment: No: D o not add to previous draw Performed By: #### 3 5199, 99408 #### [facility] [address] [place] [address], [facility] MCH (RBC) [Entitic mass] 30.0 pg Normal 27.0-33.0 [facility] Comment on above: Order Comment: No: D o not add to previous draw Performed By: #### 3 5199, 27429 #### [facility] [address] [place] [address], [facility] MCHC (RBC) [Mass/Vol] 32.1 g/dL Normal 32.0-35.0 [facility] Comment on above: Order Comment: No: D o not add to previous draw Performed By: #### 3 5199, 23924 #### [facility] [address] [place] [address], [facility] MCV (RBC) [Entitic vol] 93.5 fL Normal 82.0-98.0 [facility] Comment on above: Order Comment: No: D o not add to previous draw Performed By: #### 3 5199, 98403 #### [facility] [address] [place] [address], [facility] Nucleated RBC/100 WBC (Bld) [Ratio] 0 % Normal 0-0 [facility] Comment on above: Order Comment: No: D o not add to previous draw Performed By: #### 3 5199, 60475 #### [facility] [address] [place] [address], [facility] PLAT CNT 246 10*3/uL Normal 150-400 [facility] Comment on above: Order Comment: No: D o not add to previous draw Performed By: #### 3 5199, 28394 #### [facility] [address] [place] [address], [facility] RBC (Bld) [#/Vol] 3.10 10*6/uL Low 3.80-5.00 [facility] Comment on above: Order Comment: No: D o not add to previous draw Performed By: #### 3 5199, 95340 #### [facility] [address] [facility] [place] [address], [facility] WBC (Bld) [#/Vol] 11.73 10*3/uL High 4.00-10.60 [facility] Comment on above: Order Comment: No: D o not add to previous draw Performed By: #### 3 5199, 41543 #### [facility] [address] [facility] [address] APTTon 05-05-2020 aPTT Coag (Bld) [Time] 43.8 s High 25.0-35.0 [facility] Comment on above: Result Comment: ALL RESULTS [...] THIS PURPOSE. Performed By: #### 3 5199, 69970 #### [facility] [address] [facility] [address] BASIC METABOLIC PANELon 04-08 Calcium [Mass/Vol] 7.9 mg/dL Low 8.6-10.3 [facility] Comment on above: Order Comment: No: D o not add to previous draw Performed By: #### 3 5199, 32170 #### [facility] [address] [place] [address], [place] Chloride [Moles/Vol] 100 mmol/L Normal 98-107 [facility] Comment on above: Order Comment: No: D o not add to previous draw Performed By: #### 3 5199, 47229 #### [facility] [address] [place] [address], [place] CO2 [Moles/Vol] 27 mmol/L Normal 21-31 [facility] Comment on above: Order Comment: No: D o not add to previous draw Performed By: #### 3 5199, 64703 #### [facility] [address] [place] [address], [place] Creatinine [Mass/Vol] 0.56 mg/dL Low 0.60-1.20 [facility] Comment on above: Order Comment: No: D o not add to previous draw Performed By: #### 3 5199, 38714 #### [facility] [address] [place] [address], [place] GFR/1.73 sq M predicted among blacks MDRD (S/P/Bld) [Vol rate/Area] mL/min/{1.73_m2} Normal >60 [facility] Comment on above: Order Comment: No: D o not add to previous draw Result Comment: Calc ulation may not be valid for patients over 70 years Performed By: #### 3 5199, 71458 #### [facility] [address] [place] [address], [place] GFR/1.73 sq M predicted among non-blacks MDRD (S/P/Bld) [Vol rate/Area] mL/min/{1.73_m2} Normal >60 [facility] Comment on above: Order Comment: No: D o not add to previous draw Result Comment: Calc ulation may not be valid for patients over 70 years Performed By: #### 3 5199, 05057 #### [facility] [address] [place] [address], [place] Glucose [Mass/Vol] 102 mg/dL High 70-100 [facility] Comment on above: Order Comment: No: D o not add to previous draw Performed By: #### 3 5199, 65498 #### [facility] [address] [place] [id number], [facility] Potassium [Moles/Vol] 3.4 mmol/L Low 3.5-5.1 [facility] Comment on above: Order Comment: No: D o not add to previous draw Performed By: #### 3 5199, 09981 #### [facility] [address] [place] [id number], [facility] Sodium [Moles/Vol] 135 mmol/L Low 136-145 [facility] Comment on above: Order Comment: No: D o not add to previous draw Performed By: #### 3 5199, 01662 #### [facility] [address] [place] [id number], [facility] Urea nitrogen [Mass/Vol] 17 mg/dL Normal 7-25 [facility] Comment on above: Order Comment: No: D o not add to previous draw Performed By: #### 3 5199, 87079 #### [facility] [address] [place] [id number], [facility] CBC W/DIFFon 05-05-2020 ABS BASOPHILS 0.0 10*3/uL Normal 0.0-0.2 [facility] Comment on above: Order Comment: No: D o not add to previous draw Performed By: #### 3 5199, 48291 #### [facility] [address] [place] [address], [facility] ABS IMM GRANS 0.0 10*3/uL Normal 0.0-0.2 [facility] Comment on above: Order Comment: No: D o not add to previous draw Performed By: #### 3 5199, 35305 #### [facility] [address] [place] [id number], [place] ABS NEUTROPHILS 8.8 10*3/uL High 1.6-7.6 [facility] Comment on above: Order Comment: No: D o not add to previous draw Performed By: #### 3 5199, 48175 #### [facility] [address] [place] [address], [facility] Basophils/100 WBC (Bld) 0.3 % Normal 0.0-1.0 [facility] Comment on above: Order Comment: No: D o not add to previous draw Performed By: #### 3 5199, 71306 #### [facility] [address] [place] [id number], [facility] Eosinophils (Bld) [#/Vol] 0.1 10*3/uL Normal 0.0-0.5 [facility] Comment on above: Order Comment: No: D o not add to previous draw Performed By: #### 3 5199, 04449 #### [facility] [address] [place] [id number], [facility] Eosinophils/100 WBC (Bld) 0.4 % Normal 0.0-6.0 [facility] Comment on above: Order Comment: No: D o not add to previous draw Performed By: #### 3 5199, 37876 #### [facility] [address] [facility] [place] [address], [facility] Erythrocyte distribution width (RBC) [Ratio] 14.6 % Normal 11.5-15.0 [facility] Comment on above: Order Comment: No: D o not add to previous draw Performed By: #### 3 5199, 01602 #### [facility] [address] [place] [id number], [facility] Hematocrit (Bld) [Volume fraction] 28.4 % Low 36.0-45.0 [facility] Comment on above: Order Comment: No: D o not add to previous draw Performed By: #### 3 5199, 93193 #### [facility] [address] [place] [address], [facility] Hemoglobin (Bld) [Mass/Vol] 8.7 g/dL Low 12.0-15.0 [facility] Comment on above: Order Comment: No: D o not add to previous draw Performed By: #### 3 5199, 14839 #### [facility] [address] [place] [address], [facility] IMMATURE GRANS 0.3 % Normal 0.0-1.0 [facility] Comment on above: Order Comment: No: D o not add to previous draw Performed By: #### 3 5199, 07573 #### [facility] [address] [place] [address], [facility] Lymphocytes (Bld) [#/Vol] 1.4 10*3/uL Normal 1.2-4.0 [facility] Comment on above: Order Comment: No: D o not add to previous draw Performed By: #### 3 5199, 99160 #### [facility] [address] [facility] [place] [address], [facility] Lymphocytes/100 WBC (Bld) 11.8 % Low 20.0-45.0 [facility] Comment on above: Order Comment: No: D o not add to previous draw Performed By: #### 3 5199, 67876 #### [facility] [address] [facility] [place] [id number], [facility] MCH (RBC) [Entitic mass] 30.2 pg Normal 27.0-33.0 [facility] Comment on above: Order Comment: No: D o not add to previous draw Performed By: #### 3 5199, 91237 #### [facility] [address] [facility] [place] [id number], [facility] MCHC (RBC) [Mass/Vol] 30.6 g/dL Low 32.0-35.0 [facility] Comment on above: Order Comment: No: D o not add to previous draw Performed By: #### 3 5199, 04365 #### [facility] [address] [facility] [place] [address], [facility] MCV (RBC) [Entitic vol] 98.6 fL High 82.0-98.0 [facility] Comment on above: Order Comment: No: D o not add to previous draw Performed By: #### 3 5199, 71353 #### [facility] [address] [facility] [place] [address], [facility] Monocytes (Bld) [#/Vol] 1.4 10*3/uL High 0.1-1.0 [facility] Comment on above: Order Comment: No: D o not add to previous draw Performed By: #### 3 5199, 14310 #### [facility] [address] [facility] [place] [address], [facility] MONOS 12.1 % High 5.0-12.0 [facility] Comment on above: Order Comment: No: D o not add to previous draw Performed By: #### 3 5199, 11774 #### [facility] [address] [facility] [place] [address], [facility] Neutrophils/100 WBC (Bld) 75.1 % High 40.0-72.0 [facility] Comment on above: Order Comment: No: D o not add to previous draw Performed By: #### 3 5199, 46083 #### [facility] [address] [facility] [place] [address], [facility] Nucleated RBC/100 WBC (Bld) [Ratio] 0 % Normal 0-0 [facility] Comment on above: Order Comment: No: D o not add to previous draw Performed By: #### 3 5199, 92440 #### [facility] [address] [facility] [place] [address], [facility] PLAT CNT 193 10*3/uL Normal 150-400 [facility] Comment on above: Order Comment: No: D o not add to previous draw Performed By: #### 3 5199, 20675 #### [facility] [address] [place] [address], [facility] RBC (Bld) [#/Vol] 2.88 10*6/uL Low 3.80-5.00 [facility] Comment on above: Order Comment: No: D o not add to previous draw Performed By: #### 3 5199, 24780 #### [facility] [address] [place] [address], [place] WBC (Bld) [#/Vol] 11.69 10*3/uL High 4.00-10.60 [facility] Comment on above: Order Comment: No: D o not add to previous draw Performed By: #### 3 5199, 41811 #### [facility] [address] [place] [address], [facility] LIVER BATTERYon 05-05-2020 Albumin [Mass/Vol] 2.9 g/dL Low 3.5-5.7 [facility] Comment on above: Performed By: #### 3 5199, 45596 #### [facility] [address] [place] [address], [facility] ALKALINE PHOSPH 52 IU/L Normal 34-104 [facility] Comment on above: Performed By: #### 3 5199, 97655 #### [facility] [address] [place] [address], [place] ALT [Catalytic activity/Vol] 7 U/L Normal 7-52 [facility] Comment on above: Performed By: #### 3 5199, 04971 #### [facility] [address] [place] [address], [place] AST [Catalytic activity/Vol] 19 U/L Normal 13-39 [facility] Comment on above: Performed By: #### 3 5199, 40752 #### [facility] [address] [place] [address], [place] Bilirubin [Mass/Vol] 0.8 mg/dL Normal 0.3-1.0 [facility] Comment on above: Performed By: #### 3 5199, 22997 #### [facility] [address] Bilirubin.direct [Mass/Vol] 0.3 mg/dL High 0.0-0.2 [facility] Comment on above: Performed By: #### 3 0, 09734 #### [facility] [address] [facility] [address] Protein [Mass/Vol] 5.5 g/dL Low 6.0-8.3 [facility] Comment on above: Performed By: #### 3 5199, 18313 #### [facility] [address] TROPONIN-Ion 05-05-2020 Troponin I.cardiac [Mass/Vol] 0.92 ng/mL Critically high 0.00-0.04 [facility] Comment on above: Order Comment: No: D o not add to previous draw Result Comment: M-KY EVIOUS CRITICAL RESULT REFERENCE RANGES: 0.00 - 0.04 ng/ml NORMAL 0.05 - 0.50 ng/ml INDETERMINATE > 0.50 ng/ml CONSISTENT WITH AN M.I. Performed By: #### 3 5199, 82554 #### [facility] [address] UFH HEPARIN ASSAYon 05-05-20 20 UNFRACTIONATED HEPARIN >1.00 Critically high 0.30-0.70 [facility] Comment on above: Result Comment: Bement roxaban and Apixaban will interfere with the anti Xa assay used to monitor UFH and LMWH. RESULTS CHECKED AND CALLED. ACCURATELY READ BACK BY RAMILA ROBERT AT 13:23 PATIENT IS NOT ON HEPARIN, HAS BEEN SWITCHED TO ELIQUIS. UFH WILL BE ELEVATED IN THE PRESENCE OF OTHER ANTI-Xa INHIBITING DRUGS SUCH ELIQUIS. ACTUAL UFH VALUE= 2.29 Performed By: #### 3 5199, 15881 #### [facility] [address] [facility] [address] UNFRACTIONATED HEPARIN <0.10 Critically low 0.30-0.70 [facility] Comment on above: Result Comment: Sharon roxaban and Apixaban will interfere with the anti Xa assay used to monitor UFH and LMWH. RESULTS CHECKED AND CALLED. ACCURATELY READ BACK BY TOMASA ORLANDO RN @0554 Performed By: #### 3 0, 42231 #### [facility] [address] [place] [address], [facility] BASIC METABOLIC PANELon - Calcium [Mass/Vol] 8.1 mg/dL Low 8.6-10.3 [facility] Comment on above: Order Comment: No: D o not add to previous draw Performed By: #### 3 5199, 98212 #### [facility] [address] [place] [id number], [facility] Chloride [Moles/Vol] 104 mmol/L Normal 98-107 [facility] Comment on above: Order Comment: No: D o not add to previous draw Performed By: #### 3 5199, 02987 #### [facility] [address] [place] [address], [facility] CO2 [Moles/Vol] 28 mmol/L Normal 21-31 [facility] Comment on above: Order Comment: No: D o not add to previous draw Performed By: #### 3 5199, 34411 #### [facility] [address] [place] [id number], [facility] Creatinine [Mass/Vol] 0.65 mg/dL Normal 0.60-1.20 [facility] Comment on above: Order Comment: No: D o not add to previous draw Performed By: #### 3 5199, 12524 #### [facility] [address] [place] [id number], [facility] GFR/1.73 sq M predicted among blacks MDRD (S/P/Bld) [Vol rate/Area] mL/min/{1.73_m2} Normal >60 [facility] Comment on above: Order Comment: No: D o not add to previous draw Result Comment: Calc ulation may not be valid for patients over 70 years Performed By: #### 3 5199, 20670 #### [facility] [address] [place] [address], [place] GFR/1.73 sq M predicted among non-blacks MDRD (S/P/Bld) [Vol rate/Area] mL/min/{1.73_m2} Normal >60 [facility] Comment on above: Order Comment: No: D o not add to previous draw Result Comment: Calc ulation may not be valid for patients over 70 years Performed By: #### 3 5199, 04990 #### [facility] [address] [place] [address], [place] Glucose [Mass/Vol] 95 mg/dL Normal 70-100 [facility] Comment on above: Order Comment: No: D o not add to previous draw Performed By: #### 3 5199, 91401 #### [facility] [address] [place] [address], [place] Potassium [Moles/Vol] 3.9 mmol/L Normal 3.5-5.1 [facility] Comment on above: Order Comment: No: D o not add to previous draw Performed By: #### 3 5199, 54318 #### [facility] [address] [place] [address], [place] Sodium [Moles/Vol] 136 mmol/L Normal 136-145 [facility] Comment on above: Order Comment: No: D o not add to previous draw Performed By: #### 3 5199, 24974 #### [facility] [address] [place] [address], [place] Urea nitrogen [Mass/Vol] 17 mg/dL Normal 7-25 [facility] Comment on above: Order Comment: No: D o not add to previous draw Performed By: #### 3 [id number], [id number] #### [facility] [address] [place] [address], [facility] CBC W/DIFFon 05-04-2020 ABS BASOPHILS 0.0 10*3/uL Normal 0.0-0.2 [facility] Comment on above: Order Comment: No: D o not add to previous draw Performed By: #### 3 [id number], [id number] #### [facility] [address] [facility] [place] [address], [facility] ABS IMM GRANS 0.1 10*3/uL Normal 0.0-0.2 [facility] Comment on above: Order Comment: No: D o not add to previous draw Performed By: #### 3 [id number], [id number] #### [facility] [address] [place] [address], [facility] ABS NEUTROPHILS 8.2 10*3/uL High 1.6-7.6 [facility] Comment on above: Order Comment: No: D o not add to previous draw Performed By: #### 3 5199, 80021 #### [facility] [address] [place] [address], [facility] Basophils/100 WBC (Bld) 0.3 % Normal 0.0-1.0 [facility] Comment on above: Order Comment: No: D o not add to previous draw Performed By: #### 3 5199, 15287 #### [facility] [address] [facility] [place] [address], [facility] Eosinophils (Bld) [#/Vol] 0.2 10*3/uL Normal 0.0-0.5 [facility] Comment on above: Order Comment: No: D o not add to previous draw Performed By: #### 3 5199, 44491 #### [facility] [address] [facility] [place] [address], [facility] Eosinophils/100 WBC (Bld) 1.6 % Normal 0.0-6.0 [facility] Comment on above: Order Comment: No: D o not add to previous draw Performed By: #### 3 5199, 28318 #### [facility] [address] [facility]. [address] Erythrocyte distribution width (RBC) [Ratio] 14.5 % Normal 11.5-15.0 [facility] Comment on above: Order Comment: No: D o not add to previous draw Performed By: #### 3 5199, 42299 #### [facility] [address] [facility] [address] Hematocrit (Bld) [Volume fraction] 28.0 % Low 36.0-45.0 [facility] Comment on above: Order Comment: No: D o not add to previous draw Performed By: #### 3 5199, 93524 #### [facility] [address] Hemoglobin (Bld) [Mass/Vol] 8.8 g/dL Low 12.0-15.0 [facility] Comment on above: Order Comment: No: D o not add to previous draw Performed By: #### 3 5199, 22231 #### [facility] [address] IMMATURE GRANS 0.4 % Normal 0.0-1.0 [facility] Comment on above: Order Comment: No: D o not add to previous draw Performed By: #### 3 5199, 51220 #### [facility] [address] [facility] [place] [address], [facility] Lymphocytes (Bld) [#/Vol] 1.6 10*3/uL Normal 1.2-4.0 [facility] Comment on above: Order Comment: No: D o not add to previous draw Performed By: #### 3 5199, 61855 #### [facility] [address] [place] [address], [facility] Lymphocytes/100 WBC (Bld) 14.1 % Low 20.0-45.0 [facility] Comment on above: Order Comment: No: D o not add to previous draw Performed By: #### 3 5199, 32444 #### [facility] [address] [place] [address], [facility] MCH (RBC) [Entitic mass] 30.4 pg Normal 27.0-33.0 [facility] Comment on above: Order Comment: No: D o not add to previous draw Performed By: #### 3 5199, 23223 #### [facility] [address] [place] [id number], [facility] MCHC (RBC) [Mass/Vol] 31.4 g/dL Low 32.0-35.0 [facility] Comment on above: Order Comment: No: D o not add to previous draw Performed By: #### 3 5199, 31537 #### [facility] [address] [place] [id number], [facility] MCV (RBC) [Entitic vol] 96.9 fL Normal 82.0-98.0 [facility] Comment on above: Order Comment: No: D o not add to previous draw Performed By: #### 3 5199, 44806 #### [facility] [address] [facility] [place] [address], [facility] Monocytes (Bld) [#/Vol] 1.1 10*3/uL High 0.1-1.0 [facility] Comment on above: Order Comment: No: D o not add to previous draw Performed By: #### 3 5199, 03968 #### [facility] [address] [place] [address], [facility] MONOS 10.2 % Normal 5.0-12.0 [facility] Comment on above: Order Comment: No: D o not add to previous draw Performed By: #### 3 5199, 46619 #### [facility] [address] [place] [address], [facility] Neutrophils/100 WBC (Bld) 73.4 % High 40.0-72.0 [facility] Comment on above: Order Comment: No: D o not add to previous draw Performed By: #### 3 5199, 26152 #### [facility] [address] [facility] [place] [address], [facility] Nucleated RBC/100 WBC (Bld) [Ratio] 0 % Normal 0-0 [facility] Comment on above: Order Comment: No: D o not add to previous draw Performed By: #### 3 5199, 58537 #### [facility] [address] [facility] [place] [address], [facility] PLAT CNT 160 10*3/uL Normal 150-400 [facility] Comment on above: Order Comment: No: D o not add to previous draw Performed By: #### 3 5199, 81631 #### [facility] [address] [facility] [place] [address], [facility] RBC (Bld) [#/Vol] 2.89 10*6/uL Low 3.80-5.00 [facility] Comment on above: Order Comment: No: D o not add to previous draw Performed By: #### 3 5199, 55078 #### [facility] [address] [facility] [place] [address], [facility] WBC (Bld) [#/Vol] 11.17 10*3/uL High 4.00-10.60 [facility] Comment on above: Order Comment: No: D o not add to previous draw Performed By: #### 3 5199, 84794 #### [facility] [address] [facility] [place] [address], [facility] MAGNESIUM BLOODon 05-04-2020 Magnesium [Mass/Vol] 1.9 mg/dL Normal 1.9-2.7 [facility] Comment on above: Order Comment: This order is a replacement of the rejected order with accession number [id number]. Performed By: #### 5 7307, 73306 #### [facility] [address] [place] [address], [facility] PHOSPHORUS BLOODon 06-29-202 0 Phosphate [Mass/Vol] 1.8 mg/dL Low 2.5-5.0 [facility] Comment on above: Order Comment: This order is a replacement of the rejected order with accession number [id number]. Performed By: #### 5 7307, 20722 #### [facility] [address] TROPONIN-Ion 05-04-2020 Troponin I.cardiac [Mass/Vol] 1.39 ng/mL Critically high 0.00-0.04 [facility] Comment on above: Order Comment: No: D o not add to previous draw Result Comment: M-KY EVIOUS CRITICAL RESULT REFERENCE RANGES: 0.00 - 0.04 ng/ml NORMAL 0.05 - 0.50 ng/ml INDETERMINATE > 0.50 ng/ml CONSISTENT WITH AN M.I. Performed By: #### 3 5200, 51939 #### [facility] [address] Troponin I.cardiac [Mass/Vol] 1.96 ng/mL Critically high 0.00-0.04 [facility] Comment on above: Order Comment: No: D o not add to previous draw Result Comment: M-CR ITICAL RESULT(S) REVIEWED, CALLED TO AND READ BACK BY RAMILA RICO [facility] 05.04.20 REFERENCE RANGES: 0.00 - 0.04 ng/ml NORMAL 0.05 - 0.50 ng/ml INDETERMINATE > 0.50 ng/ml CONSISTENT WITH AN M.I. Performed By: #### 3 0, 92337 #### [facility] [address] *BLOOD CULTUREon 05-03-2020 Bacteria identified Cx Nom (Bld) Clinical Report: (D) Specimen: BLOOD CULTURE Collected: 05/03/2020 09:50 Status: Final Last Updated: 05/09/2020 06:20 CULT RES (Final) No Growth Day 5 Normal [facility] Comment on above: Performed By: #### 3 7950, 11912 #### [facility] [address] [place] [id number], [place] BASIC METABOLIC PANELon 06-2 Calcium [Mass/Vol] 8.2 mg/dL Low 8.6-10.3 [facility] Comment on above: Order Comment: This order is a replacement of the rejected order with accession number [id number]. Performed By: #### 5 7307, 06673 #### [facility] [address] [place] [address], [facility] Chloride [Moles/Vol] 103 mmol/L Normal 98-107 [facility] Comment on above: Order Comment: This order is a replacement of the rejected order with accession number [id number]. Performed By: #### 5 73, 36486 #### [facility] [address] [place] [address], [facility] CO2 [Moles/Vol] 30 mmol/L Normal 21-31 [facility] Comment on above: Order Comment: This order is a replacement of the rejected order with accession number [id number]. Performed By: #### 5 73, 94260 #### [facility] [address] [place] [address], [facility] Creatinine [Mass/Vol] 0.60 mg/dL Normal 0.60-1.20 [facility] Comment on above: Order Comment: This order is a replacement of the rejected order with accession number [id number]. Performed By: #### 5 7307, 18096 #### [facility] [address] [place] [address], [facility] GFR/1.73 sq M predicted among blacks MDRD (S/P/Bld) [Vol rate/Area] mL/min/{1.73_m2} Normal >60 [facility] Comment on above: Order Comment: This order is a replacement of the rejected order with accession number [id number]. Result Comment: Calc ulation may not be valid for patients over 70 years Performed By: #### 5 7307, 77563 #### [facility] [address] [place] [address], [facility] GFR/1.73 sq M predicted among non-blacks MDRD (S/P/Bld) [Vol rate/Area] mL/min/{1.73_m2} Normal >60 [facility] Comment on above: Order Comment: This order is a replacement of the rejected order with accession number [id number]. Result Comment: Calc ulation may not be valid for patients over 70 years Performed By: #### 5 73, 64965 #### [facility] [address] [place] [id number], [facility] Glucose [Mass/Vol] 104 mg/dL High 70-100 [facility] Comment on above: Order Comment: This order is a replacement of the rejected order with accession number [id number]. Performed By: #### 5 73, 26963 #### [facility] [address] [place] [id number], [facility] Potassium [Moles/Vol] 3.4 mmol/L Low 3.5-5.1 [facility] Comment on above: Order Comment: This order is a replacement of the rejected order with accession number [id number]. Performed By: #### 5 73, 46817 #### [facility] [address] [place] [address], [facility] Sodium [Moles/Vol] 136 mmol/L Normal 136-145 [facility] Comment on above: Order Comment: This order is a replacement of the rejected order with accession number [id number]. Performed By: #### 5 73, 25187 #### [facility] [address] [place] [id number], [facility] Urea nitrogen [Mass/Vol] 15 mg/dL Normal 7-25 [facility] Comment on above: Order Comment: This order is a replacement of the rejected order with accession number [id number]. Performed By: #### 5 7307, 35119 #### [facility] [address] [place] [id number], [facility] CBC COMPLETE BLOOD COUNTon 0 6-28-2020 Erythrocyte distribution width (RBC) [Ratio] 14.5 % Normal 11.5-15.0 [facility] Comment on above: Order Comment: This order is a replacement of the rejected order with accession number [id number]. Performed By: #### 5 73, 19216 #### [facility] [address] [place] [address], [facility] Hematocrit (Bld) [Volume fraction] 28.0 % Low 36.0-45.0 [facility] Comment on above: Order Comment: This order is a replacement of the rejected order with accession number [id number]. Performed By: #### 5 73, 26823 #### [facility] [address] [facility] [place] [address], [facility] Hemoglobin (Bld) [Mass/Vol] 8.8 g/dL Low 12.0-15.0 [facility] Comment on above: Order Comment: This order is a replacement of the rejected order with accession number [id number]. Performed By: #### 5 73, 95151 #### [facility] [address] [place] [address], [facility] MCH (RBC) [Entitic mass] 29.9 pg Normal 27.0-33.0 [facility] Comment on above: Order Comment: This order is a replacement of the rejected order with accession number [id number]. Performed By: #### 5 73, 71656 #### [facility] [address] [place] [address], [facility] MCHC (RBC) [Mass/Vol] 31.4 g/dL Low 32.0-35.0 [facility] Comment on above: Order Comment: This order is a replacement of the rejected order with accession number [id number]. Performed By: #### 5 7307, 53664 #### [facility] [address] [place] [id number], [facility] MCV (RBC) [Entitic vol] 95.2 fL Normal 82.0-98.0 [facility] Comment on above: Order Comment: This order is a replacement of the rejected order with accession number [id number]. Performed By: #### 5 73, 73377 #### [facility] [address] Nucleated RBC/100 WBC (Bld) [Ratio] 0 % Normal 0-0 [facility] Comment on above: Order Comment: This order is a replacement of the rejected order with accession number [id number]. Performed By: #### 5 73, 38317 #### [facility] [address] PLAT CNT 141 10*3/uL Low 150-400 [facility] Comment on above: Order Comment: This order is a replacement of the rejected order with accession number [id number]. Performed By: #### 5 73, 18884 #### [address] RBC (Bld) [#/Vol] 2.94 10*6/uL Low 3.80-5.00 [facility] Comment on above: Order Comment: This order is a replacement of the rejected order with accession number [id number]. Performed By: #### 5 73, 30057 #### [address] WBC (Bld) [#/Vol] 12.52 10*3/uL High 4.00-10.60 [facility] Comment on above: Order Comment: This order is a replacement of the rejected order with accession number [id number]. Performed By: #### 5 73, 50187 #### [facility] [address] CBC W/DIFFon 05-03-2020 ABS BASOPHILS 0.0 10*3/uL Normal 0.0-0.2 [facility] Comment on above: Performed By: #### 5 73, 15184 #### [address] [place] [address], [place] ABS IMM GRANS 0.1 10*3/uL Normal 0.0-0.2 [facility] Comment on above: Performed By: #### 5 7306, 34912 #### [facility] [address] ABS NEUTROPHILS 12.0 10*3/uL High 1.6-7.6 [facility] Comment on above: Performed By: #### 5 7306, 97844 #### [facility] [address] [place] [address], [facility] Basophils/100 WBC (Bld) 0.2 % Normal 0.0-1.0 [facility] Comment on above: Performed By: #### 5 7306, 88554 #### [facility] [address] Eosinophils (Bld) [#/Vol] 0.1 10*3/uL Normal 0.0-0.5 [facility] Comment on above: Performed By: #### 5 7306, 04769 #### [facility] [address] [place] [address], [facility] Eosinophils/100 WBC (Bld) 0.4 % Normal 0.0-6.0 [facility] Comment on above: Performed By: #### 5 7306, 02806 #### [facility] [address] [facility]. [address] Erythrocyte distribution width (RBC) [Ratio] 14.6 % Normal 11.5-15.0 [facility] Comment on above: Performed By: #### 5 7306, 30374 #### [facility] [address] Hematocrit (Bld) [Volume fraction] 27.5 % Low 36.0-45.0 [facility] Comment on above: Performed By: #### 5 7306, 83579 #### [facility] [address] [facility] [address], [facility] Hemoglobin (Bld) [Mass/Vol] 8.7 g/dL Low 12.0-15.0 [facility] Comment on above: Performed By: #### 5 7306, 89033 #### [facility] [address] [facility] [place] [address], [facility] IMMATURE GRANS 0.6 % Normal 0.0-1.0 [facility] Comment on above: Performed By: #### 5 7306, 10533 #### [facility] [address] [facility] [place] [address], [facility] Lymphocytes (Bld) [#/Vol] 1.0 10*3/uL Low 1.2-4.0 [facility] Comment on above: Performed By: #### 5 7306, 70003 #### [facility] [address] [facility] [place] [address], [facility] Lymphocytes/100 WBC (Bld) 6.9 % Low 20.0-45.0 [facility] Comment on above: Performed By: #### 5 7306, 57003 #### [facility] [address] [facility]. [address] MCH (RBC) [Entitic mass] 30.4 pg Normal 27.0-33.0 [facility] Comment on above: Performed By: #### 5 7306, 74593 #### [facility] [address] [facility] [place] [address], [facility] MCHC (RBC) [Mass/Vol] 31.6 g/dL Low 32.0-35.0 [facility] Comment on above: Performed By: #### 5 7306, 09072 #### [facility] [address] [facility] [place] [address], [facility] MCV (RBC) [Entitic vol] 96.2 fL Normal 82.0-98.0 [facility] Comment on above: Performed By: #### 5 7306, 69902 #### [facility] [address] [facility] [place] [address], [facility] Monocytes (Bld) [#/Vol] 1.6 10*3/uL High 0.1-1.0 [facility] Comment on above: Performed By: #### 5 7306, 72867 #### [facility] [address] [facility] [place] [address], [facility] MONOS 10.8 % Normal 5.0-12.0 [facility] Comment on above: Performed By: #### 5 7306, 94021 #### [facility] [address] [facility] [place] [address], [facility] Neutrophils/100 WBC (Bld) 81.1 % High 40.0-72.0 [facility] Comment on above: Performed By: #### 5 7306, 94464 #### [facility] [address] [facility] [place] [address], [facility] Nucleated RBC/100 WBC (Bld) [Ratio] 0 % Normal 0-0 [facility] Comment on above: Performed By: #### 5 7306, 08053 #### [facility] [address] [facility] [place] [address], [facility] PLAT CNT 151 10*3/uL Normal 150-400 [facility] Comment on above: Performed By: #### 5 7306, 06595 #### [facility] [address] [facility] [place] [address], [facility] RBC (Bld) [#/Vol] 2.86 10*6/uL Low 3.80-5.00 [facility] Comment on above: Performed By: #### 5 73, 32721 #### [facility] [address] [facility]. [place] [id number], [facility] WBC (Bld) [#/Vol] 14.84 10*3/uL High 4.00-10.60 [facility] Comment on above: Performed By: #### 5 7307, 94745 #### [facility] [address] [facility] [place] [place] [address], [facility] LACTATE BLOODon 05-03-2020 Lactate [Moles/Vol] 1.5 mmol/L Normal 0.5-2.2 [facility] Comment on above: Order Comment: This order is a replacement of the rejected order with accession number [id number]. Performed By: #### 5 7307, 16818 #### [facility] [address] [facility] [place] [place] [address], [facility] MAGNESIUM BLOODon 05-03-2020 Magnesium [Mass/Vol] 1.9 mg/dL Normal 1.9-2.7 [facility] Comment on above: Order Comment: This order is a replacement of the rejected order with accession number [id number]. Performed By: #### 5 7307, 31874 #### [facility] [address] [facility] [place] [address], [facility] PHOSPHORUS BLOODon 0 Phosphate [Mass/Vol] 2.2 mg/dL Low 2.5-5.0 [facility] Comment on above: Order Comment: This order is a replacement of the rejected order with accession number [id number]. Performed By: #### 5 7307, 55005 #### [facility] [address] [place], [place] [address] [place] [address] PORTABLE CHEST 1 VIEWon 04-07 PORTABLE CHEST 1 VIEW [facility] Department of Radiology [address] [place] [id number] Patient Name: MEGAN HERRON : 1940 Sex: F Age: Race: White Pt. Location: [id number] Patient Status: I Ordered Date: 05/03/2020 9:30:00 [...] aorta. Electronically signed: Cleve Lucio. Transcribed by: [email or web address], User Resident: Electronically Signed by: CLEVE LUCIO @ 05/03/2020 10:16 AM Normal [facility] Comment on above: Order Comment: This order is a replacement of the rejected order with accession number [id number]. PROCALCITONINon 05-03-2020 PROCALCITONIN 0.25 ng/mL High 0.00-0.10 [facility] Comment on above: Order Comment: [...] and initial PCT<0.5ng/mL Performed By: #### 3 2760, 11755 #### [address]PITALS FOR CHILDRENPaige. [address] PROTHROMBIN TIMEon 0 INR Coag (PPP) [Relative time] 1.29 {INR} High 0.91-1.16 [facility] Comment on above: Order Comment: This order is a replacement of the rejected order with accession number [id number]. Result Comment: [facility] P RECOMMENDED INR FOR WARFARIN [...] CHEST 1995;108:231S-246S. Performed By: #### 5 7307, 65912 #### [facility] [address] PT Coag (PPP) [Time] 16.2 s High 12.3-14.8 [facility] Comment on above: Order Comment: This order is a replacement of the rejected order with accession number [id number]. Result Comment: ALL RESULTS MUST BE INTERPRETED WITH RESPECT TO BLOOD DRAWING ARTIFACT OR DILUTION ERROR OF ANTICOAGULANT AT THE TIME OF SAMPLING. Performed By: #### 5 7307, 52070 #### [facility] [address] TROPONIN-Ion 05-03-2020 Troponin I.cardiac [Mass/Vol] 0.05 ng/mL High 0.00-0.04 [facility] Comment on above: Order Comment: This order is a replacement of the rejected order with accession number [id number]. Result Comment: REFE RENCE RANGES: 0.00 - 0.04 ng/ml NORMAL 0.05 - 0.50 ng/ml INDETERMINATE > 0.50 ng/ml CONSISTENT WITH AN M.I. Performed By: #### 5 7307, 63800 #### [facility] [address] TSH3 WITH REFLEX FT4on 05-03 TSH 3RD GENERATION 3.39 uIU/mL Normal 0.34-5.60 [facility] Comment on above: Performed By: #### 5 7307, 75716 #### [facility] [address] [place] [address], [place] VENOUS BLOOD GAS W/COOXon BASE EXCESS 4 mmol/L Normal [facility] Comment on above: Performed By: #### 5 7306, 35792 #### [facility] [address] [place] [address], [place] COHB 2 % Normal [facility] Comment on above: Performed By: #### 5 7306, 54536 #### [facility] [address] [place] [address], [place] HCO3 (Bld) [Moles/Vol] 29 mmol/L Normal [facility] Comment on above: Performed By: #### 5 Carisa, 88591 #### [facility] [address] [place] [address], [place] METHB 0.5 % Normal [facility] Comment on above: Performed By: #### 5 Carisa, 53794 #### [facility] [address] [place] [address], [place] Oxygen (Bld) [Partial pressure] 32 mm[Hg] Low 35-45 [facility] Comment on above: Performed By: #### 5 Carisa, [id number] #### [facility] [address] [place] [address], [place] Oxygen saturation in Blood 67.3 % Normal 65.0-75.0 [facility] Comment on above: Performed By: #### 5 Carisa, [id number] #### [facility] [address] [place] [address], [place] PCO2 48 mmHg Normal 40-50 [facility] Comment on above: Performed By: #### 5 Carisa, [id number] #### [facility] [address] [place], [place] [address], [place] pH (Bld) 7.39 [pH] Normal 7.31-7.41 [facility] Comment on above: Performed By: #### 5 7306, 94189 #### [facility] [address] [place] [address], [facility] THB 9.3 g/dL Normal [facility] Comment on above: Performed By: #### 5 7306, 81227 #### [facility] [address] [place] [address], [facility] BASIC METABOLIC PANELon 06- Calcium [Mass/Vol] 8.1 mg/dL Low 8.6-10.3 [facility] Comment on above: Order Comment: This order is a replacement of the rejected order with accession number [id number]. Performed By: #### 5 7306, 27096 #### [facility] [address] [place] [address], [facility] Chloride [Moles/Vol] 106 mmol/L Normal 98-107 [facility] Comment on above: Order Comment: This order is a replacement of the rejected order with accession number [id number]. Performed By: #### 5 7306, 71601 #### [facility] [address] [place] [address], [facility] CO2 [Moles/Vol] 25 mmol/L Normal 21-31 [facility] Comment on above: Order Comment: This order is a replacement of the rejected order with accession number [id number]. Performed By: #### 5 73, 87630 #### [facility] [address] [place] [address], [facility] Creatinine [Mass/Vol] 0.69 mg/dL Normal 0.60-1.20 [facility] Comment on above: Order Comment: This order is a replacement of the rejected order with accession number [id number]. Performed By: #### 5 73, 73107 #### [facility] [address] [place] [address], [facility] GFR/1.73 sq M predicted among blacks MDRD (S/P/Bld) [Vol rate/Area] mL/min/{1.73_m2} Normal >60 [facility] Comment on above: Order Comment: This order is a replacement of the rejected order with accession number [id number]. Result Comment: Calc ulation may not be valid for patients over 70 years Performed By: #### 5 7307, 28029 #### [facility] [address] [place] [address], [place] GFR/1.73 sq M predicted among non-blacks MDRD (S/P/Bld) [Vol rate/Area] mL/min/{1.73_m2} Normal >60 [facility] Comment on above: Order Comment: This order is a replacement of the rejected order with accession number [id number]. Result Comment: Calc ulation may not be valid for patients over 70 years Performed By: #### 5 73, 03179 #### [facility] [address] [place] [address], [place] Glucose [Mass/Vol] 108 mg/dL High 70-100 [facility] Comment on above: Order Comment: This order is a replacement of the rejected order with accession number [id number]. Performed By: #### 5 73, 77456 #### [facility] [address] [place] [address], [place] Potassium [Moles/Vol] 3.6 mmol/L Normal 3.5-5.1 [facility] Comment on above: Order Comment: This order is a replacement of the rejected order with accession number [id number]. Performed By: #### 5 73, 52663 #### [facility] [address] [place] [address], [place] Sodium [Moles/Vol] 137 mmol/L Normal 136-145 [facility] Comment on above: Order Comment: This order is a replacement of the rejected order with accession number [id number]. Performed By: #### 5 7307, 17977 #### [facility] [address] [place] [address], [place] Urea nitrogen [Mass/Vol] 17 mg/dL Normal 7-25 [facility] Comment on above: Order Comment: This order is a replacement of the rejected order with accession number [id number]. Performed By: #### 5 7307, 58641 #### [facility] [address] CBC COMPLETE BLOOD COUNTon 0 - Erythrocyte distribution width (RBC) [Ratio] 14.5 % Normal 11.5-15.0 [facility] Comment on above: Order Comment: This order is a replacement of the rejected order with accession number [id number]. Performed By: #### 5 73, 58547 #### [facility] [address] Hematocrit (Bld) [Volume fraction] 26.9 % Low 36.0-45.0 [facility] Comment on above: Order Comment: This order is a replacement of the rejected order with accession number [id number]. Performed By: #### 5 73, 75584 #### [facility] [address] [facility] Hemoglobin (Bld) [Mass/Vol] 8.6 g/dL Low 12.0-15.0 [facility] Comment on above: Order Comment: This order is a replacement of the rejected order with accession number [id number]. Performed By: #### 5 73, 21844 #### [facility] [address] [facility] MCH (RBC) [Entitic mass] 30.5 pg Normal 27.0-33.0 [facility] Comment on above: Order Comment: This order is a replacement of the rejected order with accession number [id number]. Performed By: #### 5 7307, 35904 #### [facility] [address] MCHC (RBC) [Mass/Vol] 32.0 g/dL Normal 32.0-35.0 [facility] Comment on above: Order Comment: This order is a replacement of the rejected order with accession number [id number]. Performed By: #### 5 73, 45650 #### [facility] [address] MCV (RBC) [Entitic vol] 95.4 fL Normal 82.0-98.0 [facility] Comment on above: Order Comment: This order is a replacement of the rejected order with accession number [id number]. Performed By: #### 5 73, 20685 #### [facility] [address] Nucleated RBC/100 WBC (Bld) [Ratio] 0 % Normal 0-0 [facility] Comment on above: Order Comment: This order is a replacement of the rejected order with accession number [id number]. Performed By: #### 5 7306, 01243 #### [facility] [address] PLAT CNT 141 10*3/uL Low 150-400 [facility] Comment on above: Order Comment: This order is a replacement of the rejected order with accession number [id number]. Performed By: #### 5 73, 40998 #### [facility] [address] RBC (Bld) [#/Vol] 2.82 10*6/uL Low 3.80-5.00 [facility] Comment on above: Order Comment: This order is a replacement of the rejected order with accession number [id number]. Performed By: #### 5 73, 17174 #### [facility] [address] [facility] [place] [address], [facility] WBC (Bld) [#/Vol] 10.04 10*3/uL Normal 4.00-10.60 [facility] Comment on above: Order Comment: This order is a replacement of the rejected order with accession number [id number]. Performed By: #### 5 73, 03516 #### [facility] [address] [facility] [place] [address], [facility] MAGNESIUM BLOODon 05-02-2020 Magnesium [Mass/Vol] 1.7 mg/dL Low 1.9-2.7 [facility] Comment on above: Order Comment: This order is a replacement of the rejected order with accession number [id number]. Performed By: #### 5 7307, 18888 #### [facility] [address] [place] [address], [facility] Operative Reporton 0 Operative Report MR#: [id number] [facility] Pt. Name: Megan Herron Room #: DORIAN [id number] Discharge Date: Birthdate: 1940 OPERATIVE REPORT DATE [...] to the right common femoral artery. A 6-Spanish sheath inserted on the right side and percutaneous access was made to the left common femoral artery and a 5-Spanish sheath inserted. The pigtail catheter was placed from the left side in the ascending aorta and then Perclose devices were inserted in the right common femoral artery followed by placing a 9-Spanish sheath. Then, a stiff wire was placed [...] closure with a pre-closed areas successfully. The 5-Spanish sheath was removed from the left side, [...] Schmitt M.D. Date Trans: 05/02/2020 01:24 Kaylee/hipolito [id number] Normal [facility] PHOSPHORUS BLOODon 0 Phosphate [Mass/Vol] 2.6 mg/dL Normal 2.5-5.0 [facility] Comment on above: Order Comment: This order is a replacement of the rejected order with accession number [id number]. Performed By: #### 5 7307, 54539 #### [facility] [address] *SARS-CoV-2 COVID-19on 05-01 [id number] Not Detected Normal Not Detected [facility] Comment on above: Order Comment: This order is a replacement of the rejected order with accession number [id number]. Performed By: #### 5 0103 #### [facility] [address] *URINE CULTUREon 05-01-2020 Bacteria identified Cx Nom (U) Clinical Report: (D) Specimen/Source: URINE/CATHETER HANSON Collected: 05/01/2020 15:25 Status: Final Last Updated: 05/03/2020 08:36 (1) ADD ON PER UROLOGY CULT RES (Final) NO GROWTH 48 HOURS Normal [facility] Comment on above: Order Comment: This order is a replacement of the rejected order with accession number [id number]. Performed By: #### 5 7307, 18075 #### [facility] [address] APTTon 05-01-2020 aPTT Coag (Bld) [Time] 34.4 s Normal 25.0-35.0 [facility] Comment on above: Result Comment: ALL RESULTS [...] PURPOSE. Performed By: #### 5 0103 #### [facility] [address] aPTT Coag (Bld) [Time] 30.8 s Normal 25.0-35.0 [facility] Comment on above: Order Comment: This order is a replacement of the rejected order with accession number [id number]. Result Comment: ALL RESULTS MUST BE INTERPRETED [...] THIS PURPOSE. Performed By: #### 5 7307, 47604 #### [facility] [place] [address] BASIC METABOLIC PANELon 06- Calcium [Mass/Vol] 8.2 mg/dL Low 8.6-10.3 [facility] Comment on above: Order Comment: This order is a replacement of the rejected order with accession number [id number]. Performed By: #### 5 7307, 52453 #### [facility] [address] Chloride [Moles/Vol] 108 mmol/L High 98-107 [facility] Comment on above: Order Comment: This order is a replacement of the rejected order with accession number [id number]. Performed By: #### 5 7307, 96722 #### [facility] [address] CO2 [Moles/Vol] 22 mmol/L Normal 21-31 [facility] Comment on above: Order Comment: This order is a replacement of the rejected order with accession number [id number]. Performed By: #### 5 7307, 21360 #### [facility] [address] Creatinine [Mass/Vol] 0.77 mg/dL Normal 0.60-1.20 [facility] Comment on above: Order Comment: This order is a replacement of the rejected order with accession number [id number]. Performed By: #### 5 7307, 86967 #### [facility] [address] [place] [id number], [facility] GFR/1.73 sq M predicted among blacks MDRD (S/P/Bld) [Vol rate/Area] mL/min/{1.73_m2} Normal >60 [facility] Comment on above: Order Comment: This order is a replacement of the rejected order with accession number [id number]. Result Comment: Calc ulation may not be valid for patients over 70 years Performed By: #### 5 7307, 96313 #### [facility] [address] [place] [address], [facility] GFR/1.73 sq M predicted among non-blacks MDRD (S/P/Bld) [Vol rate/Area] mL/min/{1.73_m2} Normal >60 [facility] Comment on above: Order Comment: This order is a replacement of the rejected order with accession number [id number]. Result Comment: Calc ulation may not be valid for patients over 70 years Performed By: #### 5 7307, 89422 #### [facility] [address] [place] [address], [facility] Glucose [Mass/Vol] 113 mg/dL High 70-100 [facility] Comment on above: Order Comment: This order is a replacement of the rejected order with accession number [id number]. Performed By: #### 5 7307, 56147 #### [facility] [address] [place] [address], [place] Potassium [Moles/Vol] 4.1 mmol/L Normal 3.5-5.1 [facility] Comment on above: Order Comment: This order is a replacement of the rejected order with accession number [id number]. Performed By: #### 5 7307, 75393 #### [facility] [address] [place] [address], [place] Sodium [Moles/Vol] 138 mmol/L Normal 136-145 [facility] Comment on above: Order Comment: This order is a replacement of the rejected order with accession number [id number]. Performed By: #### 5 73, 61811 #### [facility] [address] [place] [address], [facility] Urea nitrogen [Mass/Vol] 19 mg/dL Normal 7-25 [facility] Comment on above: Order Comment: This order is a replacement of the rejected order with accession number [id number]. Performed By: #### 5 73, 29125 #### [facility] [address] [place] [address], [facility] Calcium [Mass/Vol] 8.0 mg/dL Low 8.6-10.3 [facility] Comment on above: Order Comment: This order is a replacement of the rejected order with accession number [id number]. Performed By: #### 5 0103 #### [facility] [address] [place] [address], [facility] Chloride [Moles/Vol] 109 mmol/L High 98-107 [facility] Comment on above: Order Comment: This order is a replacement of the rejected order with accession number [id number]. Performed By: #### 5 0103 #### [facility] [address] [place] [address], [facility] CO2 [Moles/Vol] 25 mmol/L Normal 21-31 [facility] Comment on above: Order Comment: This order is a replacement of the rejected order with accession number [id number]. Performed By: #### 5 0103 #### [facility] [address] [place] [id number], [facility] Creatinine [Mass/Vol] 0.77 mg/dL Normal 0.60-1.20 [facility] Comment on above: Order Comment: This order is a replacement of the rejected order with accession number [id number]. Performed By: #### 5 0103 #### [facility] [address] [place] [address], [facility] GFR/1.73 sq M predicted among blacks MDRD (S/P/Bld) [Vol rate/Area] mL/min/{1.73_m2} Normal >60 [facility] Comment on above: Order Comment: This order is a replacement of the rejected order with accession number [id number]. Result Comment: Calc ulation may not be valid for patients over 70 years Performed By: #### 5 0103 #### [facility] [address] [place] [address], [facility] GFR/1.73 sq M predicted among non-blacks MDRD (S/P/Bld) [Vol rate/Area] mL/min/{1.73_m2} Normal >60 [facility] Comment on above: Order Comment: This order is a replacement of the rejected order with accession number [id number]. Result Comment: Calc ulation may not be valid for patients over 70 years Performed By: #### 5 0103 #### [facility] [address] [place] [address], [facility] Glucose [Mass/Vol] 118 mg/dL High 70-100 [facility] Comment on above: Order Comment: This order is a replacement of the rejected order with accession number [id number]. Performed By: #### 5 0103 #### [facility] [address] [place] [address], [facility] Potassium [Moles/Vol] 3.8 mmol/L Normal 3.5-5.1 [facility] Comment on above: Order Comment: This order is a replacement of the rejected order with accession number [id number]. Performed By: #### 5 0103 #### [facility] [address] [place] [address], [place] Sodium [Moles/Vol] 140 mmol/L Normal 136-145 [facility] Comment on above: Order Comment: This order is a replacement of the rejected order with accession number [id number]. Performed By: #### 5 0103 #### [facility] [address] [place] [address], [place] Urea nitrogen [Mass/Vol] 21 mg/dL Normal 7-25 [facility] Comment on above: Order Comment: This order is a replacement of the rejected order with accession number [id number]. Performed By: #### 5 0103 #### [facility] [address] [place] [address], [place] Calcium [Mass/Vol] 7.6 mg/dL Low 8.6-10.3 [facility] Comment on above: Performed By: #### 5 0103 #### [facility] [address] [place] [address], [place] Chloride [Moles/Vol] 108 mmol/L High 98-107 [facility] Comment on above: Performed By: #### 5 0103 #### [facility] [address] [place] [address], [place] CO2 [Moles/Vol] 24 mmol/L Normal 21-31 [facility] Comment on above: Performed By: #### 5 0103 #### [facility] [address] [place] [address], [place] Creatinine [Mass/Vol] 0.78 mg/dL Normal 0.60-1.20 [facility] Comment on above: Performed By: #### 5 0103 #### [facility] [address] [place] [address], [place] GFR/1.73 sq M predicted among blacks MDRD (S/P/Bld) [Vol rate/Area] mL/min/{1.73_m2} Normal >60 [facility] Comment on above: Result Comment: Calc ulation may not be valid for patients over 70 years Performed By: #### 5 0103 #### [facility] [address] [place] [address], [place] GFR/1.73 sq M predicted among non-blacks MDRD (S/P/Bld) [Vol rate/Area] mL/min/{1.73_m2} Normal >60 [facility] Comment on above: Result Comment: Calc ulation may not be valid for patients over 70 years Performed By: #### 5 0103 #### [facility] [address] [place] [address], [place] Glucose [Mass/Vol] 102 mg/dL High 70-100 [facility] Comment on above: Performed By: #### 5 0103 #### [facility] [address] [place] [address], [place] Potassium [Moles/Vol] 3.4 mmol/L Low 3.5-5.1 [facility] Comment on above: Performed By: #### 5 0103 #### [facility] [address] [place] [address], [place] Sodium [Moles/Vol] 141 mmol/L Normal 136-145 [facility] Comment on above: Performed By: #### 5 0103 #### [facility] [address] [place] [address], [place] Urea nitrogen [Mass/Vol] 24 mg/dL Normal 7-25 [facility] Comment on above: Performed By: #### 5 0103 #### [facility] [address] [place] [address], [place] Calcium [Mass/Vol] 8.2 mg/dL Low 8.6-10.3 [facility] Comment on above: Order Comment: No: D o not add to previous draw Performed By: #### 3 5199, 97075 #### [facility] [address] [place] [address], [place] Chloride [Moles/Vol] 107 mmol/L Normal 98-107 [facility] Comment on above: Order Comment: No: D o not add to previous draw Performed By: #### 3 5199, 20445 #### [facility] [address] [place] [address], [place] CO2 [Moles/Vol] 24 mmol/L Normal 21-31 [facility] Comment on above: Order Comment: No: D o not add to previous draw Performed By: #### 3 5199, 88036 #### [facility] [address] [place] [address], [place] Creatinine [Mass/Vol] 0.82 mg/dL Normal 0.60-1.20 [facility] Comment on above: Order Comment: No: D o not add to previous draw Performed By: #### 3 5199, 75753 #### [facility] [address] [place] [address], [place] GFR/1.73 sq M predicted among blacks MDRD (S/P/Bld) [Vol rate/Area] mL/min/{1.73_m2} Normal >60 [facility] Comment on above: Order Comment: No: D o not add to previous draw Result Comment: Calc ulation may not be valid for patients over 70 years Performed By: #### 3 5199, 22059 #### [facility] [address] [place] [address], [place] GFR/1.73 sq M predicted among non-blacks MDRD (S/P/Bld) [Vol rate/Area] mL/min/{1.73_m2} Normal >60 [facility] Comment on above: Order Comment: No: D o not add to previous draw Result Comment: Calc ulation may not be valid for patients over 70 years Performed By: #### 3 5199, 96448 #### [facility] [address] [place] [address], [place] Glucose [Mass/Vol] 92 mg/dL Normal 70-100 [facility] Comment on above: Order Comment: No: D o not add to previous draw Performed By: #### 3 5199, 48601 #### [facility] [address] [place] [address], [place] Potassium [Moles/Vol] 3.9 mmol/L Normal 3.5-5.1 [facility] Comment on above: Order Comment: No: D o not add to previous draw Performed By: #### 3 0, 75466 #### [facility] [address] [place] [address], [facility] Sodium [Moles/Vol] 138 mmol/L Normal 136-145 [facility] Comment on above: Order Comment: No: D o not add to previous draw Performed By: #### 3 0, 21686 #### [facility] [address] Urea nitrogen [Mass/Vol] 25 mg/dL Normal 7-25 [facility] Comment on above: Order Comment: No: D o not add to previous draw Performed By: #### 3 0, 64701 #### [facility] [address] CBC COMPLETE BLOOD COUNTon 05-01-2020 Erythrocyte distribution width (RBC) [Ratio] 14.4 % Normal 11.5-15.0 [facility] Comment on above: Order Comment: This order is a replacement of the rejected order with accession number [id number]. Performed By: #### 5 7387, 09829 #### [facility] [address] Hematocrit (Bld) [Volume fraction] 30.2 % Low 36.0-45.0 [facility] Comment on above: Order Comment: This order is a replacement of the rejected order with accession number [id number]. Performed By: #### 5 73, 65846 #### [facility] [address] [place] [address], [facility] Hemoglobin (Bld) [Mass/Vol] 9.4 g/dL Low 12.0-15.0 [facility] Comment on above: Order Comment: This order is a replacement of the rejected order with accession number [id number]. Performed By: #### 5 7358, 34938 #### [facility] [address] [facility] [address] MCH (RBC) [Entitic mass] 29.9 pg Normal 27.0-33.0 [facility] Comment on above: Order Comment: This order is a replacement of the rejected order with accession number [id number]. Performed By: #### 5 73, 78928 #### [facility] [address] [facility]. [address] MCHC (RBC) [Mass/Vol] 31.1 g/dL Low 32.0-35.0 [facility] Comment on above: Order Comment: This order is a replacement of the rejected order with accession number [id number]. Performed By: #### 5 73, 76301 #### [facility] [address] MCV (RBC) [Entitic vol] 96.2 fL Normal 82.0-98.0 [facility] Comment on above: Order Comment: This order is a replacement of the rejected order with accession number [id number]. Performed By: #### 5 73, 91131 #### [facility] [address] Nucleated RBC/100 WBC (Bld) [Ratio] 0 % Normal 0-0 [facility] Comment on above: Order Comment: This order is a replacement of the rejected order with accession number [id number]. Performed By: #### 5 73, 54937 #### [facility] [address] [place] [address], [facility] PLAT CNT 165 10*3/uL Normal 150-400 [facility] Comment on above: Order Comment: This order is a replacement of the rejected order with accession number [id number]. Performed By: #### 5 7307, 37729 #### [facility] [address] [facility] [place] [address], [facility] RBC (Bld) [#/Vol] 3.14 10*6/uL Low 3.80-5.00 [facility] Comment on above: Order Comment: This order is a replacement of the rejected order with accession number [id number]. Performed By: #### 5 7307, 29027 #### [facility] [address] WBC (Bld) [#/Vol] 10.57 10*3/uL Normal 4.00-10.60 [facility] Comment on above: Order Comment: This order is a replacement of the rejected order with accession number [id number]. Performed By: #### 5 73, [address]406 #### [facility] [address] Erythrocyte distribution width (RBC) [Ratio] 14.4 % Normal 11.5-15.0 [facility] Comment on above: Order Comment: This order is a replacement of the rejected order with accession number [id number]. Performed By: #### 5 0103 #### [facility] 3000 [facility] Hematocrit (Bld) [Volume fraction] 29.6 % Low 36.0-45.0 [facility] Comment on above: Order Comment: This order is a replacement of the rejected order with accession number [id number]. Performed By: #### 5 0103 #### [facility] [address] Hemoglobin (Bld) [Mass/Vol] 9.4 g/dL Low 12.0-15.0 [facility] Comment on above: Order Comment: This order is a replacement of the rejected order with accession number [id number]. Performed By: #### 5 0103 #### [facility] [address] MCH (RBC) [Entitic mass] 30.4 pg Normal 27.0-33.0 [facility] Comment on above: Order Comment: This order is a replacement of the rejected order with accession number [id number]. Performed By: #### 5 0103 #### [facility] [address] MCHC (RBC) [Mass/Vol] 31.8 g/dL Low 32.0-35.0 [facility] Comment on above: Order Comment: This order is a replacement of the rejected order with accession number [id number]. Performed By: #### 5 0103 #### [facility] [address] MCV (RBC) [Entitic vol] 95.8 fL Normal 82.0-98.0 [facility] Comment on above: Order Comment: This order is a replacement of the rejected order with accession number [id number]. Performed By: #### 5 0103 #### [facility] [address] Nucleated RBC/100 WBC (Bld) [Ratio] 0 % Normal 0-0 [facility] Comment on above: Order Comment: This order is a replacement of the rejected order with accession number [id number]. Performed By: #### 5 0103 #### [facility] [address] [place] [address], [facility] PLAT CNT 158 10*3/uL Normal 150-400 [facility] Comment on above: Order Comment: This order is a replacement of the rejected order with accession number [id number]. Performed By: #### 5 0103 #### [facility] [address] RBC (Bld) [#/Vol] 3.09 10*6/uL Low 3.80-5.00 [facility] Comment on above: Order Comment: This order is a replacement of the rejected order with accession number [id number]. Performed By: #### 5 3 #### [facility] [address] [place] [address], [facility] WBC (Bld) [#/Vol] 9.93 10*3/uL Normal 4.00-10.60 [facility] Comment on above: Order Comment: This order is a replacement of the rejected order with accession number [id number]. Performed By: #### 5 0103 #### [facility] [address] CBC W/DIFFon 05-01-2020 ABS BASOPHILS 0.0 10*3/uL Normal 0.0-0.2 [facility] Comment on above: Performed By: #### 5 0103 #### [facility] [address] [place] [address], [facility] ABS IMM GRANS 0.0 10*3/uL Normal 0.0-0.2 [facility] Comment on above: Performed By: #### 5 0103 #### [facility] [address] ABS NEUTROPHILS 5.3 10*3/uL Normal 1.6-7.6 [facility] Comment on above: Performed By: #### 5 0103 #### [facility] [address] Basophils/100 WBC (Bld) 0.5 % Normal 0.0-1.0 [facility] Comment on above: Performed By: #### 5 0103 #### [facility] [address] [place] [address], [facility] Eosinophils (Bld) [#/Vol] 0.1 10*3/uL Normal 0.0-0.5 [facility] Comment on above: Performed By: #### 5 0103 #### [facility] [address] [place] [address], [facility] Eosinophils/100 WBC (Bld) 0.6 % Normal 0.0-6.0 [facility] Comment on above: Performed By: #### 5 0103 #### [facility] [address] [place] [address], [facility] Erythrocyte distribution width (RBC) [Ratio] 14.4 % Normal 11.5-15.0 [facility] Comment on above: Performed By: #### 5 0103 #### [facility] 3000 [facility] [place] [address], [facility] Hematocrit (Bld) [Volume fraction] 26.2 % Low 36.0-45.0 [facility] Comment on above: Performed By: #### 5 0103 #### [facility] 3000 [facility]. [address] Hemoglobin (Bld) [Mass/Vol] 8.5 g/dL Low 12.0-15.0 [facility] Comment on above: Performed By: #### 5 0103 #### [facility] 3000 [facility]. [address] IMMATURE GRANS 0.2 % Normal 0.0-1.0 [facility] Comment on above: Performed By: #### 5 0103 #### [facility] 3000 [facility]. [address] Lymphocytes (Bld) [#/Vol] 1.9 10*3/uL Normal 1.2-4.0 [facility] Comment on above: Performed By: #### 5 3 #### [facility] 3000 [facility]. [address] Lymphocytes/100 WBC (Bld) 23.5 % Normal 20.0-45.0 [facility] Comment on above: Performed By: #### 5 3 #### [facility] 3000 [facility] [place] [address], [facility] MCH (RBC) [Entitic mass] 30.7 pg Normal 27.0-33.0 [facility] Comment on above: Performed By: #### 5 3 #### [facility] 3000 [facility] [place] [address], [facility] MCHC (RBC) [Mass/Vol] 32.4 g/dL Normal 32.0-35.0 [facility] Comment on above: Performed By: #### 5 0103 #### [facility] [address] [facility] [place] [address], [facility] MCV (RBC) [Entitic vol] 94.6 fL Normal 82.0-98.0 [facility] Comment on above: Performed By: #### 5 0103 #### [facility] 3000 [facility] [place] [address], [facility] Monocytes (Bld) [#/Vol] 0.9 10*3/uL Normal 0.1-1.0 [facility] Comment on above: Performed By: #### 5 0103 #### [facility] 3000 [facility] [place] [address], [facility] MONOS 10.6 % Normal 5.0-12.0 [facility] Comment on above: Performed By: #### 5 0103 #### [facility] 3000 [facility] [place] [address], [facility] Neutrophils/100 WBC (Bld) 64.6 % Normal 40.0-72.0 [facility] Comment on above: Performed By: #### 5 3 #### [facility] [address] [place] [address], [facility] Nucleated RBC/100 WBC (Bld) [Ratio] 0 % Normal 0-0 [facility] Comment on above: Performed By: #### 5 0103 #### [facility] 3000 [facility] [place] [address], [facility] PLAT CNT 164 10*3/uL Normal 150-400 [facility] Comment on above: Performed By: #### 5 3 #### [facility] [address] [place] [id number], [facility] RBC (Bld) [#/Vol] 2.77 10*6/uL Low 3.80-5.00 [facility] Comment on above: Performed By: #### 5 0103 #### [facility] [address] WBC (Bld) [#/Vol] 8.24 10*3/uL Normal 4.00-10.60 [facility] Comment on above: Performed By: #### 5 0103 #### [facility] [address] ABS BASOPHILS 0.0 10*3/uL Normal 0.0-0.2 [facility] Comment on above: Order Comment: This order is a replacement of the rejected order with accession number [id number]. Performed By: #### 5 0103 #### [facility] [address] ABS IMM GRANS 0.0 10*3/uL Normal 0.0-0.2 [facility] Comment on above: Order Comment: This order is a replacement of the rejected order with accession number [id number]. Performed By: #### 5 0103 #### [facility] [address] ABS NEUTROPHILS 6.6 10*3/uL Normal 1.6-7.6 [facility] Comment on above: Order Comment: This order is a replacement of the rejected order with accession number [id number]. Performed By: #### 5 0103 #### [facility] [address] Basophils/100 WBC (Bld) 0.3 % Normal 0.0-1.0 [facility] Comment on above: Order Comment: This order is a replacement of the rejected order with accession number [id number]. Performed By: #### 5 0103 #### [facility] [address] Eosinophils (Bld) [#/Vol] 0.0 10*3/uL Normal 0.0-0.5 [facility] Comment on above: Order Comment: This order is a replacement of the rejected order with accession number [id number]. Performed By: #### 5 0103 #### [facility] [address] Eosinophils/100 WBC (Bld) 0.2 % Normal 0.0-6.0 [facility] Comment on above: Order Comment: This order is a replacement of the rejected order with accession number [id number]. Performed By: #### 5 0103 #### [facility] [address] Erythrocyte distribution width (RBC) [Ratio] 14.3 % Normal 11.5-15.0 [facility] Comment on above: Order Comment: This order is a replacement of the rejected order with accession number [id number]. Performed By: #### 5 0103 #### [facility] [address] Hematocrit (Bld) [Volume fraction] 29.8 % Low 36.0-45.0 [facility] Comment on above: Order Comment: This order is a replacement of the rejected order with accession number [id number]. Performed By: #### 5 0103 #### [facility] [address] Hemoglobin (Bld) [Mass/Vol] 9.4 g/dL Low 12.0-15.0 [facility] Comment on above: Order Comment: This order is a replacement of the rejected order with accession number [id number]. Performed By: #### 5 0103 #### [facility] [address] IMMATURE GRANS 0.3 % Normal 0.0-1.0 [facility] Comment on above: Order Comment: This order is a replacement of the rejected order with accession number [id number]. Performed By: #### 5 0103 #### [facility] [address] Lymphocytes (Bld) [#/Vol] 1.4 10*3/uL Normal 1.2-4.0 [facility] Comment on above: Order Comment: This order is a replacement of the rejected order with accession number [id number]. Performed By: #### 5 0103 #### [facility] [address] Lymphocytes/100 WBC (Bld) 16.1 % Low 20.0-45.0 [facility] Comment on above: Order Comment: This order is a replacement of the rejected order with accession number [id number]. Performed By: #### 5 0103 #### [facility] [address] MCH (RBC) [Entitic mass] 30.3 pg Normal 27.0-33.0 [facility] Comment on above: Order Comment: This order is a replacement of the rejected order with accession number [id number]. Performed By: #### 5 0103 #### [facility] [address] MCHC (RBC) [Mass/Vol] 31.5 g/dL Low 32.0-35.0 [facility] Comment on above: Order Comment: This order is a replacement of the rejected order with accession number [id number]. Performed By: #### 5 0103 #### [facility] [address] MCV (RBC) [Entitic vol] 96.1 fL Normal 82.0-98.0 [facility] Comment on above: Order Comment: This order is a replacement of the rejected order with accession number [id number]. Performed By: #### 5 0103 #### [facility] [address] [place] [address], [facility] Monocytes (Bld) [#/Vol] 0.8 10*3/uL Normal 0.1-1.0 [facility] Comment on above: Order Comment: This order is a replacement of the rejected order with accession number [id number]. Performed By: #### 5 0103 #### [facility] [address] [place] [id number], [facility] MONOS 9.1 % Normal 5.0-12.0 [facility] Comment on above: Order Comment: This order is a replacement of the rejected order with accession number [id number]. Performed By: #### 5 0103 #### [facility] [address] [place] [id number], [facility] Neutrophils/100 WBC (Bld) 74.0 % High 40.0-72.0 [facility] Comment on above: Order Comment: This order is a replacement of the rejected order with accession number [id number]. Performed By: #### 5 0103 #### [facility] 3000 [facility] [place] [address], [facility] Nucleated RBC/100 WBC (Bld) [Ratio] 0 % Normal 0-0 [facility] Comment on above: Order Comment: This order is a replacement of the rejected order with accession number [id number]. Performed By: #### 5 0103 #### [facility] 3000 [facility] [place] [address], [facility] PLAT CNT 168 10*3/uL Normal 150-400 [facility] Comment on above: Order Comment: This order is a replacement of the rejected order with accession number [id number]. Performed By: #### 5 0103 #### [facility] 3000 [facility] [place] [id number], [facility] RBC (Bld) [#/Vol] 3.10 10*6/uL Low 3.80-5.00 [facility] Comment on above: Order Comment: This order is a replacement of the rejected order with accession number [id number]. Performed By: #### 5 3 #### [facility] [address] [place] [id number] [place] [address] WBC (Bld) [#/Vol] 8.94 10*3/uL Normal 4.00-10.60 [facility] Comment on above: Order Comment: This order is a replacement of the rejected order with accession number [id number]. Performed By: #### 5 0103 #### [place] [address], [facility] CTA ABDOMEN AND PELVISon CTA ABDOMEN AND PELVIS [facility] Department of Radiology [address] [place] [id number] Patient Name: MEGAN HERRON : 1940 Sex: F Age: Race: White Pt. 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 [...] reports Electronically signed: Cuco Major. Transcribed by: [email or web address], User Resident: VINCENT ANN Electronically Signed by: CUCO MAJOR @ 05/01/2020 05:08 AM I personally read this/these film(s) with this resident Normal [facility] Comment on above: Order Comment: r/o A AA FIBRINOGENon 05-01-2020 FIBRINOGEN 213 mg/dL Normal 150-425 [facility] Comment on above: Performed By: #### 5 0103 #### [facility] [address] [place] [address], [facility] PERFUSION BLOOD PANELon 04-07 BASE EXCESS -1.0 mmol/L Normal -2.0-3.0 [facility] Comment on above: Performed By: #### 3 0738 #### [facility] [address] [place] [address], [facility] Glucose [Mass/Vol] 93 mg/dL Normal 70-105 [facility] Comment on above: Performed By: #### 3 0738 #### [facility] [address] [place] [address], [facility] Hematocrit (Bld) [Volume fraction] 25 % Low 38-51 [facility] Comment on above: Performed By: #### 3 0738 #### [facility] [address] [place] [address], [place] Hemoglobin (Bld) [Mass/Vol] 8.5 g/dL Low 12.0-17.0 [facility] Comment on above: Performed By: #### 3 0738 #### [facility] [address] [place] [address], [facility] IONIZED CALCIUM 1.19 mmol/L Normal 1.12-1.32 [facility] Comment on above: Performed By: #### 3 0738 #### [facility] [address] [place] [address], [facility] Oxygen (Bld) [Partial pressure] 185.0 mm[Hg] High 80.0-105.0 [facility] Comment on above: Performed By: #### 3 0738 #### [facility] [address] [place] [address], [facility] PCO2 34.0 mmHg Low 35.0-45.0 [facility] Comment on above: Performed By: #### 3 0738 #### [facility] [address] [place] [address], [facility] pH (Bld) 7.44 [pH] Normal 7.35-7.45 [facility] Comment on above: Performed By: #### 3 0738 #### [facility] [address] [place] [address], [facility] Potassium [Moles/Vol] 3.5 mmol/L Normal 3.5-4.9 [facility] Comment on above: Performed By: #### 3 0738 #### [facility] [address] [place] [id number], [facility] Sodium [Moles/Vol] 140 mmol/L Normal 138-146 [facility] Comment on above: Performed By: #### 3 0738 #### [facility] [address] [place] [address], [facility] PROTHROMBIN TIMEon 05-01-202 0 INR Coag (PPP) [Relative time] 1.29 {INR} High 0.91-1.16 [facility] Comment on above: Result Comment: ACCC P [...] 1995;108:231S-246S. Performed By: #### 5 0103 #### [facility] [address] PT Coag (PPP) [Time] 16.2 s High 12.3-14.8 [facility] Comment on above: Result Comment: ALL RESULTS MUST BE INTERPRETED WITH RESPECT TO BLOOD DRAWING ARTIFACT OR DILUTION ERROR OF ANTICOAGULANT AT THE TIME OF SAMPLING. Performed By: #### 5 0103 #### [facility] 3000 [facility]. [address] INR Coag (PPP) [Relative time] 1.21 {INR} High 0.91-1.16 [facility] Comment on above: Order Comment: This order is a replacement of the rejected order with accession number [id number]. Result Comment: [facility] P RECOMMENDED INR FOR WARFARIN [...] CHEST 1995;108:231S-246S. Performed By: #### 5 7307, [address] #### [facility] [address] PT Coag (PPP) [Time] 15.4 s High 12.3-14.8 [facility] Comment on above: Order Comment: This order is a replacement of the rejected order with accession number [id number]. Result Comment: ALL RESULTS MUST BE INTERPRETED WITH RESPECT TO BLOOD DRAWING ARTIFACT OR DILUTION ERROR OF ANTICOAGULANT AT THE TIME OF SAMPLING. Performed By: #### 5 7307, [address] #### [facility] [address] RBC'S 2 UNITSon 05-01-2020 CROSSMATCH INTERP 1 COMP Normal [facility] Comment on above: Performed By: #### 5 0103 #### [facility] 3000 [facility]. [address] CROSSMATCH INTERP 2 COMP Normal [facility] Comment on above: Performed By: #### 5 0103 #### [facility] [address] PRODUCT CODE 1 E0179 Normal [facility] Comment on above: Performed By: #### 5 0103 #### [facility] 3000 [facility]. [address] PRODUCT CODE 2 E0336 Normal [facility] Comment on above: Performed By: #### 5 0103 #### [facility] [address] PRODUCT STATUS 1 RE Normal [facility] Comment on above: Result Comment: Resu lt changed by IF on 05/05/2020 08:34. The previous value was XM. Performed By: #### 5 0103 #### [facility] 3000 [facility]. [address] PRODUCT STATUS 2 RE Normal [facility] Comment on above: Result Comment: Resu lt changed by IF on 05/02/2020 10:38. The previous value was XM. Result changed by IF on 05/02/2020 11:02. The previous value was XX. Performed By: #### 5 0103 #### [facility] [address] [place] [address], [place] UNIT ABO 1 O Normal [facility] Comment on above: Performed By: #### 5 0103 #### [facility] [address] [place] [address], [place] UNIT ABO 2 O Normal [facility] Comment on above: Performed By: #### 5 0103 #### [facility] [address] [place] [address], [facility] UNIT ID 1 [id number] Normal [facility] Comment on above: Performed By: #### 5 0103 #### [facility] [address] [place] [address], [facility] UNIT ID 2 [id number] Normal [facility] Comment on above: Performed By: #### 5 0103 #### [facility] [address] [place] [address], [place] UNIT RH 1 Negative Normal [facility] Comment on above: Performed By: #### 5 0103 #### [facility] [address] [place] [address], [place] UNIT RH 2 Negative Normal [facility] Comment on above: Performed By: #### 5 0103 #### [facility] [address] [place] [address], [place] CROSSMATCH INTERP 1 COMP Normal [facility] Comment on above: Performed By: #### 8 6002 #### [facility] [address] [place] [address], [place] CROSSMATCH INTERP 2 COMP Normal [facility] Comment on above: Performed By: #### 8 6002 #### [facility] [address] [place] [address], [facility] PRODUCT CODE 1 E0336 Normal [facility] Comment on above: Performed By: #### 8 6002 #### [facility] [address] [place] [address], [facility] PRODUCT CODE 2 E0179 Normal [facility] Comment on above: Performed By: #### 8 6002 #### [facility] [address] [place] [address], [facility] PRODUCT STATUS 1 RE Normal [facility] Comment on above: Result Comment: Resu lt changed by IF on 05/01/2020 09:03. The previous value was XM. Performed By: #### 8 6002 #### [facility] [address] [place] [address], [facility] PRODUCT STATUS 2 RE Normal [facility] Comment on above: Result Comment: Resu lt changed by IF on 05/01/2020 09:03. The previous value was XM. Performed By: #### 8 6002 #### [facility] [address] [place] [address], [facility] UNIT ABO 1 O Normal [facility] Comment on above: Performed By: #### 8 6002 #### [facility] [address] [place] [address], [facility] UNIT ABO 2 O Normal [facility] Comment on above: Performed By: #### 8 6002 #### [facility] [address] [place] [address], [facility] UNIT ID 1 [id number] Normal [facility] Comment on above: Performed By: #### 8 6002 #### [facility] [address] [place] [address], [facility] UNIT ID 2 [id number] Normal [facility] Comment on above: Performed By: #### 8 6002 #### [facility] [address] [place] [address], [place] UNIT RH 1 Negative Normal [facility] Comment on above: Performed By: #### 8 6002 #### [facility] [address] [place] [address], [place] UNIT RH 2 Negative Normal [facility] Comment on above: Performed By: #### 8 [id number] #### [facility] [address] [place] [address], [place] TROPONIN-Ion 05-01-2020 Troponin I.cardiac [Mass/Vol] 0.04 ng/mL Normal 0.00-0.04 [facility] Comment on above: Order Comment: No: D o not add to previous draw Result Comment: REFE RENCE RANGES: 0.00 - 0.04 ng/ml NORMAL 0.05 - 0.50 ng/ml INDETERMINATE > 0.50 ng/ml CONSISTENT WITH AN M.I. Performed By: #### 3 5200, 84973 #### [facility] [address] [place] [address], [place] TYPE AND CROSSMATCHon 2019 ABO INTERPRETATION O Normal [facility] Comment on above: Performed By: #### 5 0103 #### [facility] [address] [place] [address], [place] RH INTERPRETATION Negative Normal [facility] Comment on above: Performed By: #### 5 0103 #### [facility] [address] [place] [address], [place] TYPE AND SCREENon 05-01-2020 ABO INTERPRETATION O Normal [facility] Comment on above: Performed By: #### 6 2586 #### [facility] [address] [place] [address], [place] RH INTERPRETATION Negative Normal [facility] Comment on above: Performed By: #### 6 2586 #### [facility] [address] [place] [address], [facility] URINALYSIS REFLEXon 05-01-20 20 Appearance (U) CLEAR Normal CLEAR [facility] Comment on above: Order Comment: This order is a replacement of the rejected order with accession number [id number]. Performed By: #### 5 0103 #### [facility] [address] [place] [address], [place] Bilirubin [Mass/Vol] Negative Normal NEGATIVE [facility] Comment on above: Order Comment: This order is a replacement of the rejected order with accession number [id number]. Performed By: #### 5 0103 #### [facility] [address] [place] [address], [place] BLOOD SMALL Abnormal NEGATIVE [facility] Comment on above: Order Comment: This order is a replacement of the rejected order with accession number [id number]. Performed By: #### 5 0103 #### [facility] [address] [place] [address], [facility] Color (U) YELLOW Normal YELLOW [facility] Comment on above: Order Comment: This order is a replacement of the rejected order with accession number [id number]. Performed By: #### 5 3 #### [facility] [address] [place] [address], [facility] EPIS FEW Normal FEW,OCC,NONE SEEN [facility] Comment on above: Order Comment: This order is a replacement of the rejected order with accession number [id number]. Performed By: #### 5 3 #### [facility] [address] [place] [address], [place] Glucose [Mass/Vol] Negative Normal NEGATIVE [facility] Comment on above: Order Comment: This order is a replacement of the rejected order with accession number [id number]. Performed By: #### 5 3 #### [facility] [address] [place] [address], [place] KETONE Negative Normal NEGATIVE [facility] Comment on above: Order Comment: This order is a replacement of the rejected order with accession number [id number]. Performed By: #### 5 0103 #### [facility] [address] [place] [id number], [facility] [place] SMALL Abnormal NEGATIVE [facility] Comment on above: Order Comment: This order is a replacement of the rejected order with accession number [id number]. Performed By: #### 5 0103 #### [facility] [address] [place] [address], [facility] MUCUS THREADS FEW Abnormal NONE SEEN [facility] Comment on above: Order Comment: This order is a replacement of the rejected order with accession number [id number]. Performed By: #### 5 0103 #### [facility] [address] [facility] [place] [address], [facility] Nitrite Ql (U) Negative Normal NEGATIVE [facility] Comment on above: Order Comment: This order is a replacement of the rejected order with accession number [id number]. Performed By: #### 5 0103 #### [facility] [address] [facility] [place] [address], [facility] pH (Bld) 5.0 Normal 5.0-8.0 [facility] Comment on above: Order Comment: This order is a replacement of the rejected order with accession number [id number]. Performed By: #### 5 0103 #### [facility] [address] [facility] [place] [address], [facility] Protein (U) [Mass/Vol] Negative Normal NEGATIVE [facility] Comment on above: Order Comment: This order is a replacement of the rejected order with accession number [id number]. Performed By: #### 5 0103 #### [facility] [address] [place] [address], [facility] RBC (U) [#/Vol] 3-5 Abnormal NONE SEEN [facility] Comment on above: Order Comment: This order is a replacement of the rejected order with accession number [id number]. Performed By: #### 5 0103 #### [facility] [address] [facility] [place] [address], [facility] SPEC GRAV 1.049 High 1.015-1.020 [facility] Comment on above: Order Comment: This order is a replacement of the rejected order with accession number [id number]. Performed By: #### 5 0103 #### [facility] [address] [facility] [place] [address], [facility] WBC UA 3-5 Abnormal NONE SEEN [facility] Comment on above: Order Comment: This order is a replacement of the rejected order with accession number [id number]. Performed By: #### 5 0103 #### [facility] [address] Encounters Encounter Date Encounter Type Care Provider Facility Start: 04-17-2024 End: 04-17-2024 ambulatory MD Gregory Krishna Work Phone: [facility] Work Phone: Start: 04-17-2024 End: 04-17-2024 Departed Referred MD Gregory Krishna Work Phone: [facility] Start: 01-21-2023 End: 01-21-2023 ambulatory [facility] Facility: Start: 10-13-2021 End: 10-13-2021 ambulatory Kenya Calvey Other [facility] Other Start: 10-13-2021 Postop follow up vis it related to original px Kenya Calvey [facility] Start: 09-21-2021 End: 09-21-2021 ambulatory Kenya Calvey Other [facility] Other Start: 09-21-2021 Postop follow up vis it related to original px Kenya Calvey [facility] Start: 05-01-2020 End: 05-01-2020 Patient encounter procedure UNKNOWN PROVIDER Facility:[facility] Start: 05-01-2020 End: 05-09-2020 Evaluation and management of inpatient KANCHAN KAPLAN Facility:[facility] Procedures Date Procedure Procedure Detail Performing Clinician Start: 05-01-2020 Antibody screen KANCHAN KAPLAN Comment on above: Performed By: #### 5 0103 #### [facility] [address] Start: 05-01-2020 Antibody screen KANCHAN KAPLAN Comment on above: Performed By: #### 6 2586 #### [facility] [address] [place], [place] [id number] [place] [address] Start: 05-01-2020 RESTRICT OF THOR AOR TA DESC WITH INTRALUM DEV, PERC APPROACH MUNIER NAZZAL Immunizations Immunization Date Immunization Notes Care Provider Fa cility 01-29-2021 COVID-19 mRNAErika (Pfizer) MD Gregory Krishna Work Phone: [facility] 01-06-2021 COVID-19 Erika Umaña (Pfizer) MD Gregory Krishna Work Phone: [facility] Payers Date Payer Category Payer Self-pay [id number] 2019 Medicare [id number] 1960 Medicare [id number] 1940 Unknown [id number] 1940 Unknown [id number] 1940 Unknown [id number] Medicare [id number] Medicare Medicare [id number] Private Health Insurance [facility] [id number] Unknown [facility] [id number] Unknown [id number] Social History Date Type Detail Facility Sex Assigned At [facility] Other Sex Assigned At Sex Assigned At Bir th [facility] Other Start: 09-04-2021 Tobacco smoking status NHIS Ex-smoker (finding) [facility] Start: 1940 Sex Assigned At Female F [facility] Medical Equipment Procedure Code Equipment Code Equipment Origin al Text Equipment Identifier Dates Orthopaedic bone screw, non-bioabsorbable, non-sterile ()[id number] FDA Start: 08-28-2021 Femur nail, sterile (1088 [id number] FDA Start: 08-28-2021 Orthopaedic bone screw, non-bioabsorbable, sterile ()[id number] [facility] Start: 08-28-2021 Evaluation note 10-13-2021 Note Date [...] Other specified postprocedural states (ICD-10 - Z98.890) [facility] [place] [facility] Other Clinical Note 12-25-2020 Note Date & Type Note Facility 12-25-2020 Note - From: Arthur Bella To: HV - Administrative; Sent: 12/25/2020 10:59:28 EST Show up: 05/24/2021 11:59:00 EDT Subject: follow up Due Date/Time: 06/24/2021 11:59:00 EDT Reminder/Recall 6 month f/u June 2021 w/ Gavin CTA Prior to visit [facility] Evaluation note Note Date & Type Note Facility Evaluation note [facility] Other Evaluation note Note Date & Type Note Facility Evaluation note No assessment information availa [facility] Work Phone: History general Narrative - Reported Note Date & Type Note Facility History general Narrative - Reported [facility] Other History general Narrative - Reported Note Date & Type Note Facility History general Narrative - Reported Type Medical History A-Fib Medical History HTN Medical History Heart Failure Surgical History Left Hip Fracture Hospitalization History See Above [facility] Other Summary Purpose Family History No Family History Records FoundNo Family History Records FoundNo Family History Records FoundNo Family History Records FoundNo Family History Records FoundNo Family History Records Found Advance Directives No Advanced Directives Records Found Advance Directive Response Recorded Date/ Time Advance Directives No September 1:27pm Hospital Course Note MR#: [id number] [facility] Pt. Name: Megan Herron Admitted: 05/01/2020 [...] content not included)... Note MR#: [id number] [facility] Pt. Name: Megan Herron Admitted: 05/16/2020 Discharged: [...] a lung mass. She was transferred to [facility] for cardiology evaluation. HOSPITAL COURSE: 1. Moderate pericardial effusion, but no signs of tamponade. Effusion has improved with Lasix. Repeated echo showed (more content not included)... Additional Source Comments INFORMATION SOURCE (unrecogn ized section and content) DATE CREATED AUTHOR 05/27/2020 [facility] DATE CREATED AUTHOR AUTHOR'S ORGANIZ ATION 08/21/[address] [facility] DATE CREATED AUTHOR AUTHOR'S ORGANIZ ATION 10/03/2020 [facility] DATE CREATED AUTHOR AUTHOR'S ORGANIZ ATION 09/15/2021 [facility] DATE CREATED AUTHOR AUTHOR'S ORGANIZ ATION 01/29/2023 [facility] DATE CREATED AUTHOR AUTHOR'S ORGANIZ ATION 04/26/2024 [facility] REASON FOR VISIT (unrecogniz ed [...] BE BASED ON THE PRIMARY CLINICAL RECORDS. [facility] [employer] [facility]. provides no warranty or guarantee of the accuracy or completeness of information in this document.
[2024-05-05 19:04] LABS: Basophils Percent Auto 0.2 % (0.2-2.0); Eosinophils Percent Auto 0.1 % (0.9-7.0); Hematocrit 32.5 % (36.0-48.0); Hemoglobin 10.4 g/dL (12.0-16.0); Immature Granulocytes Abs Auto 0.07 10^3/uL (0.00-0.03); Immature Granulocytes Pct Auto 0.4 % (0.0-0.5); Lymphocytes Absolute Auto 1.3 10^3/uL (1.2-3.8); Lymphocytes Percent Auto 7.5 % (20.5-60.0); Mean Corpuscular Hemoglobin 29.5 pg (26.7-34.0); Mean Corpuscular Volume 92.3 fL (81.0-99.0); Mean Platelet Volume 9.7 fL (9.5-13.5); Monocytes Absolute Auto 1.4 10^3/uL (0.3-0.8); Monocytes Percent Auto 8.2 % (1.7-12.0); Neutrophils Absolute Auto 14.4 10^3/uL (1.4-6.5); Neutrophils Percent Auto 83.6 % (43.0-75.0); Platelet Count 288 10^3/uL (150-450); Red Blood Count 3.52 10^6/uL (4.20-5.40); White Blood Count 17.2 10^3/uL (4.0-11.0)
[2024-05-05 19:19] LABS: Anion Gap 11.5; BUN Creatinine Ratio 17.6; Calcium 8.3 mg/dL (8.5-10.1); Chloride 99 mmol/L (98-107); Estimated GFR (African America >60 (>=60); Estimated GFR (Non-African Ame 52 (>=60); Glucose 103 mg/dL (74-106); Potassium 4.5 mmol/L (3.5-5.1); Sodium 134 mmol/L (136-145)
[2024-05-05] MEDS: 0.9 % SODIUM CHLORIDE 250 ML IV.SOLN 500 ML IV (20:26)
--- NOTE | 2024-05-05 21:26 | PC.NURSE ---
Per Dr. 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 Clifford who accompanied this nurse for a visual exam - pt again states it has not been treated as it is new and she was unaware of it being there This nurse then attempted to place a roberson and then attempted a straight cath with the assistance of Kelly DYKES but was unsuccessful due to the location of the uterus and urethra
[2024-05-05] MEDS: 0.9 % SODIUM CHLORIDE 1,000 ML 100 ML IV (21:51)
[2024-05-06] VITALS (16 sets, daily range): BP systolic 92–144; BP diastolic 59–81; PULSE 61–73; TEMP 36.2–38; O2SAT 88–95; BMI 27.7
--- OUTSIDE RECORDS SUMMARY | 2024-05-06 01:08 | XMS_ITS ---
Patient Summarization (C-CDA 2.1 CCD) Created on: May 06, 2024 Megan Herron : 1940 Sex: Female Author Organization Sample organization Care Team Providers Care Supervisor Sewer System Name Role Phone PROVIDER, UNKNOWN Admitting Unavailable PROVIDER, UNKNOWN Attending Unavailable KANCHAN KAPLAN Referring Unavailable UNKNOWN, PHYSICIAN Primary Care Unavailable ALYCE SCHMITT Admitting Unavailable [facility] Procedure Practitioner Unavailab ALYCE Montgomery Surgeon Unavailable TRANG MICHAEL Attending Unavailable Kenya Hart Unavailable TRE PETERS Admitting Unavailable TRE PETERS Attending Unavailable TRE PETERS Primary Care Unavailable TRE PETERS Consulting Unavailable MD Gregory Krishna Primary Care Provider DO Marquise Miramontes Attending Provider Marquise Miramontes Attending Unavailable Marquise Miramontes Admitting Unavailable Gregoyr Krishna Primary Care Unavailable Allergies Allergy Classification Reported Allergen(s) Allergy Type Date of Onset Reaction(s) Facility (2 sources) Gluten Drug allergy (disorder) 05-02-2020 [facility] (1 source) Lactose Drug Allergy 05-02-2020 [facility] (2 sources) Gluten Drug allergy Unknown [facility] Other (1 source) Milk Prods Drug allergy (disorder) [facility] (1 source) Gluten Drug allergy (disorder) 10-13-2021 [facility] Encounters Encounter Date Encounter Type Care Provider Facility Start: 04-17-2024 End: 04-17-2024 ambulatory MD Gregory Krishna Work Phone: [facility] Work Phone: Start: 04-17-2024 End: 04-17-2024 Departed Referred MD Gregory Krishna Work Phone: [facility] Start: 01-21-2023 End: 01-21-2023 ambulatory TRE PETERS Facility: Start: 10-13-2021 End: 10-13-2021 ambulatory Kenya Hart Other [facility] Other Start: 10-13-2021 Postop follow up vis it related to original px Kenya Hart [facility] Start: 09-21-2021 End: 09-21-2021 ambulatory Kenya Hart Other [facility] Other Start: 09-21-2021 Postop follow up vis it related to original px Kenya Hart [facility] Start: 05-01-2020 End: 05-01-2020 Patient encounter procedure UNKNOWN PROVIDER Facility:[facility] Start: 05-01-2020 End: 05-09-2020 Evaluation and management of inpatient KANCHAN KAPLAN Facility:[facility] Procedure Code Equipment Code Equipment Origin al Text Equipment Identifier Dates Orthopaedic bone screw, non-bioabsorbable, non-sterile ()[id number] FDA Start: 08-28-2021 Femur nail, sterile ()[id number] FDA Start: 08-28-2021 Orthopaedic bone screw, non-bioabsorbable, sterile ()[id number] FDA Start: 08-28-2021 Immunizations Immunization Date Immunization Notes Care Provider Nancy arredondo 01-29-2021 COVID-19 mRNAErika (Pfizer) MD Gregory Krishna Work Phone: [facility] 01-06-2021 COVID-19 mRNAErika (Pfizer) MD Gregory Krishna Work Phone: [facility] Medications Current Medications Medication Drug Class(es) Dates Sig (Normalized) Sig (Original) acetaminophen 325 mg / HYDROcodone bitartrate 5 mg oral tablet (3 sources) Opioid Agonist Start: 09-21-2021 take 1 tablet by mouth every six hours HYDROcodone-Aceta minophen 5-325 MG 1 tablet as needed Orally every 6 hrs 16 Nov, 2021 Active Start: 09-21-2021 take 1 tablet by [...] PO August 28, 2021 12:00am estrogens, conjugated (long-term) 0.625 mg/ml vaginal cream (3 sources) Estrogen [...] PO Twice daily August 28, 2021 12:00am Payers Date Payer Category Payer Self-pay [id number] 2019 Medicare [id number] 1960 Medicare [id number] 1940 Unknown [id number] 1940 Unknown [id number] 1940 Unknown [id number] Medicare [id number] Medicare Medicare [id number] Private Health Insurance [facility] [id number] Unknown [facility] [id number] Unknown [id number] Problems Active Problems Problem Classification Problem Date [...] postprocedural states Onset: 09-21-2021 Resolved: 10-13-2021 Episodic Procedures Date Procedure Procedure Detail Performing Clinician Start: 05-01-2020 Antibody screen KANCHAN KAPLAN Comment on above: Performed By: #### 5 0103 #### [address] Start: 05-01-2020 Antibody screen KANCHAN KAPLAN Comment on above: Performed By: #### 6 [id number] #### [facility] [address] Start: 05-01-2020 RESTRICT OF THOR AOR TA DESC WITH INTRALUM DEV, PERC APPROACH MUNIER NAZZAL Results Test Name Value Interpretation Reference Range Facility [facility] 04-17-2024 L Specimen: Received: 04/22/24 Status: DELORES Mccoy Num: [id number] Spec Type: Cytology Subm Dr: Marquise Miramontes DO Tissues: A PLEURAL FLUID (PLEUR) Procedures: HE/2, Gross/Micro L4, Cyto Prepstain, PAPSTN Age/ Patient Sex Location Account Attending Physician Megan Herron 83/F LABELL [id number] Marquise Miramontes DO SPEC NUM: [id number] RECD: 04/22/24 STATUS: DELORES MCCOY NUM: [id number] RACHEL: 04/17/[address]: Marquise Miramontes DO ENTERED: 04/22/[address]: Andre,Lab SPEC TYPE: Cytology DEPT: RYAN MSYT ENTERED BY: [id number] RECV BY: [id number] ORDERED: HE/2, Gross/Micro L4, Cyto Prepstain, PAPSTN [...] prepared for microscopic examination. (/tello) CPT Codes 45363 Specimen: [id number] Received: 04/22/24 Status: DELORES Mccoy Num: [id number] Spec Type: Cytology Subm Dr: Marquise Miramontes DO Tissues: A PLEURAL FLUID (PLEUR) Procedures: HE/2, Gross/Micro L4, Cyto Prepstain, PAPSTN Patient: Megan Herron [id number] (Continued) Signed (signature on file) Luann Mercer MD 04/24/24 1542 Normal [facility] CULTURE URINEon 01-21-2023 CULTURE URINE Culture Observations : LIGHT GROWTH OF MIXED GENITAL IRMA. NO POTENTIAL PATHOGENS SEEN. Normal [facility] Comment on above: Performed By: #### U RCX #### [facility] [address] [address] [address] Shaila Spann UA RANDOM W/MICROSCOPICon BACTERIA TRACE Abnormal NONE SEEN [facility] Comment on above: Performed By: #### U AMIC #### [facility] [address] [address] [address] Shaila Spann Bilirubin Ql (U) Negative Normal NEGATIVE [facility] Comment on above: Performed By: #### U AMIC #### [facility] [address] [address] [address] Shaila Spann CAST NONE SEEN Normal NONE SEEN [facility] Comment on above: Performed By: #### U AMIC #### [facility] [address] [address] [address] Shaila Spann Clarity (U) CLEAR Normal CLEAR [facility] Comment on above: Performed By: #### U AMIC #### [facility] [address] [address] [address] Shaila Spann Color (U) LT. YELLOW Normal YELLOW [facility] Comment on above: Performed By: #### U AMIC #### [facility] [address] [place] [address] Dr. Shaila Spann Crystals LM Nom (Urine sed) NONE SEEN Normal NONE SEEN [facility] Comment on above: Performed By: #### U AMIC #### [facility] [address] [place] [address] Dr. Shaila Spann Epithelial cells LM Ql (Urine sed) FEW Abnormal NONE SEEN /RARE [facility] Comment on above: Performed By: #### U AMIC #### [facility] [address] [place] [address] Dr. Shaila Spann Glucose Ql (U) Negative Normal NEGATIVE [facility] Comment on above: Performed By: #### U AMIC #### [facility] [address] [place] [address] Dr. Shaila Spann Hemoglobin Ql (U) LARGE Abnormal NEGATIVE [facility] Comment on above: Performed By: #### U AMIC #### [facility] [address] [place] [address] Dr. Shaila Spann Ketones Ql (U) Negative Normal NEGATIVE [facility] Comment on above: Performed By: #### U AMIC #### [facility] [address] [place] [address] Dr. Shaila Spann LEUKOCYTES MODERATE Abnormal NEGATIVE [facility] Comment on above: Performed By: #### U AMIC #### [facility] [address] [place] [address] Dr. Shaila Spann MUCOUS NONE SEEN Normal NONE SEEN [facility] Comment on above: Performed By: #### U AMIC #### [facility] [address] [address] [address] Shaila Spann Nitrite Ql (U) Negative Normal NEGATIVE [facility] Comment on above: Performed By: #### U AMIC #### [facility] [address] [address] [address] Shaila Spann pH (U) 8.0 [pH] Normal 5-9 [facility] Comment on above: Performed By: #### U AMIC #### [facility] [address] [place] [address] Dr. Shaila Spann RBC 5-10 Abnormal 0-2 [facility] Comment on above: Performed By: #### U AMIC #### [facility] [address] [place] [address] Dr. Shaila Spann SPEC GRAVITY 1.015 Normal 1.005-<=1.02 5 [facility] Comment on above: Performed By: #### U AMIC #### [facility] [address] [place] [address] Dr. Shaila Spann UA PROTEIN 30 mg/dl Abnormal NEGATIVE/ TRACE [facility] Comment on above: Performed By: #### U AMIC #### [facility] [address] [place] [address] Dr. Shaila Spann Urobilinogen Qn (U) 0.2 {Orion'U}/dL Normal 0.2 - 1. 0 [facility] Comment on above: Performed By: #### U AMIC #### [facility] [address] [place] [address] Dr. Shaila Spann WBC 2-5 Abnormal NONE SEEN [facility] Comment on above: Performed By: #### U AMIC #### [facility] [address] [place] [address] Dr. Shaila Spann Ambulatory Clinical Summaryo n 09-14-2021 Ambulatory Clinical Summary {[id number]- [id number]}C D:[id number] [facility] Recordson 09-14 [facility] Records [id number]#1.00CD:12 7 [facility] Patient Educationon 09-14-20 Patient Education Urology [...] these instructions at home: Medicines ? Take atcn-our-ghvbdee and prescription medicines only as told by [...] the blood stops without treatment. ? Take yifb-jwc-ckeepta and prescription medicines only as told by your health care provider. ? Drink enough fluid to keep your urine clear or pale yellow. This information is not intended to replace advice given to you by your health care provider. Make sure you discuss any questions you have with your health care provider. Document Released: 10/23/2006 Document Revised: 03/18/2020 Document Reviewed: 11/25/2017 [employer] Patient Education ? 2019 [employer] [facility] Urology Office/Clinic Noteon 09-14-2021 Urology Office/Clinic [...] bleeding. Ordered: Office Visit Level 4 Est 62100 2. 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 no worse than usual. not painful. does not cause difficulty voiding. denies frequent UTIs. pt adamantly opposed to any intervention for this at this time. Ordered: Office Visit Level 4 Est 00187 3. Urge incontinence (N39.41: Urge incontinence) mild-moderate. worse now that it's hard for her to get to the bathroom. not interested in medications due to possible side effects. Ordered: Office Visit Level 4 Est 82444 offered f/u. pt prefers PRN. Total time [...] smoker, quit (more content not included)... [facility] Comment on above: Result Comment: Elec tronically Signed By: CAILIN GONZALES PA-C\Date and Time Signed: 09/14/21 14:27 EST Coding Summary.on 07-06-2021 Coding Summary. CD:[id number] Gh0bW w+PGhlYWQ+TI6VNJIsS18dhQF xhZ4TQ9jXQN7YGFAMAWGIRN0D NU0dhID0EFrmC6PhwuAg XfpnoPPfXE68DKk7GNI9rOfpO ZajkZ5jsOXqM8p7ZsIvEB43vH 36KQivHAKkNnH7OzSpsqzxhEP y D8rrRiRciXEqHkw+PHRhYmxlI HdpZHRoPScxMDAlJyBzdHlsZT 5rDr1pSSSeHWCyzBcxeHXvKmE j l1ksMVHlKJqyXB3uuXqlQ5Jnm YU8TCGvz0v7Bp19tON+PHRkIH D6pFbfNDhlt060KsEpk3foCVA 3 xUZhRYrsJWW3T54ke2J1QCUjE RCmKBE0dBL2kV4iaSzjgryaY7 DmrUJtIzY6HXW4iMHosP4dhSp n olkytU2yFjy+L80BAW8SOQBLP X8MSym1K0ZmRdykyLE+PC90YW VaGQ43jEYipLWzs1qasHt6StT w ULXeGDB7vBlmNYwgf1PpDCIgS 99wqUQwn0C9LPZrsUnltTWeVo JwwEX9wC8qWWabomaxf7hdomj n Uzowh9mtfx53xC24I96dGIhvT KJnFEU3ASMdYNKvmXaoes3pdV 9wIi8+IRicf4kks6zhsTg7IrW w MPSztdOksJvcBNR2y0PyEr84X 4UgyTpzs0VjRgs0zt24vFAbi8 S6tBV5AOokWPVzsL8fDSbvMtT 6 KFXiBeLbhP35vJVdPVeiZm0nh NrevSifJQ7nPYHmgpdqVMJoyD 9yVZKchWIroUnuIR3rZEIjwsq m t047LtGpLJF7FHNfyCBwC3Eon C4jZqLnGXBzNPYxS8JwxTKtOL lpW012ODnwZlM0MSJfeyMhS6C s EUGncFitYsH2s2V7Ks8Lc0Exh rzjEDY5VAnsMBL9XzVaHlFqWw S4Z2BzTof6CXUxePbrSS4sM6N h TSSdjyiguqgsmDL4QPCcBMVcd V84bQIzCNqeIs1ot6Z5j781CG FfXRFkfU80Yb4siQztRJYyfRK U xM4rvkbyn0zmlcxjUzGhWPAfL Xy8AWh4ZPQawOfkIlHcYVB5Cb N3SZM5oQPadC3cmHncdlgfwQ1 w Oyc+F49rbL6bSTR6ROI7vaxxR EBwlmIuQP11GH57R6KoHkjkkB FibGU+SKVrduCxkHjfRT2gFuF j e9qgz9KzWDzxZ6KfAUPtNFllD nz6QCWxANU7vXK2tR8aCOAmZH cst3O6nAW7K1DqllYirl1el7k s LIQgLKdtM41saNQfr3U8MDMnn CC1ONYmwFbaSkLpdV84Duv+PG WerQwpy8BkEnkbk8ulm2ytgRz 9 TdMeOFPftxFfoYnkMSX8f8ZuE s18D04mWOfdRSRzQAHaXZXyVE QzpLtkqv7faX3hCn9+PGNvbCB 3 uMH6xK0aQRRvCnZ1ZWqvS122T kRkbDJlIclks2rim4wytLu2Xe PzRACsjnPzsThsXSJ2g3LyJf1 8 Y55aANudHKTbYYKePIDeCLEqi Xllzv3isF2aPj3+OT5ao9defx 64xR97pTD+BRMhOKI7wHhyCKb w NMXnhQ4tHJucYyX9VAUxNyTzw M12jZCwXQrhUp1cxZkeeWarFV 8jYQRykssxh445JsPbm7dgUHD w lFXqTEpkPPW6C17vr9O8DGLvQ HFoTUA5bOW2lN6yuTbntvapaK RkeDdwqyLuwLrgJZibDVgsL26 6 IHRvcDsnPlBhdGllbnQgTmFtZ Gr8C4LqTbh0SEIjiFbdNA5kaG EpLPycJu1ngFqxwRfaZH8aMGT p wwdep930WfMxy0hjIUAxmPSyI XquQPF5M87gg9S6SWXjCHNlEU S3oSQ2vQ4itKgzymfdgQMsaIx g hpSunSxqTBilGQglV092KAGpz DvfFtGgkxZcJNOteBY1RU93TE 67jAGun1Y0hJF5R5ZoYQOxeun t xbgriAJ9ZJRvNSEvmD97Bu2ss TlnOb4vRZQqKER3XCYkwPLsC2 RbqD8uJxXmHOMgLSUmI8TjpOX t YMhtN597ZHrvEgP6NFJnazQcU 1KlWEGrqKyjAoS8m4V5Tx4KK7 D1ZI10QO41aTEyw7Q4gYF4J9Q h IWPlwzyfawekzPU0GZWpZHIxw B79Oj8crEwqVr1lGVJpYGL5RQ FcuMTvX6KoqO8tFwXcSBWgNCZ w T2PiuOBsGIfqA814OMxwOuU8X NQyqePfH9ToEUNzyOooYwK4y0 B2Df5WVXy9JA36RW00mKZdk3F 5 kLT4T5IqVICzevgaxtnurPW8U VNaIOKkjD26Gn9leKulPl4rHS MvJMO3DHLjuSCfB2QkkX8hSoI j NMYyZONfF8JieHQrJLhcJ296N JwfIbK0BXMtylScI4AnCLWojV acGvV9j6J4Qm4PSMWgFJ88NIK 5 oPZ5CR56II92U4FcFxinvTGez +PHRhYmxlIHdpZHRoPScxMD TlGtTxzTweYI9tPc1tHUPxTWG v nFxhxXDtYnAfy9ajEWVbFKyhC W1kkBzhG5PmzAX8VNPnp1b7Hr 47H35qP4HhpMC+FFSicKK6hTR 0 bA2rWuXyXlB9PXsyH862QqTcw YJrTpqpr4aiv3pmyEe8DsL5NZ PgwsYzwTprSAL2o3AoAk79H86 s IHdpZHRoPSIxNSUiIHZhbGlnb t1qfG9uMs8+WWMreJR8uEI8xU 7bHwPjXmR7APhcC755TsTnnKU v Sfbqs9hou8xodEo7YuJzQGTqd aUxvJalAEZ6x9PlXr87Y0ErxF kzd0MrRrt0dm51pGPpr6G0kXV 9 W8SlJPQijtgeaWGhzGqrPV5dP UMpdcpgKWRbnF7xQRGiY7z2Jn YiOtM0LHkxJ5HvauM2KRNrdWB g ZZhiTSE4H41ia4B0YPBgUWXuJ WQ9bMB8mW2xgGrafxwlyASzbD yshwEooYvcPOsiZVfdJ055NMR v vEddGXTyvH5yELWqbKNibWpjK S7aTJWpruanGyPYAYSEPSETFF YVQzHCZI12SR13eOObg9L9uYA 9 K1ThKUZjxjjtudkfaIR4AMXbJ ITvrY97vQFiKKonNl6wi7B8i8 76DEKwCPThjN11Ma8ovUquWNX w rOVOdS9ucenqh0iccdwqXnKrG ZYoZDr7VLt9MTAqmLdqDtElXC X9AnF9VYZ4sJWnbY7daUlngem g vO2oXqu+RMEjJcJhPDp2PAjeb GQ+PIMiVLC1cNkiHSayBOEcfM 7kDUCjS6p1WgNvGrZ7YGkkQ7C h EHDsghkzHn70mC3cLhDzGrL0V LvpI3ToqvE9NUFwlPZfPNpyIS L6M49fa0T1CORdEEQiAFH0zBF 4 uP2bnAfyytmkvYNiwXfrevPwj LbbFLdfLVbpK399QELnaKfxJl fdKRcaUXUsQW90GF32iMEbq6D 5 nDA7P6FvKLZcyopxhororSD1C GLlMODqiZ48iFFcKExrQc1de0 W9q709GIYfSIUaqI60Wd1ojIh g SEFopRZZjN2wavzkp2ifldjjR mJnDWJsGHm4QFb4PHEkmLouUm YdTJU4XqM1SPD3sIEkkC3gnHj n vnpncE8cCvu+YqItBUnkJZ20O O49sHKcu6U3jBE3P7XmCJZmab cjnxsefYW6JNHaNJYhmZ26mXM k AAihKk0zz5T1n872JUEpABEjq Z14Wr1wpGfqWDPnjPFByU5jtn bdo1arwqxdIbTwYKTzSUu9PFh 0 FEYmxYwnMyHgSEK2EjT7DDI9w KHlkO0qfWoqruhrbZ6bJxf+T3 D3bOD5mFSwtXvgpZY+OR84ge7 8 R9DoBzlbGmn0UOOkPZZ6mIZ3i R3lDWDoEAyop0A4iRN3G2Mnpl Linm2uc2ctRVTuWKxtW73aoCW w w4W5VOSikIG6JIVltTraAvPua G93Oyc+LHKcjRtqg1VnDthwp4 xrg1rqwIe0TvMyTSTdswMupAa u NAA4z8EjAp96D21pYKiaFTQcK HVzEYPkTKKyaHkqyp9bpC7vEh 8+NNAyaKY4kKZ2dF4zFkWyJpF 2 ZSnzD910AdDshBRbNigcb5jjn 9lmmHp3MxOuWLCgttHitVrkOI Q6y6GqKc74I2HhwHlza9DvTpa 0 hx95dPWfl7C3zNN0U3DkXTWdb gntaRSboNcuGQ6qECMtzqyjEG QuxU6zBPStK6r1AjNrOsR3ZAp u J5GcdyC6AXAxqODjYDOafIRUj A7twenvv9twzkqnTqZjMZShXO j8IUi5IVBfzVxqXsWlBZQ5MeA 2 LWI2uPAxsG0qiPkmtufcnS0kQ yc+RKr3m3iqqMUyWQ8nvHW3RF 36VE35yADvr8R3sJH1K3QjLUA p ipgpmhdkvLV0THSoJRSoxR15Y l9tdLwdQs4tFUEaURW4ZYHcvM ZeW7UwzS6tItMyTBDmFLPwX2I l vOHoROrkD089QByqXvN3KBCek aPoD9MfDAEzkOfjZnN0b1B5Nz 0KUR72JJ76UZ72qQJfy1C6gBP 9 O6HaESMpvepmnuyxtOG0RSWbS IVlqO33Vh1akIcxAe0rWWLyUR E5HADvgMUzV6RmqB9mDnUqHUR w IZVuL7BayJGpNDitF807ZZfrT jW5XRXftgZyM1HiNXLmaDpoVo D8g7R1Aa5SUh30BC53JU04xSP g n4T0yXU0W5PwNEBejtevrsthc IB4PDXaSFMdeH69Ol9ieNhxSp 2oRGWhIET3RRNseYEaC3BozL5 y AdWbYBQyZRLlB9XoiXAkKBjyJ 207MGljKiD5BOIyyhNpP8WzBF CqfZeuXcB8q5C2Yi1USGnwexb 8 X4VnDqouqVJ+NK86JKQoCO56r DYiaVPtk8pkoAx3AoTsKVBqBU W3cOmhMKqog5DbCWRsO52obVJ w c2U6 (more content not included)... [facility] Progress Note-Nurseon 2020 Progress Note-Nurse [id number]#[id number]:1 27 [facility] Heart and Vascular Office/Cl inic Noteon [...] But I recommended that she see a umbrella frame maker for it. From vascular standpoint we will [...] influenza virus vaccine, inactivated 07/20/2020 Recorded [facility] Comment on above: Result Comment: Elec tronically Signed By: Gavin COLEY, Luann FConstance\.br\Date and Time Signed: 06/24/21 10:14 EDT Reminderson 06-24-2021 Reminders - From: Monserrat Greer To: Monserrat Greer; Sent: 06/24/2021 14:02:41 EDT Show up: 05/24/2022 14:02:00 EDT Subject: Ambulatory Reminder Due Date/Time: 06/24/2022 14:02:00 EDT Reminder/Recall Patient is due for a one year follow up and June 2022 [facility] Coding Summary.on 06-17-2021 Coding Summary. CD:[id number] Gh0bW w+PGhlYWQ+WI1WANNpT52ruLF saI7IG2fJBJ6RSBXRZAMNFD2N ER4doIA1PDnoB5GpshPh MgesjNArYW92BKi9NNB1wFntL BlwbF7atVMvA6x7GgMsXB14tC 42OAlmGXGhTbW1WuQnkyryfVJ y T6hyGaPiuSGwSro+PHRhYmxlI HdpZHRoPScxMDAlJyBzdHlsZT 0zXl5iPLEiUQSehIfwjYTgHoD j p2ulKJJiCYpiZY8xfCjpO7Paq DX2CWJry5n4Nq01lGR+PHRkIH L7qTsrLGith285NqZro3ovHKH 3 wSBbAUbpMPP8J44yv2S3SDPdJ VZtMZN2gEW5xM1gaZjkdbxkZ3 FxjQLnGjZ1WWD5qJFmjB6qtAs n bsiwzO2oFqm+H46LSU8TFKPGL C6IJzc7P4GqOvopoQX+PC90YW XhCI45oPMpgYOeb1avbGc4MyE w GVZgIXT7iGrnXJfyj8SjTKVkY 02qcZTds9Z0WSWaoBhucGFpTs McrLK5pT0gPXfwsifcj9worly n Gswqd9jfmj03iC99P47iDRcuP YBoPMR5WCHaAUEezLjjki6jcC 9wIi8+EUmao6dde7vlpLh7DqN w RURgxsBmeOydEGQ4f5RcAi66A 9IdrXlaf7NeZfb4en63pDEsp8 K8cON6ZEwdWIFgtN2gAAuzReT 6 BBVqAjYasV43sKSaLRqzAp5yk CthaVxjSN2yTDFpzgjrHMLtyI 4zSQXebTFwvZwgPB7mOVErnyv m t185YfAyZDF4RPEsmXKsX6Fyl F1uHdUzTMKxKJEyV9YzbNBjPX brB338KTbeKdB0QLZrgtTcF5Q s JUFqzXbpMlS6c0L2Pp9Hs5Mzo hlvESW1EJwbDEJ0RqRmFdRbEi I3B6KeDyq3OXZefQebMX3jP4X h WMNyyfhkkmmziXB3XQRyQUOdq U13nBSoZFkyBe0lj6K2b660UW LvPQJxvI50Gv7ifFbrOEAoeZH U bX0isfica9lwnfprAyLtNFKfN Cf4AAj3YJGwgQkeLoPmNNK1Jd F4TJC1lGRhwR9zuQaukdhftM9 w Oyc+E84ntO4yHOE7SVW8ymrzP TItnnJdEY28CI77X4VlIzjluE FibGU+YDQfcoSxgDgfFB2iTkN j w8xbp5RcIRqlG2XmLKPbSPvpZ ds3TIJuOIZ6eYY4jV4zDHDjAA lgs1S1xVD9B1EjcbMvpj3no0u s ECEyUSmvR22ilIUwh7C4HXDmb LG1URNbkThiVyRlaT87Djn+PG WzmOpve2LpSctfz9xdf1knrRb 9 PbCoMEJbefPdpColEYF0f4IqU t67D98bVOspEWZxTIFxLGPkRM TwiVtcrq4lkS0jWs9+PGNvbCB 3 fMU6vS9iWOWsRjI4RXreD826O cPuaBPxYslpj6fts2qufIm1Ol ByVBEtngQfnZniTPJ0a2ZmGe5 8 N73eKYhkEFIoJDSsHTFeCEAne Jkjmy4gjT0wFx7+KH0uy0bddb 43fI94cAX+RAMwBBM6eYynNXj w PAKmiL4wIZhtCgK4BSKfSkWan T06tLNyAHsdIx5toPznqOaqCG 9cTJOiyqqng697TqSnz3lrUWW w cBAsFEudIQZ7O86bg7I4NIWyI HOtSBO3gLF0pX5eqWxotnmgrF GamJrglmDxsJqpVBrwRMfgB08 6 IHRvcDsnPlBhdGllbnQgTmFtZ Hm9C4CzFid2FVMxeEobKD3mpX AzXUvcOl2jeExmqMgpBA7iIZC p oubva707BoUio3jrMUVsrCNtH VbqKWQ7D07ww8V1ZSGlFTZqGM Q4yEI9wL3fcUgcvvabjXQdrKb g fvVzjZigPOgvITazF977VMXxh EzlIiNkubCcQWVwzCD3TP12YF 10fJXeb3S1dVY7Y6UeWLMkarn t epobiFE8KDHaIADssR32Fh6pm UswZd3eDHGgRNO7YPNufQZeG2 BolS8bFfBoVKEoSLRqL2ZzoOQ t KXiqQ444NDoxYuX5SKCrpzStF 1XqPWTahHruGyX0f4I0Lu9MV2 I4XP81OF18kMFrk6O8mMX4I5B h OYFqmztaonchgMX6EYHqVVJxl D06Nx0zuGylCz8yYXYfHYP5NL ElaEKxW6KztA0lFnDcAEXbCZX w S1ArtPEpCLlsZ471TXakWoB9Z XLtsgHcB8ExWPWbjJtvZxM2m3 E7Hb4NFFw5MI92VT34rKBag4H 5 aDM6Z1YdNAIjrnytcrvvrQL6R WLfAVOnmS27Lc2ngLxtZh4jNX KfJVD3DCMxcKBjT9YcdX1dFkZ j IBOqYTSiQ5HdpWBpQIziK341D IgnUxS5NYYetxWfL4YfSGCueS xaZcW1f8T6Tu7NWKFrLI42TPS 5 cWF2HS19PB91C6ZzZrskyUWzg +PHRhYmxlIHdpZHRoPScxMD WhMlOmrIfrOI1nPl1fVAKpNIP v sZdvaPYrYaHul4clOPXfGUcrZ H2qdHiuM9ExbUX5MRFxi6d9Fr 04T28tH7HqoAS+RQUklWS0xCL 0 mK5oOxCbMiH9QGujG927GwJjs JCgWqdnj6npb1bxiWi3RfV1ZR RlsoDdiNqvHYP3c6UkBy48X13 s IHdpZHRoPSIxNSUiIHZhbGlnb u0ztN6jVp1+QTQygOY6wHL7pI 1tLcZmUfG6TRorQ487LvWmwEK v Ddyis5pxo3arxOm6EwXeDOSgd aEiiEjtRBO9g5BrYu99E7YjaM wpr3TtPnl7pk41nSMvo1M3bRF 9 Z3UqIYLnfntvdAYfdQabQG7fI QPbswcgOAUmjV8aDRGbV3e8Nu JoRbD9RPozH5RbviR7JVUcpHF g PYqsWPP8K26th1T8OJWqIIGhD QI7jTO8bH0vvBiyhqybuLQjqF eiagByoEsnMXhgVOivV394EPQ v eSkcJMTgmL5jENVekFFmnKptP L1iWKRxldnmOdHGUJIIBKXBOP PHOpHRQZ68UT42wAZch7I6xQS 9 G7MzXLLmqpahknfthWS4CQQmI JObmE25hYAuSJirUu0pb2Y3i2 02UPOsSNMbwG19Oe4bkIdsMXU w dSOXiJ1vcybqn4sjanbxXnPwT DHdJDq8IYn6ZWZllOoxUgKsXK J0CjY5NKY2wKOjkF8snGfsdwq g dT7tBlx+PHVjMwLvUYo8NHvgg GQ+CODzPCK6vMfrAUstBWFwoE 2wXDUfB4r0ZnOlXtX1PEgbD7H h CTVxjvhuCt96pX5aSoBuKzL1H TvbR3XbhtS3QNAuaZPxCDufJO N0K01en1G8QZAfTEKkWBI1cKB 4 pV7koSxvfdurtXJpsAkvcxBia NnrDLdbLWggN449RGXvqMxfSe tzKZhmAWXzKT91QI98lNVau1Y 5 iCH7U2KfGZJjqixebpihqZN3R IJqSPMcxC37wZSnTWjiDz3cm6 N0f395GKFqCYPdwY01Uk7wuYm g DTMmjVTLxK0ywzekx1mpmdmbV kYhETXnGIe8PXv3QLPggOxuNq YoGEE5TpN3XCB5iYOlqM1gjUj n hitkuF4iZdm+RjLoWWrsZM55Z I21iAEtw9I9fJJ3C2BsUZXgiv hekyxucCT0VNExIGPfaM31yXO k TBofTj9wf1C2s746YPHuXCMzq E88Lx0olUlhTVCcxVBDmC8efa nuw5crypkzVbNxUUJpWAc1FSf 0 BXTwqMngSgKnLYE6MiW6FBU9c KSibX0ijZtiurjsqL9iDlc+T3 P1cEB4xSCqxAazcJT+QY75hw9 8 B7YqQyaeYgb4NCCjDOR7zOG7e O1aXWIaKGxyw0K7cGP8K1Gyzm Yhat5bh3arPOOzFWmvC12zvIQ w k2L5XERqsRL3JFWftIbsBcBkn G93Oyc+ULIpwMflw8AgYjqws9 mwi6dqhHv6RlDiRYNpjvFaiVg u POP7s3ZgKo27Z94qIBcyVOSzV YFjVPSnJXAlqQvsep1hnG6zWk 8+ZVGhlAI2oKP8hL0tAtPgKpC 2 TOltQ089ClOclSFhOkchc4lxb 3joyXa7KiSwRRNljcEdeCuuIG C9q8AlHx59P4GdcYahl7GtYnm 0 kf89bXFdi8V9eQK5Y6LrRYMgx whxfHDbuGpfPG4rOXSgrkopDN WguK8sUHDgN8k6XxEgQtF9HMl u C3JspzT0GZOudJWlTSWcnGGGa F8nfkchl6ykhtnqHhQdAKAsCR l5KYv3GMIhwXhqYrZpOVE6McI 2 UHQ3zXGhrL6yuVfutcoxfU3jU yc+DMm1m4dlwIRaKO1mzYS0QG 23QV52yXYsp3B7aSC9N7DeMUV p gyiwjsaiaTS8BCRtUGBcqD62M b5jbZmwSg9rAHEmVZI8HAHmnY NdB1OgeR1cIhNxREYdMXKgF0L l lOOpFKxrQ790DZlsFgF9ZHHlm aBfU5OuFLAfdZqhZyK0q4V0Oc 0GQD36PJ53HV12sOSdq4Y0jED 9 K2PzDVZwsmnfseriyJL9DNZhM VRsgK47Vn8dnCxnBu1gNBZcMR L3XRLjoTOwG1QnjZ1qTkPfSKQ w UQUsS8ShgKNqNWsrU707TFmqR yG6BUXlanPnC7NpDMGnaMdsRi B0e0C9Vl2NFa34GQ15WX53pVS g q6W7sQX1S6DuVTEuxclspxlrl UE0LDVqOZGrcU09Ak8xeMtbPt 7gVAMdBSG3HZQcaYVjI5AbvA7 y IdTbBXWeBJNnW9CbdNQsXNjyC 645KDdcDcN7ILBkekKiM1CkSH XjtSvhNpJ1o7T8Hd9FGUoagsb 8 K3GrGacncGU+DD14PLVpZH69t ZOmsOFkx9kaoWz1DdMoMQWyKZ V4oMjlKDpwl2PwHDThY18yfEF w c2U6 (more content not included)... Normal [facility] CTA Abdomen and Pelvison CTA Abdomen [...] 370 Contrast amount in ml's: 100 Normal [facility] CTA Cheston 06-16-2021 CTA Chest Exam [...] 370 Contrast amount in ml's: 100 Normal [facility] Consent for Treatmenton 08-0 Consent for Treatment [id number]#1.00CD:12 7 Normal [facility] Creatinineon 06-11-2021 Creatinine [Mass/Vol] 0.8 mg/dL Normal 0.5-1.3 [facility] Comment on above: Performed By: #### 2 [id number] ####[facility] [address] [place] [id number] Physician Orderon 06-11-2021 Physician Order [id number]#1.00CD:12 7 Normal [facility] eGFRon 06-11-2021 GFR/1.73 sq M.predicted among blacks MDRD (S/P/Bld) [Vol rate/Area] mL/min/{1.73_m2} Normal >=59 [facility] Comment on above: Order Comment: Order added by Discern Expert. Result Comment: eGFR is race adjusted. AA=. Performed By: #### 2 [id number], [id number] ####[facility] [facility] [address] [place] [address] GFR/1.73 sq M.predicted among non-blacks MDRD (S/P/Bld) [Vol rate/Area] mL/min/{1.73_m2} Normal >=59 [facility] Comment on above: Order Comment: Order added by Discern Expert. Result Comment: Student Services Rep jenny kidney disease could be indicated at eGFR's of less than 60 mL/min/1.73m2. Kidney failure is indicated at less than 15 mL/min/1.73m2. Performed By: #### 2 [id number], [id number] ####[facility] [address] [place] [address] Pre-Certification Formon Pre-Certification Form [id number]#[id number]:1 27 Normal [facility] Heart and Vascular Office/Cl inic Noteon [...] influenza virus vaccine, inactivated 07/20/2020 Recorded Normal [facility] Comment on above: Result Comment: Elec [...] But I recommended that she see a umbrella frame maker for it. From vascular standpoint we will [...] influenza virus vaccine, inactivated 07/20/2020 Recorded Normal [facility] Comment on above: Result Comment: Elec tronically Signed By: Gavin COLEY, Luann FConstance\.br\Date and Time Signed: 12/17/20 12:03 EST Coding Summary.on 12-04-2020 Coding Summary. CODING DATE: 021 FINAL [facility] STATUS: Home (Routine DC) PAYOR: Medicare [...] CphT Date Saved: 12/04/2020 01:21 pm Normal [facility] CTA Abdomen and Pelvison CTA Abdomen [...] 370 Contrast amount in ml's: 100 Normal [facility] CTA Cheston 12-03-2020 CTA Chest Exam [...] REPORT Dictated: (more content not included)... Normal [facility] Consent for Treatmenton 11-07 Consent for Treatment [id number]#1.00CD:12 7 Normal [facility] Creatinineon 12-03-2020 Creatinine [Mass/Vol] 0.9 mg/dL Normal 0.5-1.3 [facility] Comment on above: Performed By: #### 2 [id number], [id number] ####[facility] [address] [place] [address] Physician Orderon 12-03-2020 Physician Order [id number]#1.00CD:1 27 Normal [facility] eGFRon 12-03-2020 GFR/1.73 sq M.predicted among blacks MDRD (S/P/Bld) [Vol rate/Area] mL/min/{1.73_m2} Normal >=59 [facility] Comment on above: Order Comment: Order added by Discern Expert. Result Comment: eGFR is race adjusted. AA=. Performed By: #### 2 [id number], [id number] ####[facility] [address] [place] [address] GFR/1.73 sq M.predicted among non-blacks MDRD (S/P/Bld) [Vol rate/Area] 60 mL/min/1.73 m2 Normal >=59 [facility] Comment on above: Order Comment: Order added by Discern Expert. Result Comment: Student Services Rep jenny kidney disease could be indicated at eGFR's of less than 60 mL/min/1.73m2. Kidney failure is indicated at less than 15 mL/min/1.73m2. Performed By: #### 2 [id number], [id number] ####[place] [address] [place] [address] Pre-Certification Formon Pre-Certification Form [id number]#[id number]:1 27 Normal [facility] Ambulatory Clinical Summaryo n 11-03-2020 Ambulatory Clinical Summary {[id number] Normal [facility] Patient Educationon 11-03-20 20 Patient Education Family Medicine Overactive Bladder, Adult [...] these musc (more content not included)... Normal [facility] Urology Office/Clinic Noteon 11-03-2020 Urology Office/Clinic Note Chief Complaint 4 month f/u This patient is an 79-year-old female with a history of frequency nocturia and urgency incontinence. She is been dealing with bladder problems for many years. Her last visit was on 06/09/2020. [facility] Staff Pt is here for a 4 month f/u. Previous dx of frequent urination, mixed incontinence, microhematuria and nocturia. Pt is unable to give a urine sample today. She states that she was unsure if she has a UTI and she dropped off a UA specimen at [facility] this past Monday. She is not [...] Levsin SL 0.125mg will send to medicine [facility]. and pt is to take this pill as needed. Pt is to call the office if she needs more refills or if there is changes in urinary issues. Pt will return in 6 months with PVR. Orders: hyoscyamine, 0.125 mg = 1 tab(s), Oral, q6hr, As needed, # 30 tab(s), Refills(s) 1, Pharmacy: [facility], 155, cm, 11/03/20 13:58:00 EST, Height/Length Dosing, 69, kg, 11/03/20 13:58:00 EST, Weight Dosing I have reviewed the previous health record information and history for this patient from Dr. Farr Follow-up With When Contact Information Yordan Cordon MD, Aime Bolden In 6 months [facility] [address] [place] [address]- Additional Instructions: PVR Patient Education Overactive Bladder, [...] retention H (more content not included)... Normal [facility] Comment on above: Result Comment: Elec tronically Signed By: Yordan Cordon MD, Aime Bolden\.br\Date and Time Signed: 11/03/20 14:33 EST\.br\Electronically Co-Signed By: Ciara Barreto MA\.br\Date and Time Co-Signed: 11/03/20 14:27 EST BMP FASTINGon 09-30-2020 Anion gap [Moles/Vol] 7 mmol/L Low 8-16 [facility] Comment on above: Performed By: #### B MPF #### Testing performed at [address] [address] Calcium [Mass/Vol] 9.0 mg/dL Normal 8.4-10.2 [facility] Comment on above: Performed By: #### B MPF #### Testing performed at [address] [address] Chloride [Moles/Vol] 99 mmol/L Normal 98-107 [facility] Comment on above: Result Comment: Plea se note: Triglyceride levels of 600mg/dL or higher may positively bias chloride results by approximately 2.1 mmol Performed By: #### B MPF #### Testing performed at [address] [address] CO2 [Moles/Vol] 33 mmol/L High 22-30 [facility] Comment on above: Performed By: #### B MPF #### Testing [place] [address] Creatinine [Mass/Vol] 0.80 mg/dL Normal 0.7-1.2 [facility] Comment on above: Performed By: #### B MPF #### Testing [place] [address] EST. GFR, >60 Normal [facility] Comment on above: Performed By: #### B MPF #### Testing [place] [address] EST. GFR,Non >60 Normal [facility] Comment on above: Performed By: #### B MPF #### Testing [place] [address] GFR/1.73 sq M predicted among non-blacks MDRD (S/P/Bld) [Vol rate/Area] Average GFR for 70+ years old = 75. Normal [facility] Comment on above: Result Comment: Student Services Rep jenny Kidney disease, GFR = <60. Kidney failure, GFR = <15. The GFR estimate is not adjusted for extreme body surface area or acute process, nor has it been validated for women or ethnic groups other than and . Testing performed at [place] [address] Performed By: #### B MPF #### Testing [place] [address] Glucose [Mass/Vol] 94 mg/dL Normal 70-100 [facility] Comment on above: Result Comment: NORMAL <100 mg/dL PREDIABETES 101-126 mg/dL DIABETES 126 mg/dL or higher Performed By: #### B MPF #### Testing [place] [address] Potassium [Moles/Vol] 4.0 mmol/L Normal 3.5-5.1 [facility] Comment on above: Performed By: #### B MPF #### Testing performed at [address] [place] [address] Sodium [Moles/Vol] 139 mmol/L Normal 137-145 [facility] Comment on above: Performed By: #### B MPF #### Testing performed at [facility] [id number] Urea nitrogen [Mass/Vol] 19 mg/dL Normal 7-20 [facility] Comment on above: Performed By: #### B MPF #### Testing performed at [place] [id number] APTTon 05-20-2020 aPTT Coag (Bld) [Time] 39.8 s High 25.0-35.0 [facility] Comment on above: Order Comment: [...] PURPOSE. Performed By: #### 3 0738 #### [facility] [address] aPTT Coag (Bld) [Time] 42.3 s High 25.0-35.0 [facility] Comment on above: Order Comment: [...] PURPOSE. Performed By: #### 3 0738 #### [facility] [address] [place] [address], [facility] BASIC METABOLIC PANELon 05-06 Calcium [Mass/Vol] 8.3 mg/dL Low 8.6-10.3 [facility] Comment on above: Order Comment: No: D o not add to previous draw Performed By: #### 3 0738 #### [facility] [address] [place] [address], [place] Chloride [Moles/Vol] 92 mmol/L Low 98-107 [facility] Comment on above: Order Comment: No: D o not add to previous draw Performed By: #### 3 0738 #### [facility] [address] [place] [address], [place] CO2 [Moles/Vol] 34 mmol/L High 21-31 [facility] Comment on above: Order Comment: No: D o not add to previous draw Performed By: #### 3 0738 #### [facility] [address] [place] [address], [place] Creatinine [Mass/Vol] 0.60 mg/dL Normal 0.60-1.20 [facility] Comment on above: Order Comment: No: D o not add to previous draw Performed By: #### 3 0738 #### [facility] [address] [place] [address], [place] GFR/1.73 sq M predicted among blacks MDRD (S/P/Bld) [Vol rate/Area] mL/min/{1.73_m2} Normal >60 [facility] Comment on above: Order Comment: No: D o not add to previous draw Result Comment: Calc ulation may not be valid for patients over 70 years Performed By: #### 3 0738 #### [facility] [address] [place] [address], [place] GFR/1.73 sq M predicted among non-blacks MDRD (S/P/Bld) [Vol rate/Area] mL/min/{1.73_m2} Normal >60 [facility] Comment on above: Order Comment: No: D o not add to previous draw Result Comment: Calc ulation may not be valid for patients over 70 years Performed By: #### 3 0738 #### [facility] [address] [place] [address], [place] Glucose [Mass/Vol] 88 mg/dL Normal 70-100 [facility] Comment on above: Order Comment: No: D o not add to previous draw Performed By: #### 3 0738 #### [facility] [address] [place] [address], [place] Potassium [Moles/Vol] 3.4 mmol/L Low 3.5-5.1 [facility] Comment on above: Order Comment: No: D o not add to previous draw Performed By: #### 3 0738 #### [facility] [address] [place] [address], [place] Sodium [Moles/Vol] 133 mmol/L Low 136-145 [facility] Comment on above: Order Comment: No: D o not add to previous draw Performed By: #### 3 0738 #### [facility] [address] [place] [address], [facility] Urea nitrogen [Mass/Vol] 18 mg/dL Normal 7-25 [facility] Comment on above: Order Comment: No: D o not add to previous draw Performed By: #### 3 0738 #### [facility] [address] [place] [address], [place] CBC COMPLETE BLOOD COUNTon 0 7- Erythrocyte distribution width (RBC) [Ratio] 14.8 % Normal 11.5-15.0 [facility] Comment on above: Order Comment: No: D o not add to previous draw Performed By: #### 3 0738 #### [facility] [address] [place] [address], [place] Hematocrit (Bld) [Volume fraction] 28.1 % Low 36.0-45.0 [facility] Comment on above: Order Comment: No: D o not add to previous draw Performed By: #### 3 0738 #### [facility] [address] [place] [address], [place] Hemoglobin (Bld) [Mass/Vol] 9.0 g/dL Low 12.0-15.0 [facility] Comment on above: Order Comment: No: D o not add to previous draw Performed By: #### 3 0738 #### [facility] [address] [place] [id number], [facility] MCH (RBC) [Entitic mass] 28.6 pg Normal 27.0-33.0 [facility] Comment on above: Order Comment: No: D o not add to previous draw Performed By: #### 3 0738 #### [facility] [address] [place] [id number], [facility] MCHC (RBC) [Mass/Vol] 32.0 g/dL Normal 32.0-35.0 [facility] Comment on above: Order Comment: No: D o not add to previous draw Performed By: #### 3 0738 #### [facility] [address] [place] [address], [facility] MCV (RBC) [Entitic vol] 89.2 fL Normal 82.0-98.0 [facility] Comment on above: Order Comment: No: D o not add to previous draw Performed By: #### 3 0738 #### [facility] [address] [place] [address], [facility] Nucleated RBC/100 WBC (Bld) [Ratio] 0 % Normal 0-0 [facility] Comment on above: Order Comment: No: D o not add to previous draw Performed By: #### 3 0738 #### [facility] [address] [place] [address], [place] PLAT CNT 535 10*3/uL High 150-400 [facility] Comment on above: Order Comment: No: D o not add to previous draw Performed By: #### 3 0738 #### [facility] [address] [place] [address], [facility] RBC (Bld) [#/Vol] 3.15 10*6/uL Low 3.80-5.00 [facility] Comment on above: Order Comment: No: D o not add to previous draw Performed By: #### 3 0738 #### [facility] [address] [place] [address], [facility] WBC (Bld) [#/Vol] 8.60 10*3/uL Normal 4.00-10.60 [facility] Comment on above: Order Comment: No: D o not add to previous draw Performed By: #### 3 0738 #### [facility] [address] [place] [address], [facility] LDH BLOODon 05-20-2020 LDH 272 Units/L High 140-271 [facility] Comment on above: Performed By: #### 5 0103 #### [facility] [address] [place] [address], [facility] LIVER BATTERYon 05-20-2020 Albumin [Mass/Vol] 2.8 g/dL Low 3.5-5.7 [facility] Comment on above: Performed By: #### 5 0103 #### [facility] [address] [place] [address], [facility] ALKALINE PHOSPH 64 IU/L Normal 34-104 [facility] Comment on above: Performed By: #### 5 0103 #### [facility] [address] [place] [address], [facility] ALT [Catalytic activity/Vol] 10 U/L Normal 7-52 [facility] Comment on above: Performed By: #### 5 0103 #### [facility] [address] [place] [address], [facility] AST [Catalytic activity/Vol] 15 U/L Normal 13-39 [facility] Comment on above: Performed By: #### 5 0103 #### [facility] [address] [place] [address], [facility] Bilirubin [Mass/Vol] 0.6 mg/dL Normal 0.3-1.0 [facility] Comment on above: Performed By: #### 5 0103 #### [facility] [address] [facility] [address] Bilirubin.direct [Mass/Vol] 0.2 mg/dL Normal 0.0-0.2 [facility] Comment on above: Performed By: #### 5 0103 #### [facility] [address] [facility] [address] Protein [Mass/Vol] 5.9 g/dL Low 6.0-8.3 [facility] Comment on above: Performed By: #### 5 0103 #### [facility] [address] [facility] [address] MAGNESIUM BLOODon 05-20-2020 Magnesium [Mass/Vol] 2.0 mg/dL Normal 1.9-2.7 [facility] Comment on above: Order Comment: No: D o not add to previous draw Performed By: #### 3 0738 #### [facility] [address] *ANAEROBIC CULTUREon 020 *ANAEROBIC CULTURE Clinical Report: (D) Specimen/Source: FLUID/OTHER Collected: 05/19/2020 15:59 Status: Final Last Updated: 05/24/2020 13:26 (1) Thoracentesis Fluid No: Do not add to previous draw CULT RES (Final) No Anaerobes Isolated 5 Days Normal [facility] Comment on above: Order Comment: Thora centesis FluidNo: Do not add to previous draw Performed By: #### 5 0103 #### [facility] [address] *BODY FLUID CULTUREon 2019 *BODY FLUID CULTURE Clinical Report: (D) Specimen/Source: FLUID/THORACENTESIS FLUID Collected: 05/19/2020 15:59 Status: Final Last Updated: 05/24/2020 06:31 (1) No: Do not add to previous draw GRAM (Final) Polys Present No Bacteria Seen CYTOSPUN (Final) This Gram Stain was done on a cytocentrifuged specimen CULT RES (Final) No Growth Day 5 Normal [facility] Comment on above: Order Comment: No: D o not add to previous draw Performed By: #### 3 0738 #### [facility] [address] [facility] [address], [facility] APTTon 05-19-2020 aPTT Coag (Bld) [Time] 55.0 s High 25.0-35.0 [facility] Comment on above: Order Comment: [...] HEPARIN. Performed By: #### 8 [id number] #### [facility] [address] [facility] [place] [address], [facility] aPTT Coag (Bld) [Time] 39.1 s High 25.0-35.0 [facility] Comment on above: Order Comment: [...] PURPOSE. Performed By: #### 8 6002 #### [facility] [address] [place] [address], [facility] BASIC METABOLIC PANELon 05-06 Calcium [Mass/Vol] 8.5 mg/dL Low 8.6-10.3 [facility] Comment on above: Order Comment: No: D o not add to previous drawPER RAMILA RANDOLPH... DRAW ALL OF PTS A.M. LABS NOW. HERMINIO RANDOLPH... DRAW ALL OF PTS A.M. LABS NOW. SS Performed By: #### 8 6002 #### [facility] [address] [place] [address], [facility] Chloride [Moles/Vol] 93 mmol/L Low 98-107 [facility] Comment on above: Order Comment: No: D o not add to previous drawPER RAMILA RANDOLPH... DRAW ALL OF PTS A.M. LABS NOW. HERMINIO RANDOLPH... DRAW ALL OF PTS A.M. LABS NOW. SS Performed By: #### 8 6002 #### [facility] [address] [place] [address], [facility] CO2 [Moles/Vol] 34 mmol/L High 21-31 [facility] Comment on above: Order Comment: No: D o not add to previous drawPER RAMILA RANDOLPH... DRAW ALL OF PTS A.M. LABS NOW. HERMINIO RANDOLPH... DRAW ALL OF PTS A.M. LABS NOW. SS Performed By: #### 8 6002 #### [facility] [address] [place] [address], [facility] Creatinine [Mass/Vol] 0.62 mg/dL Normal 0.60-1.20 [facility] Comment on above: Order Comment: No: D o not add to previous drawPER RAMILA RANDOLPH... DRAW ALL OF PTS A.M. LABS NOW. HERMINIO RANDOLPH... DRAW ALL OF PTS A.M. LABS NOW. SS Performed By: #### 8 [id number] #### [facility] [address] [place] [address], [facility] GFR/1.73 sq M predicted among blacks MDRD (S/P/Bld) [Vol rate/Area] mL/min/{1.73_m2} Normal >60 [facility] Comment on above: Order Comment: No: D o not add to previous drawPER RAMILA RANDOLPH... DRAW ALL OF PTS A.M. LABS NOW. HERMINIO RANDOLPH... DRAW ALL OF PTS A.M. LABS NOW. SS Result Comment: Calc ulation may not be valid for patients over 70 years Performed By: #### 8 [id number] #### [facility] [address] [place] [address], [facility] GFR/1.73 sq M predicted among non-blacks MDRD (S/P/Bld) [Vol rate/Area] mL/min/{1.73_m2} Normal >60 [facility] Comment on above: Order Comment: No: D o not add to previous drawPER RAMILA RANDOLPH... DRAW ALL OF PTS A.M. LABS NOW. SSPGENE RANDOLPH... DRAW ALL OF PTS A.M. LABS NOW. SS Result Comment: Calc ulation may not be valid for patients over 70 years Performed By: #### 8 [id number] #### [facility] [address] [place] [address], [facility] Glucose [Mass/Vol] 95 mg/dL Normal 70-100 [facility] Comment on above: Order Comment: No: D o not add to previous drawPER RAMILA RANDOLPH... DRAW ALL OF PTS A.M. LABS NOW. SSPGENE RANDOLPH... DRAW ALL OF PTS A.M. LABS NOW. SS Performed By: #### 8 [id number] #### [facility] [address] [place] [address], [facility] Potassium [Moles/Vol] 3.2 mmol/L Low 3.5-5.1 [facility] Comment on above: Order Comment: No: D o not add to previous drawPER RAMILA RANDOLPH... DRAW ALL OF PTS A.M. LABS NOW. SSPGENE RANDOLPH... DRAW ALL OF PTS A.M. LABS NOW. SS Performed By: #### 8 [id number] #### [facility] [address] [place] [address], [facility] Sodium [Moles/Vol] 133 mmol/L Low 136-145 [facility] Comment on above: Order Comment: No: D o not add to previous drawPER RAMILA RANDOLPH... DRAW ALL OF PTS A.M. LABS NOW. HERMINIO RANDOLPH... DRAW ALL OF PTS A.M. LABS NOW. SS Performed By: #### 8 [id number] #### [facility] [address] Urea nitrogen [Mass/Vol] 20 mg/dL Normal 7-25 [facility] Comment on above: Order Comment: No: D o not add to previous drawPER RAMILA RANDOLPH... DRAW ALL OF PTS A.M. LABS NOW. HERMINIO RANDOLPH... DRAW ALL OF PTS A.M. LABS NOW. SS Performed By: #### 8 [id number] #### [facility] [address] CBC COMPLETE BLOOD COUNTon 05-19-2020 Erythrocyte distribution width (RBC) [Ratio] 14.7 % Normal 11.5-15.0 [facility] Comment on above: Order Comment: No: D o not add to previous drawPER RAMILA RANDOLPH... DRAW ALL OF PTS A.M. LABS NOW. HERMINIO RANDOLPH... DRAW ALL OF PTS A.M. LABS NOW. SS Performed By: #### 8 [id number] #### [facility] [address] Hematocrit (Bld) [Volume fraction] 27.4 % Low 36.0-45.0 [facility] Comment on above: Order Comment: No: D o not add to previous drawPER RAMILA RANDOLPH... DRAW ALL OF PTS A.M. LABS NOW. HERMINIO RANDOLPH... DRAW ALL OF PTS A.M. LABS NOW. SS Performed By: #### 8 [id number] #### [facility] [address] Hemoglobin (Bld) [Mass/Vol] 8.8 g/dL Low 12.0-15.0 [facility] Comment on above: Order Comment: No: D o not add to previous drawPER RAMILA RANDOLPH... DRAW ALL OF PTS A.M. LABS NOW. HERMINIO RANDOLPH... DRAW ALL OF PTS A.M. LABS NOW. SS Performed By: #### 8 [id number] #### [facility] [address] MCH (RBC) [Entitic mass] 28.7 pg Normal 27.0-33.0 [facility] Comment on above: Order Comment: No: D o not add to previous drawPER RAMILA RANDOLPH... DRAW ALL OF PTS A.M. LABS NOW. HERMINIO RANDOLPH... DRAW ALL OF PTS A.M. LABS NOW. SS Performed By: #### 8 [id number] #### [facility] [address] MCHC (RBC) [Mass/Vol] 32.1 g/dL Normal 32.0-35.0 [facility] Comment on above: Order Comment: No: D o not add to previous drawPER RAMILA RANDOLPH... DRAW ALL OF PTS A.M. LABS NOW. HERMINIO RANDOLPH... DRAW ALL OF PTS A.M. LABS NOW. SS Performed By: #### 8 [id number] #### [facility] [address] MCV (RBC) [Entitic vol] 89.3 fL Normal 82.0-98.0 [facility] Comment on above: Order Comment: No: D o not add to previous drawPER RAMILA RANDOLPH... DRAW ALL OF PTS A.M. LABS NOW. HERMINIO RANDOLPH... DRAW ALL OF PTS A.M. LABS NOW. SS Performed By: #### 8 [id number] #### [facility] [address] Nucleated RBC/100 WBC (Bld) [Ratio] 0 % Normal 0-0 [facility] Comment on above: Order Comment: No: D o not add to previous drawPER RAMILA RANDOLPH... DRAW ALL OF PTS A.M. LABS NOW. HERMINIO RANDOLPH... DRAW ALL OF PTS A.M. LABS NOW. SS Performed By: #### 8 [id number] #### [facility] [address] [facility] [address], [facility] PLAT CNT 576 10*3/uL High 150-400 [facility] Comment on above: Order Comment: No: D o not add to previous drawPER RAMILA RANDOLPH... DRAW ALL OF PTS A.M. LABS NOW. HERMINIO RANDOLPH... DRAW ALL OF PTS A.M. LABS NOW. SS Performed By: #### 8 [id number] #### [facility] [address] [place] [address], [facility] RBC (Bld) [#/Vol] 3.07 10*6/uL Low 3.80-5.00 [facility] Comment on above: Order Comment: No: D o not add to previous drawPER RAMILA RANDOLPH... DRAW ALL OF PTS A.M. LABS NOW. SSPGENE RANDOLPH... DRAW ALL OF PTS A.M. LABS NOW. SS Performed By: #### 8 [id number] #### [address] [address], [facility] WBC (Bld) [#/Vol] 10.19 10*3/uL Normal 4.00-10.60 [facility] Comment on above: Order Comment: No: D o not add to previous drawPER RAMILA RANDOLPH... DRAW ALL OF PTS A.M. LABS NOW. SSPGENE RANDOLPH... DRAW ALL OF PTS A.M. LABS NOW. SS Performed By: #### 8 [id number] #### [id number] [place] [address] CHEST AND LATERALon 05-19-20 20 CHEST AND LATERAL [facility] Department of Radiology [address] [place] [id number] Patient Name: MEGAN HERRON : 1940 Sex: F Age: Race: White Pt. Location: [id number] Patient Status: I Ordered Date: 05/19/2020 10:15:00 [...] infiltrates. Electronically signed: James Clayton. Transcribed by: [email or web address], User Resident: Electronically Signed by: JAMES CLAYTON @ 05/19/2020 04:11 PM Normal [facility] Comment on above: Order Comment: Evalu ate for Pneumothorax FLUID CELL COUNTon 0 Lymphocytes/100 WBC (Bld) 33 % Normal [facility] Comment on above: Order Comment: Ruthy adame FluidNo: Do not add to previous draw Performed By: #### 3 0738 #### [facility] [address] [place] [address], [facility] MESOTHELIAL 13 Normal [facility] Comment on above: Order Comment: Noama centesis FluidNo: Do not add to previous draw Performed By: #### 3 0738 #### [facility] [address] [place] [address], [facility] OTHER F2 Diff done by cytospin Normal [facility] Comment on above: Order Comment: Thora centesis FluidNo: Do not add to previous draw Performed By: #### 3 0738 #### [facility] [address] [place] [address], [facility] OTHER F3 Checked by Anderson kenney M.D. Normal [facility] Comment on above: Order Comment: Thora centesis FluidNo: Do not add to previous draw Result Comment: Resu lt changed by KMCMMARCO ANTONIO on 05/20/2020 10:07. The previous value was Preliminary report; verified report to follow. Performed By: #### 3 0738 #### [facility] [address] [place] [address], [facility] RBC (Bld) [#/Vol] [address] RBC/uL Normal [facility] Comment on above: Order Comment: Thora centesis FluidNo: Do not add to previous draw Performed By: #### 3 0738 #### [facility] [address] [place] [address], [facility] SEGS 54 Normal [facility] Comment on above: Order Comment: Thora centesis FluidNo: Do not add to previous draw Performed By: #### 3 0738 #### [facility] [address] [place] [address], [facility] SOURCE THORACENTESIS Normal [facility] Comment on above: Order Comment: Thora centesis FluidNo: Do not add to previous draw Performed By: #### 3 0738 #### [facility] [address] [place] [id number], [facility] TOTAL VOLUME 250 mL Normal [facility] Comment on above: Order Comment: Thora centesis FluidNo: Do not add to previous draw Performed By: #### 3 0738 #### [facility] [address] [facility]. [address] WBC (Bld) [#/Vol] 614 WBC/uL Normal [facility] Comment on above: Order Comment: Ruthy adame FluidNo: Do not add to previous draw Result Comment: Some reference interval(s) and other method performance specifications have not been established for analytes on this body fluid. The test result must be integrated into the clinical context for interpretation. Performed By: #### 3 0738 #### [facility] [address] [facility] [address] LDH FLUIDon 05-19-2020 LDH 306 Units/L Normal [facility] Comment on above: Order Comment: No: D o not add to previous draw Result Comment: The reference range and other method performance specifications have not been established for this test in fluids. the test result should be integrated into the clinical context for interpretation. Performed By: #### 3 0738 #### [facility] [address] [facility]. [address] MAGNESIUM BLOODon 05-19-2020 Magnesium [Mass/Vol] 1.7 mg/dL Low 1.9-2.7 [facility] Comment on above: Order Comment: No: D o not add to previous drawPER RAMILA RANDOLPH... DRAW ALL OF PTS A.M. LABS NOW. SSPER RAMILA RANDOLPH... DRAW ALL OF PTS A.M. LABS NOW. SS Performed By: #### 8 [id number] #### [facility] 3000 [facility]. [address] PROTHROMBIN TIMEon 0 INR Coag (PPP) [Relative time] 1.24 {INR} High 0.91-1.16 [facility] Comment on above: Result Comment: ACCC P [...] 1995;[id number]. Performed By: #### 8 6002 #### [facility] [address] PT Coag (PPP) [Time] 15.7 s High 12.3-14.8 [facility] Comment on above: Result Comment: ALL RESULTS MUST BE INTERPRETED WITH RESPECT TO BLOOD DRAWING ARTIFACT OR DILUTION ERROR OF ANTICOAGULANT AT THE TIME OF SAMPLING. Performed By: #### 8 6002 #### [facility] 3000 [facility]. [address] T PROT FLUIDon 05-19-2020 Protein [Mass/Vol] 3.2 g/dL Normal [facility] Comment on above: Result Comment: The reference range and other method performance specifications have not been established for this test in fluids. the test result should be integrated into the clinical context for interpretation. Performed By: #### 3 0738 #### [facility] [address] UFH HEPARIN ASSAYon 05-19-20 20 UNFRACTIONATED HEPARIN 0.40 IU/mL Normal 0.30-0.70 [facility] Comment on above: Result Comment: Sharon roxaban and Apixaban will interfere with the anti Xa assay used to monitor UFH and LMWH. UFH ADDED PER PROTOCOL Performed By: #### 8 6002 #### [facility] 3000 [facility]. [address] US THORACENTESISon 0 US THORACENTESIS [facility] Department of Radiology [address] [place] [address] Patient Name: MEGAN HERRON : 1940 Sex: F Age: Race: White Pt. Location: [id number] Patient Status: I Ordered Date: 05/19/2020 10:15:00 [...] risks are acceptable. Consent was obtained. Timeout: [place] protocol timeout verification performed. PROCEDURE: Estimated blood loss: 0 mL. Informed consent was obtained. The patient was upright. Ultrasound guidance to find deepest pocket of pleural fluid. Doppler ultrasound was utilized to demonstrate there are no overlying superficial vessels. 1% lidocaine was infiltrated to anesthetize skin and adjacent soft tissue. A 5 Iraqi one-step catheter was introduced into the pleural space and serosanguineous fluid was aspirated. Postprocedural radiographs of the chest demonstrates no pneumothorax. Patient tolerated procedure well. No immediate competitions were identified. Dr. Dutta present for the entire procedure. IMPRESSION: Successful ultrasound-guided thoracentesis. Approved by:Vincent Enrique05/19/2020 4:24 PM. I, Hang Dutta,have reviewed the images and reports Electronically signed: Hang Dutta. Transcribed by: [email or web address], User Resident: VINCENT ANN Electronically Signed by: HANG DUTTA @ 05/21/2020 09:35 AM I personally read this/these film(s) with this resident Normal [facility] Comment on above: Order Comment: Pleas e drain: diagnostic reasons, left side APTTon 05-18-2020 aPTT Coag (Bld) [Time] 37.3 s High 25.0-35.0 [facility] Comment on above: Order Comment: [...] PURPOSE. Performed By: #### 6 2586 #### [facility] [address] [facility] [place] [address], [facility] aPTT Coag (Bld) [Time] 42.5 s High 25.0-35.0 [facility] Comment on above: Order Comment: [...] PURPOSE. Performed By: #### 8 6002 #### [facility] [address] [place] [address], [place] aPTT Coag (Bld) [Time] 37.1 s High 25.0-35.0 [facility] Comment on above: Order Comment: [...] PURPOSE. Performed By: #### 8 6002 #### [facility] [address] [place] [address], [facility] BASIC METABOLIC PANELon 07-11 08-2019 Calcium [Mass/Vol] 8.3 mg/dL Low 8.6-10.3 [facility] Comment on above: Order Comment: No: D o not add to previous draw Performed By: #### 6 2586 #### [facility] [address] [place] [address], [facility] Chloride [Moles/Vol] 94 mmol/L Low 98-107 [facility] Comment on above: Order Comment: No: D o not add to previous draw Performed By: #### 6 2586 #### [facility] [address] [facility] [place] [address], [facility] CO2 [Moles/Vol] 33 mmol/L High 21-31 [facility] Comment on above: Order Comment: No: D o not add to previous draw Performed By: #### 6 2586 #### [facility] [address] [place] [address], [facility] Creatinine [Mass/Vol] 0.90 mg/dL Normal 0.60-1.20 [facility] Comment on above: Order Comment: No: D o not add to previous draw Performed By: #### 6 2586 #### [facility] [address] [place] [address], [facility] GFR/1.73 sq M predicted among blacks MDRD (S/P/Bld) [Vol rate/Area] mL/min/{1.73_m2} Normal >60 [facility] Comment on above: Order Comment: No: D o not add to previous draw Result Comment: Calc ulation may not be valid for patients over 70 years Performed By: #### 6 2586 #### [facility] [address] [place] [address], [place] GFR/1.73 sq M predicted among non-blacks MDRD (S/P/Bld) [Vol rate/Area] mL/min/{1.73_m2} Normal >60 [facility] Comment on above: Order Comment: No: D o not add to previous draw Result Comment: Calc ulation may not be valid for patients over 70 years Performed By: #### 6 2586 #### [facility] [address] [place] [address], [place] Glucose [Mass/Vol] 113 mg/dL High 70-100 [facility] Comment on above: Order Comment: No: D o not add to previous draw Performed By: #### 6 2586 #### [facility] [address] [place] [address], [place] Potassium [Moles/Vol] 3.4 mmol/L Low 3.5-5.1 [facility] Comment on above: Order Comment: No: D o not add to previous draw Performed By: #### 6 2586 #### [facility] [address] [place] [address], [place] Sodium [Moles/Vol] 133 mmol/L Low 136-145 [facility] Comment on above: Order Comment: No: D o not add to previous draw Performed By: #### 6 2586 #### [facility] [address] [place] [address], [place] Urea nitrogen [Mass/Vol] 32 mg/dL High 7-25 [facility] Comment on above: Order Comment: No: D o not add to previous draw Performed By: #### 6 2586 #### [facility] [address] [place] [address], [place] CBC COMPLETE BLOOD COUNTon 0 05-18-2020 Erythrocyte distribution width (RBC) [Ratio] 14.9 % Normal 11.5-15.0 [facility] Comment on above: Order Comment: No: D o not add to previous draw Performed By: #### 6 2586 #### [facility] [address] [place] [address], [facility] Hematocrit (Bld) [Volume fraction] 26.7 % Low 36.0-45.0 [facility] Comment on above: Order Comment: No: D o not add to previous draw Performed By: #### 6 2586 #### [facility] [address] [facility] Hemoglobin (Bld) [Mass/Vol] 8.6 g/dL Low 12.0-15.0 [facility] Comment on above: Order Comment: No: D o not add to previous draw Performed By: #### 6 2586 #### [facility] [address] [facility] [place] [address], [facility] MCH (RBC) [Entitic mass] 29.0 pg Normal 27.0-33.0 [facility] Comment on above: Order Comment: No: D o not add to previous draw Performed By: #### 6 2586 #### [facility] [address] [place] [address], [facility] MCHC (RBC) [Mass/Vol] 32.2 g/dL Normal 32.0-35.0 [facility] Comment on above: Order Comment: No: D o not add to previous draw Performed By: #### 6 2586 #### [facility] [address] [facility] [place] [address], [facility] MCV (RBC) [Entitic vol] 89.9 fL Normal 82.0-98.0 [facility] Comment on above: Order Comment: No: D o not add to previous draw Performed By: #### 6 2586 #### [facility] [address] [facility] [place] [address], [facility] Nucleated RBC/100 WBC (Bld) [Ratio] 0 % Normal 0-0 [facility] Comment on above: Order Comment: No: D o not add to previous draw Performed By: #### 6 2586 #### [facility] [address] [facility] [place] [address], [facility] PLAT CNT 625 10*3/uL High 150-400 [facility] Comment on above: Order Comment: No: D o not add to previous draw Performed By: #### 6 2586 #### [facility] [address] [facility] [place] [address], [facility] RBC (Bld) [#/Vol] 2.97 10*6/uL Low 3.80-5.00 [facility] Comment on above: Order Comment: No: D o not add to previous draw Performed By: #### 6 2586 #### [facility] [address] [facility] [place] [address], [facility] WBC (Bld) [#/Vol] 12.29 10*3/uL High 4.00-10.60 [facility] Comment on above: Order Comment: No: D o not add to previous draw Performed By: #### 6 2586 #### [facility] [address] [facility]. [place], [place] [id number] [place] [address] CHEST AND LATERALon 05-18-20 CHEST AND LATERAL [facility] Department of Radiology [address] [place] [phone] Patient Name: MEGAN HERRON : 1940 Sex: F Age: Race: White Pt. Location: [id number] Patient Status: I Ordered Date: 05/18/2020 10:50:00 [...] chest Electronically signed: Eva Vergara. Transcribed by: [email or web address], User Resident: Electronically Signed by: EAV VERGARA @ 05/18/2020 12:59 PM Normal [facility] Comment on above: Order Comment: Other APTTon 05-17-2020 aPTT Coag (Bld) [Time] 32.9 s Normal 25.0-35.0 [facility] Comment on above: Order Comment: [...] PURPOSE. Performed By: #### 6 2586 #### [facility] [address] [place] [address], [facility] BASIC METABOLIC PANELon 07-11 07-2019 Calcium [Mass/Vol] 8.4 mg/dL Low 8.6-10.3 [facility] Comment on above: Order Comment: No: D o not add to previous draw Performed By: #### 6 2586 #### [facility] [address] [place] [address], [facility] Chloride [Moles/Vol] 92 mmol/L Low 98-107 [facility] Comment on above: Order Comment: No: D o not add to previous draw Performed By: #### 6 2586 #### [facility] [address] [place] [address], [facility] CO2 [Moles/Vol] 34 mmol/L High 21-31 [facility] Comment on above: Order Comment: No: D o not add to previous draw Performed By: #### 6 2586 #### [facility] [address] [place] [address], [facility] Creatinine [Mass/Vol] 0.78 mg/dL Normal 0.60-1.20 [facility] Comment on above: Order Comment: No: D o not add to previous draw Performed By: #### 6 2586 #### [facility] [address] [place] [address], [facility] GFR/1.73 sq M predicted among blacks MDRD (S/P/Bld) [Vol rate/Area] mL/min/{1.73_m2} Normal >60 [facility] Comment on above: Order Comment: No: D o not add to previous draw Result Comment: Calc ulation may not be valid for patients over 70 years Performed By: #### 6 2586 #### [facility] [address] [place] [address], [place] GFR/1.73 sq M predicted among non-blacks MDRD (S/P/Bld) [Vol rate/Area] mL/min/{1.73_m2} Normal >60 [facility] Comment on above: Order Comment: No: D o not add to previous draw Result Comment: Calc ulation may not be valid for patients over 70 years Performed By: #### 6 2586 #### [facility] [address] [place] [address], [place] Glucose [Mass/Vol] 100 mg/dL Normal 70-100 [facility] Comment on above: Order Comment: No: D o not add to previous draw Performed By: #### 6 2586 #### [facility] [address] [place] [address], [place] Potassium [Moles/Vol] 3.4 mmol/L Low 3.5-5.1 [facility] Comment on above: Order Comment: No: D o not add to previous draw Performed By: #### 6 2586 #### [facility] [address] [place] [address], [place] Sodium [Moles/Vol] 133 mmol/L Low 136-145 [facility] Comment on above: Order Comment: No: D o not add to previous draw Performed By: #### 6 2586 #### [facility] [address] [place] [address], [place] Urea nitrogen [Mass/Vol] 22 mg/dL Normal 7-25 [facility] Comment on above: Order Comment: No: D o not add to previous draw Performed By: #### 6 2586 #### [facility] [address] [place] [address], [facility] CBC W/DIFFon 05-17-2020 ABS BASOPHILS 0.0 10*3/uL Normal 0.0-0.2 [facility] Comment on above: Order Comment: No: D o not add to previous draw Performed By: #### 6 2586 #### [facility] [address] [place] [address], [facility] ABS IMM GRANS 0.1 10*3/uL Normal 0.0-0.2 [facility] Comment on above: Order Comment: No: D o not add to previous draw Performed By: #### 6 2586 #### [facility] [address] [place] [address], [facility] ABS NEUTROPHILS 9.3 10*3/uL High 1.6-7.6 [facility] Comment on above: Order Comment: No: D o not add to previous draw Performed By: #### 6 2586 #### [facility] [address] [place] [address], [facility] Basophils/100 WBC (Bld) 0.1 % Normal 0.0-1.0 [facility] Comment on above: Order Comment: No: D o not add to previous draw Performed By: #### 6 2586 #### [facility] [address] [facility] [place] [address], [facility] Eosinophils (Bld) [#/Vol] 0.0 10*3/uL Normal 0.0-0.5 [facility] Comment on above: Order Comment: No: D o not add to previous draw Performed By: #### 6 2586 #### [facility] [address] [place] [address], [facility] Eosinophils/100 WBC (Bld) 0.1 % Normal 0.0-6.0 [facility] Comment on above: Order Comment: No: D o not add to previous draw Performed By: #### 6 2586 #### [facility] [address] [facility] [address] Erythrocyte distribution width (RBC) [Ratio] 14.6 % Normal 11.5-15.0 [facility] Comment on above: Order Comment: No: D o not add to previous draw Performed By: #### 6 2586 #### [facility] [address] [place] [address], [facility] Hematocrit (Bld) [Volume fraction] 28.7 % Low 36.0-45.0 [facility] Comment on above: Order Comment: No: D o not add to previous draw Performed By: #### 6 2586 #### [facility] [address] [place] [address], [facility] Hemoglobin (Bld) [Mass/Vol] 9.2 g/dL Low 12.0-15.0 [facility] Comment on above: Order Comment: No: D o not add to previous draw Performed By: #### 6 2586 #### [facility] [address] [place] [address], [facility] IMMATURE GRANS 0.9 % Normal 0.0-1.0 [facility] Comment on above: Order Comment: No: D o not add to previous draw Performed By: #### 6 2586 #### [facility] [address] [place] [address], [facility] Lymphocytes (Bld) [#/Vol] 2.0 10*3/uL Normal 1.2-4.0 [facility] Comment on above: Order Comment: No: D o not add to previous draw Performed By: #### 6 2586 #### [facility] [address] [place] [address], [facility] Lymphocytes/100 WBC (Bld) 15.8 % Low 20.0-45.0 [facility] Comment on above: Order Comment: No: D o not add to previous draw Performed By: #### 6 2586 #### [facility] [address] [place] [address], [place] MCH (RBC) [Entitic mass] 28.9 pg Normal 27.0-33.0 [facility] Comment on above: Order Comment: No: D o not add to previous draw Performed By: #### 6 2586 #### [facility] [address] [place] [id number], [facility] MCHC (RBC) [Mass/Vol] 32.1 g/dL Normal 32.0-35.0 [facility] Comment on above: Order Comment: No: D o not add to previous draw Performed By: #### 6 2586 #### [facility] [address] [place] [address], [facility] MCV (RBC) [Entitic vol] 90.3 fL Normal 82.0-98.0 [facility] Comment on above: Order Comment: No: D o not add to previous draw Performed By: #### 6 2586 #### [facility] [address] [place] [address], [facility] Monocytes (Bld) [#/Vol] 1.0 10*3/uL Normal 0.1-1.0 [facility] Comment on above: Order Comment: No: D o not add to previous draw Performed By: #### 6 2586 #### [facility] [address] [place] [address], [facility] MONOS 8.3 % Normal 5.0-12.0 [facility] Comment on above: Order Comment: No: D o not add to previous draw Performed By: #### 6 2586 #### [facility] [address] [place] [address], [facility] Neutrophils/100 WBC (Bld) 74.8 % High 40.0-72.0 [facility] Comment on above: Order Comment: No: D o not add to previous draw Performed By: #### 6 2586 #### [facility] [address] [place] [id number], [facility] Nucleated RBC/100 WBC (Bld) [Ratio] 0 % Normal 0-0 [facility] Comment on above: Order Comment: No: D o not add to previous draw Performed By: #### 6 2586 #### [facility] [address] [place] [address], [facility] PLAT CNT 641 10*3/uL High 150-400 [facility] Comment on above: Order Comment: No: D o not add to previous draw Performed By: #### 6 2586 #### [facility] [address] [place] [address], [facility] RBC (Bld) [#/Vol] 3.18 10*6/uL Low 3.80-5.00 [facility] Comment on above: Order Comment: No: D o not add to previous draw Performed By: #### 6 2586 #### [facility] [address] [place] [address], [facility] WBC (Bld) [#/Vol] 12.38 10*3/uL High 4.00-10.60 [facility] Comment on above: Order Comment: No: D o not add to previous draw Performed By: #### 6 2586 #### [facility] [address] [place] [address], [facility] MAGNESIUM BLOODon 05-17-2020 Magnesium [Mass/Vol] 1.8 mg/dL Low 1.9-2.7 [facility] Comment on above: Order Comment: No: D o not add to previous draw Performed By: #### 6 2586 #### [facility] [address] [place] [address], [facility] PHOSPHORUS BLOODon 0 Phosphate [Mass/Vol] 3.2 mg/dL Normal 2.5-5.0 [facility] Comment on above: Order Comment: No: D o not add to previous draw Performed By: #### 6 2586 #### [facility] [address] [place] [address], [facility] UFH HEPARIN ASSAYon 05-17-20 20 UNFRACTIONATED HEPARIN >1.00 Critically high 0.30-0.70 [facility] Comment on above: Result Comment: Sharon roxaban and Apixaban will interfere with the anti Xa assay used to monitor UFH and LMWH. Patient is on PTT protocol per Tomasa Orlando RN, CVU 3A patient's nurse, at 1950, . Actual UFH level = 1.59 IU/ml . Performed By: #### 6 2586 #### [facility] [address] *SARS-CoV-2 COVID-19on 05-09 [id number] Not Detected Normal Not Detected [facility] Comment on above: Order Comment: No: D o not add to previous draw Performed By: #### 3 5199, 08111 #### [facility] [address] [place] [address], [facility] BASIC METABOLIC PANELon Calcium [Mass/Vol] 8.1 mg/dL Low 8.6-10.3 [facility] Comment on above: Order Comment: No: D o not add to previous draw Performed By: #### 3 5199, 47332 #### [facility] [address] [place] [address], [facility] Chloride [Moles/Vol] 94 mmol/L Low 98-107 [facility] Comment on above: Order Comment: No: D o not add to previous draw Performed By: #### 3 5199, 62524 #### [facility] [address] [place] [address], [facility] CO2 [Moles/Vol] 30 mmol/L Normal 21-31 [facility] Comment on above: Order Comment: No: D o not add to previous draw Performed By: #### 3 5199, 55245 #### [facility] [address] [place] [address], [facility] Creatinine [Mass/Vol] 0.50 mg/dL Low 0.60-1.20 [facility] Comment on above: Order Comment: No: D o not add to previous draw Performed By: #### 3 5199, 64333 #### [facility] [address] [place] [address], [place] GFR/1.73 sq M predicted among blacks MDRD (S/P/Bld) [Vol rate/Area] mL/min/{1.73_m2} Normal >60 [facility] Comment on above: Order Comment: No: D o not add to previous draw Result Comment: Calc ulation may not be valid for patients over 70 years Performed By: #### 3 5199, 13740 #### [facility] [address] [place] [address], [facility] GFR/1.73 sq M predicted among non-blacks MDRD (S/P/Bld) [Vol rate/Area] mL/min/{1.73_m2} Normal >60 [facility] Comment on above: Order Comment: No: D o not add to previous draw Result Comment: Calc ulation may not be valid for patients over 70 years Performed By: #### 3 5199, 55554 #### [facility] [address] [place] [address], [place] Glucose [Mass/Vol] 97 mg/dL Normal 70-100 [facility] Comment on above: Order Comment: No: D o not add to previous draw Performed By: #### 3 5199, 13736 #### [facility] [address] [place] [address], [place] Potassium [Moles/Vol] 3.2 mmol/L Low 3.5-5.1 [facility] Comment on above: Order Comment: No: D o not add to previous draw Performed By: #### 3 5199, 89085 #### [facility] [address] [place] [address], [place] Sodium [Moles/Vol] 130 mmol/L Low 136-145 [facility] Comment on above: Order Comment: No: D o not add to previous draw Performed By: #### 3 5199, 69681 #### [facility] [address] [place] [id number], [facility] Urea nitrogen [Mass/Vol] 17 mg/dL Normal 7-25 [facility] Comment on above: Order Comment: No: D o not add to previous draw Performed By: #### 3 5199, 62436 #### [facility] [address] [place] [id number], [facility] CBC COMPLETE BLOOD COUNTon 0 - Erythrocyte distribution width (RBC) [Ratio] 14.5 % Normal 11.5-15.0 [facility] Comment on above: Order Comment: No: D o not add to previous draw Performed By: #### 3 5199, 58986 #### [facility] [address] [place] [address], [facility] Hematocrit (Bld) [Volume fraction] 30.7 % Low 36.0-45.0 [facility] Comment on above: Order Comment: No: D o not add to previous draw Performed By: #### 3 5199, 73546 #### [facility] [address] [place] [id number], [facility] Hemoglobin (Bld) [Mass/Vol] 9.7 g/dL Low 12.0-15.0 [facility] Comment on above: Order Comment: No: D o not add to previous draw Performed By: #### 3 5199, 62111 #### [facility] [address] [place] [address], [place] MCH (RBC) [Entitic mass] 29.8 pg Normal 27.0-33.0 [facility] Comment on above: Order Comment: No: D o not add to previous draw Performed By: #### 3 5199, 79684 #### [facility] [address] [place] [address], [place] MCHC (RBC) [Mass/Vol] 31.6 g/dL Low 32.0-35.0 [facility] Comment on above: Order Comment: No: D o not add to previous draw Performed By: #### 3 5199, 89339 #### [facility] [address] [place] [address], [facility] MCV (RBC) [Entitic vol] 94.5 fL Normal 82.0-98.0 [facility] Comment on above: Order Comment: No: D o not add to previous draw Performed By: #### 3 5199, 98770 #### [facility] [address] [place] [address], [facility] Nucleated RBC/100 WBC (Bld) [Ratio] 0 % Normal 0-0 [facility] Comment on above: Order Comment: No: D o not add to previous draw Performed By: #### 3 5199, 85468 #### [facility] [address] [place] [address], [facility] PLAT CNT 274 10*3/uL Normal 150-400 [facility] Comment on above: Order Comment: No: D o not add to previous draw Performed By: #### 3 5199, 95094 #### [facility] [address] [facility] [address], [facility] RBC (Bld) [#/Vol] 3.25 10*6/uL Low 3.80-5.00 [facility] Comment on above: Order Comment: No: D o not add to previous draw Performed By: #### 3 5199, 59375 #### [facility] [address] [place] [address], [facility] WBC (Bld) [#/Vol] 11.01 10*3/uL High 4.00-10.60 [facility] Comment on above: Order Comment: No: D o not add to previous draw Performed By: #### 3 5199, 17254 #### [facility] [address] [place] [address], [facility] BASIC METABOLIC PANELon 07-0 Calcium [Mass/Vol] 8.1 mg/dL Low 8.6-10.3 [facility] Comment on above: Order Comment: No: D o not add to previous draw Performed By: #### 3 5199, 61173 #### [facility] [address] [place] [address], [place] Chloride [Moles/Vol] 97 mmol/L Low 98-107 [facility] Comment on above: Order Comment: No: D o not add to previous draw Performed By: #### 3 5199, 15479 #### [facility] [address] [place] [address], [place] CO2 [Moles/Vol] 30 mmol/L Normal 21-31 [facility] Comment on above: Order Comment: No: D o not add to previous draw Performed By: #### 3 5199, 26139 #### [facility] [address] [place] [address], [place] Creatinine [Mass/Vol] 0.45 mg/dL Low 0.60-1.20 [facility] Comment on above: Order Comment: No: D o not add to previous draw Performed By: #### 3 5199, 93476 #### [facility] [address] [place] [address], [place] GFR/1.73 sq M predicted among blacks MDRD (S/P/Bld) [Vol rate/Area] mL/min/{1.73_m2} Normal >60 [facility] Comment on above: Order Comment: No: D o not add to previous draw Result Comment: Calc ulation may not be valid for patients over 70 years Performed By: #### 3 5199, 79334 #### [facility] [address] [place] [address], [place] GFR/1.73 sq M predicted among non-blacks MDRD (S/P/Bld) [Vol rate/Area] mL/min/{1.73_m2} Normal >60 [facility] Comment on above: Order Comment: No: D o not add to previous draw Result Comment: Calc ulation may not be valid for patients over 70 years Performed By: #### 3 5199, 02952 #### [facility] [address] [place] [address], [place] Glucose [Mass/Vol] 101 mg/dL High 70-100 [facility] Comment on above: Order Comment: No: D o not add to previous draw Performed By: #### 3 5199, 45093 #### [facility] [address] [place] [address], [place] Potassium [Moles/Vol] 3.1 mmol/L Low 3.5-5.1 [facility] Comment on above: Order Comment: No: D o not add to previous draw Performed By: #### 3 5199, 34634 #### [facility] [address] [place] [address], [place] Sodium [Moles/Vol] 135 mmol/L Low 136-145 [facility] Comment on above: Order Comment: No: D o not add to previous draw Performed By: #### 3 5199, 55016 #### [facility] [address] [place] [address], [place] Urea nitrogen [Mass/Vol] 16 mg/dL Normal 7-25 [facility] Comment on above: Order Comment: No: D o not add to previous draw Performed By: #### 3 5199, 80184 #### [facility] [address] [place] [address], [place] CBC COMPLETE BLOOD COUNTon 0 - Erythrocyte distribution width (RBC) [Ratio] 14.4 % Normal 11.5-15.0 [facility] Comment on above: Order Comment: No: D o not add to previous draw Performed By: #### 3 5199, 68815 #### [facility] [address] [place] [address], [place] Hematocrit (Bld) [Volume fraction] 29.0 % Low 36.0-45.0 [facility] Comment on above: Order Comment: No: D o not add to previous draw Performed By: #### 3 5199, 30683 #### [facility] [address] [place] [address], [facility] Hemoglobin (Bld) [Mass/Vol] 9.3 g/dL Low 12.0-15.0 [facility] Comment on above: Order Comment: No: D o not add to previous draw Performed By: #### 3 5199, 15229 #### [facility] [address] [place] [id number], [facility] MCH (RBC) [Entitic mass] 30.0 pg Normal 27.0-33.0 [facility] Comment on above: Order Comment: No: D o not add to previous draw Performed By: #### 3 5199, 50645 #### [facility] [address] [place] [address], [facility] MCHC (RBC) [Mass/Vol] 32.1 g/dL Normal 32.0-35.0 [facility] Comment on above: Order Comment: No: D o not add to previous draw Performed By: #### 3 5199, 26418 #### [facility] [address] [place] [address], [facility] MCV (RBC) [Entitic vol] 93.5 fL Normal 82.0-98.0 [facility] Comment on above: Order Comment: No: D o not add to previous draw Performed By: #### 3 5199, 65710 #### [facility] [address] [place] [address], [facility] Nucleated RBC/100 WBC (Bld) [Ratio] 0 % Normal 0-0 [facility] Comment on above: Order Comment: No: D o not add to previous draw Performed By: #### 3 5199, 88655 #### [facility] [address] [place] [id number], [facility] PLAT CNT 246 10*3/uL Normal 150-400 [facility] Comment on above: Order Comment: No: D o not add to previous draw Performed By: #### 3 5199, 44234 #### [facility] [address] [place] [address], [facility] RBC (Bld) [#/Vol] 3.10 10*6/uL Low 3.80-5.00 [facility] Comment on above: Order Comment: No: D o not add to previous draw Performed By: #### 3 5199, 84405 #### [facility] [address] [place] [address], [facility] WBC (Bld) [#/Vol] 11.73 10*3/uL High 4.00-10.60 [facility] Comment on above: Order Comment: No: D o not add to previous draw Performed By: #### 3 5199, 13035 #### [facility] [address] APTTon 05-05-2020 aPTT Coag (Bld) [Time] 43.8 s High 25.0-35.0 [facility] Comment on above: Result Comment: ALL RESULTS [...] THIS PURPOSE. Performed By: #### 3 5199, 77604 #### [facility] [address] [place] [address], [facility] BASIC METABOLIC PANELon 04-08 Calcium [Mass/Vol] 7.9 mg/dL Low 8.6-10.3 [facility] Comment on above: Order Comment: No: D o not add to previous draw Performed By: #### 3 5199, 25715 #### [facility] [address] [place] [address], [place] Chloride [Moles/Vol] 100 mmol/L Normal 98-107 [facility] Comment on above: Order Comment: No: D o not add to previous draw Performed By: #### 3 5199, 77229 #### [facility] [address] [place] [address], [place] CO2 [Moles/Vol] 27 mmol/L Normal 21-31 [facility] Comment on above: Order Comment: No: D o not add to previous draw Performed By: #### 3 5199, 02137 #### [facility] [address] [place] [address], [place] Creatinine [Mass/Vol] 0.56 mg/dL Low 0.60-1.20 [facility] Comment on above: Order Comment: No: D o not add to previous draw Performed By: #### 3 5199, 32603 #### [facility] [address] [place] [address], [place] GFR/1.73 sq M predicted among blacks MDRD (S/P/Bld) [Vol rate/Area] mL/min/{1.73_m2} Normal >60 [facility] Comment on above: Order Comment: No: D o not add to previous draw Result Comment: Calc ulation may not be valid for patients over 70 years Performed By: #### 3 5199, 70894 #### [facility] [address] [place] [address], [place] GFR/1.73 sq M predicted among non-blacks MDRD (S/P/Bld) [Vol rate/Area] mL/min/{1.73_m2} Normal >60 [facility] Comment on above: Order Comment: No: D o not add to previous draw Result Comment: Calc ulation may not be valid for patients over 70 years Performed By: #### 3 5199, 08234 #### [facility] [address] [place] [address], [place] Glucose [Mass/Vol] 102 mg/dL High 70-100 [facility] Comment on above: Order Comment: No: D o not add to previous draw Performed By: #### 3 5199, 06676 #### [facility] [address] [place] [address], [facility] Potassium [Moles/Vol] 3.4 mmol/L Low 3.5-5.1 [facility] Comment on above: Order Comment: No: D o not add to previous draw Performed By: #### 3 5199, 89827 #### [facility] [address] Sodium [Moles/Vol] 135 mmol/L Low 136-145 [facility] Comment on above: Order Comment: No: D o not add to previous draw Performed By: #### 3 5199, 39625 #### [facility] [address] [facility]. [address] Urea nitrogen [Mass/Vol] 17 mg/dL Normal 7-25 [facility] Comment on above: Order Comment: No: D o not add to previous draw Performed By: #### 3 5199, 85520 #### [facility] [address] [facility] [place] [address], [facility] CBC W/DIFFon 05-05-2020 ABS BASOPHILS 0.0 10*3/uL Normal 0.0-0.2 [facility] Comment on above: Order Comment: No: D o not add to previous draw Performed By: #### 3 5199, 45096 #### [facility] [address] [place] [address], [facility] ABS IMM GRANS 0.0 10*3/uL Normal 0.0-0.2 [facility] Comment on above: Order Comment: No: D o not add to previous draw Performed By: #### 3 5199, 62952 #### [facility] [address] [place] [address], [facility] ABS NEUTROPHILS 8.8 10*3/uL High 1.6-7.6 [facility] Comment on above: Order Comment: No: D o not add to previous draw Performed By: #### 3 5199, 44073 #### [facility] [address] [place] [id number], [facility] Basophils/100 WBC (Bld) 0.3 % Normal 0.0-1.0 [facility] Comment on above: Order Comment: No: D o not add to previous draw Performed By: #### 3 5199, 93899 #### [facility] [address] [place] [address], [place] Eosinophils (Bld) [#/Vol] 0.1 10*3/uL Normal 0.0-0.5 [facility] Comment on above: Order Comment: No: D o not add to previous draw Performed By: #### 3 5199, 65020 #### [facility] [address] [place] [address], [place] Eosinophils/100 WBC (Bld) 0.4 % Normal 0.0-6.0 [facility] Comment on above: Order Comment: No: D o not add to previous draw Performed By: #### 3 5199, 50792 #### [facility] [address] [place] [id number], [place] Erythrocyte distribution width (RBC) [Ratio] 14.6 % Normal 11.5-15.0 [facility] Comment on above: Order Comment: No: D o not add to previous draw Performed By: #### 3 5199, 09184 #### [facility] [address] [place] [address], [place] Hematocrit (Bld) [Volume fraction] 28.4 % Low 36.0-45.0 [facility] Comment on above: Order Comment: No: D o not add to previous draw Performed By: #### 3 5199, 33904 #### [facility] [address] [place] [id number], [place] Hemoglobin (Bld) [Mass/Vol] 8.7 g/dL Low 12.0-15.0 [facility] Comment on above: Order Comment: No: D o not add to previous draw Performed By: #### 3 5199, 93874 #### [facility] [address] [place] [address], [facility] IMMATURE GRANS 0.3 % Normal 0.0-1.0 [facility] Comment on above: Order Comment: No: D o not add to previous draw Performed By: #### 3 5199, 66735 #### [facility] [address] [place] [address], [facility] Lymphocytes (Bld) [#/Vol] 1.4 10*3/uL Normal 1.2-4.0 [facility] Comment on above: Order Comment: No: D o not add to previous draw Performed By: #### 3 5199, 25030 #### [facility] [address] [place] [address], [facility] Lymphocytes/100 WBC (Bld) 11.8 % Low 20.0-45.0 [facility] Comment on above: Order Comment: No: D o not add to previous draw Performed By: #### 3 5199, 94383 #### [facility] [address] [facility] [place] [place] [address], [facility] MCH (RBC) [Entitic mass] 30.2 pg Normal 27.0-33.0 [facility] Comment on above: Order Comment: No: D o not add to previous draw Performed By: #### 3 5199, 82244 #### [facility] [address] [place] [address], [facility] MCHC (RBC) [Mass/Vol] 30.6 g/dL Low 32.0-35.0 [facility] Comment on above: Order Comment: No: D o not add to previous draw Performed By: #### 3 5199, 65703 #### [facility] [address] [facility] [place] [address], [facility] MCV (RBC) [Entitic vol] 98.6 fL High 82.0-98.0 [facility] Comment on above: Order Comment: No: D o not add to previous draw Performed By: #### 3 5199, 68513 #### [facility] [address] [place] [id number], [facility] Monocytes (Bld) [#/Vol] 1.4 10*3/uL High 0.1-1.0 [facility] Comment on above: Order Comment: No: D o not add to previous draw Performed By: #### 3 5199, 59748 #### [facility] [address] [facility] [place] [address], [facility] MONOS 12.1 % High 5.0-12.0 [facility] Comment on above: Order Comment: No: D o not add to previous draw Performed By: #### 3 5199, 36178 #### [facility] [address] [place] [address], [facility] Neutrophils/100 WBC (Bld) 75.1 % High 40.0-72.0 [facility] Comment on above: Order Comment: No: D o not add to previous draw Performed By: #### 3 5199, 27241 #### [facility] [address] [place] [address], [facility] Nucleated RBC/100 WBC (Bld) [Ratio] 0 % Normal 0-0 [facility] Comment on above: Order Comment: No: D o not add to previous draw Performed By: #### 3 5199, 15291 #### [facility] [address] [place] [address], [facility] PLAT CNT 193 10*3/uL Normal 150-400 [facility] Comment on above: Order Comment: No: D o not add to previous draw Performed By: #### 3 5199, 95822 #### [facility] [address] [place] [address], [facility] RBC (Bld) [#/Vol] 2.88 10*6/uL Low 3.80-5.00 [facility] Comment on above: Order Comment: No: D o not add to previous draw Performed By: #### 3 5199, 18109 #### [facility] [address] [place] [address], [facility] WBC (Bld) [#/Vol] 11.69 10*3/uL High 4.00-10.60 [facility] Comment on above: Order Comment: No: D o not add to previous draw Performed By: #### 3 5199, 38531 #### [facility] [address] [place] [address], [facility] LIVER BATTERYon 05-05-2020 Albumin [Mass/Vol] 2.9 g/dL Low 3.5-5.7 [facility] Comment on above: Performed By: #### 3 5199, 05938 #### [facility] [address] [place] [address], [facility] ALKALINE PHOSPH 52 IU/L Normal 34-104 [facility] Comment on above: Performed By: #### 3 5199, 92571 #### [facility] [address] [place] [address], [facility] ALT [Catalytic activity/Vol] 7 U/L Normal 7-52 [facility] Comment on above: Performed By: #### 3 5199, 37623 #### [facility] [address] [place] [address], [facility] AST [Catalytic activity/Vol] 19 U/L Normal 13-39 [facility] Comment on above: Performed By: #### 3 5199, 67952 #### [facility] [address] [place] [address], [place] Bilirubin [Mass/Vol] 0.8 mg/dL Normal 0.3-1.0 [facility] Comment on above: Performed By: #### 3 5199, 46123 #### [facility] [address] [facility]. [address] Bilirubin.direct [Mass/Vol] 0.3 mg/dL High 0.0-0.2 [facility] Comment on above: Performed By: #### 3 5199, 74680 #### [facility] [address] [facility]. [address] Protein [Mass/Vol] 5.5 g/dL Low 6.0-8.3 [facility] Comment on above: Performed By: #### 3 5199, 12359 #### [facility] [address] [facility]. [address] TROPONIN-Ion 05-05-2020 Troponin I.cardiac [Mass/Vol] 0.92 ng/mL Critically high 0.00-0.04 [facility] Comment on above: Order Comment: No: D o not add to previous draw Result Comment: M-UT EVIOUS CRITICAL RESULT REFERENCE RANGES: 0.00 - 0.04 ng/ml NORMAL 0.05 - 0.50 ng/ml INDETERMINATE > 0.50 ng/ml CONSISTENT WITH AN M.I. Performed By: #### 3 5199, 39030 #### [facility] [address] UFH HEPARIN ASSAYon 05-05-20 20 UNFRACTIONATED HEPARIN <0.10 Critically low 0.30-0.70 [facility] Comment on above: Result Comment: [place] roxaban and Apixaban will interfere with the anti Xa assay used to monitor UFH and LMWH. RESULTS CHECKED AND CALLED. ACCURATELY READ BACK BY TOMASA ORLANDO RN @3074 Performed By: #### 3 5199, 85240 #### [facility] [address] UNFRACTIONATED HEPARIN >1.00 Critically high 0.30-0.70 [facility] Comment on above: Result Comment: [place] roxaban and Apixaban will interfere with the anti Xa assay used to monitor UFH and LMWH. RESULTS CHECKED AND CALLED. ACCURATELY READ BACK BY RAMILA ROBERT AT 13:23 PATIENT IS NOT ON HEPARIN, HAS BEEN SWITCHED TO ELIQUIS. UFH WILL BE ELEVATED IN THE PRESENCE OF OTHER ANTI-Xa INHIBITING DRUGS SUCH ELIQUIS. ACTUAL UFH VALUE= 2.29 Performed By: #### [id number], [id number] #### [facility] [address] [place] [address], [facility] BASIC METABOLIC PANELon 04-07 Calcium [Mass/Vol] 8.1 mg/dL Low 8.6-10.3 [facility] Comment on above: Order Comment: No: D o not add to previous draw Performed By: #### 3 5199, 96394 #### [facility] [address] [place] [address], [facility] Chloride [Moles/Vol] 104 mmol/L Normal 98-107 [facility] Comment on above: Order Comment: No: D o not add to previous draw Performed By: #### 3 5199, 07883 #### [facility] [address] [place] [address], [place] CO2 [Moles/Vol] 28 mmol/L Normal 21-31 [facility] Comment on above: Order Comment: No: D o not add to previous draw Performed By: #### 3 5199, 90711 #### [facility] [address] [place] [address], [facility] Creatinine [Mass/Vol] 0.65 mg/dL Normal 0.60-1.20 [facility] Comment on above: Order Comment: No: D o not add to previous draw Performed By: #### 3 5199, 32392 #### [facility] [address] [place] [id number], [place] GFR/1.73 sq M predicted among blacks MDRD (S/P/Bld) [Vol rate/Area] mL/min/{1.73_m2} Normal >60 [facility] Comment on above: Order Comment: No: D o not add to previous draw Result Comment: Calc ulation may not be valid for patients over 70 years Performed By: #### 3 5199, 44404 #### [facility] [address] [place] [address], [place] GFR/1.73 sq M predicted among non-blacks MDRD (S/P/Bld) [Vol rate/Area] mL/min/{1.73_m2} Normal >60 [facility] Comment on above: Order Comment: No: D o not add to previous draw Result Comment: Calc ulation may not be valid for patients over 70 years Performed By: #### 3 5199, 07674 #### [facility] [address] [place] [address], [place] Glucose [Mass/Vol] 95 mg/dL Normal 70-100 [facility] Comment on above: Order Comment: No: D o not add to previous draw Performed By: #### 3 5199, 17775 #### [facility] [address] [place] [address], [place] Potassium [Moles/Vol] 3.9 mmol/L Normal 3.5-5.1 [facility] Comment on above: Order Comment: No: D o not add to previous draw Performed By: #### 3 5199, 79903 #### [facility] [address] [place] [address], [place] Sodium [Moles/Vol] 136 mmol/L Normal 136-145 [facility] Comment on above: Order Comment: No: D o not add to previous draw Performed By: #### 3 5199, 98959 #### [facility] [address] [place] [address], [place] Urea nitrogen [Mass/Vol] 17 mg/dL Normal 7-25 [facility] Comment on above: Order Comment: No: D o not add to previous draw Performed By: #### 3 5199, 79651 #### [facility] [address] [place] [address], [place] CBC W/DIFFon 05-04-2020 ABS BASOPHILS 0.0 10*3/uL Normal 0.0-0.2 [facility] Comment on above: Order Comment: No: D o not add to previous draw Performed By: #### 3 5199, 01439 #### [facility] [address] [place] [address], [facility] ABS IMM GRANS 0.1 10*3/uL Normal 0.0-0.2 [facility] Comment on above: Order Comment: No: D o not add to previous draw Performed By: #### 3 5199, 91299 #### [facility] [address] [place] [address], [facility] ABS NEUTROPHILS 8.2 10*3/uL High 1.6-7.6 [facility] Comment on above: Order Comment: No: D o not add to previous draw Performed By: #### 3 5199, 35243 #### [facility] [address] [place] [address], [facility] Basophils/100 WBC (Bld) 0.3 % Normal 0.0-1.0 [facility] Comment on above: Order Comment: No: D o not add to previous draw Performed By: #### 3 5199, 08143 #### [facility] [address] [place] [address], [facility] Eosinophils (Bld) [#/Vol] 0.2 10*3/uL Normal 0.0-0.5 [facility] Comment on above: Order Comment: No: D o not add to previous draw Performed By: #### 3 5199, 56348 #### [facility] [address] [place] [address], [facility] Eosinophils/100 WBC (Bld) 1.6 % Normal 0.0-6.0 [facility] Comment on above: Order Comment: No: D o not add to previous draw Performed By: #### 3 5199, 20946 #### [facility] [address] Erythrocyte distribution width (RBC) [Ratio] 14.5 % Normal 11.5-15.0 [facility] Comment on above: Order Comment: No: D o not add to previous draw Performed By: #### 3 5199, 41125 #### [facility] [address] [place] [address], [facility] Hematocrit (Bld) [Volume fraction] 28.0 % Low 36.0-45.0 [facility] Comment on above: Order Comment: No: D o not add to previous draw Performed By: #### 3 5199, 96039 #### [facility] [address] [facility] [place] [address], [facility] Hemoglobin (Bld) [Mass/Vol] 8.8 g/dL Low 12.0-15.0 [facility] Comment on above: Order Comment: No: D o not add to previous draw Performed By: #### 3 5199, 66889 #### [facility] [address] [facility] [place] [address], [facility] IMMATURE GRANS 0.4 % Normal 0.0-1.0 [facility] Comment on above: Order Comment: No: D o not add to previous draw Performed By: #### 3 5199, 95083 #### [facility] [address] [facility] [place] [place] [address], [facility] Lymphocytes (Bld) [#/Vol] 1.6 10*3/uL Normal 1.2-4.0 [facility] Comment on above: Order Comment: No: D o not add to previous draw Performed By: #### 3 5199, 70466 #### [facility] [address] [facility] [address], [facility] Lymphocytes/100 WBC (Bld) 14.1 % Low 20.0-45.0 [facility] Comment on above: Order Comment: No: D o not add to previous draw Performed By: #### 3 5199, 03425 #### [facility] [address] [place] [address], [facility] MCH (RBC) [Entitic mass] 30.4 pg Normal 27.0-33.0 [facility] Comment on above: Order Comment: No: D o not add to previous draw Performed By: #### 3 5199, 03750 #### [facility] [address] [place] [id number], [facility] MCHC (RBC) [Mass/Vol] 31.4 g/dL Low 32.0-35.0 [facility] Comment on above: Order Comment: No: D o not add to previous draw Performed By: #### 3 5199, 51497 #### [facility] [address] [place] [address], [facility] MCV (RBC) [Entitic vol] 96.9 fL Normal 82.0-98.0 [facility] Comment on above: Order Comment: No: D o not add to previous draw Performed By: #### 3 5199, 09753 #### [facility] [address] [facility] [place] [address], [facility] Monocytes (Bld) [#/Vol] 1.1 10*3/uL High 0.1-1.0 [facility] Comment on above: Order Comment: No: D o not add to previous draw Performed By: #### 3 5199, 98518 #### [facility] [address] [facility] [place] [address], [facility] MONOS 10.2 % Normal 5.0-12.0 [facility] Comment on above: Order Comment: No: D o not add to previous draw Performed By: #### 3 5199, 86919 #### [facility] [address] [place] [address], [facility] Neutrophils/100 WBC (Bld) 73.4 % High 40.0-72.0 [facility] Comment on above: Order Comment: No: D o not add to previous draw Performed By: #### 3 5199, 07741 #### [facility] [address] [facility] [place] [address], [facility] Nucleated RBC/100 WBC (Bld) [Ratio] 0 % Normal 0-0 [facility] Comment on above: Order Comment: No: D o not add to previous draw Performed By: #### 3 5199, 57573 #### [facility] [address] [place] [address], [facility] PLAT CNT 160 10*3/uL Normal 150-400 [facility] Comment on above: Order Comment: No: D o not add to previous draw Performed By: #### 3 5199, 64138 #### [facility] [address] [facility] [place] [address], [facility] RBC (Bld) [#/Vol] 2.89 10*6/uL Low 3.80-5.00 [facility] Comment on above: Order Comment: No: D o not add to previous draw Performed By: #### 3 5199, 76645 #### [facility] [address] [facility] [place] [address], [facility] WBC (Bld) [#/Vol] 11.17 10*3/uL High 4.00-10.60 [facility] Comment on above: Order Comment: No: D o not add to previous draw Performed By: #### 3 5199, 97416 #### [facility] [address] [facility] [place] [address], [facility] MAGNESIUM BLOODon 05-04-2020 Magnesium [Mass/Vol] 1.9 mg/dL Normal 1.9-2.7 [facility] Comment on above: Order Comment: This order is a replacement of the rejected order with accession number [id number]. Performed By: #### 5 7307, 46645 #### [facility] [address] [place] [address], [facility] PHOSPHORUS BLOODon 0 Phosphate [Mass/Vol] 1.8 mg/dL Low 2.5-5.0 [facility] Comment on above: Order Comment: This order is a replacement of the rejected order with accession number [id number]. Performed By: #### 5 7307, 57109 #### [facility] [address] TROPONIN-Ion 05-04-2020 Troponin I.cardiac [Mass/Vol] 1.96 ng/mL Critically high 0.00-0.04 [facility] Comment on above: Order Comment: No: D o not add to previous draw Result Comment: M-CR ITICAL RESULT(S) REVIEWED, CALLED TO AND READ BACK BY RAMILA RICO @[facility] 05.04.20 REFERENCE RANGES: 0.00 - 0.04 ng/ml NORMAL 0.05 - 0.50 ng/ml INDETERMINATE > 0.50 ng/ml CONSISTENT WITH AN M.I. Performed By: #### 3 070, 43319 #### [facility] [address] Troponin I.cardiac [Mass/Vol] 1.39 ng/mL Critically high 0.00-0.04 [facility] Comment on above: Order Comment: No: D o not add to previous draw Result Comment: M-UT EVIOUS CRITICAL RESULT REFERENCE RANGES: 0.00 - 0.04 ng/ml NORMAL 0.05 - 0.50 ng/ml INDETERMINATE > 0.50 ng/ml CONSISTENT WITH AN M.I. Performed By: #### 3 0, 37075 #### [facility] [address] *BLOOD CULTUREon 05-03-2020 Bacteria identified Cx Nom (Bld) Clinical Report: (D) Specimen: BLOOD CULTURE Collected: 05/03/2020 09:50 Status: Final Last Updated: 05/09/2020 06:20 CULT RES (Final) No Growth Day 5 Normal [facility] Comment on above: Performed By: #### 3 0, 75910 #### [facility] [address] BASIC METABOLIC PANELon 04-07 Calcium [Mass/Vol] 8.2 mg/dL Low 8.6-10.3 [facility] Comment on above: Order Comment: This order is a replacement of the rejected order with accession number [id number]. Performed By: #### 5 7307, 03952 #### [facility] [address] [place] [address], [place] Chloride [Moles/Vol] 103 mmol/L Normal 98-107 [facility] Comment on above: Order Comment: This order is a replacement of the rejected order with accession number [id number]. Performed By: #### 5 7307, 84873 #### [facility] [address] [place] [address], [place] CO2 [Moles/Vol] 30 mmol/L Normal 21-31 [facility] Comment on above: Order Comment: This order is a replacement of the rejected order with accession number [id number]. Performed By: #### 5 73, 63185 #### [facility] [address] [place] [address], [place] Creatinine [Mass/Vol] 0.60 mg/dL Normal 0.60-1.20 [facility] Comment on above: Order Comment: This order is a replacement of the rejected order with accession number [id number]. Performed By: #### 5 7307, 55393 #### [facility] [address] [place] [address], [place] GFR/1.73 sq M predicted among blacks MDRD (S/P/Bld) [Vol rate/Area] mL/min/{1.73_m2} Normal >60 [facility] Comment on above: Order Comment: This order is a replacement of the rejected order with accession number [id number]. Result Comment: Calc ulation may not be valid for patients over 70 years Performed By: #### 5 7307, 14215 #### [facility] [address] [place] [address], [place] GFR/1.73 sq M predicted among non-blacks MDRD (S/P/Bld) [Vol rate/Area] mL/min/{1.73_m2} Normal >60 [facility] Comment on above: Order Comment: This order is a replacement of the rejected order with accession number [id number]. Result Comment: Calc ulation may not be valid for patients over 70 years Performed By: #### 5 7307, 92689 #### [facility] [address] [place] [address], [facility] Glucose [Mass/Vol] 104 mg/dL High 70-100 [facility] Comment on above: Order Comment: This order is a replacement of the rejected order with accession number [id number]. Performed By: #### 5 73, 50281 #### [facility] [address] [place] [address], [facility] Potassium [Moles/Vol] 3.4 mmol/L Low 3.5-5.1 [facility] Comment on above: Order Comment: This order is a replacement of the rejected order with accession number [id number]. Performed By: #### 5 73, 09525 #### [facility] [address] [place] [id number], [facility] Sodium [Moles/Vol] 136 mmol/L Normal 136-145 [facility] Comment on above: Order Comment: This order is a replacement of the rejected order with accession number [id number]. Performed By: #### 5 7307, 63054 #### [facility] [address] [place] [id number], [facility] Urea nitrogen [Mass/Vol] 15 mg/dL Normal 7-25 [facility] Comment on above: Order Comment: This order is a replacement of the rejected order with accession number [id number]. Performed By: #### 5 7307, 05547 #### [facility] [address] [place] [address], [facility] CBC COMPLETE BLOOD COUNTon 0 - Erythrocyte distribution width (RBC) [Ratio] 14.5 % Normal 11.5-15.0 [facility] Comment on above: Order Comment: This order is a replacement of the rejected order with accession number [id number]. Performed By: #### 5 73, 90546 #### [facility] [address] [place] [address], [facility] Hematocrit (Bld) [Volume fraction] 28.0 % Low 36.0-45.0 [facility] Comment on above: Order Comment: This order is a replacement of the rejected order with accession number [id number]. Performed By: #### 5 73, 87458 #### [facility] [address] [facility] Hemoglobin (Bld) [Mass/Vol] 8.8 g/dL Low 12.0-15.0 [facility] Comment on above: Order Comment: This order is a replacement of the rejected order with accession number [id number]. Performed By: #### 5 73, 78101 #### [facility] [address] MCH (RBC) [Entitic mass] 29.9 pg Normal 27.0-33.0 [facility] Comment on above: Order Comment: This order is a replacement of the rejected order with accession number [id number]. Performed By: #### 5 73, 44599 #### [facility] [address] MCHC (RBC) [Mass/Vol] 31.4 g/dL Low 32.0-35.0 [facility] Comment on above: Order Comment: This order is a replacement of the rejected order with accession number [id number]. Performed By: #### 5 7307, 24833 #### [facility] [address] [place] [address], [facility] MCV (RBC) [Entitic vol] 95.2 fL Normal 82.0-98.0 [facility] Comment on above: Order Comment: This order is a replacement of the rejected order with accession number [id number]. Performed By: #### 5 73, 00185 #### [facility] [address] Nucleated RBC/100 WBC (Bld) [Ratio] 0 % Normal 0-0 [facility] Comment on above: Order Comment: This order is a replacement of the rejected order with accession number [id number]. Performed By: #### 5 73, 74327 #### [address] PLAT CNT 141 10*3/uL Low 150-400 [facility] Comment on above: Order Comment: This order is a replacement of the rejected order with accession number [id number]. Performed By: #### 5 73, 39788 #### [address] RBC (Bld) [#/Vol] 2.94 10*6/uL Low 3.80-5.00 [facility] Comment on above: Order Comment: This order is a replacement of the rejected order with accession number [id number]. Performed By: #### 5 73, 77349 #### [facility] [address] WBC (Bld) [#/Vol] 12.52 10*3/uL High 4.00-10.60 [facility] Comment on above: Order Comment: This order is a replacement of the rejected order with accession number [id number]. Performed By: #### 5 73, 56813 #### [facility] [address] CBC W/DIFFon 05-03-2020 ABS BASOPHILS 0.0 10*3/uL Normal 0.0-0.2 [facility] Comment on above: Performed By: #### 5 73, 79041 #### [facility] [address] [place] [address], [place] ABS IMM GRANS 0.1 10*3/uL Normal 0.0-0.2 [facility] Comment on above: Performed By: #### 5 7306, 03317 #### [facility] [address] [facility]. [address] ABS NEUTROPHILS 12.0 10*3/uL High 1.6-7.6 [facility] Comment on above: Performed By: #### 5 7306, 73416 #### [facility] [address] [facility] [address] Basophils/100 WBC (Bld) 0.2 % Normal 0.0-1.0 [facility] Comment on above: Performed By: #### 5 7306, 04574 #### [facility] [address] [facility] [address] Eosinophils (Bld) [#/Vol] 0.1 10*3/uL Normal 0.0-0.5 [facility] Comment on above: Performed By: #### 5 7306, 52323 #### [facility] [address] Eosinophils/100 WBC (Bld) 0.4 % Normal 0.0-6.0 [facility] Comment on above: Performed By: #### 5 7306, 88309 #### [facility] [address] [facility]. [address] Erythrocyte distribution width (RBC) [Ratio] 14.6 % Normal 11.5-15.0 [facility] Comment on above: Performed By: #### 5 7306, 27340 #### [facility] [address] [facility]. [address] Hematocrit (Bld) [Volume fraction] 27.5 % Low 36.0-45.0 [facility] Comment on above: Performed By: #### 5 7306, 55927 #### [facility] [address] Hemoglobin (Bld) [Mass/Vol] 8.7 g/dL Low 12.0-15.0 [facility] Comment on above: Performed By: #### 5 7306, 88452 #### [facility] [address] [place] [address], [facility] IMMATURE GRANS 0.6 % Normal 0.0-1.0 [facility] Comment on above: Performed By: #### 5 7306, 47894 #### [facility] [address] Lymphocytes (Bld) [#/Vol] 1.0 10*3/uL Low 1.2-4.0 [facility] Comment on above: Performed By: #### Carisa, 48641 #### [facility] [address] Lymphocytes/100 WBC (Bld) 6.9 % Low 20.0-45.0 [facility] Comment on above: Performed By: #### Carisa, 29892 #### [facility] [address] MCH (RBC) [Entitic mass] 30.4 pg Normal 27.0-33.0 [facility] Comment on above: Performed By: #### 5 7306, 25238 #### [facility] [address] MCHC (RBC) [Mass/Vol] 31.6 g/dL Low 32.0-35.0 [facility] Comment on above: Performed By: #### 5 7306, 79860 #### [facility] [address] MCV (RBC) [Entitic vol] 96.2 fL Normal 82.0-98.0 [facility] Comment on above: Performed By: #### 5 7306, 90970 #### [facility] [address] [place] [address], [facility] Monocytes (Bld) [#/Vol] 1.6 10*3/uL High 0.1-1.0 [facility] Comment on above: Performed By: #### 5 7306, 53869 #### [facility] [address] [facility] [place] [id number], [facility] MONOS 10.8 % Normal 5.0-12.0 [facility] Comment on above: Performed By: #### 5 7306, 86863 #### [facility] [address] [facility] [place] [place] [address], [facility] Neutrophils/100 WBC (Bld) 81.1 % High 40.0-72.0 [facility] Comment on above: Performed By: #### 5 7306, 99500 #### [facility] [address] [facility] [place] [place] [address], [facility] Nucleated RBC/100 WBC (Bld) [Ratio] 0 % Normal 0-0 [facility] Comment on above: Performed By: #### 5 Carisa, 50120 #### [facility] [address] [facility] [place] [place] [address], [facility] PLAT CNT 151 10*3/uL Normal 150-400 [facility] Comment on above: Performed By: #### 5 7306, 09877 #### [facility] [address] [facility] [place] [address], [facility] RBC (Bld) [#/Vol] 2.86 10*6/uL Low 3.80-5.00 [facility] Comment on above: Performed By: #### 5 7306, 59782 #### [facility] [address] [facility] [place] [address], [facility] WBC (Bld) [#/Vol] 14.84 10*3/uL High 4.00-10.60 [facility] Comment on above: Performed By: #### 5 7306, 76374 #### [facility] [address] [facility] [place] [address], [facility] LACTATE BLOODon 05-03-2020 Lactate [Moles/Vol] 1.5 mmol/L Normal 0.5-2.2 [facility] Comment on above: Order Comment: This order is a replacement of the rejected order with accession number [id number]. Performed By: #### 5 7307, 58379 #### [facility] [address] [facility] [place] [address], [facility] MAGNESIUM BLOODon 05-03-2020 Magnesium [Mass/Vol] 1.9 mg/dL Normal 1.9-2.7 [facility] Comment on above: Order Comment: This order is a replacement of the rejected order with accession number [id number]. Performed By: #### 5 7307, 95156 #### [facility] [address] [place] [address], [facility] PHOSPHORUS BLOODon 0 Phosphate [Mass/Vol] 2.2 mg/dL Low 2.5-5.0 [facility] Comment on above: Order Comment: This order is a replacement of the rejected order with accession number [id number]. Performed By: #### 5 7307, 64616 #### [facility] [address] PORTABLE CHEST 1 VIEWon 04-07 PORTABLE CHEST 1 VIEW [facility] Department of Radiology [address] [place] [id number] Patient Name: MEGAN HERRON : 1940 Sex: F Age: Race: White Pt. Location: [id number] Patient Status: I Ordered Date: 05/03/2020 9:30:00 [...] aorta. Electronically signed: Cleve Lucio. Transcribed by: [email or web address], User Resident: Electronically Signed by: CLEVE LUCIO @ 05/03/2020 10:16 AM Normal [facility] Comment on above: Order Comment: This order is a replacement of the rejected order with accession number [id number]. PROCALCITONINon 05-03-2020 PROCALCITONIN 0.25 ng/mL High 0.00-0.10 [facility] Comment on above: Order Comment: [...] and initial PCT<0.5ng/mL Performed By: #### 3 5273, 53724 #### [facility] [address] [facility]. [address] [address] PROTHROMBIN TIMEon 05-03-202 0 INR Coag (PPP) [Relative time] 1.29 {INR} High 0.91-1.16 [facility] Comment on above: Order Comment: This order is a replacement of the rejected order with accession number [id number]. Result Comment: ACCC P RECOMMENDED INR FOR [...] CHEST 1995;108:231S-246S. Performed By: #### 5 7307, 73279 #### [facility] [address] PT Coag (PPP) [Time] 16.2 s High 12.3-14.8 [facility] Comment on above: Order Comment: This order is a replacement of the rejected order with accession number [id number]. Result Comment: ALL RESULTS MUST BE INTERPRETED WITH RESPECT TO BLOOD DRAWING ARTIFACT OR DILUTION ERROR OF ANTICOAGULANT AT THE TIME OF SAMPLING. Performed By: #### 5 7307, 80289 #### [facility] 3000 [facility]. [address] TROPONIN-Ion 05-03-2020 Troponin I.cardiac [Mass/Vol] 0.05 ng/mL High 0.00-0.04 [facility] Comment on above: Order Comment: This order is a replacement of the rejected order with accession number [id number]. Result Comment: REFE RENCE RANGES: 0.00 - 0.04 ng/ml NORMAL 0.05 - 0.50 ng/ml INDETERMINATE > 0.50 ng/ml CONSISTENT WITH AN M.I. Performed By: #### 5 7307, 23942 #### [facility] 3000 [facility]. [address] TSH3 WITH REFLEX FT4on 05-03 TSH 3RD GENERATION 3.39 uIU/mL Normal 0.34-5.60 [facility] Comment on above: Performed By: #### 5 7307, 33304 #### [facility] [address] [place] [address] [place] VENOUS BLOOD GAS W/COOXon BASE EXCESS 4 mmol/L Normal [facility] Comment on above: Performed By: #### 5 Carisa, 33666 #### [facility] [address] [place] [address], [facility] COHB 2 % Normal [facility] Comment on above: Performed By: #### 5 7306, 82645 #### [facility] [address] [place] [address], [facility] HCO3 (Bld) [Moles/Vol] 29 mmol/L Normal [facility] Comment on above: Performed By: #### 5 Carisa, 15582 #### [facility] [address] [place] [address], [facility] METHB 0.5 % Normal [facility] Comment on above: Performed By: #### 5 Carisa, 74475 #### [facility] [address] [facility] [address] Oxygen (Bld) [Partial pressure] 32 mm[Hg] Low 35-45 [facility] Comment on above: Performed By: #### 5 Carisa, 28210 #### [facility] [address] [facility] [address] Oxygen saturation in Blood 67.3 % Normal 65.0-75.0 [facility] Comment on above: Performed By: #### 5 Carisa, 37418 #### [facility] [address] [facility] [place] [address], [facility] PCO2 48 mmHg Normal 40-50 [facility] Comment on above: Performed By: #### 5 Carisa, 66742 #### [facility] [address] [facility] [place] [address], [facility] pH (Bld) 7.39 [pH] Normal 7.31-7.41 [facility] Comment on above: Performed By: #### 5 Carisa, 52489 #### [facility] [address] [place] [address], [facility] THB 9.3 g/dL Normal [facility] Comment on above: Performed By: #### 5 7307, 86377 #### [facility] [address] [place] [address], [facility] BASIC METABOLIC PANELon 06- Calcium [Mass/Vol] 8.1 mg/dL Low 8.6-10.3 [facility] Comment on above: Order Comment: This order is a replacement of the rejected order with accession number [id number]. Performed By: #### 5 73, 40904 #### [facility] [address] [place] [address], [facility] Chloride [Moles/Vol] 106 mmol/L Normal 98-107 [facility] Comment on above: Order Comment: This order is a replacement of the rejected order with accession number [id number]. Performed By: #### 5 73, 41844 #### [facility] [address] CO2 [Moles/Vol] 25 mmol/L Normal 21-31 [facility] Comment on above: Order Comment: This order is a replacement of the rejected order with accession number [id number]. Performed By: #### 5 73, 15274 #### [facility] [address] Creatinine [Mass/Vol] 0.69 mg/dL Normal 0.60-1.20 [facility] Comment on above: Order Comment: This order is a replacement of the rejected order with accession number [id number]. Performed By: #### 5 7307, 77096 #### [facility] [address] [place] [address], [facility] GFR/1.73 sq M predicted among blacks MDRD (S/P/Bld) [Vol rate/Area] mL/min/{1.73_m2} Normal >60 [facility] Comment on above: Order Comment: This order is a replacement of the rejected order with accession number [id number]. Result Comment: Calc ulation may not be valid for patients over 70 years Performed By: #### 5 73, 23421 #### [facility] [address] [place] [address], [place] GFR/1.73 sq M predicted among non-blacks MDRD (S/P/Bld) [Vol rate/Area] mL/min/{1.73_m2} Normal >60 [facility] Comment on above: Order Comment: This order is a replacement of the rejected order with accession number [id number]. Result Comment: Calc ulation may not be valid for patients over 70 years Performed By: #### 5 73, 96490 #### [facility] [address] [place] [address], [place] Glucose [Mass/Vol] 108 mg/dL High 70-100 [facility] Comment on above: Order Comment: This order is a replacement of the rejected order with accession number [id number]. Performed By: #### 5 73, 79881 #### [facility] [address] [place] [address], [place] Potassium [Moles/Vol] 3.6 mmol/L Normal 3.5-5.1 [facility] Comment on above: Order Comment: This order is a replacement of the rejected order with accession number [id number]. Performed By: #### 5 7307, 10422 #### [facility] [address] [place] [address], [place] Sodium [Moles/Vol] 137 mmol/L Normal 136-145 [facility] Comment on above: Order Comment: This order is a replacement of the rejected order with accession number [id number]. Performed By: #### 5 7307, 96116 #### [facility] [address] [place] [address], [place] Urea nitrogen [Mass/Vol] 17 mg/dL Normal 7-25 [facility] Comment on above: Order Comment: This order is a replacement of the rejected order with accession number [id number]. Performed By: #### 5 73, 59680 #### [facility] [address] CBC COMPLETE BLOOD COUNT05-02-2020 Erythrocyte distribution width (RBC) [Ratio] 14.5 % Normal 11.5-15.0 [facility] Comment on above: Order Comment: This order is a replacement of the rejected order with accession number [id number]. Performed By: #### 5 7306, 15779 #### [facility] [address] Hematocrit (Bld) [Volume fraction] 26.9 % Low 36.0-45.0 [facility] Comment on above: Order Comment: This order is a replacement of the rejected order with accession number [id number]. Performed By: #### 5 7306, 96274 #### [facility] [address] Hemoglobin (Bld) [Mass/Vol] 8.6 g/dL Low 12.0-15.0 [facility] Comment on above: Order Comment: This order is a replacement of the rejected order with accession number [id number]. Performed By: #### 5 73, 61926 #### [facility] [address] MCH (RBC) [Entitic mass] 30.5 pg Normal 27.0-33.0 [facility] Comment on above: Order Comment: This order is a replacement of the rejected order with accession number [id number]. Performed By: #### 5 73, 56598 #### [facility] [address] MCHC (RBC) [Mass/Vol] 32.0 g/dL Normal 32.0-35.0 [facility] Comment on above: Order Comment: This order is a replacement of the rejected order with accession number [id number]. Performed By: #### 5 73, 72843 #### [facility] [address] [facility] [address] MCV (RBC) [Entitic vol] 95.4 fL Normal 82.0-98.0 [facility] Comment on above: Order Comment: This order is a replacement of the rejected order with accession number [id number]. Performed By: #### 5 7306, 97722 #### [facility] [address] Nucleated RBC/100 WBC (Bld) [Ratio] 0 % Normal 0-0 [facility] Comment on above: Order Comment: This order is a replacement of the rejected order with accession number [id number]. Performed By: #### 5 7306, 25199 #### [facility] [address] PLAT CNT 141 10*3/uL Low 150-400 [facility] Comment on above: Order Comment: This order is a replacement of the rejected order with accession number [id number]. Performed By: #### 5 73, 22028 #### [facility] [address] RBC (Bld) [#/Vol] 2.82 10*6/uL Low 3.80-5.00 [facility] Comment on above: Order Comment: This order is a replacement of the rejected order with accession number [id number]. Performed By: #### 5 73, 52323 #### [facility] 3000 [facility] [place] [address], [facility] WBC (Bld) [#/Vol] 10.04 10*3/uL Normal 4.00-10.60 [facility] Comment on above: Order Comment: This order is a replacement of the rejected order with accession number [id number]. Performed By: #### 5 73, 37569 #### [facility] [address] [facility] [place] [address], [facility] MAGNESIUM BLOODon 05-02-2020 Magnesium [Mass/Vol] 1.7 mg/dL Low 1.9-2.7 [facility] Comment on above: Order Comment: This order is a replacement of the rejected order with accession number [id number]. Performed By: #### 5 7307, 89468 #### [facility] [address] [facility] Operative Reporton 0 Operative Report MR#: [id number] I [facility] Pt. Name: Megan Herron Room #: DORIAN [id number] Discharge Date: Birthdate: 1940 OPERATIVE REPORT DATE [...] to the right common femoral artery. A 6-Iraqi sheath inserted on the right side and percutaneous access was made to the left common femoral artery and a 5-Iraqi sheath inserted. The pigtail catheter was placed from the left side in the ascending aorta and then Perclose devices were inserted in the right common femoral artery followed by placing a 9-Iraqi sheath. Then, a stiff wire was placed [...] closure with a pre-closed areas successfully. The 5-Iraqi sheath was removed from the left side, [...] Schmitt M.D. Date Trans: 05/02/2020 01:24 Kaylee/hipolito [id number] Normal [facility] BLOODon 0 Phosphate [Mass/Vol] 2.6 mg/dL Normal 2.5-5.0 [facility] Comment on above: Order Comment: This order is a replacement of the rejected order with accession number [id number]. Performed By: #### 5 7307, 65376 #### [facility] [address] [facility] [address] *SARS-CoV-2 COVID-19on 05-01 [id number] Not Detected Normal Not Detected [facility] Comment on above: Order Comment: This order is a replacement of the rejected order with accession number [id number]. Performed By: #### 5 0103 #### [facility] [address] [facility] *URINE CULTUREon 05-01-2020 Bacteria identified Cx Nom (U) Clinical Report: (D) Specimen/Source: URINE/CATHETER HANSON Collected: 05/01/2020 15:25 Status: Final Last Updated: 05/03/2020 08:36 (1) ADD ON PER UROLOGY CULT RES (Final) NO GROWTH 48 HOURS Normal [facility] Comment on above: Order Comment: This order is a replacement of the rejected order with accession number [id number]. Performed By: #### 5 7307, 87308 #### [facility] [address] [facility] APTTon 05-01-2020 aPTT Coag (Bld) [Time] 30.8 s Normal 25.0-35.0 [facility] Comment on above: Order Comment: This order is a replacement of the rejected order with accession number [id number]. Result Comment: ALL RESULTS MUST BE INTERPRETED [...] THIS PURPOSE. Performed By: #### 5 7307, 78200 #### [facility] [address] [place] [id number], [facility] aPTT Coag (Bld) [Time] 34.4 s Normal 25.0-35.0 [facility] Comment on above: Result Comment: ALL RESULTS [...] PURPOSE. Performed By: #### 5 0103 #### [facility] [address] [place] [address], [facility] BASIC METABOLIC PANELon 04-07 Calcium [Mass/Vol] 8.2 mg/dL Low 8.6-10.3 [facility] Comment on above: Order Comment: No: D o not add to previous draw Performed By: #### 3 5200, 28910 #### [facility] [address] [place] [address], [facility] Calcium [Mass/Vol] 7.6 mg/dL Low 8.6-10.3 [facility] Comment on above: Performed By: #### 5 0103 #### [facility] [address] [facility] [place] [address], [facility] Calcium [Mass/Vol] 8.0 mg/dL Low 8.6-10.3 [facility] Comment on above: Order Comment: This order is a replacement of the rejected order with accession number [id number]. Performed By: #### 5 0103 #### [facility] [address] [place] [address], [place] Calcium [Mass/Vol] 8.2 mg/dL Low 8.6-10.3 [facility] Comment on above: Order Comment: This order is a replacement of the rejected order with accession number [id number]. Performed By: #### 5 7307, 58783 #### [facility] [address] [place] [address], [place] Chloride [Moles/Vol] 107 mmol/L Normal 98-107 [facility] Comment on above: Order Comment: No: D o not add to previous draw Performed By: #### 3 0, 59733 #### [facility] [address] [place] [address], [place] Chloride [Moles/Vol] 108 mmol/L High 98-107 [facility] Comment on above: Performed By: #### 5 0103 #### [facility] [address] [place] [address], [place] Chloride [Moles/Vol] 109 mmol/L High 98-107 [facility] Comment on above: Order Comment: This order is a replacement of the rejected order with accession number [id number]. Performed By: #### 5 3 #### [facility] [address] [place] [address], [place] Chloride [Moles/Vol] 108 mmol/L High 98-107 [facility] Comment on above: Order Comment: This order is a replacement of the rejected order with accession number [id number]. Performed By: #### 5 7307, 02546 #### [facility] [address] [place] [address], [place] CO2 [Moles/Vol] 24 mmol/L Normal 21-31 [facility] Comment on above: Order Comment: No: D o not add to previous draw Performed By: #### 3 5199, 09051 #### [facility] [address] [place] [address], [place] CO2 [Moles/Vol] 24 mmol/L Normal 21-31 [facility] Comment on above: Performed By: #### 5 0103 #### [facility] [address] [place] [address], [place] CO2 [Moles/Vol] 25 mmol/L Normal 21-31 [facility] Comment on above: Order Comment: This order is a replacement of the rejected order with accession number [id number]. Performed By: #### 5 0103 #### [facility] [address] [place] [address], [place] CO2 [Moles/Vol] 22 mmol/L Normal 21-31 [facility] Comment on above: Order Comment: This order is a replacement of the rejected order with accession number [id number]. Performed By: #### 5 7307, 03753 #### [facility] [address] [place] [address], [place] Creatinine [Mass/Vol] 0.82 mg/dL Normal 0.60-1.20 [facility] Comment on above: Order Comment: No: D o not add to previous draw Performed By: #### 3 5200, 65301 #### [facility] [address] [place] [address], [place] Creatinine [Mass/Vol] 0.78 mg/dL Normal 0.60-1.20 [facility] Comment on above: Performed By: #### 5 0103 #### [facility] [address] [place] [address], [place] Creatinine [Mass/Vol] 0.77 mg/dL Normal 0.60-1.20 [facility] Comment on above: Order Comment: This order is a replacement of the rejected order with accession number [id number]. Performed By: #### 5 0103 #### [facility] [address] [place] [address], [place] Creatinine [Mass/Vol] 0.77 mg/dL Normal 0.60-1.20 [facility] Comment on above: Order Comment: This order is a replacement of the rejected order with accession number [id number]. Performed By: #### 5 7307, 94552 #### [facility] [address] [place] [address], [place] GFR/1.73 sq M predicted among blacks MDRD (S/P/Bld) [Vol rate/Area] mL/min/{1.73_m2} Normal >60 [facility] Comment on above: Order Comment: No: D o not add to previous draw Result Comment: Calc ulation may not be valid for patients over 70 years Performed By: #### 3 5200, 79269 #### [facility] [address] [place] [address], [place] GFR/1.73 sq M predicted among blacks MDRD (S/P/Bld) [Vol rate/Area] mL/min/{1.73_m2} Normal >60 [facility] Comment on above: Result Comment: Calc ulation may not be valid for patients over 70 years Performed By: #### 5 0103 #### [facility] [address] [place] [address], [place] GFR/1.73 sq M predicted among blacks MDRD (S/P/Bld) [Vol rate/Area] mL/min/{1.73_m2} Normal >60 [facility] Comment on above: Order Comment: This order is a replacement of the rejected order with accession number [id number]. Result Comment: Calc ulation may not be valid for patients over 70 years Performed By: #### 5 0103 #### [facility] [address] [place] [address], [place] GFR/1.73 sq M predicted among blacks MDRD (S/P/Bld) [Vol rate/Area] mL/min/{1.73_m2} Normal >60 [facility] Comment on above: Order Comment: This order is a replacement of the rejected order with accession number [id number]. Result Comment: Calc ulation may not be valid for patients over 70 years Performed By: #### 5 7307, 99726 #### [facility] [address] [place] [address], [place] GFR/1.73 sq M predicted among non-blacks MDRD (S/P/Bld) [Vol rate/Area] mL/min/{1.73_m2} Normal >60 [facility] Comment on above: Order Comment: No: D o not add to previous draw Result Comment: Calc ulation may not be valid for patients over 70 years Performed By: #### 3 5200, 51454 #### [facility] [address] [place] [address], [place] GFR/1.73 sq M predicted among non-blacks MDRD (S/P/Bld) [Vol rate/Area] mL/min/{1.73_m2} Normal >60 [facility] Comment on above: Result Comment: Calc ulation may not be valid for patients over 70 years Performed By: #### 5 0103 #### [facility] [address] [place] [address], [place] GFR/1.73 sq M predicted among non-blacks MDRD (S/P/Bld) [Vol rate/Area] mL/min/{1.73_m2} Normal >60 [facility] Comment on above: Order Comment: This order is a replacement of the rejected order with accession number [id number]. Result Comment: Calc ulation may not be valid for patients over 70 years Performed By: #### 5 0103 #### [facility] [address] [place] [address], [place] GFR/1.73 sq M predicted among non-blacks MDRD (S/P/Bld) [Vol rate/Area] mL/min/{1.73_m2} Normal >60 [facility] Comment on above: Order Comment: This order is a replacement of the rejected order with accession number [id number]. Result Comment: Calc ulation may not be valid for patients over 70 years Performed By: #### 5 7307, 80632 #### [facility] [address] [place] [address], [place] Glucose [Mass/Vol] 92 mg/dL Normal 70-100 [facility] Comment on above: Order Comment: No: D o not add to previous draw Performed By: #### 3 0, 53988 #### [facility] [address] [place] [address], [place] Glucose [Mass/Vol] 102 mg/dL High 70-100 [facility] Comment on above: Performed By: #### 5 0103 #### [facility] [address] [place] [address], [place] Glucose [Mass/Vol] 118 mg/dL High 70-100 [facility] Comment on above: Order Comment: This order is a replacement of the rejected order with accession number [id number]. Performed By: #### 5 0103 #### [facility] [address] [place] [address], [place] Glucose [Mass/Vol] 113 mg/dL High 70-100 [facility] Comment on above: Order Comment: This order is a replacement of the rejected order with accession number [id number]. Performed By: #### 5 7307, 03477 #### [facility] [address] [place] [address], [place] Potassium [Moles/Vol] 3.9 mmol/L Normal 3.5-5.1 [facility] Comment on above: Order Comment: No: D o not add to previous draw Performed By: #### 3 5200, 45148 #### [facility] [address] [place] [address], [place] Potassium [Moles/Vol] 3.4 mmol/L Low 3.5-5.1 [facility] Comment on above: Performed By: #### 5 0103 #### [facility] [address] [place] [address], [place] Potassium [Moles/Vol] 3.8 mmol/L Normal 3.5-5.1 [facility] Comment on above: Order Comment: This order is a replacement of the rejected order with accession number [id number]. Performed By: #### 5 0103 #### [facility] [address] [place] [address], [place] Potassium [Moles/Vol] 4.1 mmol/L Normal 3.5-5.1 [facility] Comment on above: Order Comment: This order is a replacement of the rejected order with accession number [id number]. Performed By: #### 5 7307, 52112 #### [facility] [address] [place] [address], [place] Sodium [Moles/Vol] 138 mmol/L Normal 136-145 [facility] Comment on above: Order Comment: No: D o not add to previous draw Performed By: #### 3 5199, 80218 #### [facility] [address] [place] [address], [place] Sodium [Moles/Vol] 141 mmol/L Normal 136-145 [facility] Comment on above: Performed By: #### 5 0103 #### [facility] [address] [place] [address], [place] Sodium [Moles/Vol] 140 mmol/L Normal 136-145 [facility] Comment on above: Order Comment: This order is a replacement of the rejected order with accession number [id number]. Performed By: #### 5 0103 #### [facility] [address] [place] [address], [place] Sodium [Moles/Vol] 138 mmol/L Normal 136-145 [facility] Comment on above: Order Comment: This order is a replacement of the rejected order with accession number [id number]. Performed By: #### 5 73, 13829 #### [facility] [address] [place] [address], [place] Urea nitrogen [Mass/Vol] 25 mg/dL Normal 7-25 [facility] Comment on above: Order Comment: No: D o not add to previous draw Performed By: #### 3 5199, 72120 #### [facility] [address] [place] [address], [place] Urea nitrogen [Mass/Vol] 24 mg/dL Normal 7-25 [facility] Comment on above: Performed By: #### 5 3 #### [facility] [address] [place] [address], [facility] Urea nitrogen [Mass/Vol] 21 mg/dL Normal 7-25 [facility] Comment on above: Order Comment: This order is a replacement of the rejected order with accession number [id number]. Performed By: #### 5 3 #### [facility] [address] [place] [address], [facility] Urea nitrogen [Mass/Vol] 19 mg/dL Normal 7-25 [facility] Comment on above: Order Comment: This order is a replacement of the rejected order with accession number [id number]. Performed By: #### 5 7307, 82254 #### [facility] [facility] [address] [place] [id number], [facility] CBC COMPLETE BLOOD COUNT05-01-2020 Erythrocyte distribution width (RBC) [Ratio] 14.4 % Normal 11.5-15.0 [facility] Comment on above: Order Comment: This order is a replacement of the rejected order with accession number [id number]. Performed By: #### 5 3 #### [facility] [address] [place] [address], [facility] Erythrocyte distribution width (RBC) [Ratio] 14.4 % Normal 11.5-15.0 [facility] Comment on above: Order Comment: This order is a replacement of the rejected order with accession number [id number]. Performed By: #### 5 7307, 99229 #### [facility] [address] [place] [address], [place] Hematocrit (Bld) [Volume fraction] 29.6 % Low 36.0-45.0 [facility] Comment on above: Order Comment: This order is a replacement of the rejected order with accession number [id number]. Performed By: #### 5 3 #### [facility] [address] [place] [address], [facility] Hematocrit (Bld) [Volume fraction] 30.2 % Low 36.0-45.0 [facility] Comment on above: Order Comment: This order is a replacement of the rejected order with accession number [id number]. Performed By: #### 5 73, 19983 #### [facility] [address] [place] [id number], [facility] Hemoglobin (Bld) [Mass/Vol] 9.4 g/dL Low 12.0-15.0 [facility] Comment on above: Order Comment: This order is a replacement of the rejected order with accession number [id number]. Performed By: #### 5 0103 #### [facility] [address] [place] [address], [facility] Hemoglobin (Bld) [Mass/Vol] 9.4 g/dL Low 12.0-15.0 [facility] Comment on above: Order Comment: This order is a replacement of the rejected order with accession number [id number]. Performed By: #### 5 73, 44811 #### [facility] [address] [place] [id number], [facility] MCH (RBC) [Entitic mass] 30.4 pg Normal 27.0-33.0 [facility] Comment on above: Order Comment: This order is a replacement of the rejected order with accession number [id number]. Performed By: #### 5 0103 #### [facility] [address] [place] [id number], [facility] MCH (RBC) [Entitic mass] 29.9 pg Normal 27.0-33.0 [facility] Comment on above: Order Comment: This order is a replacement of the rejected order with accession number [id number]. Performed By: #### 5 73, 49043 #### [facility] [address] [place] [id number], [facility] MCHC (RBC) [Mass/Vol] 31.8 g/dL Low 32.0-35.0 [facility] Comment on above: Order Comment: This order is a replacement of the rejected order with accession number [id number]. Performed By: #### 5 3 #### [facility] [address] [place] [address], [facility] MCHC (RBC) [Mass/Vol] 31.1 g/dL Low 32.0-35.0 [facility] Comment on above: Order Comment: This order is a replacement of the rejected order with accession number [id number]. Performed By: #### 5 73, 77088 #### [facility] [address] MCV (RBC) [Entitic vol] 95.8 fL Normal 82.0-98.0 [facility] Comment on above: Order Comment: This order is a replacement of the rejected order with accession number [id number]. Performed By: #### 5 3 #### [facility] [address] [place] [address], [facility] MCV (RBC) [Entitic vol] 96.2 fL Normal 82.0-98.0 [facility] Comment on above: Order Comment: This order is a replacement of the rejected order with accession number [id number]. Performed By: #### 5 7306, 43734 #### [facility] [address] Nucleated RBC/100 WBC (Bld) [Ratio] 0 % Normal 0-0 [facility] Comment on above: Order Comment: This order is a replacement of the rejected order with accession number [id number]. Performed By: #### 5 3 #### [facility] [address] [place] [address], [facility] Nucleated RBC/100 WBC (Bld) [Ratio] 0 % Normal 0-0 [facility] Comment on above: Order Comment: This order is a replacement of the rejected order with accession number [id number]. Performed By: #### 5 73, 73352 #### [facility] [address] PLAT [address] 158 10*3/uL Normal 150-400 [facility] Comment on above: Order Comment: This order is a replacement of the rejected order with accession number [id number]. Performed By: #### 5 0103 #### [facility] [address] [facility] [address], [facility] PLAT CNT 165 10*3/uL Normal 150-400 [facility] Comment on above: Order Comment: This order is a replacement of the rejected order with accession number [id number]. Performed By: #### 5 7307, 29929 #### [facility] [address] [place] [address], [facility] RBC (Bld) [#/Vol] 3.09 10*6/uL Low 3.80-5.00 [facility] Comment on above: Order Comment: This order is a replacement of the rejected order with accession number [id number]. Performed By: #### 5 3 #### [facility] [address] [facility] [place] [address], [facility] RBC (Bld) [#/Vol] 3.14 10*6/uL Low 3.80-5.00 [facility] Comment on above: Order Comment: This order is a replacement of the rejected order with accession number [id number]. Performed By: #### 5 7307, 09940 #### [facility] [address] [facility] [place] [address], [facility] WBC (Bld) [#/Vol] 9.93 10*3/uL Normal 4.00-10.60 [facility] Comment on above: Order Comment: This order is a replacement of the rejected order with accession number [id number]. Performed By: #### 5 0103 #### [facility] [address] [facility] [place] [address], [facility] WBC (Bld) [#/Vol] 10.57 10*3/uL Normal 4.00-10.60 [facility] Comment on above: Order Comment: This order is a replacement of the rejected order with accession number [id number]. Performed By: #### 5 7307, 41041 #### [facility] [address] [place] [address], [facility] CBC W/DIFFon 05-01-2020 ABS BASOPHILS 0.0 10*3/uL Normal 0.0-0.2 [facility] Comment on above: Order Comment: This order is a replacement of the rejected order with accession number [id number]. Performed By: #### 5 0103 #### [facility] [address] ABS BASOPHILS 0.0 10*3/uL Normal 0.0-0.2 [facility] Comment on above: Performed By: #### 5 0103 #### [facility] [address] ABS IMM GRANS 0.0 10*3/uL Normal 0.0-0.2 [facility] Comment on above: Order Comment: This order is a replacement of the rejected order with accession number [id number]. Performed By: #### 5 0103 #### [facility] [address] ABS IMM GRANS 0.0 10*3/uL Normal 0.0-0.2 [facility] Comment on above: Performed By: #### 5 0103 #### [facility] [address] ABS NEUTROPHILS 6.6 10*3/uL Normal 1.6-7.6 [facility] Comment on above: Order Comment: This order is a replacement of the rejected order with accession number [id number]. Performed By: #### 5 0103 #### [facility] [address] [place] [address], [facility] ABS NEUTROPHILS 5.3 10*3/uL Normal 1.6-7.6 [facility] Comment on above: Performed By: #### 5 0103 #### [facility] [address] [place] [address], [facility] Basophils/100 WBC (Bld) 0.3 % Normal 0.0-1.0 [facility] Comment on above: Order Comment: This order is a replacement of the rejected order with accession number [id number]. Performed By: #### 5 0103 #### [facility] [address] [place] [address], [facility] Basophils/100 WBC (Bld) 0.5 % Normal 0.0-1.0 [facility] Comment on above: Performed By: #### 5 0103 #### [facility] [address] [facility] [place] [address], [facility] Eosinophils (Bld) [#/Vol] 0.0 10*3/uL Normal 0.0-0.5 [facility] Comment on above: Order Comment: This order is a replacement of the rejected order with accession number [id number]. Performed By: #### 5 0103 #### [facility] [address] [facility] [place] [address], [facility] Eosinophils (Bld) [#/Vol] 0.1 10*3/uL Normal 0.0-0.5 [facility] Comment on above: Performed By: #### 5 0103 #### [facility] [address] [facility] [place] [address], [facility] Eosinophils/100 WBC (Bld) 0.2 % Normal 0.0-6.0 [facility] Comment on above: Order Comment: This order is a replacement of the rejected order with accession number [id number]. Performed By: #### 5 0103 #### [facility] [address] [place] [address], [facility] Eosinophils/100 WBC (Bld) 0.6 % Normal 0.0-6.0 [facility] Comment on above: Performed By: #### 5 0103 #### [facility] [address] [place] [address], [facility] Erythrocyte distribution width (RBC) [Ratio] 14.3 % Normal 11.5-15.0 [facility] Comment on above: Order Comment: This order is a replacement of the rejected order with accession number [id number]. Performed By: #### 5 0103 #### [facility] [address] [place] [address], [place] Erythrocyte distribution width (RBC) [Ratio] 14.4 % Normal 11.5-15.0 [facility] Comment on above: Performed By: #### 5 0103 #### [facility] [address] [place] [address], [facility] Hematocrit (Bld) [Volume fraction] 29.8 % Low 36.0-45.0 [facility] Comment on above: Order Comment: This order is a replacement of the rejected order with accession number [id number]. Performed By: #### 5 0103 #### [facility] [address] [place] [address], [place] Hematocrit (Bld) [Volume fraction] 26.2 % Low 36.0-45.0 [facility] Comment on above: Performed By: #### 5 0103 #### [facility] [address] [place] [address], [place] Hemoglobin (Bld) [Mass/Vol] 9.4 g/dL Low 12.0-15.0 [facility] Comment on above: Order Comment: This order is a replacement of the rejected order with accession number [id number]. Performed By: #### 5 0103 #### [facility] [address] [place] [address], [place] Hemoglobin (Bld) [Mass/Vol] 8.5 g/dL Low 12.0-17.0 [facility] Comment on above: Performed By: #### 5 3 #### [facility] [address] Performed By: #### 3 0738 #### [facility] [address] [place] [address], [facility] IMMATURE GRANS 0.3 % Normal 0.0-1.0 [facility] Comment on above: Order Comment: This order is a replacement of the rejected order with accession number [id number]. Performed By: #### 5 0103 #### [facility] [address] [place] [address], [facility] IMMATURE GRANS 0.2 % Normal 0.0-1.0 [facility] Comment on above: Performed By: #### 5 3 #### [facility] [address] [place] [address], [facility] Lymphocytes (Bld) [#/Vol] 1.4 10*3/uL Normal 1.2-4.0 [facility] Comment on above: Order Comment: This order is a replacement of the rejected order with accession number [id number]. Performed By: #### 5 3 #### [facility] [address] [place] [address], [facility] Lymphocytes (Bld) [#/Vol] 1.9 10*3/uL Normal 1.2-4.0 [facility] Comment on above: Performed By: #### 5 3 #### [facility] [address] [place] [address], [facility] Lymphocytes/100 WBC (Bld) 16.1 % Low 20.0-45.0 [facility] Comment on above: Order Comment: This order is a replacement of the rejected order with accession number [id number]. Performed By: #### 5 3 #### [facility] [address] [facility] [address], [facility] Lymphocytes/100 WBC (Bld) 23.5 % Normal 20.0-45.0 [facility] Comment on above: Performed By: #### 5 0103 #### [facility] [address] [place] [id number], [facility] MCH (RBC) [Entitic mass] 30.3 pg Normal 27.0-33.0 [facility] Comment on above: Order Comment: This order is a replacement of the rejected order with accession number [id number]. Performed By: #### 5 0103 #### [facility] [address] [place] [id number], [facility] MCH (RBC) [Entitic mass] 30.7 pg Normal 27.0-33.0 [facility] Comment on above: Performed By: #### 5 0103 #### [facility] [address] [facility] [place] [address], [facility] MCHC (RBC) [Mass/Vol] 31.5 g/dL Low 32.0-35.0 [facility] Comment on above: Order Comment: This order is a replacement of the rejected order with accession number [id number]. Performed By: #### 5 0103 #### [facility] [address] [place] [id number], [facility] MCHC (RBC) [Mass/Vol] 32.4 g/dL Normal 32.0-35.0 [facility] Comment on above: Performed By: #### 5 0103 #### [facility] [address] [place] [address], [facility] MCV (RBC) [Entitic vol] 96.1 fL Normal 82.0-98.0 [facility] Comment on above: Order Comment: This order is a replacement of the rejected order with accession number [id number]. Performed By: #### 5 0103 #### [facility] [address] [place] [id number], [facility] MCV (RBC) [Entitic vol] 94.6 fL Normal 82.0-98.0 [facility] Comment on above: Performed By: #### 5 0103 #### [facility] [address] [facility] [place] [address], [facility] Monocytes (Bld) [#/Vol] 0.8 10*3/uL Normal 0.1-1.0 [facility] Comment on above: Order Comment: This order is a replacement of the rejected order with accession number [id number]. Performed By: #### 5 0103 #### [facility] [address] [place] [id number], [facility] Monocytes (Bld) [#/Vol] 0.9 10*3/uL Normal 0.1-1.0 [facility] Comment on above: Performed By: #### 5 0103 #### [facility] [address] [place] [address], [facility] MONOS 9.1 % Normal 5.0-12.0 [facility] Comment on above: Order Comment: This order is a replacement of the rejected order with accession number [id number]. Performed By: #### 5 0103 #### [facility] [address] [place] [address], [facility] MONOS 10.6 % Normal 5.0-12.0 [facility] Comment on above: Performed By: #### 5 0103 #### [facility] [address] [place] [address], [facility] Neutrophils/100 WBC (Bld) 74.0 % High 40.0-72.0 [facility] Comment on above: Order Comment: This order is a replacement of the rejected order with accession number [id number]. Performed By: #### 5 0103 #### [facility] [address] [place] [id number], [facility] Neutrophils/100 WBC (Bld) 64.6 % Normal 40.0-72.0 [facility] Comment on above: Performed By: #### 5 0103 #### [facility] [address] [place] [id number], [facility] Nucleated RBC/100 WBC (Bld) [Ratio] 0 % Normal 0-0 [facility] Comment on above: Order Comment: This order is a replacement of the rejected order with accession number [id number]. Performed By: #### 5 0103 #### [facility] [address] Nucleated RBC/100 WBC (Bld) [Ratio] 0 % Normal 0-0 [facility] Comment on above: Performed By: #### 5 0103 #### [facility] [address] PLAT CNT 168 10*3/uL Normal 150-400 [facility] Comment on above: Order Comment: This order is a replacement of the rejected order with accession number [id number]. Performed By: #### 5 0103 #### [facility] [address] PLAT CNT 164 10*3/uL Normal 150-400 [facility] Comment on above: Performed By: #### 5 0103 #### [facility] [address] [place] [address], [facility] RBC (Bld) [#/Vol] 3.10 10*6/uL Low 3.80-5.00 [facility] Comment on above: Order Comment: This order is a replacement of the rejected order with accession number [id number]. Performed By: #### 5 0103 #### [facility] [address] [place] [address], [facility] RBC (Bld) [#/Vol] 2.77 10*6/uL Low 3.80-5.00 [facility] Comment on above: Performed By: #### 5 0103 #### [facility] [address] [place] [address], [facility] WBC (Bld) [#/Vol] 8.94 10*3/uL Normal 4.00-10.60 [facility] Comment on above: Order Comment: This order is a replacement of the rejected order with accession number [id number]. Performed By: #### 5 0103 #### [address] WBC (Bld) [#/Vol] 8.24 10*3/uL Normal 4.00-10.60 [facility] Comment on above: Performed By: #### 5 0103 #### [address] CTA ABDOMEN AND PELVISon CTA ABDOMEN AND PELVIS [facility] Department of Radiology [address] [place] [address] [phone] Patient Name: MEGAN HERRON : 1940 Sex: F Age: Race: White Pt. 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 No [...] Approved by:Vincent Enrique05/01/2020 5:01 AM. I, Cuco Major,have reviewed the images and reports Electronically signed: Cuco Major. Transcribed by: [email or web address], User Resident: VINCENT ANN Electronically Signed by: CUCO MAJOR @ 05/01/2020 05:08 AM I personally read this/these film(s) with this resident Normal [facility] Comment on above: Order Comment: r/o A AA FIBRINOGENon 05-01-2020 FIBRINOGEN 213 mg/dL Normal 150-425 [facility] Comment on above: Performed By: #### 5 0103 #### [facility] [address] [place] [address], [facility] PERFUSION BLOOD PANELon 04-07 BASE EXCESS -1.0 mmol/L Normal -2.0-3.0 [facility] Comment on above: Performed By: #### 3 0738 #### [facility] [address] [place] [address], [facility] Glucose [Mass/Vol] 93 mg/dL Normal 70-105 [facility] Comment on above: Performed By: #### 3 0738 #### [facility] [address] [place] [address], [facility] Hematocrit (Bld) [Volume fraction] 25 % Low 38-51 [facility] Comment on above: Performed By: #### 3 0738 #### [facility] [address] [place] [address], [facility] IONIZED CALCIUM 1.19 mmol/L Normal 1.12-1.32 [facility] Comment on above: Performed By: #### 3 0738 #### [facility] [address] [place] [address], [place] Oxygen (Bld) [Partial pressure] 185.0 mm[Hg] High 80.0-105.0 [facility] Comment on above: Performed By: #### 3 0738 #### [facility] [address] [place] [address], [facility] PCO2 34.0 mmHg Low 35.0-45.0 [facility] Comment on above: Performed By: #### 3 0738 #### [facility] [address] [place] [address], [facility] pH (Bld) 7.44 [pH] Normal 7.35-7.45 [facility] Comment on above: Performed By: #### 3 0738 #### [facility] [address] [place] [address], [facility] Potassium [Moles/Vol] 3.5 mmol/L Normal 3.5-4.9 [facility] Comment on above: Performed By: #### 3 0738 #### [facility] [address] [place] [address], [facility] Sodium [Moles/Vol] 140 mmol/L Normal 138-146 [facility] Comment on above: Performed By: #### 3 0738 #### [facility] [address] PROTHROMBIN TIMEon 0 INR Coag (PPP) [Relative time] 1.21 {INR} High 0.91-1.16 [facility] Comment on above: Order Comment: This order is a replacement of the rejected order with accession number [id number]. Result Comment: ACCC P RECOMMENDED INR FOR [...] CHEST 1995;108:231S-246S. Performed By: #### 5 7307, 99366 #### [facility] [address] [place] [address], [facility] INR Coag (PPP) [Relative time] 1.29 {INR} High 0.91-1.16 [facility] Comment on above: Result Comment: ACCC P [...] 1995;108:231S-246S. Performed By: #### 5 0103 #### [facility] [address] [place] [id number], [facility] PT Coag (PPP) [Time] 15.4 s High 12.3-14.8 [facility] Comment on above: Order Comment: This order is a replacement of the rejected order with accession number [id number]. Result Comment: ALL RESULTS MUST BE INTERPRETED WITH RESPECT TO BLOOD DRAWING ARTIFACT OR DILUTION ERROR OF ANTICOAGULANT AT THE TIME OF SAMPLING. Performed By: #### 5 7307, 04317 #### [facility] [address] [place] [address], [place] PT Coag (PPP) [Time] 16.2 s High 12.3-14.8 [facility] Comment on above: Result Comment: ALL RESULTS MUST BE INTERPRETED WITH RESPECT TO BLOOD DRAWING ARTIFACT OR DILUTION ERROR OF ANTICOAGULANT AT THE TIME OF SAMPLING. Performed By: #### 5 0103 #### [facility] [address] [place] [address], [place] RBC'S 2 UNITSon 05-01-2020 CROSSMATCH INTERP 1 COMP Normal [facility] Comment on above: Performed By: #### 8 6002 #### [facility] [address] [place] [address], [place] CROSSMATCH INTERP 1 COMP Normal [facility] Comment on above: Performed By: #### 5 0103 #### [facility] [address] [place] [address], [place] CROSSMATCH INTERP 2 COMP Normal [facility] Comment on above: Performed By: #### 8 6002 #### [facility] [address] [place] [address], [place] CROSSMATCH INTERP 2 COMP Normal [facility] Comment on above: Performed By: #### 5 0103 #### [facility] [address] [place] [address], [place] PRODUCT CODE 1 E0336 Normal [facility] Comment on above: Performed By: #### 8 6002 #### [facility] [address] [place] [address], [place] PRODUCT CODE 1 E0179 Normal [facility] Comment on above: Performed By: #### 5 102 #### [facility] [address] [place] [address], [place] PRODUCT CODE 2 E0179 Normal [facility] Comment on above: Performed By: #### 8 6002 #### [facility] [address] [place] [address], [place] PRODUCT CODE 2 E0336 Normal [facility] Comment on above: Performed By: #### 5 [id number] #### [facility] [address] [place] [address], [place] PRODUCT STATUS 1 RE Normal [facility] Comment on above: Result Comment: Resu lt changed by IF on 05/01/2020 09:03. The previous value was XM. Performed By: #### [id number] #### [facility] [address] [place] [address], [place] PRODUCT STATUS 1 RE Normal [facility] Comment on above: Result Comment: Resu lt changed by IF on 05/05/2020 08:34. The previous value was XM. Performed By: #### 5 0103 #### [facility] [address] [place] [address], [place] PRODUCT STATUS 2 RE Normal [facility] Comment on above: Result Comment: Resu lt changed by IF on 05/01/2020 09:03. The previous value was XM. Performed By: #### 8 [id number] #### [facility] [address] [place] [address], [place] PRODUCT STATUS 2 RE Normal [facility] Comment on above: Result Comment: Resu lt changed by IF on 05/02/2020 10:38. The previous value was XM. Result changed by IF on 05/02/2020 11:02. The previous value was XX. Performed By: #### 5 0103 #### [facility] [address] [place] [address], [place] UNIT ABO 1 O Normal [facility] Comment on above: Performed By: #### 8 [id number] #### [facility] [address] [place] [address], [place] UNIT ABO 1 O Normal [facility] Comment on above: Performed By: #### 5 0103 #### [facility] [address] [place] [address], [place] UNIT ABO 2 O Normal [facility] Comment on above: Performed By: #### 8 [id number] #### [facility] [address] [place] [address], [place] UNIT ABO 2 O Normal [facility] Comment on above: Performed By: #### 5 0103 #### [facility] [address] [place] [address], [place] UNIT ID 1 [id number] Normal [facility] Comment on above: Performed By: #### 8 [id number] #### [facility] [address] [place] [address], [place] UNIT ID 1 [id number] Normal [facility] Comment on above: Performed By: #### 5 0103 #### [facility] [address] [place] [address], [place] UNIT ID 2 [id number] Normal [facility] Comment on above: Performed By: #### 8 [id number] #### [facility] [address] [place] [address], [place] UNIT ID 2 [id number] Normal [facility] Comment on above: Performed By: #### 5 0103 #### [facility] [address] [place] [address], [place] UNIT RH 1 Negative Normal [facility] Comment on above: Performed By: #### 8 [id number] #### [facility] [address] [place] [address], [place] UNIT RH 1 Negative Normal [facility] Comment on above: Performed By: #### 5 0103 #### [facility] [address] [place] [address], [place] UNIT RH 2 Negative Normal [facility] Comment on above: Performed By: #### 8 [id number] #### [facility] [address] [place] [address], [facility] UNIT RH 2 Negative Normal [facility] Comment on above: Performed By: #### 5 0103 #### [facility] [address] [place] [address], [facility] TROPONIN-Ion 05-01-2020 Troponin I.cardiac [Mass/Vol] 0.04 ng/mL Normal 0.00-0.04 [facility] Comment on above: Order Comment: No: D o not add to previous draw Result Comment: REFE RENCE RANGES: 0.00 - 0.04 ng/ml NORMAL 0.05 - 0.50 ng/ml INDETERMINATE > 0.50 ng/ml CONSISTENT WITH AN M.I. Performed By: #### 3 [id number], [id number] #### [facility] [address] TYPE AND CROSSMATCHon 2019 ABO INTERPRETATION O Normal [facility] Comment on above: Performed By: #### 5 0103 #### [facility] [address] [place] [address], [facility] RH INTERPRETATION Negative Normal [facility] Comment on above: Performed By: #### 5 0103 #### [facility] [address] [place] [address], [facility] TYPE AND SCREENon 05-01-2020 ABO INTERPRETATION O Normal [facility] Comment on above: Performed By: #### 6 2586 #### [facility] [address] [place] [address], [facility] RH INTERPRETATION Negative Normal [facility] Comment on above: Performed By: #### 6 2586 #### [facility] [address] [place] [id number], [facility] URINALYSIS REFLEXon 05-01-20 20 Appearance (U) CLEAR Normal CLEAR [facility] Comment on above: Order Comment: This order is a replacement of the rejected order with accession number [id number]. Performed By: #### 5 0103 #### [facility] [address] [place] [address], [facility] Bilirubin [Mass/Vol] Negative Normal NEGATIVE [facility] Comment on above: Order Comment: This order is a replacement of the rejected order with accession number [id number]. Performed By: #### 5 0103 #### [facility] [address] [place] [address], [facility] BLOOD SMALL Abnormal NEGATIVE [facility] Comment on above: Order Comment: This order is a replacement of the rejected order with accession number [id number]. Performed By: #### 5 0103 #### [facility] [address] [place] [address], [facility] Color (U) YELLOW Normal YELLOW [facility] Comment on above: Order Comment: This order is a replacement of the rejected order with accession number [id number]. Performed By: #### 5 0103 #### [facility] [address] [place] [address], [facility] EPIS FEW Normal FEW,OCC,NONE SEEN [facility] Comment on above: Order Comment: This order is a replacement of the rejected order with accession number [id number]. Performed By: #### 5 0103 #### [facility] [address] [place] [address], [place] Glucose [Mass/Vol] Negative Normal NEGATIVE [facility] Comment on above: Order Comment: This order is a replacement of the rejected order with accession number [id number]. Performed By: #### 5 0103 #### [facility] [address] [place] [address], [place] KETONE Negative Normal NEGATIVE [facility] Comment on above: Order Comment: This order is a replacement of the rejected order with accession number [id number]. Performed By: #### 5 0103 #### [facility] [address] [place] [address], [facility] LEUK [place] SMALL Abnormal NEGATIVE [facility] Comment on above: Order Comment: This order is a replacement of the rejected order with accession number [id number]. Performed By: #### 5 0103 #### [facility] [address] [place] [address], [facility] MUCUS THREADS FEW Abnormal NONE SEEN [facility] Comment on above: Order Comment: This order is a replacement of the rejected order with accession number [id number]. Performed By: #### 5 0103 #### [facility] [address] [place] [id number], [facility] Nitrite Ql (U) Negative Normal NEGATIVE [facility] Comment on above: Order Comment: This order is a replacement of the rejected order with accession number [id number]. Performed By: #### 3 #### [facility] [address] [facility] [place] [address], [facility] pH (Bld) 5.0 Normal 5.0-8.0 [facility] Comment on above: Order Comment: This order is a replacement of the rejected order with accession number [id number]. Performed By: #### 5 3 #### [facility] [address] [facility] [address], [facility] Protein (U) [Mass/Vol] Negative Normal NEGATIVE [facility] Comment on above: Order Comment: This order is a replacement of the rejected order with accession number [id number]. Performed By: #### 0103 #### [facility] [address] [place] [address], [facility] RBC (U) [#/Vol] 3-5 Abnormal NONE SEEN [facility] Comment on above: Order Comment: This order is a replacement of the rejected order with accession number [id number]. Performed By: #### 3 #### [facility] [address] [place] SPEC GRAV 1.049 High 1.015-1.020 [facility] Comment on above: Order Comment: This order is a replacement of the rejected order with accession number [id number]. Performed By: #### 5 0103 #### [facility] [address] [place] [address], [facility] WBC UA 3-5 Abnormal NONE SEEN [facility] Comment on above: Order Comment: This order is a replacement of the rejected order with accession number [id number]. Performed By: #### 5 0103 #### [facility] [address] Social History Date Type Detail Facility Start: 09-04-2021 Tobacco smoking status NHIS Ex-smoker (finding) [facility] Start: 1940 Sex Assigned At Female F [facility] Sex Assigned At [facility] [employer] Other Sex Assigned At Sex Assigned At Bir th [facility] [employer] Other Evaluation note 10-13-2021 Note Date & Type [...] specified postprocedural states (ICD-10 - Z98.890) [facility] [employer] Other Clinical Note 12-25-2020 Note Date & Type Note Facility 12-25-2020 Note - From: Arthur Bella To: HV - Administrative; Sent: 12/25/2020 10:59:28 EST Show up: 05/24/2021 11:59:00 EDT Subject: follow up Due Date/Time: 06/24/2021 11:59:00 EDT Reminder/Recall 6 month f/u June 2021 w/ [facility] Prior to visit [facility] Evaluation note Note Date & Type Note Facility Evaluation note [employer] Other Evaluation note Note Date & Type Note Facility Evaluation note No assessment information availa [facility] Work Phone: History general Narrative - Reported Note Date & Type Note Facility History general Narrative - Reported [facility] Other History general Narrative - Reported Note Date & Type Note Facility History general Narrative - Reported Type Medical History A-Fib Medical History HTN Medical History Heart Failure Surgical History Left Hip Fracture Hospitalization History See Above [facility] Other Summary Purpose Family History No Family History Records FoundNo Family History Records FoundNo Family History Records FoundNo Family History Records FoundNo Family History Records FoundNo Family History Records Found Advance Directives No Advanced Directives Records Found Advance Directive Response Recorded Date/ Time Advance Directives No September 1:27pm Hospital Course Note MR#: [id number] [facility] Pt. Name: Megan Herron Admitted: 05/01/2020 [...] (more content not included)... Note MR#: [id number] [facility] Pt. Name: Megan Herron Admitted: [...] a lung mass. She was transferred to [facility] for cardiology evaluation. HOSPITAL COURSE: 1. Moderate pericardial effusion, but no signs of tamponade. Effusion has improved with Lasix. Repeated echo showed (more content not included)... Additional Source Comments INFORMATION SOURCE (unrecogn ized section and content) DATE CREATED AUTHOR 05/27/2020 [employer] DATE CREATED AUTHOR AUTHOR'S ORGANIZ ATION 08/21/2020 [facility] DATE CREATED AUTHOR AUTHOR'S ORGANIZ ATION 10/03/2020 [facility] DATE CREATED AUTHOR AUTHOR'S ORGANIZ ATION 09/15/2021 [facility] DATE CREATED AUTHOR AUTHOR'S ORGANIZ ATION 01/29/2023 [facility] DATE CREATED AUTHOR AUTHOR'S ORGANIZ ATION 04/26/2024 [facility] REASON FOR VISIT (unrecogniz ed [...] BE BASED ON THE PRIMARY CLINICAL RECORDS. [facility] [employer] [facility]. provides no warranty or guarantee of the accuracy or completeness of information in this document.
[2024-05-06] MEDS: 0.9 % SODIUM CHLORIDE 1,000 ML 100 ML IV ×3 (01:15→20:58)
[2024-05-06] MEDS: VANCOMYCIN HCL 1,000 MG in 0.9 % SODIUM CHLORIDE 250 ML 250 MG IV (01:17)
[2024-05-06 01:29] LABS: Alanine Aminotransferase 14 U/L (14-59); Albumin Globulin Ratio 0.6; Albumin Level 2.2 g/dL (3.4-5.0); Alkaline Phosphatase 82 U/L (46-116); Aspartate Amino Transferase 26 U/L (15-37); Bilirubin Direct 0.2 mg/dL (0.0-0.2); Bilirubin Total 0.7 mg/dL (0.2-1.0); Globulin 3.9 g/dL; Total Protein 6.1 g/dL (6.4-8.2)
[2024-05-06 01:33] LABS: Troponin I High Sensitivity 24.9 pg/mL (4.0-51.3)
[2024-05-06 01:36] LABS: PROCALCITONIN <0.05 ng/mL (0.00-0.50)
[2024-05-06 04:15] LABS: Glucometer 92 mg/dL (74-106)
[2024-05-06 04:47] LABS: Basophils Percent Auto 0.2 % (0.2-2.0); Eosinophils Percent Auto 0.2 % (0.9-7.0); Hematocrit 30.6 % (36.0-48.0); Hemoglobin 9.7 g/dL (12.0-16.0); Immature Granulocytes Abs Auto 0.13 10^3/uL (0.00-0.03); Immature Granulocytes Pct Auto 0.7 % (0.0-0.5); Lymphocytes Absolute Auto 1.7 10^3/uL (1.2-3.8); Lymphocytes Percent Auto 9.6 % (20.5-60.0); Mean Corpuscular HGB Conc 31.7 g/dL (29.9-35.2); Mean Corpuscular Hemoglobin 29.7 pg (26.7-34.0); Mean Corpuscular Volume 93.6 fL (81.0-99.0); Mean Platelet Volume 10.3 fL (9.5-13.5); Monocytes Absolute Auto 1.3 10^3/uL (0.3-0.8); Monocytes Percent Auto 7.4 % (1.7-12.0); Neutrophils Absolute Auto 14.7 10^3/uL (1.4-6.5); Neutrophils Percent Auto 81.9 % (43.0-75.0); Platelet Count 260 10^3/uL (150-450); Red Blood Count 3.27 10^6/uL (4.20-5.40); Red Cell Distribution Width 14.1 % (11.0-15.0); White Blood Count 17.9 10^3/uL (4.0-11.0)
[2024-05-06 05:09] LABS: Alanine Aminotransferase 13 U/L (14-59); Albumin Globulin Ratio 0.6; Alkaline Phosphatase 74 U/L (46-116); Anion Gap 9.5; Aspartate Amino Transferase 25 U/L (15-37); BUN Creatinine Ratio 20.8; Bilirubin Total 0.6 mg/dL (0.2-1.0); Calcium 7.8 mg/dL (8.5-10.1); Carbon Dioxide 26.5 mmol/L (21.0-32.0); Chloride 102 mmol/L (98-107); Estimated GFR (African America >60 (>=60); Estimated GFR (Non-African Ame >60 (>=60); Globulin 3.6 g/dL; Glucose 88 mg/dL (74-106); Sodium 134 mmol/L (136-145); Total Protein 5.6 g/dL (6.4-8.2)
--- NOTE | 2024-05-06 07:43 | P.HP_ITS ---
HPI H&P: HPI History of Present Illness Chief complaint: Fall, Weakness GENERALIZED WEAKNESS UTI Narrative: Patient presented to the emergency room with increasing weakness and unable to eat secondary to nausea secondary to medications for her previously diagnosed UTI. When I saw patient up on the medical surgical floor, she was sleeping in bed, awakened easily, does have some mild labored breathing, no other specific complaints Opioid HPI Opioid Management Most Recent Pain and Opioid Data: Last Pain Scale 0 04/17/24 13:11 Last Pain Assessment 05/06/24 07:38 Last ORT Total Score 0 05/06/24 01:42 Last ORT Risk Category Low Risk 05/06/24 01:42 Review of Systems ROS Status of ROS 10 or more systems reviewed and unremark able except as noted in history and below [facility] Medical History (Updated 05/05/24 @ 18:43 by John Nair MD) Mass of upper lobe of left lung ?R91.8 - Other nonspecific abnormal finding of lung field (ICD-10) Acute hypoxemic respiratory failure ?J96.01 - Acute respiratory failure with hypoxia (ICD-10) Pleural effusion ?J90 - Pleural effusion, not elsewhere classified (ICD-10) Hypoxia ?R09.02 - Hypoxemia (ICD-10) Prolapsed bladder Weakness ?R53.1 - Weakness (ICD-10) Lung mass ?R91.8 - Other nonspecific abnormal finding of lung field (ICD-10) Thoracic aortic aneurysm without rupture ?I71.20 - Thoracic aortic aneurysm, without rupture, unspecified (ICD-10) CHF (congestive heart failure) ?I50.9 - Heart failure, unspecified (ICD-10) Afib ?I48.91 - Unspecified atrial fibrillation (ICD-10) Surgical History (Updated 05/06/24 @ 01:51 by Gi Morales RN) Hx of aortic aneurysm repair ?Z98.890 - Other specified postprocedural states (ICD-10) ?Z86.79 - Personal history of other diseases of the circulatory system (ICD- 10) History of hip surgery ?Z98.890 - Other specified postprocedural states (ICD-10) Family History Sister Family history of cancer Mother Family history of CHF (congestive heart failure) Aunt Family history of CHF (congestive heart failure) Social History (Updated 05/06/24 @ 01:52 by Gi Morales RN) Within the past year, how often did you have a drink containing alcohol: monthly or less Smoking status: Former smoker Non-prescribed substance use: denies use Highest level of school completed/degree received: high school graduate Are you now , , , , never or living with a partner: In a typical week, how many times do you talk on the telephone with family, friends, or neighbors: 3 or more times per week How often do you get together with friends or relatives: twice per week Gender Identity: female Meds Home Medications and Allergies Home Medications ?Medication ?Instructions ?Recorded ?Confirmed ?Type amiodarone 200 mg tablet 200 mg PO DAILY 04/15/24 05/05/24 History docusate sodium 100 mg capsule 100 mg PO DAILY 04/15/24 05/05/24 History (Colace) furosemide 40 mg tablet 40 mg PO DAILY 04/15/24 05/05/24 History metoprolol tartrate 25 mg tablet 25 mg PO BID 04/15/24 05/05/24 History potassium chloride 20 mEq 20 meq PO BID 04/15/24 05/05/24 History tablet,extended release(part/cryst) trazodone 50 mg tablet 100 mg PO QPM 04/15/24 05/05/24 History cefdinir 300 mg capsule 600 mg (2 x 300 mg) PO DAILY #20 04/18/24 05/05/24 Rx caps fluconazole 100 mg tablet 100 mg PO DAILY #7 tabs 04/18/24 05/05/24 Rx (Diflucan) nitrofurantoin 100 mg PO Q12H 05/05/24 05/05/24 History monohydrate/macrocrystals 100 mg capsule Allergies Allergy/AdvReac Type Severity Reaction Status Date / Time No Known Drug Allergies Allergy Verified 05/05/24 18:34 Exam Constitutional Vital Signs, click to edit/add: Last Vital Signs Temp 98.3 F 05/06/24 04:20 Pulse 70 05/06/24 04:20 Resp 18 05/06/24 04:20 BP 127/81 05/06/24 04:20 Pulse Ox 91 L 05/06/24 04:20 O2 Del Method Nasal Cannula 05/06/24 04:20 O2 Flow Rate 2 05/06/24 04:20 Documenting provider has reviewed patient's vital signs: yes Common normals: apparent distress (Mild conversational dyspnea) Exam limitations: no altered mental status Chest Common normals: inspection of chest normal Respiratory Common normals: abnormal respiratory effort (Mild conversational dyspnea) Effort & inspection: tachypneic Auscultation: breath sounds absent on th left and egophony left upper and left lower Cardio Common normals: regular rate and regular rhythm GI Common normals: Normal to inspection, nondistended, normoactive bowel sounds present Extremity Common normals: normal to inspection and full ROM Results Labs Labs: Short CBC 05/05/24 05/06/24 Range/Units 18:57 04:15 WBC 17.2 H 17.9 H (4.0-11.0) 10^3/uL Hgb 10.4 L 9.7 L (12.0-16.0) g/dL Hct 32.5 L 30.6 L (36.0-48.0) % Plt Count 288 260 (150-450) 10^3/uL BMP 05/05/24 05/06/24 18:57 04:15 Sodium 134 L 134 L Potassium 4.5 4.0 Chloride 99 102 Carbon Dioxide 28.0 26.5 BUN 18.0 16.0 Creatinine 1.02 0.77 Glucose 103 88 Calcium 8.3 L 7.8 L Liver Function 05/05/24 05/06/24 Range/Units 00:32 04:15 Total Bilirubin 0.7 0.6 (0.2-1.0) mg/dL Direct Bilirubin 0.2 (0.0-0.2) mg/dL AST 26 25 (15-37) U/L ALT 14 13 L (14-59) U/L Alkaline Phosphatase 82 74 (46-116) U/L Albumin 2.2 L 2.0 L (3.4-5.0) g/dL Assessment and Plan Assessment and Plan (1) Mass of upper lobe of left lung: (2) Pleural effusion: (3) Hypoxia: (4) Prolapsed bladder: Plan Respiratory distress, acute hypoxia, leukocytosis secondary to left-sided pneumonia with pleural effusion. Pleural effusion drained last time, showing 6 cm mass. Mass slowly growing over the last 5 years. Pathology reports unable to be found on computer. Discussed with family, they are going to discuss with her about having her transferred for repeat thoracentesis and pleurodesis. With leukocytosis and respiratory distress and cough suspect underlying pneumonia as well. Will adjust antibiotics to cover that. Based on previous urine culture linezolid and levofloxacin serum would cover the UTI and should cover any lung issue Acute UTI-repeat urine culture here. Continue with antibiotics per sensitivities based on previous 1 Left-sided pleural effusion-plan see above. Uterine prolapse-family not interested at this point anything aggressive, discussed with her the option of may be having gynecology see her about pessary placement. They are going to discuss with her Iron deficiency anemia-monitor daily Atrial fibrillation-maintain patient on amiodarone for rate control Admission status: Patient initially placed in observation, no improvement overnight, treatment was initiated prior to midnight. Medically necessary treatment will span 2 midnights. She is likely here 3 to 4 midnights. Change patient to inpatient status.
[2024-05-06] MEDS: DOCUSATE SODIUM 100 MG CAPSULE PO (08:57)
[2024-05-06] MEDS: METOPROLOL TARTRATE 25 MG TABLET PO (08:57)
[2024-05-06] MEDS: FLUCONAZOLE 100 MG TABLET PO (08:58)
[2024-05-06] MEDS: AMIODARONE HCL 200 MG TABLET PO (08:58)
[2024-05-06] MEDS: ENOXAPARIN SODIUM 40 MG/0.4 ML SYRINGE SUBQ (08:58)
[2024-05-06] MEDS: ACETAMINOPHEN 500 MG TABLET 1000 MG PO ×2 (08:59→17:00)
[2024-05-06] MEDS: PROSTAT 15 GM PROTEIN/100 CAL 30 ML LIQUID PACKET 31 ML PO (08:59)
[2024-05-06] MEDS: LEVOFLOXACIN IN DEXTROSE 5 % 750 MG/150 ML IV.SOLN 100 MG IV (09:00)
[2024-05-06] MEDS: LINEZOLID IN DEXTROSE 5% 600 MG/300 ML PIGGYBACK 300 MG IV ×2 (10:44→21:01)
--- NOTE | 2024-05-06 10:49 | SWNOTE1 ---
ROXANNA met with pt and her 2 daughters in room. Pt wears home oxygen at home thru [employer], 2 liters. Unsure if pt still has [facility] coming in, but SW to ask later today. Pt voiced at this time she would like to speak to hospice. Daughter, Chyna, stated pt's went to the inpt unit in [place] and they would like to use that hospice company. ROXANNA informed them that is [facility]. ROXANNA let pt and daughters know pt has to qualify to go to inpt unit in [place], they voiced understanding. Pt uses a walker at home. Pt lives at home with her daughter, Chyna. At this time they do not have any other questions. ROXANNA informed pt and daughters that [facility]at will contact someone in family to coordinate time, they would like Rafat to contact Chyna. Referral sent to [facility]. Referral included face sheet, ED note, H&P, provider notes, case management report, nursing notes, diagnostic imaging, med list, PT/OT, and hospice order.
--- NOTE | 2024-05-06 11:10 | SWNOTE1 ---
Medicare Outpatient Observation Notice reviewed and discussed with patient. Pt. verbalized understanding and signed the form. Original given to patient and copy placed in patient?s chart.
--- NOTE | 2024-05-06 13:28 | SWNOTE1 ---
SW called [facility] and they are meeting with family today at 5:30pm in pt's room. SW updated nurse and doctor.
[2024-05-06] MEDS: ONDANSETRON PF 4 MG/2 ML VIAL IV (15:52)
[2024-05-06] MEDS: LORAZEPAM 0.5 MG TABLET PO (17:01)
[2024-05-06] MEDS: TRAZODONE HCL 50 MG TABLET 100 MG PO (22:00)
[2024-05-06 22:04] LABS: Bilirubin Urine NEGATIVE (NEGATIVE); Blood Urine NEGATIVE (NEGATIVE); Clarity Urine CLEAR (CLEAR); Color Urine DK. YELLOW (YELLOW); Glucose Urine UA NEGATIVE (NEGATIVE); Ketones Urine TRACE mg/dL (NEGATIVE); Leukocyte Esterase Urine NEGATIVE (NEGATIVE); Nitrite Urine NEGATIVE (NEGATIVE); Protein Urine TRACE mg/dL (NEG/TRACE); Specific Gravity Urine 1.025 (1.005-1.025); Urobilinogen Urine 0.2 EU/dL (0.2-1.0); pH Urine 5.5 (5.0-9.0)
[2024-05-06 22:11] LABS: Amorphous Sediment Urine FEW; Bacteria Urine NONE SEEN #/HPF (NONE SEEN); Cast Seen? NONE SEEN #/LPF (NONE SEEN); Crystals Seen? None Seen #/HPF (None Seen); Mucus Urine MODERATE (NONE SEEN); RBC Urine NONE SEEN #/HPF (0-2); Squamous Epithelial Cell Urine MODERATE #/LPF (NONE/RARE); Urine Culture Indicated NO
[2024-05-07 04:00] VITALS: BP 106/67; PULSE 70; TEMP 36.8; O2SAT 90
[2024-05-07 04:51] LABS: Basophils Percent Auto 0.2 % (0.2-2.0); Eosinophils Absolute Auto 0.1 10^3/uL (0.0-0.7); Eosinophils Percent Auto 0.4 % (0.9-7.0); Hematocrit 28.2 % (36.0-48.0); Hemoglobin 8.9 g/dL (12.0-16.0); Immature Granulocytes Abs Auto 0.08 10^3/uL (0.00-0.03); Immature Granulocytes Pct Auto 0.5 % (0.0-0.5); Lymphocytes Absolute Auto 1.3 10^3/uL (1.2-3.8); Lymphocytes Percent Auto 7.8 % (20.5-60.0); Mean Corpuscular HGB Conc 31.6 g/dL (29.9-35.2); Mean Corpuscular Hemoglobin 29.6 pg (26.7-34.0); Mean Corpuscular Volume 93.7 fL (81.0-99.0); Mean Platelet Volume 10.1 fL (9.5-13.5); Monocytes Absolute Auto 1.2 10^3/uL (0.3-0.8); Monocytes Percent Auto 6.8 % (1.7-12.0); Neutrophils Absolute Auto 14.4 10^3/uL (1.4-6.5); Neutrophils Percent Auto 84.3 % (43.0-75.0); Platelet Count 254 10^3/uL (150-450); Red Blood Count 3.01 10^6/uL (4.20-5.40); Red Cell Distribution Width 14.2 % (11.0-15.0); White Blood Count 17.1 10^3/uL (4.0-11.0)
[2024-05-07 05:22] LABS: Alanine Aminotransferase 14 U/L (14-59); Albumin Globulin Ratio 0.5; Albumin Level 1.6 g/dL (3.4-5.0); Alkaline Phosphatase 67 U/L (46-116); Anion Gap 12.2; Aspartate Amino Transferase 24 U/L (15-37); BUN Creatinine Ratio 17.1; Bilirubin Total 0.5 mg/dL (0.2-1.0); Calcium 7.2 mg/dL (8.5-10.1); Carbon Dioxide 23.2 mmol/L (21.0-32.0); Chloride 105 mmol/L (98-107); Estimated GFR (African America >60 (>=60); Estimated GFR (Non-African Ame >60 (>=60); Globulin 3.3 g/dL; Glucose 82 mg/dL (74-106); Potassium 3.4 mmol/L (3.5-5.1); Sodium 137 mmol/L (136-145); Total Protein 4.9 g/dL (6.4-8.2)
[2024-05-07] MEDS: ONDANSETRON PF 4 MG/2 ML VIAL IV ×2 (06:27→13:11)
--- NOTE | 2024-05-07 07:32 | P.DS_ITS ---
DS: Providers Provider Date of admission: 05/06/24 01:01 Primary care physician: TRE PETERS Consults: 05/06/24 Consult to Dietitian Routine Reason for consultation: poor appetite 05/06/24 07:10 Occupational Therapy Eval and Treat Routine Reason for consultation: Only if needed for Rehab Has provider been notified: No Physical Therapy Eval and Treat Routine Reason for consultation: Eval and Treat Has provider been notified: No 05/06/24 07:50 Consult to Sinter Machine Operator Routine Reason for consult:: Custodial Other reason:: family ok with finding a place 05/06/24 09:00 Consult to Dietitian Routine Reason for consultation: Poor oral intake Has provider been notified: No Occupational Therapy Eval and Treat Routine Reason for consultation: Weakness Has provider been notified: No Physical Therapy Eval and Treat Routine Reason for consultation: Weakness Has provider been notified: No 05/06/24 10:02 Consult to Hospice Routine Reason for consultation: lung mass Has provider been notified: No DS: Diagnosis Discharge Diagnosis (1) Mass of upper lobe of left lung: (2) Pleural effusion: (3) Hypoxia: (4) Prolapsed bladder: Plan Respiratory distress, acute hypoxia, leukocytosis secondary to left-sided pneumonia with pleural effusion. -Not improving at the time of discharge Acute UTI-repeat urine culture here. Culture pending. Discharge Left-sided pleural effusion-deteriorated at the time of discharge active C-Diff colitis - not improving at time of DC Uterine prolapse-not addressed at the time of discharge Iron deficiency anemia-monitor Atrial fibrillation-maintain patient on amiodarone for rate control Admission status: Patient initially placed in observation, no improvement overnight, treatment was initiated prior to midnight. Medically necessary treatment will span 2 midnights. She is likely here 3 to 4 midnights. Change patient to inpatient status. ? DS: Summary Hospital Course Hospital Course: Patient was admitted with increasing respiratory distress. Found to have significant left-sided pneumonia with left-sided pleural effusion. Significant leukocytosis that did not improve throughout the 3-day hospital stay. Family discussed options of transferring for thoracentesis and pleurodesis. After discussion with what is likely lung cancer and the reaccumulation of the fluid family is considering hospice at this time. Plan is for in-pt hospice due to worsening pain and hypoxia. + C-diff colitis also dx - not treated due to terminal illness [place] than anticipated length of stay secondary to the family's change to hospice status. Time Spent with Patient Time attestation: Total time spent providing and/or coordinating discharge services: Exam Constitutional Vital Signs, click to edit/add: Last Vital Signs Temp 98.2 F 05/07/24 04:00 Pulse 70 05/07/24 04:00 Resp 16 05/07/24 04:00 BP 106/67 05/07/24 04:00 Pulse Ox 90 L 05/07/24 04:00 O2 Del Method Nasal Cannula 05/07/24 04:00 O2 Flow Rate 2 05/07/24 04:00 Documenting provider has reviewed patient's vital signs: yes Common normals: apparent distress (Mild conversational dyspnea) Exam limitations: no altered mental status Chest Common normals: inspection of chest normal Respiratory Common normals: abnormal respiratory effort (Mild conversational dyspnea) Effort & inspection: tachypneic Auscultation: breath sounds absent on th left and egophony left upper and left lower Cardio Common normals: regular rate and regular rhythm GI Common normals: Normal to inspection, nondistended, normoactive bowel sounds present Extremity Common normals: normal to inspection and full ROM DS: Data Data Completed and Pending Labs on day of discharge: Labs from last 24 hours 05/07/24 05/06/24 04:12 21:57 WBC 17.1 H RBC 3.01 L Hgb 8.9 L Hct 28.2 L MCV 93.7 MCH 29.6 MCHC 31.6 RDW 14.2 Plt Count 254 MPV 10.1 Neut % (Auto) 84.3 H Lymph % (Auto) 7.8 L [place] % (Auto) 6.8 Eos % (Auto) 0.4 L Baso % (Auto) 0.2 Neut # (Auto) 14.4 H Lymph # (Auto) 1.3 [place] # (Auto) 1.2 H Eos # (Auto) 0.1 Baso # (Auto) 0.0 Abs Immat Gran (auto) 0.08 H Imm/Tot Granulo (auto) 0.5 Sodium 137 Potassium 3.4 L Chloride 105 Carbon Dioxide 23.2 Anion Gap 12.2 BUN 13.0 Creatinine 0.76 Est GFR ( Amer) >60 Est GFR (Non-Af Amer) >60 BUN/Creatinine Ratio 17.1 Glucose 82 Calcium 7.2 L Total Bilirubin 0.5 AST 24 ALT 14 Alkaline Phosphatase 67 Total Protein 4.9 L Albumin 1.6 L Globulin 3.3 Albumin/Globulin Ratio 0.5 Urine Color Dk. yellow Urine Clarity Clear Urine pH 5.5 Ur Specific [place] 1.025 Urine Protein Trace Urine Glucose (UA) Negative Urine Ketones Trace A Urine Occult Blood Negative Urine Nitrite Negative Urine Bilirubin Negative Urine Urobilinogen 0.2 Ur Leukocyte Esterase Negative Urine RBC None seen Urine WBC 2-5 A Ur Squamous Epith Cells Moderate A Urine Crystals None seen Amorphous Sediment Few Urine Bacteria None seen Urine Casts None seen Urine Mucus Moderate A Ur Culture Indicated? No Discharge Plan Discharge Disposition: Hospice - Medical Facility Discharge Medications: Continued furosemide 40 mg tablet 40 mg PO DAILY trazodone 50 mg tablet 100 mg PO QPM amiodarone 200 mg tablet 200 mg PO DAILY docusate sodium [Colace] 100 mg capsule 100 mg PO DAILY metoprolol tartrate 25 mg tablet 25 mg PO BID potassium chloride 20 mEq tablet,ER particles/crystals 20 meq PO BID cefdinir 300 mg capsule 600 mg PO DAILY Qty: 20 0RF fluconazole [Diflucan] 100 mg tablet 100 mg PO DAILY Qty: 7 0RF nitrofurantoin monohyd/m-cryst 100 mg capsule 100 mg PO Q12H Print Language: Kinyarwanda Forms: Portal Instructions
[2024-05-07 07:54] VITALS: BP 115/69; PULSE 74; TEMP 37.9; O2SAT 88
[2024-05-07 07:58] VITALS: O2SAT 90
--- NOTE | 2024-05-07 08:05 | PM.CSD1 ---
Advance Care Planning Advance Care Planning Discussion Advance care planning discussion summary: Talk with daughter, plan at this point in time was to have her go to rehab facility under the hospice care will change patient to DNR-cc Does patient have a terminal or chronic,progressive disease such that prognosis is less than 6 months: Yes Advance care planning discussion participants: patient and patient surrogate decision maker
[2024-05-07] MEDS: 0.9 % SODIUM CHLORIDE 1,000 ML 100 ML IV (09:13)
[2024-05-07] MEDS: VANCOMYCIN HCL 750 MG in 0.9 % SODIUM CHLORIDE 250 ML 250 MG IV (09:13)
[2024-05-07] MEDS: PIPERACILLIN SODIUM/TAZOBACTAM 3.375 GM in 0.9 % SODIUM CHLORIDE 50 ML IV (09:13)
--- NOTE | 2024-05-07 09:23 | SWNOTE1 ---
[facility] left a note on chart. Pt did not qualify for inpt unit at this time. Family mentioned rehab vs hospice. [facility] to check back today. ROXANNA spoke to pt in room. ROXANNA explained to pt that if she went to nursing facility shelter with hospice, then it would be out of pocket. ROXANNA explained that hospice is covered, but she would have to pay for the room at the nursing facility and that is anywhere from $8,000-10,000 per month. SW also let pt know the alternative is going home with hospice and possibly paying for private caregivers. Pt voiced she did not want either. ROXANNA did explain that with hospice there really is not an alternative. At this time pt did not qualify for inpt unit, SW explained that at some point she may qualify. ROXANNA asked if pt's daughter was coming back in and she stated that daughter was at bank and she will be back. ROXANNA asked permission to call daughter, pt was alright with this. ROXANNA did ask pt what her goal was from here? She stated to . ROXANNA called daughter, Chyna, and she voiced she will be back between 10:30.
[2024-05-07] MEDS: MORPHINE SULFATE 4 MG/ML VIAL IV (11:08)
--- NOTE | 2024-05-07 11:22 | SWNOTE1 ---
ROXANNA spoke to daughter Chyna in waiting area. SW did let her know about skilled versus buttermilk drier operator with hospice, and how the insurance would work and skilled nursing being private pay. Pt's daughter did become emotional during conversation. She voiced pt did spike a fever and asking if that would qualify for inpt. SW did let daugher know that we can have hospice come back out and re-assess and they would let us know if she now qualifies. ROXANNA did let daughter know that pt did voice to SW this morning that her goal is to pass away. Pt does voice understanding and voiced it is hard to let go. ROXANNA provided daughter with a hug and emotional support. At this time pt's daughter does want [facility] to come re-evaluate as the pt did voice she wants to get to the inpt unit where her . ROXANNA will contact [facility]. ROXANNA called [facility] and sent [facility] paperwork and other updates to [facility]. [facility] will be here at noon to re-assess. ROXANNA let family know.
[2024-05-07 12:34] LABS: C. Difficile PCR POSITIVE (NEGATIVE)
--- NOTE | 2024-05-07 12:53 | SWNOTE1 ---
Pt qualified for [facility] inpt unit. [facility] set up [facility] for 9:00pm. Family and nursing are aware of time. SW to fax orders over later today. ROXANNA provided nurse with number for report.
[2024-05-07 19:41] VITALS: BP 110/70; PULSE 76; O2SAT 96
== END 2024-05-07 22:07 | disposition hospice, inpatient (51) ==
LOC: ER 21:40 → MS 05-06 01:02
PROVIDERS: Emergency Medicine; Registered Nurse; Admitting Provider Family Medicine; Emergency Provider Internal Medicine; PCP Nurse Practitioner Family; Visit Provider Family Medicine
DX: J18.9 Pneumonia, unspecified organism (principal); J90 Pleural effusion, not elsewhere classified; R06.03 Acute respiratory distress; R09.02 Hypoxemia; D72.829 Elevated white blood cell count, unspecified; N39.0 Urinary tract infection, site not specified; N81.4 Uterovaginal prolapse, unspecified; D50.9 Iron deficiency anemia, unspecified; I48.91 Unspecified atrial fibrillation; A04.72 Enterocolitis due to Clostridium difficile, not specified as recurrent; R91.8 Other nonspecific abnormal finding of lung field; Z87.891 Personal history of nicotine dependence; Z79.899 Other long term (current) drug therapy; Z66 Do not resuscitate; B96.20 Unspecified Escherichia coli [E. coli] as the cause of diseases classified elsewhere
CPT/HCPCS: 36415; 71045; 80048; 80053; 80076; 81001; 84145; 84484; 85025; 87040; 87070; 87086; 87150; 87186; 87493; 93005; 94667; 94761; 96365; 96366; 96367; 96368; 96372; 96375; 96376; 99285; G0378; J1650; J2020; J2270; J2405; J2543; J3370